=== PATIENT | female | born 2000 | race Caucasian/White ===

== ENCOUNTER 2023-04-24 03:59 | Observation (INO) | payer BC, SELFPAY ==
[2023-04-24 05:18] LABS: Bilirubin Urine NEGATIVE (NEGATIVE); Blood Urine NEGATIVE (NEGATIVE); Clarity Urine CLEAR (CLEAR); Color Urine LT. YELLOW (YELLOW); Glucose Urine UA NEGATIVE (NEGATIVE); Ketones Urine NEGATIVE (NEGATIVE); Leukocyte Esterase Urine SMALL (NEGATIVE); Nitrite Urine NEGATIVE (NEGATIVE); Protein Urine NEGATIVE (NEG/TRACE); Urine Microscopic Indicated YES; Urobilinogen Urine 0.2 EU/dL (0.2-1.0); pH Urine 7.5 (5.0-9.0)
[2023-04-24 05:30] LABS: Bacteria Urine NONE SEEN #/HPF (NONE SEEN); Cast Seen? NONE SEEN #/LPF (NONE SEEN); Crystals Seen? None Seen #/HPF (None Seen); Mucus Urine NONE SEEN (NONE SEEN); RBC Urine 0-2 #/HPF (0-2); Squamous Epithelial Cell Urine RARE #/LPF (NONE/RARE); WBC Urine 0-2 #/HPF (NONE SEEN)
--- NOTE | 2023-04-24 08:31 | PM.EN ---
Event Note Event Note: patient presents at 0430 after texting me around 0300. States she fell down about 5 steps at her home when she got up to go to the bathroom. She states her son's book was on the steps and she slipped on the book. States she didn't hit her abdomen, she landed on her butt and back and then onto her feet. She denies cramping, contractions, bleeding and does feel the baby move. I did advise that she come to [facility] for 4 hour NST. I did assess the patient, she is talking, laughing with me and her mom. she states she had a little bit of cramping when she first got here, but nothing since and movement is good. She's moving all over. She does want to go home. EFM tracing reviewed. Patient discharge order placed. to return if cramping or contractions
== END 2023-04-24 08:35 | disposition home or self-care (01) ==
PROVIDERS: Admitting Provider Midwife; PCP Midwife; Visit Provider Midwife
DX: O9A.213 Injury, poisoning and certain other consequences of external causes complicating pregnancy, third trimester (principal); W10.9XXA Fall (on) (from) unspecified stairs and steps, initial encounter; Z3A.33 33 weeks gestation of pregnancy
CPT/HCPCS: 59025; 81001; G0378; G0379

== ENCOUNTER 2023-06-04 07:04 | Inpatient (IN) | payer BC, SELFPAY ==
[2023-06-04] VITALS (62 sets, daily range): BP systolic 102–122; BP diastolic 51–91; PULSE 71–129; RESP 10–34; TEMP 35.9–36.7; O2SAT 98–99
--- OUTSIDE RECORDS SUMMARY | 2023-06-04 07:07 | XMS_ITS | CCD ---
Author Name Unknown Address [id number] [place] [address] Organization [facility] Care Team Providers Care Flyer Builder Name Role Phone Zully Kerr MD Primary Care Pr ovider MICHA RUFFIN Admitting Unavailable MICHA RUFFIN Attending Unavailable ZULLY KERR Primary Care Un available JAH PETTIT Admitting Unavailable AMI, JAH Attending Unavailable ZULLY KERR Primary Care Un available Zully Alejandro MD Primary Care Provider FLORO, JAH L Referring Unavailable FLORO, JAH L Referring Unavailable FLORO, JAH L Attending Unavailable FLORO, JAH L Referring Unavailable FLORO, JAH L Attending Unavailable FLORO, JAH L Referring Unavailable FLORO, JAH L Attending Unavailable FLORO, JAH L Referring Unavailable FLORO, JAH L Attending Unavailable FLORO, JAH L Referring Unavailable FLORO, JAH L Attending Unavailable FLORO, JAH L Referring Unavailable FLORO, JAH L Attending Unavailable FLORO, JAH L Attending Unavailable FLORO, JAH L Attending Unavailable FLORO, JAH L Referring Unavailable FLORO, JAH L Attending Unavailable Medications Current Medications Medication Drug Class(es) Dates Sig (Normalized) Sig (Original) acetaminophen 500 mg oral tablet (1 source) Start: 10-09-2021 acetaminophen (TYLENOL) tablet 1,000 mg acetaminophen 325 mg / oxyCODONE hydrochloride 5 mg oral tablet (1 source) Opioid Agonist Start: 10-11-2021 End: 10-18-2021 oxyCODONE-acetaminop hen (PERCOCET) 5-325 MG per tablet Indications: Delivery of by section Take 1 tablet by mouth every 6 hours as needed for Pain for up to 7 days. Intended supply: 3 days. Take lowest dose possible to manage pain 28 tablet 0 10/11/2021 10/18/2021 Active 1 ml carboprost 0.25 mg/ml injection (1 source) Prostaglandin Analog Start: 10-09-2021 carboprost (HEMABATE) injection 250 mcg cholecalciferol 0.05 mg oral capsule (5 sources) Vitamin D take 1 capsule by mouth once daily cholecalciferol (Vitamin D-3) 50 MCG (2000 UT) capsule take 1 capsule by mouth once daily for 30 0 Active 1 ml diphenhydrAMINE hydrochloride 50 mg/ml cartridge (1 source) Histamine-1 Receptor Antagonist Start: 10-09-2021 diphenhydrAMINE (BENADRYL) injection 25 mg docusate sodium 100 mg oral capsule (4 sources) Start: 10-09-2021 take 1 capsule by mouth twice daily docusate sodium (COLACE) 100 MG capsule Take 1 capsule by mouth 2 times daily 60 capsule 0 10/11/2021 Active docusate sodium 50 mg / sennosides, half-way 8.6 mg oral tablet (1 source) Start: 10-09-2021 sennosides-docusate sodium (SENOKOT-S) 8.6-50 MG tablet 1 tablet 0.6 ml enoxaparin sodium 100 mg/ml prefilled syringe (1 source) Low Molecular Weight Heparin Start: 10-09-2021 enoxaparin (LOVENOX) injection 60 mg ferrous sulfate 325 mg oral tablet (2 sources) take 1 tablet by mouth once daily at breakfast ferrous sulfate (IRON 325) 325 (65 Fe) MG tablet Take 325 mg by mouth daily (with breakfast) 0 Active ibuprofen 800 mg oral tablet (2 sources) Nonsteroidal Anti-inflammatory Drug Start: 10-10-2021 End: 10-12-2021 take 1 tablet by mouth every eight hours as needed for pain ibuprofen (ADVIL;MOTRIN) 800 MG tablet Take 1 tablet by mouth every 8 hours as needed for Pain 30 tablet 1 10/11/2021 Active lanolin 1000 mg/ml topical cream (1 source) Start: 10-09-2021 lansinoh lanolin ointment levothyroxine sodium 0.075 mg oral tablet (10 sources) l-Thyroxine Start: 02-09-2023 take 1 tablet by mouth before mealtime levothyroxine (Synthroid) 75 MCG tablet Indications: Acquired hypothyroidism (CMS/HCC) , Other specified hypothyroidism (CMS/HCC) Take 1 tablet (75 mcg) by mouth in the morning. Take before meals. 90 tablet 3 02/09/2023 Active Start: 09-14-2022 take 1 tablet by jose th once daily in the morning levothyroxine (Synthroid, Levoxyl) 50 MCG tablet Indications: Acquired hypothyroidism (CMS/HCC) take 1 tablet by mouth every morning ON AN EMPTY STOMACH 100 tablet 1 09/14/2022 Active Start: 10-08-2021 End: 10-09-2021 levothyroxine (SYNTHROID) ta blet 50 mcg levothyroxine (S YNTHROID) 75 MCG tablet Take 50 mcg by mouth Daily 0 Active take 1 tablet by jose th once daily levothyroxine (SYNTHROID) 75 MCG tablet Take 75 mcg by mouth Daily 0 Suspended 1 ml methylergonovine maleate 0.2 mg/ml injection (1 source) Ergot Derivative Start: 10-09-2021 methylergonov ine (METHERGINE) injection 200 mcg metroNIDAZOLE 7.5 mg/ml topical lotion (3 sources) Nitroimidazole Antimicrobial Start: 05-10-2023 End: 05-20-2023 metroNIDAZOLE (Metrolotion) 0.75 % lotion lotion Indications: Dermatitis Apply 1 application topically in the morning and 1 application before bedtime. Do all this for 10 days. 59 mL 1 05/10/2023 05/20/2023 Active miSOPROStol 0.1 mg oral tablet (1 source) Prostaglandin E1 Analog Start: 10-09-2021 miSOPROStol (CYTOTEC ) tablet 800 mcg 1 ml nalbuphine hydrochloride 10 mg/ml injection (1 source) Opioid Agonist/Antagonist Start: 10-09-2021 nalbuphine (NUBAIN) injection 10 mg 1 ml naloxone hydrochloride 0.4 mg/ml injection (1 source) Opioid Antagonist Start: 10-09-2021 naloxone (NA RCAN) injection 0.4 mg 2 ml ondansetron 2 mg/ml injection (1 source) Serotonin-3 Receptor Antagonist Start: 10-09-2021 ondansetron (ZOFRAN) injection 4 mg oxyCODONE hydrochloride 5 mg oral tablet (2 sources) Opioid Agonist Start: 10-10-2021 oxyCODONE (YUE ICODONE) immediate release tablet 10 mg Start: 10-10-2021 oxyCODONE (YUE ICODONE) immediate release tablet 5 mg oxytocin (PITOCIN) 10 unit bolus from the bag (1 source) Start: 10-09-2021 oxytocin (VERONICA CELSA) 10 unit bolus from the bag MV-Min-Fe Fum-FA-DHA ( 1 PO) (3 sources) MV-Min- Fe Fum-FA-DHA ( 1 PO) Take by mouth. 0 Active Vit-DSS-Fe Cbn-FA (PRENA-CAP PO) (2 sources) take 1 capsule by mouth once daily Vit-DSS-Fe Cbn-FA (PRENA-CAP PO) Take 1 capsule by mouth daily 0 Active take 1 capsule by mouth once abida ly Vit-DSS-Fe Cbn-FA (PRENA-CAP PO) Take 1 capsule by mouth daily 0 Suspended vitamin 27-1 MG tab let 1 tablet (1 source) Start: 10-09-2021 vitam in 27-1 MG tablet 1 tablet simethicone 80 mg chewable tablet (1 source) Start: 10-09-2021 simethicone (M YLICON) chewable tablet 80 mg Completed/Discontinued Medications Medication Drug Class(es) Dates Sig (Normalized) Sig (Original) calcium chloride 0.0014 meq/ml / potassium chloride 0.004 meq/ml / sodium chloride 0.103 meq/ml / sodium lactate 0.028 meq/ml injectable solution (3 sources) Start: 10-07-2021 End: 10-09-2021 lactated ringers infusion cefOXitin (MEFOXIN) 2000 mg in dextrose 5% 50 mL (mini-bag) (1 source) Start: 10-08-2021 End: 10-09-2021 cefOXitin (MEFOXIN) 2000 mg in dextrose 5% 50 mL (mini-bag) citric acid 66.8 mg/ml / sodium citrate 100 mg/ml oral solution (1 source) Calculi Dissolution Agent, Anti-coagulant Start: 10-08-2021 End: 07-06-2022 citric acid-sodium citrate (BICITRA) solution 30 mL Start: 10-08-2021 End: 10-08-2021 citric acid-sodium citrate ( BICITRA) solution 30 mL famotidine (PEPCID) 20 mg in sodium chloride (PF) 10 mL injection (1 source) Start: 10-08-2021 End: 10-08-2021 famotidine (PEPCID) 20 mg in sodium chloride (PF) 10 mL injection 1 ml ketorolac tromethamine 30 mg/ml cartridge (1 source) Nonsteroidal Anti-inflammatory Drug, Cyclooxygenase Inhibitor Start: 10-09-2021 End: 10-09-2021 take 30 mg intravenously every eight hours ketorolac (TORADOL) injection 30 mg 2 ml metoclopramide 5 mg/ml prefilled syringe (1 source) Dopamine-2 Receptor Antagonist Start: 10-08-2021 End: 10-08-2021 metoclopramide (REGLAN) injection 10 mg Start: 10-08-2021 End: 10-08-2021 metoclopramide (REGLAN) inje ction 10 mg miSOPROStol (CYTOTEC) pre-split tablet TABS 25 mcg (1 source) Start: 10-07-2021 End: 10-08-2021 miSOPROStol (CYTOTEC) pre-split tablet TABS 25 mcg oxytocin (PITOCIN) 30 units in 500 mL infusion (1 source) Start: 10-07-2021 End: 10-09-2021 oxytocin (PITOCIN) 30 units in 500 mL infusion penicillin g potassium [id number] unt/ml injectable solution (1 source) Penicillin-class Antibacterial Start: 10-08-2021 End: 10-08-2021 penicillin G potassium [id number] units injection 200 ml ropivacaine hydrochloride 2 mg/ml injection (1 source) Amide Local Anesthetic Start: 10-08-2021 End: 10-09-2021 10 mL/hr, Epidural, CONTINUOUS, Starting on Wed10/08/21 at 1445, Until Wed10/09/21 at 0041 5 ml sodium chloride 9 mg/ml injection (10 sources) Start: 10-09-2021 take 1 dose intravenously twice daily 5-40 mL, IntraVENous, EVERY 12 HOURS SCHEDULED (2 times per day), First dose on Wed10/09/21 at 0900, Until Discontinued For Line Patency: Peripheral IV = 5 mL; Midline or Central Line = 10 mL/lumen.&nb sp; If following IV push medication, administer flush at same rate as the IV push. Flush volume is determined by type of infusion therapy being given. &nbs p;For non-viscous solutions use: Periph eral IV = 5 mL Midline or Central Line = 10 mL/lumen &n bsp;For viscous solutions (i.e. blood components, parenteral nutrition, contrast media, or after obtaining blood sample) use: Periph eral IV = 10 mL Midline or Central Line = 20 mL/lumen PACU only Start: 10-09-2021 IntraVENous, a t 5-250 mL/hr, PRN, if patient receiving piggyback infusions and maintenance fluids are not ordered OR KVO fluids to protect IV site / prevent frequent line interruptions/ long duration, Starting on Kandice 10/09/21 at 0041 For piggyback infusion, administer at same rate as piggyback for a total of 25 mL. Enter 25 mL into dose field and piggyback rate into rate field of order. If piggyback is infusing at a rate less than 100 mL/hr, enter 25 mL into dose field and 100 mL/hr into rate field of order. For KVO fluids, enter rate of 20 mL/hr or less into rate field of order. PACU only Start: 10-09-2021 0.9 % sodium c hloride infusion Start: 10-09-2021 take 5-40 mL intrave nously once as needed 5-40 mL, IntraVENous, PRN, Starting on Kandice 10/09/21 at 0041, Until Discontinued, Line Care, After every IV line use For Line Patency: Peripheral IV = 5 mL; Midline or Central Line = 10 mL/lumen. If following IV push medication, administer flush at same rate as the IV push. Flush volume is determined by type of infusion therapy being given. For non-viscous solutions use: Peripheral IV = 5 mL Midline or Central Line = 10 mL/lumen For viscous solutions (i.e. blood components, parenteral nutrition, contrast media, or after obtaining blood sample) use: Peripheral IV = 10 mL Midline or Central Line = 20 mL/lumen PACU only Start: 10-07-2021 End: 10-09-2021 sodium chloride flush 0.9 % injection 10 mL zolpidem tartrate 5 mg oral tablet (1 source) gamma-Aminobutyric Acid-ergic Agonist Start: 10-07-2021 End: 10-07-2021 zolpidem (AMBIEN) tablet 5 mg Problems Problem Classification Problem Date Documented Da te Episodic/Chronic Anxiety disorders (3 sources) Generalized anxiety disorder; Translations: [Generalized anxiety disorder] Onset: 09-01-2022 09-01-2022 Chronic distress and abnormal forces of labor (4 sources) Failure to progress in labor; Translations: [Other uterine inertia] Onset: 10-09-2021 Resolved: 10-11-2021 Episodic Mood disorders (3 sources) Minor depressive disorder; Translations: [Other specified depressive episodes] Onset: 09-01-2022 09-01-2022 Chronic Other complications of ; puerperium affecting management of mother (2 sources) Deliveries by ; Translations: [Encounter for delivery without indication] Episodic Other and delivery including normal (6 sources) Patient encounter status; Translations: [Encounter for supervision of normal , unspecified, unspecified trimester] Onset: 10-07-2021 Resolved: 10-11-2021 Episodic Other screening for suspected conditions (not mental disorders or infectious disease) (2 sources) Finding related to ; Translations: [Encounter for other specified screening] 05-17-2023 Episodic Thyroid disorders (5 sources) Hypothyroidism; Translations: [Hypothyroidism, unspecified] Onset: 08-28-2022 08-28-2022 Chronic Results Test Name Value Interpretation Reference Range Facility US BIOPHYSICAL PROFILE WO NON STRESS TESTINGon 05-27-2023 US BIOPHYSICAL PROFILE WO NON STRESS TESTING EXAMINATION: US BIOPHYSICAL PROFILE WO NON STRESS TESTING DATE AND TIME:05/27/2023 4:20 PM REFERRING PHYSICIAN:JAH PETTIT CLINICAL HISTORY: Assess well-being. Hypothyroidism. COMPARISON: 05/20/2023, 05/13/2023 Technique: Grayscale violation of the fetus was performed for biophysical profile purposes and does not constitute an anatomic survey. RESULT: The fetus received a score of 8 out of 8. Two points were awarded for the following: * breathing movementsYes * movementsYes * toneYes * Amniotic fluid volumeYes Amniotic fluid index was 13.2, 49.2 percentile heart rate was 132 bpm. Cervix: 4.1 Anterior placenta, grade 2. Cephalic positioning. IMPRESSION: BIOPHYSICAL PROFILE SCORE OF 8 OUT OF 8. NIALL AND HEART RATE DESCRIBED ABOVE. ELECTRONICALLY SIGNED BY: Bony Young MD Normal Not Available US OB FOLLOW UP TRANSABDOMIN AL APPROACHon 05-20-2023 US OB FOLLOW UP TRANSABDOMINAL APPROACH FINDINGS: Comparison made with prior biophysical profile examinations May 13, 2023, May 06, 2023. A single, live intrauterine is present with normal cardiac rate of 147 beats per minute. Normal activity and amniotic fluid volume. Amniotic fluid index is 14 cm. Morphology is grossly normal. The cervix closed, 4.2 cm. The placenta is anterior, not associated with the cervical os. The current sonographic age is 36 weeks and 5 days, based on the following measurements: BPD 9.1 cm (36 weeks, 5 days) Head Circumference 32.5 cm (36 weeks, 5 days) Abdominal Circumference 32.9 cm (36 weeks, 6 days) Femur Length 7.2 cm (36 weeks, 5 days) Presentation Breech Placenta Anterior Grade II Weight (g) by Percentile 53.6 % * These measurements result in an estimated date of delivery of June 12, 2023. The current estimated weight is 3033 grams (6 pounds, 11 ounces). IMPRESSION: 1. Single, live intrauterine , current sonographic age of 36 weeks and 5 days, with an estimated date of delivery of June 12, 2023 2. The current estimated weight is 3033 grams (6 pounds, 11 ounces). 3. Breech presentation * Estimated Weight (g) by Percentile is based upon an accurate estimated age based on last menstrual period. TRANSCRIBED BY: ELECTRONICALLY SIGNED BY: Nuno Collins MD Normal Not Available US BIOPHYSICAL PROFILE WO NON STRESS TESTINGon 05-13-2023 US BIOPHYSICAL PROFILE WO NON STRESS TESTING FINDINGS: Breathing Movements 2 Gross Body Movements 2 Tone 2 Qualitative amniotic fluid volume 2 A single, viable intrauterine is present. The cervical length closed 4.3 cm. NIALL was 13.0 cm. IMPRESSION: 8/8 placenta and normal biophysical profile. TRANSCRIBED BY: ELECTRONICALLY SIGNED BY: Nuno Collins MD Normal Not Available US BIOPHYSICAL PROFILE WO NON STRESS TESTINGon 05-06-2023 US BIOPHYSICAL PROFILE WO NON STRESS TESTING EXAMINATION: US BIOPHYSICAL PROFILE WO NON STRESS TESTING DATE AND TIME:05/06/2023 4:57 PM REFERRING PHYSICIAN:JAH PETTIT CLINICAL HISTORY: Assess well-being. Hypothyroidism. COMPARISON: 04/29/2023. Technique: Grayscale violation of the fetus was performed for biophysical profile purposes and does not constitute an anatomic survey. RESULT: The fetus received a score of 8 out of 8. Two points were awarded for the following: * breathing movementsYes * movementsYes * toneYes * Amniotic fluid volumeYes Amniotic fluid index was 14.8 cm, 55th percentile. heart rate was 138 bpm. Cervix measures 4.6 cm in length. IMPRESSION: BIOPHYSICAL PROFILE SCORE OF 8 OUT OF 8. NIALL AND HEART RATE DESCRIBED ABOVE. ELECTRONICALLY SIGNED BY: Bony Young MD Normal Not Available US BIOPHYSICAL PROFILE WO NON STRESS TESTINGon 04-29-2023 US BIOPHYSICAL PROFILE WO NON STRESS TESTING EXAMINATION: US BIOPHYSICAL PROFILE WO NON STRESS TESTING DATE AND TIME:04/29/2023 4:18 PM REFERRING PHYSICIAN:JAH PETTIT CLINICAL HISTORY: Assess well-being. Hypothyroidism. COMPARISON: 04/22/2023. Technique: Grayscale violation of the fetus was performed for biophysical profile purposes and does not constitute an anatomic survey. RESULT: The fetus received a score of 8 out of 8. Two points were awarded for the following: * breathing movementsYes * movementsYes * toneYes * Amniotic fluid volumeYes Amniotic fluid index was 14.7 cm, 52.8 percentile. heart rate was 138 bpm. IMPRESSION: BIOPHYSICAL PROFILE SCORE OF 8 OUT OF 8. NIALL AND HEART RATE DESCRIBED ABOVE. ELECTRONICALLY SIGNED BY: Bony Young MD Normal Not Available US OB FOLLOW UP TRANSABDOMIN AL APPROACHon 04-22-2023 US OB FOLLOW UP TRANSABDOMINAL APPROACH HISTORY: Hypothyroidism. COMPARISON: 04/15/2023. TECHNIQUE: Sonography of the pelvis was performed by transabdominal technique. Images were obtained and stored in a permanent archive. RESULT: Gestation: Single present. Position: Cephalic Placenta: Location: Anterior Grade: 2 Previa: absent Cervix: Closed measuring 4.9 cm in length. Cardiac activity: 131 bpm BPD: 8.1 cm HC: 29.7 cm AC: 28.9 cm FL: 6.3 cm Amniotic fluid: 15.8, 59.5 percentile Estimated weight (EFW): 4 pounds 8 ounces, 38.6 percentile Estimated gestational age: 32 weeks 5 days estimated gestational age by composite. Anatomy: No gross anomalies in the visualized anatomy. IMPRESSION: Single, live intrauterine with estimated 32 weeks 5 days gestational age. ELECTRONICALLY SIGNED BY: Bony Young MD Normal Not Available US OB FOLLOW UP TRANSABDOMIN AL APPROACHon 04-15-2023 US OB FOLLOW UP TRANSABDOMINAL APPROACH US OB FOLLOW UP TRANSABDOMINAL APPROACH: 04/15/2023 4:56 PM CLINICAL HISTORY: COMPARISON: April 02, 2023 Transabdominal ultrasound of the gravid uterus was performed. FINDINGS: A single live intrauterine is noted in vertex position. cardiac activity measures approximately 143 beats per minute. The cervix measures approximately 4.6 cm in longitudinal length. A grade 2-appearing placenta is anterior without evidence of an abnormal subplacental collection or previa. The amniotic fluid volume appears within normal limits for gestation. It measures 15.51 cm. The following measurements were obtained: BPD 7.94 cm, HC 28.9 cm, AC 27.71 cm, FL 6.16 cm, which corresponds to an aggregate gestational age of 31 weeks 6 days. Estimated weight is 1848 g. This corresponds to 38.2% by LMP.. There is no free fluid noted in the maternal pelvis. Neither maternal ovary is identified. IMPRESSION: SINGLE LIVE INTRAUTERINE CORRESPONDING TO APPROXIMATELY 31 WEEKS 6 DAYS WITH AN EXPECTED DUE DATE OF JUNE 11, 2023. NO GROSS ABNORMALITIES IDENTIFIED, WITHIN THE LIMITS OF THE STUDY. ELECTRONICALLY SIGNED BY: Kenny Toro DO Normal Not Available US OB FOLLOW UP TRANSABDOMIN AL APPROACHon 04-02-2023 US OB FOLLOW UP TRANSABDOMINAL APPROACH HISTORY: 30 weeks gestation of . Interval follow-up. Dates from LMP of 30 weeks 0 days. COMPARISON: 01/27/2023. TECHNIQUE: Sonography of the pelvis was performed by transabdominal technique. Images were obtained and stored in a permanent archive. RESULT: Gestation: Single present. Position: Breech Placenta: Location: Anterior/fundal Grade: I Previa: absent Cervix: Closed measuring 5.2 cm in length. Cardiac activity: 145 bpm BPD: 7.5 cm HC: 27.3 cm AC: 25.2 cm FL: 5.6 cm Amniotic fluid: 15.5 cm, 57th percentile Estimated weight (EFW): 1414 g (3 pounds 2 ounces), 24.2 percentile. Estimated gestational age: 29 weeks 5 days estimated gestational age by composite. Anatomy: No gross anomalies in the visualized anatomy. IMPRESSION: Single, live intrauterine with estimated 29 weeks 5 days gestational age. Appropriate interval growth. ELECTRONICALLY SIGNED BY: Bony Young MD Normal Not Available US OB 14+ WEEKS ANATOMY SCAN on 01-27-2023 US OB 14+ WEEKS ANATOMY SCAN EXAM: US OB 14+ WEEKS ANATOMY SCAN [id number] CLINICAL INDICATION: Anatomy scan COMPARISON: 11/09/2022 FINDINGS: Transabdominal imaging was performed. A single living intrauterine demonstrates spontaneous movement. Cervical length is at least 4.2 cm and the cervix is closed. heart rate is 147 beats per minute. Amniotic fluid index is 12.7 cm, 31st percentile. Fetus is in cephalic position. The placenta is anterior, grade 1. Measurements include: biparietal diameter 4.5 cm, head circumference 16.8 cm, abdominal circumference 15.3 cm and femur length 3.2 cm. This calculates to a mean gestational age by ultrasound of 20 weeks 0 days. Estimated date of delivery is 06/16/2023. Estimated weight is 347 g (12 ounces). Estimated weight percentile is 26%. lateral ventricles, cerebellum, cisterna magna, orbits, four-chamber heart, stomach, kidneys, three-vessel cord with insertion, bladder, female genitalia, 12 long bones, diaphragm, longitudinal and transverse images of the spine are seen. There are no gross abnormalities however please note that ultrasound cannot detect all anomalies. IMPRESSION: Single living intrauterine . Estimated age 20 weeks 0 days. Please see details above. ELECTRONICALLY SIGNED BY: Ahsan Bishop MD Normal Not Available Hemoglobinon 10-10-2021 Hemoglobin (Bld) [Mass/Vol] 8.7 g/dL Low 11.9-15.[address] [facility] Comment on above: Performed By: #### H #### [facility] [address] [place] [address] [place] [address] Supervisor: Michael Hector MD Hemoglobin (Bld) [Mass/Vol] 8.7 g/dL Low 11.9 - 15.1 g/dL [facility] Interpretation and review of laboratory results Abnormal [facility] OPERATIVE REPORTon 2 OPERATIVE REPORT [address] [id number] OPERATIVE REPORT PATIENT NAME: RULA TONY : 2000 MED REC NO: [id number] ROOM: 0203 ACCOUNT NO: [id number] ADMIT DATE: 10/07/2021 PROVIDER: Clayton Norman MD DATE OF PROCEDURE: 10/08/2021 Date upon completion of the procedure is 10/09/2021. PREOPERATIVE DIAGNOSIS: Failure to progress in labor. POSTOPERATIVE DIAGNOSES: Failure to progress in labor plus occiput posterior confirmed and LOT presentation. PROCEDURE PERFORMED: Primary section, low-transverse uterine segment. SURGEON: Clayton Norman M.D. ANESTHESIA: Epidural. DIGESTER OPERATOR HELPER: Jah Pettit. ESTIMATED BLOOD LOSS: 600 mL. COMPLICATIONS OF THE PROCEDURE: None. FINDINGS: A viable vigorous male infant in LOT presentation with clear amniotic fluid. NOTE: The patient did present for induction of labor today. She did progress to 7 cm, but after a few hours did not make any further change. Pitocin use had to be watched carefully as there would be episodic decelerations that did resolve with position change and discontinuing the Pitocin. In any event, there was noted to be increasing catgut and the baby was felt to be in OP presentation, which prompted this delivery. DESCRIPTION OF PROCEDURE: The patient was taken to the operating room. Epidural had been bolused. The patient had Cat catheter placed and taken to the operating room. Pneumatic stockings placed. Abdomen sterilely prepped and draped. Scalpel was used to make a transverse incision on the lower abdomen. Bovie cautery was used to divide the subcutaneous tissue coagulating small bleeding vessels that were encountered, then to divide the fascia, and then to mobilize the fascia away from the underlying rectus muscles both superiorly and inferiorly. Rectus muscles were bluntly in the midline. Peritoneum bluntly entered. Lateral traction placed on the rectus muscles, which gave excellent view of the lower uterine segment. Uterine peritoneum was elevated and incised and this was mobilized carefully off the lower uterine segment. Scalpel was used to make a transverse incision over the lower uterine segment. The uterus was carefully entered with hemostats and extended in a semilunar fashion with soft sugar operator head's fingers and then the OP presentation was noted. Core Analyst's fingers inserted in the uterus. head elevated and turned and then with fundal pressure, readily delivered. Of note, that there was a cord blood specimen container that was present. So, as soon as baby was delivered, the cord was clamped and cut and then the cord blood specimen was obtained by putting a needle into the uterine vessels and a copious amount of the cord blood was obtained. After no longer, obtained a small amount was expressed into the specimen for cord blood. The cord was then sampled separately. Placenta manually extracted from the uterus. The uterus cleaned of blood clots and membranes. The uterus was brought out of the incision and held with wet lap. The uterus was closed with #1 chromic in a running interlocking fashion. There was noted to be a small hematoma inferior on the left side of the incision and vlecev-lw-jgsur sutures were placed across this to prevent any further expansion. The uterus closed in two layers with 0 chromic. A ezzhfx-br-ygsdg suture was placed in the right superior lateral portion of the incision to stop needle hole bleeding as well and then the good hemostasis was noted with the incision. A minimal amount of cautery was placed on the edges of the peritoneum. Posterior cul-de-sac cleaned of blood clots and fluid. Uterus carefully replaced back into the abdomen. Anterior cul-de-sac and paracolic gutters were well visualized and cleaned. No active bleeding noted. Fascia was closed with 0 PDS in a running non-interlocking fashion. The subcutaneous tissue was well irrigated and closed with a 3-0 Vicryl in an interrupted fashion. Jah Pettit did close the skin in a subcuticular fashion. All sponge, needle, and instrument counts were noted be correct. The patient was taken to the recovery room after a postoperative block obtained. CLAYTON NORMAN MD [id number] Doc#: [id number] CC: [facility] CBC auto differentialon 07-0 Absolute Eos # 0.07 [facility] Absolute Immature Granulocyte 0.03 [facility] Absolute Lymph # 2.08 [facility] Absolute [place] # 0.33 [facility] Basophils (Bld) [#/Vol] 10*3/uL [facility] Basophils/100 WBC (Bld) 0 % 0 - 2 % [facility] Eosinophils/100 WBC (Bld) 1 % 1 - 4 % [facility] Hematocrit (Bld) [Volume fraction] 35.5 % Low 36.3 - 47.1 % [facility] Hemoglobin (Bld) [Mass/Vol] 11.4 g/dL Low 11.9 - 15.1 g/dL [facility] Immature granulocytes/100 WBC (Bld) 0 % 0 [facility] Interpretation and review of laboratory results Abnormal [facility] Lymphocytes/100 WBC (Bld) 23 % Low 25 - 45 % [facility] MCH (RBC) [Entitic mass] 28.1 pg 25.2 - 33.5 pg [facility] MCHC (RBC) [Mass/Vol] 32.1 g/dL 28.4 - 34.8 g/dL [facility] MCV (RBC) [Entitic vol] 87.4 fL 82.6 - 102.9 fL [facility] Monocytes/100 WBC (Bld) 4 % 2 - 8 % [facility] NRBC Automated 0.0 0.0 per 100 WBC [facility] Platelet distribution width (Bld) [Ratio] 15.0 % High 11.8 - 14.4 % [facility] Platelet mean volume (Bld) [Entitic vol] 11.5 fL 8.1 - 13.5 fL [facility] Platelets (Bld) [#/Vol] 278 10*3/uL [facility] RBC (Bld) [#/Vol] 4.06 10*6/uL 3.95 - 5.1 1 m/uL [facility] Segmented neutrophils/100 WBC (Bld) 72 % High 34 - 64 % [facility] Segs Absolute 6.54 [facility] WBC (Bld) [#/Vol] 9.1 10*3/uL [facility] CBC with Diffon 10-07-2021 Abs. Basophil <0.03 Normal 0.00-0.20 [facility] Comment on above: Performed By: #### C DP #### [address] [place] [id number] Supervisor: Michael Hector MD Abs.Imm.Granulocyte 0.03 k/uL Normal 0.00-0.[address] [facility] Comment on above: Performed By: #### C DP #### [facility] [address] [place] [address] [place] [address] Supervisor: Michael Hector MD Abs.Neutrophil (Seg) 6.54 k/uL Normal 1.50-8.10 [facility] Comment on above: Performed By: #### C DP #### [address] [place] [address] Supervisor: Michael Hector MD Basophils/100 WBC (Bld) 0 % Normal 0-[address] [facility] Comment on above: Performed By: #### C DP #### [facility] [address] [place] [address] Dr. Nguyen, [facility] Supervisor: Michael Hector MD Eosinophils (Bld) [#/Vol] 0.07 10*3/uL Normal 0.00-0.[address] [facility] Comment on above: Performed By: #### C DP #### [address] [place] [id number] Supervisor: Michael Hector MD Eosinophils/100 WBC (Bld) 1 % Normal 1-[address] [facility] Comment on above: Performed By: #### C DP #### [facility] [address] [place], [place] [id number] General [address] Supervisor: Michael Hector MD Erythrocyte distribution width (RBC) [Ratio] 15.0 % High 11.8-14.[address] [facility] Comment on above: Performed By: #### C DP #### [facility] [address] [place], [place] [id number] General Road Supervisor: Michael Hector MD Hematocrit (Bld) [Volume fraction] 35.5 % Low 36.3-47.[address] [facility] Comment on above: Performed By: #### C DP #### [facility] [address] [place], [place] [id number] General Road Supervisor: Michael Hector MD Hemoglobin (Bld) [Mass/Vol] 11.4 g/dL Low 11.9-15.[address] [facility] Comment on above: Performed By: #### C DP #### [facility] [address] [place], [place] [id number] General [address] Supervisor: Michael Hector MD Immature granulocytes/100 WBC (Bld) 0 % Normal [address] [facility] Comment on above: Performed By: #### C DP #### [facility] [address] [place] [address] Dr. Nguyen, [facility] Supervisor: Michael Hector MD Lymphocytes (Bld) [#/Vol] 2.08 10*3/uL Normal 1.10-3.[address] [facility] Comment on above: Performed By: #### C DP #### [facility] [address] [place], [place] [id number] General Road Supervisor: Michael Hector MD Lymphocytes/100 WBC (Bld) 23 % Low 25-[address] [facility] Comment on above: Performed By: #### C DP #### [facility] [address] [place], [place] [id number] Supervisor: Michael Hector MD MCH (RBC) [Entitic mass] 28.1 pg Normal 25.2-33.[address] [facility] Comment on above: Performed By: #### C DP #### [facility] [address] [place] [id number] Supervisor: Michael Hector MD MCHC (RBC) [Mass/Vol] 32.1 g/dL Normal 28.4-34.8 [facility] Comment on above: Performed By: #### C DP #### [address] [place] [id number] Supervisor: Michael Hector MD MCV (RBC) [Entitic vol] 87.4 fL Normal 82.6-102.[address] [facility] Comment on above: Performed By: #### C DP #### [address] [place], [place] [id number] General Road Supervisor: Michael Hector MD Monocytes (Bld) [#/Vol] 0.33 10*3/uL Normal 0.10-1.[address] [facility] Comment on above: Performed By: #### C DP #### [address] [place], [place] [id number] General Road Supervisor: Michael Hector MD Monocytes/100 WBC (Bld) 4 % Normal 2-[address] [facility] Comment on above: Performed By: #### C DP #### [facility] [address] [place], [place] [id number] General [address] Supervisor: Michael Hector MD Neutrophil (Seg) 72 % High 34-64 [facility] Comment on above: Performed By: #### C DP #### [facility] [address] [place] [address] [address] Supervisor: Michael Hector MD NRBC Automated 0.0 per 100 WBC Normal 0.[address] [facility] Comment on above: Performed By: #### C DP #### [facility] [address] [place], [place] [address] Supervisor: Michael Hector MD Platelet mean volume (Bld) [Entitic vol] 11.5 fL Normal 8.1-13.[address] [facility] Comment on above: Performed By: #### C DP #### [facility] [address] [place], [place] [address] Supervisor: Michael Hector MD Platelets (Bld) [#/Vol] 278 10*3/uL Normal 138-[address] [facility] Comment on above: Performed By: #### C DP #### [facility] [address] [place], [facility] Supervisor: Michael Hector MD RBC (Bld) [#/Vol] 4.06 10*6/uL Normal 3.95-5.[address] [facility] Comment on above: Performed By: #### C DP #### [facility] [address] [place] [address] Supervisor: Michael Hector MD WBC (Bld) [#/Vol] 9.1 10*3/uL Normal 4.5-13.[address] [facility] Comment on above: Performed By: #### C DP #### [facility] [address] [place], [facility] Supervisor: Michael Hector MD DRUG SCREEN MULTI URINEon Amphetamine Screen, Ur Negative NEGATIVE [facility] Barbiturate Screen, Ur Negative NEGATIVE [facility] Benzodiazepine Screen, Urine Negative NEGATIVE [facility] Buprenorphine Urine Negative NEGATIVE [facility] Cannabinoid Scrn, Ur Negative NEGATIVE [facility] Cocaine Metabolite, Urine Negative NEGATIVE [facility] Methadone Screen, Urine Negative NEGATIVE [facility] Methamphetamine, Urine Negative NEGATIVE [facility] Opiates, Urine Negative NEGATIVE [facility] Oxycodone Screen, Ur Negative NEGATIVE [facility] Phencyclidine, Urine Negative NEGATIVE [facility] Propoxyphene, Urine Negative NEGATIVE [facility] Tricyclic Antidepressants, Urine Negative NEGATIVE [facility] Comment on above: Drug screen results are to be used for medical purposes only. All positive results are unconfirmed. Testing for employment or legal uses should be sent to a reference laboratory for confirmation. [facility] Drug Scr, Abuse, Uron 2021 Amphetamine(s),Ur Negative Normal NEG [facility] Comment on above: Performed By: #### D AU #### [facility] [address] [place] [address] Dr. [place] [id number] Supervisor: Michael Hector MD Barbiturate(s),Ur Negative Normal NEG [facility] Comment on above: Performed By: #### D AU #### [address] [place] [phone] Supervisor: Michael Hector MD Benzodiazepine(s) Negative Normal [facility] Comment on above: Performed By: #### D AU #### [address] [place] [id number] Supervisor: Michael Hector MD Buprenorphrine, Ur Negative Normal NEG [facility] Comment on above: Performed By: #### D AU #### [facility] [address] [place] [address] Dr. [place] [id number] Supervisor: Michael Hector MD Cannabinoid(s),Ur Negative Normal NEG [facility] Comment on above: Performed By: #### D AU #### [address] [place] [address] Supervisor: Michael Hector MD Cocaine Metabolite Negative Normal [facility] Comment on above: Performed By: #### D AU #### [address] [place] [id number] Supervisor: Michael Hector MD Methadone Ql (U) Negative Normal NEG [facility] Comment on above: Performed By: #### D AU #### [facility] [address] [place], [place] [id number] General Road Supervisor: Michael Hector MD Methamphetamine, Ur Negative Normal NEG [facility] Comment on above: Performed By: #### D AU #### [facility] [address] [place], [place] [id number] General [address] Supervisor: Michael Hector MD Opiate(s), Ur Negative Normal NEG [facility] Comment on above: Performed By: #### D AU #### [facility] [address] [place] [address] Dr. [place], [place] [id number] Supervisor: Michael Hector MD Oxycodone, Urine Negative Normal NEG [facility] Comment on above: Performed By: #### D AU #### [facility] [address] [place] [address] [place] [address] Supervisor: Michael Hector MD Phencyclidine, Ur Negative Normal [facility] Comment on above: Performed By: #### D AU #### [facility] [address] [place] [address] Dr. [place], [place] [id number] Supervisor: Michael Hector MD Propoxyphene,Urine Negative Normal [facility] Comment on above: Performed By: #### D AU #### [facility] [address] [place] [address] Supervisor: Michael Hector MD Tricyclic antidepressants Screen Ql (U) Negative Normal [facility] Comment on above: Result Comment: Drug screen results are to be used for medical purposes only. All positive results are unconfirmed. Testing for employment or legal uses should be sent to a reference laboratory for confirmation. Performed By: #### D AU #### [facility] [address] [place] [address] Supervisor: Michael Hector MD US Biophysical Profileon US Biophysical Profile HISTORY: Decreased movement FINDINGS: Breathing Movements2 Gross Body Movements 2 Tone2 Qualitative amniotic fluid volume2 A single, viable intrauterine is present. The placenta is anterior, not associated with the cervical os. IMPRESSION: 1. Normal biophysical profile 11/10 2. NIALL 23 cc (please see OB ultrasound report) Report reported and signed by Nuno Collins on 09/30/2021 0709 Normal [facility] Zoning Assistant TSH w/ Reflex to Free T4on 0 09-11-2021 TSH 0.707 uIU/mL Normal 0.400-4.500 [facility] Comment on above: Performed By: #### 1 6802X, 6304R, 430A, 2782A, 80321, 46366I, 51257, 265F, 45152R, 1149T, 42A, 66813 #### [facility] Default [address] [place] [address] US OB Growthon 08-04-2021 OB Growth FINDINGS: Comparison made with prior ultrasound examination May 28, 2021. A single, live intrauterine is present with normal cardiac rate of 139 beats per minute. Normal activity and amniotic fluid volume. Amniotic fluid index is 17 cm. Morphology is grossly normal. The cervix is long and closed, 4.1 cm. The placenta is anterior, not associated with the cervical os. The current sonographic age is 30 weeks and 2 days, based on the following measurements: BPD 7.8 cm (31 weeks, 2 days) Head Circumference 28.7 cm (31 weeks, 4 days) Abdominal Circumference 26.6 cm (30 weeks, 5 days) Femur Length 5.7 cm (30 weeks, 0 days) Presentation Cephalic Placenta Anterior Grade II Weight (g) by Rqdxndxgpl72.4 % * These measurements result in an estimated date of delivery of October 11, 2021. The current estimated weight is 1610 grams (3 pounds, 9 ounces). IMPRESSION: 1. Single, live intrauterine , current sonographic age of 30 weeks and 2 days, with an estimated date of delivery of October 11, 2021 (prior IFEANYI October 13, 2021) 2. Current estimated weight 1610 grams (3 pounds, 9 ounces) * Estimated Weight (g) by Percentile is based upon an accurate estimated age based on last menstrual period. Report reported and signed by Nuno Collins on 08/05/2021 0734 Normal [facility] Complete Blood Counton 07-22 Erythrocyte distribution width (RBC) [Ratio] 13.8 % Normal 11.0-15.0 [facility] Comment on above: Performed By: #### 1 6802X, 6304R, 430A, 2782A, 78727, 46063Y, 51781, 265F, 49225R, 1149T, 42A, 88154 #### [facility] [address] [place] [address] Hematocrit (Bld) [Volume fraction] 32.8 % Low 35.0-47.0 [facility] Specialist Comment on above: Performed By: #### 1 6802X, 6304R, 430A, 2782A, 02532, 24841P, 90679, 265F, 52429V, 1149T, 42A, 89816 #### [facility] [address] [place] [address] Hemoglobin (Bld) [Mass/Vol] 10.7 g/dL Low 11.6-15.5 [facility] Specialist Comment on above: Performed By: #### 1 6802X, 6304R, 430A, 2782A, 19810, 11364B, 98119, 265F, 71059I, 1149T, 42A, 07277 #### [facility] [address] [place] [address] MCH (RBC) [Entitic mass] 28.3 pg Normal 27.0-33.0 [facility] Specialist Comment on above: Performed By: #### 1 6802X, 6304R, 430A, 2782A, 58302, 81230S, 73372, 265F, 52240N, 1149T, 42A, 93343 #### [facility] [address] [place] [address] MCHC (RBC) [Mass/Vol] 32.6 g/dL Normal 32.0-36.0 [facility] Comment on above: Performed By: #### 1 6802X, 6304R, 430A, 2782A, 48646, 50505Q, 88963, 265F, 37405Y, 1149T, 42A, 22735 #### [facility] [address] [place] [address] MCV (RBC) [Entitic vol] 87 fL Normal 80-100 [facility] Comment on above: Performed By: #### 1 6802X, 6304R, 430A, 2782A, 62271, 81714E, 50259, 265F, 27229O, 1149T, 42A, 33841 #### [facility] [address] [place] [address] Platelet mean volume (Bld) [Entitic vol] 10.50 fL Normal 7.50-12.50 [facility] Comment on above: Performed By: #### 1 6802X, 6304R, 430A, 2782A, 54820, 81705W, 44107, 265F, 91971I, 1149T, 42A, 31229 #### [facility] [address] [place] [address] Platelets (Bld) [#/Vol] 304 10*3/uL Normal 140-400 [facility] Specialist Comment on above: Performed By: #### 1 6802X, 6304R, 430A, 2782A, 12481, 03549N, 24392, 265F, 06996M, 1149T, 42A, 27643 #### [facility] [address] [place] [address] RBC (Bld) [#/Vol] 3.78 10*6/uL Low 3.90-5.20 [facility] Comment on above: Performed By: #### 1 6802X, 6304R, 430A, 2782A, 53866, 59247B, 15974, 265F, 11943B, 1149T, 42A, 44671 #### [facility] [address] [place] [address] RDW-SD 43.8 fL Normal 37.0-50.0 [facility] Specialist Comment on above: Performed By: #### 1 6802X, 6304R, 430A, 2782A, 84079, 42222J, 06921, 265F, 56338T, 1149T, 42A, 81834 #### [facility] [address] [place] [address] WBC (Bld) [#/Vol] 8.2 10*3/uL Normal 3.8-11.0 [facility] [place] [facility] Assistant Comment on above: Performed By: #### 1 6802X, 6304R, 430A, 2782A, 71370, 79094R, 86913, 265F, 96391T, 1149T, 42A, 21434 #### [facility] [address] [place] [address] Glucose - Gestational Screen on 07-22-2021 Glucose [Mass/Vol] 106 mg/dL Normal <135 [facility] [place] [facility] Comment on above: Result Comment: A va lue of 135 mg/dL or greater indicates the need for a full glucose tolerance test performed in the fasting state to determine if the patient has gestational diabetes. Performed By: #### 1 6802X, 6304R, 430A, 2782A, 35686, 18772W, 27950, 265F, 53734X, 1149T, 42A, 90287 #### [facility] [address] [place] [address] TSH w/ Reflex to Free T4on 0 07-22-2021 TSH 1.140 uIU/mL Normal 0.400-4.500 [facility] Assistant Comment on above: Performed By: #### 1 6802X, 6304R, 430A, 2782A, 31637, 30871G, 38036, 265F, 05205A, 1149T, 42A, 19778 #### [facility] [address] [place] [address] TSH w/ Reflex to Free T4on 0 06-09-2021 TSH 1.270 uIU/mL Normal 0.400-4.500 [facility] Assistant Comment on above: Performed By: #### 1 6802X, 6304R, 430A, 2782A, 06152, 85915V, 16085, 265F, 88524N, 1149T, 42A, 52519 #### [facility] [address] [place] [address] US Abdomen Limitedon 022 US Abdomen Limited HISTORY: Umbilical pain x 6 hours, 20 weeks FINDINGS: Sonographic evaluation targeted to the umbilical, periumbilical region, demonstrates no bowel herniation or significant fascial defect. No rectus sheath hematoma or underlying abnormal fluid collection. Intact, normal appearing anterior placenta. No hemorrhage or abruption. Single viable intrauterine . Normal gallbladder and biliary tree. Normal right kidney, minimal collecting system dilatation, appearance of which within normal limits given this history. IMPRESSION: 1. No rectus sheath hematoma or significant herniation 2. Intact anterior placenta Report reported and signed by Nuno Collins on 05/28/2021 0718 Normal [facility] Zoning Assistant TSH w/ Reflex to Free T4on 0 04-14-2021 TSH 3.320 uIU/mL Normal 0.400-4.500 [facility] Comment on above: Performed By: #### 1 6802X, 6304R, 430A, 2782A, 26841, 51580H, 79342, 265F, 05751K, 1149T, 42A, 47025 #### [facility] [address] [place] [address] ABO, External Resulton 03-21 ABO, External Result Positive [employer] Phone: C. Trachomatis, External Res [facility] 03-21-2021 C. Trachomatis, External Result Not detected [employer] Phone: HIV, External Resulton 03-21 HIV, External Result Non-Reactive [facility] [employer] Phone: Hepatitis B, External Result on 03-21-2021 Hep B, External Result Non-Reactive [employer] Phone: N. Gonorrhoeae, External Res [facility] 03-21-2021 N. Gonorrhoeae, External Result Not detected [employer] Phone: No Panel Informationon 03-21 Rh Factor, External Result Positive [employer] Work Phone: [employer] Work Phone: [employer] Phone: RPR, External Labon 03-21-20 21 RPR, External Result Non-Reactive HUSAM [employer] Phone: Rubella Titer, External Resu lton 03-21-2021 Rubella Titer, External Result 4.18 immune [facility] [employer] Phone: Q - ABO GROUP AND RH TYPEon 03-18-2021 ABO group Nom (Bld) A Normal [facility] Specialist Comment on above: Order Comment: [facility] performed at: [employer] [facility], [address] [facility], [address] [place] [address], [address] [place] [address], Instrumentation Chemist: Luiz Dale MD [facility] Collection Date/Time: [facility] Results Received Date/Time: [facility] Reported Date/Time: Performed By: #### 1 6802X, 6304R, 430A, 2782A, 44871, 21654P, 38632, 265F, 34609E, 1149T, 42A, 40789 #### [facility] [address] [place] [address] RH TYPE Positive Normal [facility] Comment on above: Order Comment: [facility] performed at: [employer], [facility], [address], [address] [place] [address], [address] [place] [address], Instrumentation Chemist: Luiz Dale MD [facility] Collection Date/Time: [facility] Results Received Date/Time: [facility] Reported Date/Time: Result Comment: For additional information, please refer to [email or web address]/[email or web address] (This link is being provided for informational/ educational purposes only.) Performed By: #### 1 6802X, 6304R, 430A, 2782A, 18344, 93842T, 65167, 265F, 22270Y, 1149T, 42A, 97257 #### [facility] [address] [place] [address] Q - ANTIBODY SCREEN,RBC W/RE FL ID,TITER AND AGon 03-18-2021 ANTIBODY SCREEN, RBC W/REFL ID, TITER AND AG Detected Normal [facility] Zoning Assistant Comment on above: Order Comment: [facility] performed at: [employer], [facility], [address] [place] [address], [address] [place] [address], [id number], Instrumentation Chemist: Luiz Dale MD [facility] Collection Date/Time: [facility] Results Received Date/Time: [facility] Reported Date/Time: Result Comment: Refe rence range No antibodies detected This assay is a screening test for the detection of red blood cell antibodies. The test is not to be used for pretransfusion screening or for the medical management of an alloimmunized . Performed By: #### 1 6802X, 6304R, 430A, 2782A, 66176, 09995N, 47926, 265F, 61131X, 1149T, 42A, 64726 #### [facility] [address] [place] [address] Q - CBC W/DIFF AND PLTon BASOABS 20 cells/uL Normal 0-200 [facility] Zoning Assistant Comment on above: Order Comment: [facility] performed at: [facility], [address] [place] [address], [address] [place] [address], [address], Instrumentation Chemist: Luiz Dale MD [facility] Collection Date/Time: [id number] [facility] Results Received Date/Time: [id number] [facility] Reported Date/Time: [id number] Performed By: #### 1 6802X, 6304R, 430A, 2782A, 30341, 51077T, 56956, 265F, 25153K, 1149T, 42A, 48880 #### [facility] [address] [place] [address] Basophils/100 WBC (Bld) 0.3 % Normal [facility] Specialist Comment on above: Order Comment: [facility] Testing performed at: [employer], [facility], [address] [place] [address], [address] [place] [address], [address] [place] [address], Instrumentation Chemist: Luiz Dale MD [facility] Collection Date/Time: [facility] Results Received Date/Time: [facility] Reported Date/Time: Performed By: #### 1 6802X, 6304R, 430A, 2782A, 24677, 48216M, 55785, 265F, 38917N, 1149T, 42A, 98828 #### [facility] Default [address] [place] [address] EOSABS 101 cells/uL Normal 15-500 [facility] Zoning Assistant Comment on above: Order Comment: [facility] performed at: [employer], [facility], [address] [place] [address], [address] [place] [address], [address] [place] [address], Instrumentation Chemist: Luiz Dale MD [facility] Collection Date/Time: [facility] Results Received Date/Time: [facility] Reported Date/Time: Performed By: #### 1 6802X, 6304R, 430A, 2782A, 24236, 25350Z, 92072, 265F, 92029W, 1149T, 42A, 60795 #### [facility] Default [address] [place] [address] Eosinophils/100 WBC (Bld) 1.5 % Normal [facility] Comment on above: Order Comment: [facility] performed at: [employer], [facility], [address] [place] [address], [address] [place] [address], [address] [place] [address], Instrumentation Chemist: Luiz Dale MD [facility] Collection Date/Time: [facility] Results Received Date/Time: [facility] Reported Date/Time: Performed By: #### 1 6802X, 6304R, 430A, 2782A, 12584, 31494M, 86331, 265F, 65528E, 1149T, 42A, 36969 #### [facility] Default [address] [place] [address] Erythrocyte distribution width (RBC) [Ratio] 14.4 % Normal 11.0-15.0 [facility] Zoning Assistant Comment on above: Order Comment: [facility] performed at: [employer], [facility], [address] [place] [address], [address] [place] [address], [address] [place] [address], Instrumentation Chemist: Luiz Dale MD [facility] Collection Date/Time: [facility] Results Received Date/Time: [facility] Reported Date/Time: Performed By: #### 1 6802X, 6304R, 430A, 2782A, 04524, 28323F, 45394, 265F, 82782L, 1149T, 42A, 98735 #### [facility] Default [address] [place] [address] Hematocrit (Bld) [Volume fraction] 37.8 % Normal 35.0-45.0 [facility] Zoning Assistant Comment on above: Order Comment: [facility] performed at: [facility], [facility], [address] [place] [address], [address] [place] [address], Instrumentation Chemist: Luiz Dale MD [facility] Collection Date/Time: [facility] Results Received Date/Time: [facility] Reported Date/Time: Performed By: #### 1 6802X, 6304R, 430A, 2782A, 25086, 71038E, 62429, 265F, 68530G, 1149T, 42A, 38152 #### [facility] Default [address] [place] [address] Hemoglobin (Bld) [Mass/Vol] 12.6 g/dL Normal 11.7-15.5 [facility] Zoning Assistant Comment on above: Order Comment: [facility] performed at: [facility], [address] [place] [address], [address] [place] [address], [address] [place] [address], Instrumentation Chemist: Luiz Dale MD [facility] Collection Date/Time: [facility] Results Received Date/Time: [facility] Reported Date/Time: Performed By: #### 1 6802X, 6304R, 430A, 2782A, 99127, 14145D, 81938, 265F, 83667P, 1149T, 42A, 51194 #### [facility] Default [address] [place] [address] Lymphocytes (Bld) [#/Vol] 1.956 10*3/uL Normal 850-3900 [facility] Zoning Assistant Comment on above: Order Comment: [facility] performed at: [employer], [facility], [facility], [address] [place] [address], [address] [place] [address], Instrumentation Chemist: Luiz Dale MD [facility] Collection Date/Time: [facility] Results Received Date/Time: [facility] Reported Date/Time: Performed By: #### 1 6802X, 6304R, 430A, 2782A, 04617, 67297J, 84641, 265F, 53762Y, 1149T, 42A, 42871 #### [facility] Default [address] [place] [address] Lymphocytes/100 WBC (Bld) 29.2 % Normal [facility] Zoning Assistant Comment on above: Order Comment: [facility] performed at: [employer], [facility], [facility], [address] [place] [address], [address] [place] [address], Instrumentation Chemist: Luiz Dale MD [facility] Collection Date/Time: [facility] Results Received Date/Time: [facility] Reported Date/Time: Performed By: #### 1 6802X, 6304R, 430A, 2782A, 78465, 19812E, 40213, 265F, 92232O, 1149T, 42A, 61228 #### [facility] Default [address] [place] [address] MCH (RBC) [Entitic mass] 28.7 pg Normal 27.0-33.0 [facility] Zoning Assistant Comment on above: Order Comment: [facility] performed at: [employer], [facility], [address] , [address] [place] [address], [address] [place] [address], Instrumentation Chemist: Luiz Dale MD [facility] Collection Date/Time: [facility] Results Received Date/Time: [facility] Reported Date/Time: Performed By: #### 1 6802X, 6304R, 430A, 2782A, 80257, 26420S, 54283, 265F, 44183B, 1149T, 42A, 64887 #### [facility] Default [address] [place] [address] MCHC (RBC) [Mass/Vol] 33.3 g/dL Normal 32.0-36.0 [facility] Comment on above: Order Comment: [facility] Testing performed at: [facility], [facility], [address] [place] [address], , Instrumentation Chemist: Luiz Dale MD [facility] Collection Date/Time: [facility] Results Received Date/Time: [facility] Reported Date/Time: Performed By: #### 1 6802X, 6304R, 430A, 2782A, 26882, 48470F, 28670, 265F, 95217G, 1149T, 42A, 33628 #### [facility] Default [address] [place] [address] MCV (RBC) [Entitic vol] 86.1 fL Normal 80.0-100.0 [facility] Specialist Comment on above: Order Comment: [facility] performed at: [facility], [address], [address] [place] [address], , Instrumentation Chemist: Luiz Dale MD [facility] Collection Date/Time: [facility] Results Received Date/Time: [facility] Reported Date/Time: Performed By: #### 1 6802X, 6304R, 430A, 2782A, 95851, 22257R, 64634, 265F, 19381Q, 1149T, 42A, 69320 #### [facility] Default [address] [place] [address] MONOABS 402 cells/uL Normal 200-950 [facility] Zoning Assistant Comment on above: Order Comment: [facility] performed at: [employer], [facility], [facility], [address] [place] [address], [address] [place] [address], Instrumentation Chemist: Luiz Dale MD [facility] Collection Date/Time: [facility] Results Received Date/Time: [facility] Reported Date/Time: Performed By: #### 1 6802X, 6304R, 430A, 2782A, 87849, 96712B, 48719, 265F, 79724R, 1149T, 42A, 95989 #### [facility] Default [address] [place] [address] Monocytes/100 WBC (Bld) 6.0 % Normal [facility] Specialist Comment on above: Order Comment: [facility] performed at: [employer], [facility], [address] [facility], [address] [place] [address], [address], Instrumentation Chemist: Luiz Dale MD [facility] Collection Date/Time: [facility] Results Received Date/Time: [facility] Reported Date/Time: Performed By: #### 1 6802X, 6304R, 430A, 2782A, 19831, 94557T, 46851, 265F, 05162M, 1149T, 42A, 94800 #### [facility] Default [address] [place] [address] Neutrophils (Bld) [#/Vol] 4.221 10*3/uL Normal 8620-0277 [facility] Zoning Assistant Comment on above: Order Comment: [facility] performed at: [employer], [facility], [address] , [address] [place] [address], [address] [place] [address], Instrumentation Chemist: Luiz Dale MD [facility] Collection Date/Time: [facility] Results Received Date/Time: [facility] Reported Date/Time: Performed By: #### 1 6802X, 6304R, 430A, 2782A, 26090, 70151C, 46768, 265F, 59456P, 1149T, 42A, 11335 #### [facility] Default [address] [place] [address] Neutrophils/100 WBC (Bld) 63 % Normal [facility] Specialist Comment on above: Order Comment: [facility] performed at: [employer], [facility], [address] , [address] [place] [address], [address], Instrumentation Chemist: Luiz Dale MD [facility] Collection Date/Time: [facility] Results Received Date/Time: [facility] Reported Date/Time: Performed By: #### 1 6802X, 6304R, 430A, 2782A, 83107, 17405F, 72547, 265F, 50382C, 1149T, 42A, 00525 #### [facility] Default [address] [place] [address] Platelet mean volume (Bld) [Entitic vol] 11.1 fL Normal 7.5-12.5 [facility] Zoning Assistant Comment on above: Order Comment: [facility] Testing performed at: [employer], [facility], [address] , [address] [place] [address], [address] [place] [address], Instrumentation Chemist: Luiz Dale MD [facility] Collection Date/Time: [facility] Results Received Date/Time: [facility] Reported Date/Time: Performed By: #### 1 6802X, 6304R, 430A, 2782A, 59427, 89924B, 70623, 265F, 93087V, 1149T, 42A, 92182 #### [facility] Default [address] [place] [address] Platelets (Bld) [#/Vol] 322 10*3/uL Normal 140-400 [facility] Specialist Comment on above: Order Comment: [facility] performed at: [employer], [facility], [address] , [address] [place] [address], [address] [place] [address], Instrumentation Chemist: Luiz Dale MD [facility] Collection Date/Time: [facility] Results Received Date/Time: [facility] Reported Date/Time: Performed By: #### 1 6802X, 6304R, 430A, 2782A, 96497, 27162C, 65415, 265F, 21562B, 1149T, 42A, 52057 #### [facility] Default [address] [place] [address] RBC (Bld) [#/Vol] 4.39 10*6/uL Normal 3.80-5.10 [facility] Comment on above: Order Comment: [facility] Testing performed at: [employer], [facility], [address], [address] [place] [address], [address], Instrumentation Chemist: Luiz Dale MD [facility] Collection Date/Time: [facility] Results Received Date/Time: [facility] Reported Date/Time: Performed By: #### 1 6802X, 6304R, 430A, 2782A, 57569, 05034Q, 39536, 265F, 89287F, 1149T, 42A, 49048 #### [facility] Default [address] [place] [address] WBC (Bld) [#/Vol] 6.7 10*3/uL Normal 3.8-10.8 [facility] Comment on above: Order Comment: [facility] Testing performed at: [employer], [facility], [address], [address] [place] [address], [address], Instrumentation Chemist: Luiz Dale MD [facility] Collection Date/Time: [facility] Results Received Date/Time: [facility] Reported Date/Time: Performed By: #### 1 6802X, 6304R, 430A, 2782A, 51457, 92924F, 39663, 265F, 14616N, 1149T, 42A, 94750 #### [facility] Default [address] [place] [address] Q - CHLAMYDIA TRACHOMATIS/NE ISSERIA GONORRHOEAE RNA TMAon 03-18-2021 CHLAMYDIA TRACHOMATIS RNA, TMA, UROGENITAL Not detected Normal NOT DETECTED [facility] Zoning Assistant Comment on above: Order Comment: [facility] performed at: [employer], [facility], [address], [address] [place] [address], [address] [place] [address], Instrumentation Chemist: Luiz Dale MD [facility] Collection Date/Time: [facility] Results Received Date/Time: [facility] Reported Date/Time: Performed By: #### 1 6802X, 6304R, 430A, 2782A, 40256, 23434U, 31989, 265F, 50170U, 1149T, 42A, 93688 #### [facility] Default [address] [place] [address] COMMENT SEE NOTE Normal [facility] Zoning Assistant Comment on above: Order Comment: [facility] performed at: [employer], [facility], [address], [address] [place] [address], [address] [place] [address], Instrumentation Chemist: Luiz Dale MD [facility] Collection Date/Time: [facility] Results Received Date/Time: [facility] Reported Date/Time: Result Comment: The analytical performance characteristics of this assay, when used to test SurePath(TM) specimens have been determined by [facility]. The modifications have not been cleared or approved by the FDA. This assay has been validated pursuant to the CLIA regulations and is used for clinical purposes. For additional information, please refer to https://education.Recorrido/faq/XPA186 (This link is being provided for information/ educational purposes only.) Performed By: #### 1 6802X, 6304R, 430A, 2782A, 35854, 73845W, 55125, 265F, 03235H, 1149T, 42A, 29504 #### [facility] Default [address] [place] [address] Result Comment: See Note 1 Note 1 This drug testing is for medical treatment only. Analysis was performed as non-forensic testing and these results should be used only by healthcare providers to render diagnosis or treatment, or to monitor progress of medical conditions. For assistance with interpreting these drug results, please contact a [facility] Toxicology Specialist: [phone] ( [phone] M-F, 8am-6pm EST. NEISSERIA GONORRHOEAE RNA, TMA, UROGENITAL Not detected Normal NOT DETECTED [facility] Zoning Assistant Comment on above: Order Comment: [facility] performed at: [employer], [facility], [address] [facility], [address] [place] [address], [address], Instrumentation Chemist: Luiz Dale MD [facility] Collection Date/Time: [facility] Results Received Date/Time: [facility] Reported Date/Time: Performed By: #### 1 6802X, 6304R, 430A, 2782A, 20570, 49869A, 19456, 265F, 83392D, 1149T, 42A, 50832 #### [facility] Default [address] [place] [address] Q - CULTURE,URINE,ROUTINEon 03-18-2021 CULTURE, URINE, ROUTINE SEE NOTE Abnormal [facility] Zoning Assistant Comment on above: Order Comment: [facility] performed at: [employer], [facility], [address] , [address] [place] [address], [address], Instrumentation Chemist: Luiz Dale MD [facility] Collection Date/Time: [facility] Results Received Date/Time: [facility] Reported Date/Time: Result Comment: CULT URE, URINE, ROUTINE Micro Number: [id number] Test Status: Final Specimen Source: Not given Specimen Quality: Adequate Result: 10,000-49,000 CFU/mL of Klebsiella pneumoniae COMMENT: Additional non-predominating organism(s) isolated. These organisms, commonly found on external and internal genitalia, are considered colonizers. No further testing performed. K.pneumoniae INT ELDA AMOX/CLAVULANATE S 4 AMPICILLIN R >=32 AMP/SULBACTAM R >=32 CEFAZOLIN NR <=4 2 CEFEPIME S <=1 CEFTRIAXONE S <=1 CIPROFLOXACIN S <=0.25 ERTAPENEM S <=0.5 GENTAMICIN S <=1 IMIPENEM S <=0.25 LEVOFLOXACIN S <=0.12 NITROFURANTOIN S 32 PIP/TAZOBACTAM I 32 TOBRAMYCIN S <=1 TRIMETHOPRIM/SULFA S <=20 S=Susceptible I=Intermediate R=Resistant * = Not Tested NR = Not Reported NN = See Therapy Comments THERAPY COMMENTS Note 1: For infections other than uncomplicated UTI caused by E. coli, K. pneumoniae or P. mirabilis: Cefazolin is resistant if ELDA > or = 8 mcg/mL. (Distinguishing susceptible versus intermediate for isolates with ELDA < or = 4 mcg/mL requires additional testing.) Note 2: For uncomplicated UTI caused by E. coli, K. pneumoniae or P. mirabilis: Cefazolin is susceptible if ELDA <32 mcg/mL and predicts susceptible to the oral agents cefaclor, cefdinir, cefpodoxime, cefprozil, cefuroxime, cephalexin and loracarbef. Performed By: #### 1 6802X, 6304R, 430A, 2782A, 45382, 80860O, 94834, 265F, 09052L, 1149T, 42A, 49340 #### [facility] Default [address] [place] [address] Q - DRUG TOX MONITORING CONFIRMATION,URINEon 03-18-2021 Amphetamines Negative Normal <500 [facility] o Zoning Assistant Comment on above: Order Comment: [facility] performed at: [facility], [address] [place] [address], [address] [place] [address], [address], Instrumentation Chemist: Luiz Dale MD [facility] Date/Time: [id number] [facility] Results Received Date/Time: [id number] [facility] Reported Date/Time: [id number] Performed By: #### 1 6802X, 6304R, 430A, 2782A, 82866, 61734A, 85621, 265F, 29177B, 1149T, 42A, 98233 #### [facility] Default [address] [place] [address] Barbiturates Negative Normal <300 [facility] [place] [facility] Zoning Assistant Comment on above: Order Comment: [facility] performed at: [employer], [facility], [address] , [address] [place] [address], [address], Instrumentation Chemist: Luiz Dale MD [facility] Collection Date/Time: [facility] Results Received Date/Time: [facility] Reported Date/Time: Performed By: #### 1 6802X, 6304R, 430A, 2782A, 01548, 65992N, 19461, 265F, 41870A, 1149T, 42A, 73554 #### [facility] Default [address] [place] [address] Benzodiazepines Negative Normal <100 [facility] Comment on above: Order Comment: [facility] performed at: [employer], [facility], [address], [address] [place] [address], [address], Instrumentation Chemist: Luiz Dale MD [facility] Collection Date/Time: [facility] Results Received Date/Time: [facility] Reported Date/Time: Performed By: #### 1 6802X, 6304R, 430A, 2782A, 45120, 68721I, 59800, 265F, 51039Z, 1149T, 42A, 49694 #### [facility] Default [address] [place] [address] Cocaine Metabolite Negative Normal <150 [facility] Comment on above: Order Comment: [facility] performed at: [employer], [facility], [address], [address] [place] [address], [address], Instrumentation Chemist: Luiz Dale MD [facility] Collection Date/Time: [facility] Results Received Date/Time: [facility] Reported Date/Time: Performed By: #### 1 6802X, 6304R, 430A, 2782A, 44086, 93041H, 20869, 265F, 32546G, 1149T, 42A, 34985 #### [facility] Default [address] [place] [address] Marijuana Metabolite 20 Negative Normal <20 [facility] Specialist Comment on above: Order Comment: [facility] performed at: [employer], [facility], [address] [place] [address], [address] [place] [address], [address] [place] [address], Instrumentation Chemist: Luiz Dale MD [facility] Date/Time: [facility] Results Received Date/Time: [facility] Reported Date/Time: Performed By: #### 1 6802X, 6304R, 430A, 2782A, 39978, 05594B, 34327, 265F, 10375O, 1149T, 42A, 93144 #### [facility] Default [address] [place] [address] Methadone Metabolite Negative Normal <100 [facility] Comment on above: Order Comment: [facility] performed at: [employer], [facility], [address] [place] [address], [address] [place] [address], [address] [place] [address], Instrumentation Chemist: Luiz Dale MD [facility] Collection Date/Time: [facility] Results Received Date/Time: [facility] Reported Date/Time: Performed By: #### 1 6802X, 6304R, 430A, 2782A, 43589, 61232S, 56697, 265F, 45740E, 1149T, 42A, 10264 #### [facility] Default [address] [place] [address] Opiates Negative Normal <100 [facility] Specialist Comment on above: Order Comment: [facility] performed at: [employer], [facility], [address] [place] [address], [address] [place] [address], [address] [place] [address], Instrumentation Chemist: Luiz Dale MD [facility] Collection Date/Time: [facility] Results Received Date/Time: [facility] Reported Date/Time: Performed By: #### 1 6802X, 6304R, 430A, 2782A, 23389, 90268F, 41063, 265F, 37987M, 1149T, 42A, 44354 #### [facility] Default [address] [place] [address] Oxycodone Negative Normal <100 [facility] Zoning Assistant Comment on above: Order Comment: [facility] performed at: [facility], [address], [address] [place] [address], [address], Instrumentation Chemist: Luiz Dale MD [facility] Date/Time: [facility] Results Received Date/Time: [facility] Reported Date/Time: Performed By: #### 1 6802X, 6304R, 430A, 2782A, 63123, 02012D, 43872, 265F, 31615Z, 1149T, 42A, 54497 #### [facility] Default [address] [place] [address] Phencyclidine Negative Normal <25 [facility] Zoning Assistant Comment on above: Order Comment: [facility] performed at: [facility], [address], [address] [place] [address], [address], Instrumentation Chemist: Luiz Dale MD [facility] Collection Date/Time: [facility] Results Received Date/Time: [facility] Reported Date/Time: Performed By: #### 1 6802X, 6304R, 430A, 2782A, 07252, 96898J, 56069, 265F, 07386K, 1149T, 42A, 94526 #### [facility] Default [address] [place] [address] Q - HEMOGLOBIN A1C WITH EAGo n 03-18-2021 eAG (mmol/L) 5.5 mmol/L Normal [facility] Zoning Assistant Comment on above: Order Comment: [facility] performed at: [facility], [address], [address] [place], [address], Instrumentation Chemist: Luiz Dale MD [facility] Date/Time: [facility] Results Received Date/Time: [id number] [facility] Reported Date/Time: Performed By: #### 1 6802X, 6304R, 430A, 2782A, 86438, 15966O, 65290, 265F, 68253S, 1149T, 42A, 34466 #### [facility] Default [address] [place] [address] HEMOGLOBIN A1c 5.1 % of total Hgb Normal <5.7 [place] Zoning Assistant Comment on above: Order Comment: [facility] performed at: [employer], [facility], [address] [facility], [address] [place] [address], [address], Instrumentation Chemist: Luiz Dale MD [facility] Date/Time: [facility] Results Received Date/Time: [facility] Reported Date/Time: Result Comment: For the purpose of screening for the presence of diabetes: <5.7% Consistent with the absence of diabetes 5.7-6.4% Consistent with increased risk for diabetes (prediabetes) > or =6.5% Consistent with diabetes This assay result is consistent with a decreased risk of diabetes. Currently, no consensus exists regarding use of hemoglobin A1c for diagnosis of diabetes in children. According to [place] [employer] (ADA) guidelines, hemoglobin A1c <7.0% represents optimal control in non- diabetic patients. Different metrics may apply to specific patient populations. Standards of Medical Care in Diabetes(ADA). Performed By: #### 1 6802X, 6304R, 430A, 2782A, 54832, 14440Z, 12266, 265F, 80669J, 1149T, 42A, 88856 #### [facility] Default [address] [place] [address] Magnesium [Mass/Vol] 100 mg/dL Normal [place] Zoning Assistant Comment on above: Order Comment: [facility] performed at: [employer], [facility], [address] , [address] [place], [address], Instrumentation Chemist: Luiz Dale MD [facility] Date/Time: [id number] [facility] Results Received Date/Time: [facility] Reported Date/Time: Performed By: #### 1 6802X, 6304R, 430A, 2782A, 45194, 08960A, 77384, 265F, 02512Q, 1149T, 42A, 01896 #### [facility] Default [address] [place] [address] Q - HEPATITIS B SURFACE ANTI GEN W/ REFLEXon 03-18-2021 HEPATITIS B SURFACE ANTIGEN Non-Reactive Normal NON-REACTIVE [facility] Comment on above: Order Comment: [facility] Testing performed at: [employer], [facility], [address] [facility], [address] [place] [address], [address] [place] [address], Instrumentation Chemist: Luiz Dale MD [facility] Collection Date/Time: [facility] Results Received Date/Time: [facility] Reported Date/Time: Performed By: #### 1 6802X, 6304R, 430A, 2782A, 65383, 81913A, 45702, 265F, 00905W, 1149T, 42A, 37369 #### [facility] Default [address] [place] [address] Q - HIV 1/2 ANTIGEN/ANTIBODY ,FOURTH GENERATION W/RFLon 03-18-2021 HIV AG/AB, 4TH GEN Non-Reactive Normal [facility]ACT[facility] above: Order Comment: [facility] Testing performed at: [employer], [facility], [address], [address] [place] [address], [address] [place] [address], Instrumentation Chemist: Luiz Dale MD [facility] Collection Date/Time: [facility] Results Received Date/Time: [facility] Reported Date/Time: Result Comment: HIV- 1 antigen and HIV-1/HIV-2 antibodies were not detected. There is no laboratory evidence of HIV infection. PLEASE NOTE: This information has been disclosed to you from records whose confidentiality may be protected by state law. If your state requires such protection, then the state law prohibits you from making any further disclosure of the information without the specific written consent of the person to whom it pertains, or as otherwise permitted by law. A general authorization for the release of medical or other information is NOT sufficient for this purpose. For additional information please refer to http://education.Recorrido/faq/IOI927 (This link is being provided for informational/ educational purposes only.) The performance of this assay has not been clinically validated in patients less than 2 years old. Performed By: #### 1 6802X, 6304R, 430A, 2782A, 45145, 57333H, 14756, 265F, 37928Q, 1149T, 42A, 74827 #### [facility] Default [address] [place] [address] Q - RPR (MONITOR) W/RFX TITE Luis Carlos 03-18-2021 RPR (MONITOR) W/REFL TITER Non-Reactive Normal NON-REACTIVE [facility] Zoning Assistant Comment on above: Order Comment: [facility] Testing performed at: [employer], [facility], [address] [facility], [address] [place] [address], [address] [place] [address], Instrumentation Chemist: Luiz Dale MD [facility] Collection Date/Time: [facility] Results Received Date/Time: [facility] Reported Date/Time: Performed By: #### 1 6802X, 6304R, 430A, 2782A, 99178, 91942U, 16375, 265F, 89174T, 1149T, 42A, 43915 #### [facility] Default [address] [place] [address] Q - URINALYSIS WITH REFLEX T O MICROSCOPICon 03-18-2021 Appearance (U) CLEAR Normal CLEAR [facility] Zoning Assistant Comment on above: Order Comment: [facility] Testing performed at: [employer], [facility], [address] [facility], [address] [place] [address], [address] [place] [address], Instrumentation Chemist: Luiz Dale MD [facility] Collection Date/Time: [facility] Results Received Date/Time: [facility] Reported Date/Time: Performed By: #### 1 6802X, 6304R, 430A, 2782A, 85204, 39198H, 55164, 265F, 42129N, 1149T, 42A, 70586 #### [facility] Default [address] [place] [address] Bilirubin Ql (U) Negative Normal NEGATIVE [facility] Zoning Assistant Comment on above: Order Comment: [facility] Testing performed at: [facility], [facility], [address], [address] [place] [address], [phone], Instrumentation Chemist: Luiz Dale MD [facility] Collection Date/Time: [facility] Results Received Date/Time: [facility] Reported Date/Time: Performed By: #### 1 6802X, 6304R, 430A, 2782A, 11284, 51953S, 95593, 265F, 56379A, 1149T, 42A, 80768 #### [facility] Default [address] [place] [address] Color (U) YELLOW Normal YELLOW [facility] Zoning Assistant Comment on above: Order Comment: [facility] Testing performed at: [facility], [facility], [address], [address] [place] [address], [phone], Instrumentation Chemist: Luiz Dale MD [facility] Collection Date/Time: [facility] Results Received Date/Time: [facility] Reported Date/Time: Performed By: #### 1 6802X, 6304R, 430A, 2782A, 05301, 29264S, 38760, 265F, 50451T, 1149T, 42A, 78431 #### [facility] Default [address] [place] [address] Glucose Ql (U) Negative Normal NEGATIVE [facility] Zoning Assistant Comment on above: Order Comment: [facility] Testing performed at: [facility], [facility], [address], [address] [place] [address], [phone], Instrumentation Chemist: Luiz Dale MD [facility] Collection Date/Time: [facility] Results Received Date/Time: [facility] Reported Date/Time: Performed By: #### 1 6802X, 6304R, 430A, 2782A, 32273, 60043H, 25880, 265F, 00996Q, 1149T, 42A, 46076 #### [facility] Default [address] [place] [address] Ketones Ql (U) Negative Normal NEGATIVE [facility] Zoning Assistant Comment on above: Order Comment: [facility] Testing performed at: [employer], [facility], [address] [facility], [address] [place] [address], [address] [place] [address], Instrumentation Chemist: Luiz Dale MD [facility] Collection Date/Time: [facility] Results Received Date/Time: [facility] Reported Date/Time: Performed By: #### 1 6802X, 6304R, 430A, 2782A, 14270, 12284C, 38652, 265F, 58718Y, 1149T, 42A, 66244 #### [facility] Default [address] [place] [address] Leukocyte esterase Test strip Ql (U) Negative Normal NEGATIVE [facility] Zoning Assistant Comment on above: Order Comment: [facility] Testing performed at: [employer], [facility], [address] , [address] [place] [address], [address] [place] [address], Instrumentation Chemist: Luiz Dale MD [facility] Collection Date/Time: [facility] Results Received Date/Time: [facility] Reported Date/Time: Performed By: #### 1 6802X, 6304R, 430A, 2782A, 59717, 35801X, 48467, 265F, 87547C, 1149T, 42A, 86458 #### [facility] Default [address] [place] [address] Nitrite Ql (U) Negative Normal NEGATIVE [facility] Zoning Assistant Comment on above: Order Comment: [facility] Testing performed at: [employer], [facility], [address] [facility], [address] [place] [address], [address] [place] [address], Instrumentation Chemist: Luiz Dale MD [facility] Collection Date/Time: [facility] Results Received Date/Time: [facility] Reported Date/Time: Performed By: #### 1 6802X, 6304R, 430A, 2782A, 06472, 47749V, 61204, 265F, 99912O, 1149T, 42A, 42439 #### [facility] Default [address] [place] [address] OCCULT BLOOD Negative Normal NEGATIVE [facility] Zoning Assistant Comment on above: Order Comment: [facility] Testing performed at: [facility], [facility], [address] , [address] [place] [address], [address], Instrumentation Chemist: Luiz Dale MD [facility] Collection Date/Time: [facility] Results Received Date/Time: [facility] Reported Date/Time: Performed By: #### 1 6802X, 6304R, 430A, 2782A, 51149, 58198L, 55800, 265F, 26819E, 1149T, 42A, 58073 #### [facility] Default [address] [place] [address] pH (U) 6.5 [pH] Normal 5.0-8.0 [facility] Zoning Assistant Comment on above: Order Comment: [facility] Testing performed at: [facility], [facility], [address], [address] [place] [address], [address], Instrumentation Chemist: Luiz Dale MD [facility] Collection Date/Time: [facility] Results Received Date/Time: [facility] Reported Date/Time: Performed By: #### 1 6802X, 6304R, 430A, 2782A, 14146, 66493V, 92333, 265F, 04819A, 1149T, 42A, 49821 #### [facility] Default [address] [place] [address] Protein Ql (U) Negative Normal NEGATIVE [facility] Zoning Assistant Comment on above: Order Comment: [facility] Testing performed at: [employer], [facility], [address] , [address] [place] [address], [place], [address], Instrumentation Chemist: Luiz Dale MD [facility] Collection Date/Time: [facility] Results Received Date/Time: [id number] [facility] Reported Date/Time: Performed By: #### 1 6802X, 6304R, 430A, 2782A, 41693, 84522U, 33290, 265F, 73901U, 1149T, 42A, 22973 #### [facility] Default [address] [place] [address] Specific gravity (U) [Rel density] 1.005 Normal 1.001-1.035 [facility] Zoning Assistant Comment on above: Order Comment: [facility] Testing performed at: [employer], [facility], [address] , [address] [place] [address], [place], [address], Instrumentation Chemist: Luiz Dale MD [facility] Collection Date/Time: [facility] Results Received Date/Time: [id number] [facility] Reported Date/Time: Performed By: #### 1 6802X, 6304R, 430A, 2782A, 58851, 63570C, 55874, 265F, 78043X, 1149T, 42A, 32640 #### [facility] Default [address] [place] [address] Vital Signs Date Time Vital Sign Value Performing Clinician Facility 05-17-2023 16:01-0500 Body mass index (BMI) [Ratio] 38.94 kg/m2 Jah Pettit [facility] Work Phone: [facility] 05-17-2023 16:01-0500 Body weight 106.14 kg Jah Pettit [facility] Work Phone: [facility] 05-17-2023 16:01-0500 Diastolic blood pressure 78 mm[Hg] Jah Pettit [facility] Work Phone: [facility] 05-17-2023 16:01-0500 Systolic blood pressure 120 mm[Hg] Jah Pettit [facility] Work Phone: [facility] 10-11-2021 07:17-0400 Body temperature 98.1 [degF] Jah Killian CNCristela Work Phone: [employer] [facility] 10-11-2021 07:17-0400 Diastolic blood pressure 74 mm[Hg] Jah Pettit APRN - CNCristela Work Phone: [facility] [email or web address] 10-11-2021 07:17-0400 Heart rate 75 /min Jah Pettit APRN - CNM Work Phone: [facility] [email or web address] 10-11-2021 07:17-0400 Respiratory rate 16 /min Jah Pettit APRN - CNCristela Work Phone: [facility] [email or web address] 10-11-2021 07:17-0400 Systolic blood pressure 132 mm[Hg] Jah Pettit APRN - CNCristela Work Phone: [facility] [email or web address] 10-09-2021 02:22-0400 SaO2% (BldA) [Mass fraction] 99 % Jah Pettit APRN - CNCristela Work Phone: [facility] [email or web address] 10-08-2021 22:56-0400 Body height 165.1 cm Jah Pettit APRN - CNCristela Work Phone: [facility] 10-08-2021 22:56-0400 Body mass index (BMI) [Ratio] 38.44 kg/m2 Jah Pettit APRN - CNCristela Work Phone: [employer] [facility] 10-08-2021 22:56-0400 Body weight 104.78 kg Jah Pettit APRN - CNCristela Work Phone: [facility] 09-12-2021 15:40-0400 Diastolic blood pressure 77 mm[Hg] Micha Gisela SPIKE MACHINE HEATER - CNM Work Phone: [facility] 09-12-2021 15:40-0400 Heart rate 105 /min Micha Ruffin SPIKE MACHINE HEATER - CNM Work Phone: [facility] 09-12-2021 15:40-0400 Respiratory rate 18 /min Micha Ruffin [employer]KE MACHINE HE[employer] - CNM Work Phone: [facility] 09-12-2021 15:40-0400 Systolic blood pressure 137 mm[Hg] Micha Ruffin SPIKE MACHINE HEATER - CNM Work Phone: [facility] [employer] 09-12-2021 11:47-0400 Body temperature 98.01 [degF] Micha Ruffin SPIKE MACHINE HEATER - CNM Work Phone: [facility] [employer] [facility] Encounters Encounter Date Encounter Type Care Provider Facility Start: 05-31-2023 ambulatory JAH L FLORO Not Rosa ilable Start: 05-27-2023 End: 05-28-2023 ambulatory JAH L FLORO Not Available Start: 05-25-2023 End: 05-26-2023 ambulatory JHA L FLORO Not Available Start: 05-20-2023 End: 05-21-2023 ambulatory JAH L FLORO Not Available Start: 05-17-2023 End: 05-18-2023 ambulatory JAH L FLORO Not Available Start: 05-17-2023 End: 05-17-2023 Subsequent care visit Jah L Floro CNM Work Phone: [facility] Comment on above: Encounter for superv ision of other normal , third trimester (Primary Dx); screening for streptococcus B; Hypothyroidism, unspecified type (CMS/HCC); Non-stress test reactive Start: 05-17-2023 Bamboo flowsheet Jah L Jimbo ro CNM Work Phone: [facility] Start: 05-17-2023 Bamboo flowsheet Jah L Jimbo ro CNM Work Phone: [facility] Start: 05-13-2023 End: 05-14-2023 ambulatory JAH L FLORO Not Available Start: 05-10-2023 End: 05-11-2023 ambulatory JAH L FLORO Not Available Start: 05-06-2023 End: 05-07-2023 ambulatory JAH L FLORO Not Available Start: 05-03-2023 End: 05-04-2023 ambulatory JAH L FLORO Not Available Start: 04-29-2023 End: 04-30-2023 ambulatory JAH L FLORO Not Available Start: 04-26-2023 End: 04-27-2023 ambulatory JAH L FLORO Not Available Start: 04-22-2023 End: 04-23-2023 ambulatory JAH L FLORO Not Available Start: 04-19-2023 End: 04-20-2023 ambulatory JAH L FLORO Not Available Start: 04-15-2023 End: 04-16-2023 ambulatory JAH L FLORO Not Available Start: 04-02-2023 End: 04-03-2023 ambulatory JAH L FLORO Not Available Start: 03-24-2023 End: 03-25-2023 ambulatory JAH L FLORO Not Available Start: 02-24-2023 End: 02-25-2023 ambulatory JAH L FLORO Not Available Start: 10-07-2021 End: 10-11-2021 Evaluation and management of inpatient JAH [facility] Start: 10-07-2021 End: 10-11-2021 Evaluation and management of inpatient Jah Pettit [facility] Work Phone: [email or web address] Comment on above: Delivery of pregnanc y by section (Primary Dx) Start: 09-12-2021 End: 09-12-2021 ambulatory [facility] Start: 09-12-2021 End: 09-12-2021 Subsequent hospital visit by physician Micha Killian CNM Work Phone: [facility] Delivery Procedures Date Procedure Procedure Detail Performing Clinician Start: 10-10-2021 Blood count hemoglobin Jah Pettit [employer] [facility] Work Phone: Start: 10-07-2021 Blood count complete auto&auto difrntl wbc Jah Pettit [employer] [facility] Work Phone: Start: 10-07-2021 Drug tst prsmv instr mnt chem analyzers pr date Jah Pettit [employer] - CNM Work Phone: Start: 09-12-2021 nonstress test Me kerry Ruffin [employer] - CNM Work Phone: Start: 03-21-2021 [facility] Start: 03-21-2021 C. TRACHOMATIS, EXTE RNAL RESULT Historical Provider MD Start: 03-21-2021 HEPATITIS B, EXTERNA L RESULT Historical Provider MD Start: 03-21-2021 HIV, EXTERNAL RESULT [facility] Provider Start: 03-21-2021 N. GONORRHOEAE, EXTE RNAL RESULT Historical Provider Start: 03-21-2021 RH FACTOR, EXTERNAL RESULT Historical Provider MD Start: 03-21-2021 RPR, EXTERNAL RESULT [facility] Provider Start: 03-21-2021 RUBELLA TITER, EXTER NAL RESULT Historical Provider MD Start: 03-18-2021 Antibody rubella Comment on above: Order Comment: [facility] Testing performed at: [employer] [employer] [facility], [address] [place] [address], [address] [place] [address], [phone], Instrumentation Chemist: Luiz Dale MD [facility] Collection Date/Time: [id number] [facility] Results Received Date/Time: [id number] [facility] Reported Date/Time: [id number] Result Comment: Inde x Interpretation ----- <0.90 Not consistent with immunity 0.90-0.99 Equivocal > or = 1.00 Consistent with immunity The presence of rubella IgG antibody suggests immunization or past or current infection with rubella virus. Performed By: #### 1 6802X, 6304R, 430A, 2782A, 91546, 34320D, 89445, 265F, 87180A, 1149T, 42A, 77267 #### [facility] Default [address] [place] [address] Plan of Treatment Date Care Activity Detail Author Start: 07-23-2031 DTaP/Tdap/Td vaccine (8 - Td or Tdap) DTaP/Tdap/Td vaccine (8 - Td or Tdap) [facility] Start: 06-03-2023 End: 06-03-2023 Professional / ancillary services management 06/03/2023 4:15 PM EST Ancillary Procedure [facility] [address] [phone] [facility] Start: 05-31-2023 End: 05-31-2023 Patient encounter procedure 05/31/2023 4:00 PM EST Routine [facility] [address] [facility] [place] [phone] Jah Pettit, CNM [address] [place] [address] [facility] Start: 05-27-2023 End: 05-27-2023 Professional / ancillary services management 05/27/2023 4:15 PM EST Ancillary Procedure [facility] [address] [phone] [facility] Start: 05-24-2023 End: 05-24-2023 Patient encounter procedure 05/24/2023 4:00 PM EST Routine [facility] [address] [facility] [place] [phone] Jah Pettit, CNM [address] [facility] [place] [address] [facility] Start: 05-20-2023 End: 05-20-2023 Professional / ancillary services management 05/20/2023 4:15 PM EST Ancillary Procedure [facility] [address] [phone] [facility] Start: 05-17-2023 End: 05-17-2024 STREPTOCCOUS, GROUP B CULTURE STREPTOCCOUS, GROUP B CULTURE Lab Routine screening for streptococcus B Expected: 05/17/2023 (Approximate), Expires: 05/17/2024 [facility] Work Phone: Comment on above: Expected: 05/17/2023 (Approximate), Expires: 05/17/2024 Start: 05-17-2023 End: 05-17-2024 TSH W/REFLEX TO FT4 TSH W/REFLEX TO FT4 Lab Routine Hypothyroidism, unspecified type (CMS/HCC) Expected: 05/17/2023 (Approximate), Expires: 05/17/2024 [facility] Comment on above: Expected: 05/17/2023 (Approximate), Expires: 05/17/2024 Start: 05-17-2023 End: 05-17-2024 US biophysical profile wo non stress testing US biophysical profile wo non stress testing Imaging Routine Hypothyroidism, unspecified type (CMS/HCC) Expected: 05/17/2023, Expires: 05/17/2024 [facility] Comment on above: Expected: 05/17/2023 , Expires: 05/17/2024 Start: 12-04-2022 Influenza vaccination Influenza Vacc ine (#1) [facility] Start: 12-04-2021 Influenza vaccination B [facility] Start: 10-25-2020 Screening for malign ant neoplasm of cervix Pap smear [facility] [employer] Start: 10-25-2018 DTaP/Tdap/Td vaccine (1 - Tdap) DTaP/Tdap/Td vaccine (1 - Tdap) [facility] Start: 10-25-2017 Hepatitis C screening Hepatitis C sc reen [facility] Start: 2015 Screening for Chlamy frances trachomatis Chlamydia screen [facility] [employer] Start: 10-25-2014 HIV screening HIV screen [facility] [employer] Start: 2011 Depression Screen Depression Screen [facility] [employer] Start: 10-25-2004 COVID-19 Vaccine (1) COVID-19 Vaccin e (1) [facility] [employer] End: 09-12-2021 nonstress test nonstress test OB Routine One Time for 1 Occurrences starting 09/12/2021 until 09/12/2021 [facility] Work Phone: Comment on above: One Time for 1 Occur rences starting 09/12/2021 until 09/12/2021 End: 10-09-2021 INITIATE PACU OXYGEN THERAPY PROTOCOL Initiate PACU Oxygen Therapy Protocol Respiratory Care Routine Continuous until discontinued starting 10/09/2021 [employer] Comment on above: Continuous until dis continued starting 10/09/2021 Nonrebreather mask oxygen Nonrebreather mask oxygen Respiratory Care Routine As directed - RT (PRN) until discontinued starting 10/09/2021 [facility] Phone: Comment on above: As directed - RT (NC N) until discontinued starting 10/09/2021 Oxygen therapy [[facility] Data Set] Initiate Oxygen Therapy Protocol Respiratory Care Routine As Needed until discontinued starting 10/09/2021 [facility] Phone: Comment on above: As Needed until disc ontinued starting 10/09/2021 Spirometry panel Incentive [facility] Respiratory Care Routine Every 2hr while awake until discontinued starting 10/09/2021 [employer] Work Phone: Comment on above: Every 2hr while awak e until discontinued starting 10/09/2021 Immunizations Immunization Date Immunization Notes Care Provider Fa [facility] 10-09-2021 diphtheria, tetanus toxoids and acellular pertussis vaccine, unspecified formulation Jah Floro [employer]ACHINE HEATER - [facility] Work Phone: [employer] Work Phone: 10-09-2021 measles, mumps and rubella virus vaccine Jah Shout TVo [employer]INE [employer]ATER - [facility] Work Phone: [employer] Work Phone: 01-27-2013 influenza virus vaccine, unspecified formulation Jah Floro [facility] Work Phone: [facility] Payers Date Payer Category Payer Unknown [id number] 2021 Unknown BCBS BCBS xxxxxx [id number] 2021-[facility] [phone] [address] [place] [address] [id number] 2009 Unknown [id number] 1999 Unknown [id number] 2.16.840.1.701357.3.579.2.173 1999 Unknown [id number] 2.16.840.1.940171.3.579.2.173 1999 Unknown [id number] 2.16.840.1.263429.3.579.2.1259 1999 Unknown [id number] 2.16.840.1.204460.3.579.2.125 1999 Unknown [id number] 2.16.840.1.472620.3.579.2.1258 1999 Unknown [id number] 2.16.840.1.144830.3.579.2.1258 1999 Unknown [id number] 2.16.840.1.445795.3.579.2.125 1999 Unknown [id number] 2.16.840.1.476279.3.579.2.1258 1999 Unknown [id number] 2.16.840.1.460491.3.579.2.1259 1999 Unknown [id number] 2.16.840.1.425966.3.579.2.1258 1999 Unknown [id number] 2.16.840.1.752609.3.579.2.125 1999 Unknown [id number] 2.16.840.1.693670.3.579.2.1259 1999 Unknown [id number] 2.16.840.1.267153.3.579.2.1258 1999 Unknown [id number] 2.16.840.1.046006.3.579.2.1259 1999 Unknown [id number] 2.16.840.1.399568.3.579.2.1259 1999 Unknown [id number] 2.16.840.1.761542.3.579.2.9 1999 Unknown [id number] 2.16.840.1.293974.3.579.2.9 1999 Unknown [id number] 2.16.840.1.691188.3.579.2.9 1999 Unknown [id number] 2.16.840.1.369702.3.579.2.1259 Social History Date Type Detail Facility Start: 09-12-2021 End: 04-12-2023 Tobacco smoking status NYIS Never smoked tobacco [facility] Phone: Start: 09-12-2021 Tobacco use and exposure Smokeless tobacco non-user [facility] Phone: Start: 09-12-2021 End: 10-10-2021 Alcohol intake Lifetime non-drinker (finding) [facility] Phone: Start: 09-12-2021 History SDOH Alcohol Frequency 1 [facility] Phone: Start: 01-19-2021 [facility] Phone: Start: 2000 Sex Assigned At Not on file [facility] Phone: Start: 09-02-2021 End: 09-12-2021 Exposure to SARS-CoV-2 (event) Not sure [facility] Phone: Start: 04-12-2023 Alcohol intake Not Asked [facility] Start: 04-12-2023 History of Social function [facility] Start: 04-12-2023 Tobacco use panel [facility] Start: 04-12-2023 Alcohol Comment caffeine: 1-2 cups per day [facility] Start: 2000 Sex Assigned At Female [facility] Start: 09-22-2022 Gender identity Identifies as female gender (finding) [facility] Start: 09-22-2022 Sexual orientation Heterosexual (finding) [facility] Clinical Notes 05-28-2021 to 05-17-2023 Jah Pettit CNM - 05/17/2023 4:00 PM ESTInstructionsSusan Anne Barrios, [employer]KE MACHINE HE[employer] - [facility] - 10/11/2021 11:13 AM EDTKatnatalie Tovar, SPIKE MACHINE HEATER - KWAME - 10/10/2021 7:45 AM EDTInstructions Note Date & Type Note Facility 05-17-2023 History of Present illness Narrative Subjective No chief complaint on file. Rula Tony is a 22 y.o. at 36w3d with a working estimated date of delivery of 06/11/2023, by Last Menstrual Period who presents for a routine visit. She denies vaginal bleeding, leakage of fluid, decreased movements, or contractions. Her is complicated by: hypothyroid, repeat section Objective Physical Exam weight: 234 lb Expected Total Weight Gain: 11 lb-19 lb Pregravid BMI: 34.95 BP: 120/78 Urine glucose-negative,protein-negative Assessment/Plan Diagnoses and all orders for this visit: Encounter for supervision of other normal , third trimester screening for streptococcus B - STREPTOCCOUS, GROUP B CULTURE; Future Hypothyroidism, unspecified type (CMS/HCC) - TSH W/REFLEX TO FT4; Future - US biophysical profile wo non stress testing; Future Reactive NST today in office Continue vitamin. Labs reviewed. GBS taken today Expected mode of delivery repeat section Follow up in 1 week for a routine visit. documented in this encounter [facility] 10-11-2021 Hospital Discharge instructions Anahi Tamez RN - 10/11/2021 Follow-up with your OB doctor as specified. [facility] OB Department phone: Dr. Emerson Tovar [facility] Dr. Job Barrios [place] [id number] [place] Becca Pettit, MSN, SPIKE MACHINE HEATER, CNM [place] [address] [address] [place] [address] DIET Eat a well balanced diet focusing on foods high in fiber and protein. Drink plenty of fluids especially water. To avoid constipation you may take a mild stool softener as recommended by your doctor or transfer agent. ACTIVITY Gradually increase your activity. Resume exercise regimen only after advice by your doctor or transfer agent. Avoid lifting anything heavier than a gallon of milk for SIX weeks. Avoid driving until your doctor or transfer agent has given their approval. Rise slowly from a lying to sitting and then a standing position. Climb stairs one at a time. Use caution when carrying your baby up and down the stairs. NO SEXUAL Activity for 4-6 weeks or until advised by your doctor; Nothing in vagina: intercourse, tampons, or douching. Be prepared to discuss family planning at your follow-up OB visit. You may feel tired or have a lack of energy. You may continue your vitamin to replenish nutrients post delivery. Nap when baby naps to catch up on sleep. EMOTIONS You may feel lawson, sad, teary, & overwhelmed. Contact your OB provider if you feel you may be showing signs of depression, or have thoughts of harming yourself or your infant. If will not stop crying, contact another adult for help or place infant in their crib on their back and take a break. NEVER shake your . BLEEDING Vaginal bleeding will decrease in amount over the next few weeks. You will notice that as your activity increases, your flow may increase. This is your body's way of telling you, you need to take things easier and rest more often. Call your care provider if you are saturating more than one maxi pad in an hour & resting does not help. BREAST CARE Take medications as recommended by your doctor or transfer agent for pain If you develop a warm, red, tender area on your breast or develop a fever contact your OB provider. For moms: If you become engorged, feeding may be more difficult or painful for 1-2 days. You may find it helpful to hand express some milk so that the can latch on more easily. While , continue to take your vitamins as directed by your doctor or transfer agent. Refer to the booklet in the folder/binder for more information. If you feel you need more assistance or have questions, please call Rena Jenkins IBCLC, staffing consultant, at or the OB department to schedule an appointment or phone consultation. For more FREE help, visit the Support Group on Wednesday evenings at 7 pm in the OB department. For NON- moms: You may apply ice packs to your breasts over your bra for twenty minutes at a time for comfort. Avoid stimulation to your breasts, when showering allow the water to strike your back not your breasts. Wear a good fitting bra until your milk dries, such as a sports bra. INCISIONAL CARE / TY CARE If you have an acticoat dressing in place after your please leave your dressing in place for one week until you follow up with your provider. They will remove this dressing in the office when you see them. If you have a ZANE negative pressure wound dressing please leave the dressing in place for 7 days after delivery. Your health care provider will remove the dressing at your one week incisional check. You may shower with your ZANE dressing, however the ZANE pump should be disconnected and placed in a safe location where it will not get wet. To disconnect the pump from the dressing, press the orange button to pause the therapy, unscrew the two part connector, and place the pump somewhere safe. While disconnected, ensure the end of the tubing attached to the dressing is facing downward so that water does not enter the tubing. Then re-connect the pump after your shower is complete. If your dressing starts to peel up or becomes soiled prior to your appointment with your provider, you may remove the dressing and clean your incision as directed below. Clean your incision in the shower with mild soap. After shower pat the incision area dry and allow the area open to air. If used, Steri-strips should be completely removed by 2 weeks but you may remove them as they become loose or soiled. If used, Leticia should be removed by your care provider. If used/ordered, an abdominal binder may provide support for your incision. Use the ty-bottle after toileting until bleeding stops. Cleanse your perineum from front to back If used, stitches will dissolve in 4-6 weeks. You may use a sitz bath or soak in a clean tub as needed for comfort. Kegel exercises will help restore bladder control. SWELLING Try to keep your legs elevated when you are sitting. When lying down keep your legs elevated. When wearing stocking or socks, make sure they are not too tight. WHEN TO CALL THE DOCTOR If you have a temp of 100.6 or more. If your bleeding has increased and you are saturating a pad in an hour. Your abdomen is tender to touch. You are passing blood clots bigger than the size of a lemon. If you are experiencing extreme weakness or dizziness. If you are having flu-like symptoms such as achy muscles or joints. There is a foul smell or a green color to your vaginal bleeding. If you have pain that cannot be relieved. You have persistent burning or frequency with urination. Call if you have concerns about your well-being. You are unable to sleep, eat, or are having thoughts of harming yourself or your baby. You have swelling, bleeding, drainage, foul odor, redness, or warmth in/around your incision or stitches. You have a red, warm, tender area in your calf. documented in this encounter [facility] Work Phone: 10-11-2021 History of Present illness Narrative C/S Labor and Delivery Post Progress Note SUBJECTIVE: 3rd day post op primary FTP, arrest of descent Flatus:Present BM:no Diet: Tolerating regular diet Ambulation: Ambulateswithout difficulty OBJECTIVE: Vitals: BP 132/74 Pulse 75 Temp 98.1 F (36.7 C) (Oral) Resp 16 Ht 5' 5 (1.651 m) Wt 231 lb (104.8 kg) LMP 01/05/2021 SpO2 99% Unknown BMI 38.44 kg/m Patient Vitals for the past 24 hrs: BP Temp Temp src Pulse Resp 10/11/21 0717 132/74 98.1 F (36.7 C) Oral 75 16 10/11/21 0330 118/69 97.8 F (36.6 C) Oral 70 16 10/10/21 1927 129/64 98.1 F (36.7 C) Oral 85 18 10/10/21 1520 123/71 98 F (36.7 C) Oral 90 16 ABDOMEN: No scars, normal bowel sounds, soft, non-distended, non-tender, no masses palpated, no hepatosplenomegally INCISION: dressing peeling back, is to be replaced for second time GENITAL/URINARY: External Genitalia: General appearance; normal, Hair distribution; normal, Lesions absent Cor: RRR no Murmurs Pulmonary: clear to auscultation anterior and posterior Extremities: no Clubbing cyanosis or ecchymosis DATA: CBC: Lab Results Component Value Date/Time WBC 9.1 10/07/2021 09:00 PM RBC 4.06 10/07/2021 09:00 PM HGB 8.7 10/10/2021 05:05 AM HCT 35.5 10/07/2021 09:00 PM MCV 87.4 10/07/2021 09:00 PM MCH 28.1 10/07/2021 09:00 PM MCHC 32.1 10/07/2021 09:00 PM RDW 15.0 10/07/2021 09:00 PM PLT 278 10/07/2021 09:00 PM MPV 11.5 10/07/2021 09:00 PM ASSESSMENT: Principal Problem: Encounter for induction of labor Plan: delivered by Active Problems: Failure to progress in labor, delivered, current hospitalization Plan: delivered Delivery of by section Arrest of descent, delivered, current hospitalization Plan: delivered by S/P C/S post op day # 3 PLAN: D/c home, rto 1 and 6 weeks, routine instructions C/S Labor and Delivery Post Progress Note SUBJECTIVE: Pt states she is doing well but her pain is getting worse. Flatus:Present BM:no Diet: Tolerating regular diet Ambulation: Ambulateswith and without difficulty OBJECTIVE: Vitals: BP (!) 114/57 Pulse 88 Temp 97.9 F (36.6 C) (Oral) Resp 16 Ht 5' 5 (1.651 m) Wt 231 lb (104.8 kg) LMP 01/05/2021 SpO2 99% Unknown BMI 38.44 kg/m Patient Vitals for the past 24 hrs: BP Temp Temp src Pulse Resp 10/10/21 0411 (!) 114/57 97.9 F (36.6 C) Oral 88 16 10/09/21 1944 119/65 98.2 F (36.8 C) Oral 86 18 10/09/21 1605 127/72 84 10/09/21 1603 127/72 98 F (36.7 C) Oral 84 16 10/09/21 1152 (!) 140/86 97.9 F (36.6 C) Oral 16 ABDOMEN: No scars, normal bowel sounds, soft, non-distended, non-tender, no masses palpated, no hepatosplenomegally INCISION: dressing in place, clean, dry and intact GENITAL/URINARY: Uterus: Size normal, Contour normal Cor: RRR no Murmurs Pulmonary: clear to auscultation anterior and posterior Extremities: no Clubbing cyanosis or ecchymosis DATA: Hemoglobin/Hematocrit: Lab Results Component Value Date/Time HGB 8.7 10/10/2021 05:05 AM HCT 35.5 10/07/2021 09:00 PM ASSESSMENT: Principal Problem: Encounter for induction of labor Active Problems: Failure to progress in labor, delivered, current hospitalization Delivery of by section Arrest of descent, delivered, current hospitalization S/P C/S post op day # 2 PLAN: Continue care Pain management C/S Labor and Delivery Post Progress Note SUBJECTIVE: Doing well, up in room, ambulating and holding baby Flatus:Present BM:no Diet: Tolerating regular diet Ambulation: Ambulateswithout difficulty OBJECTIVE: Vitals: BP (!) 140/86 Pulse 78 Temp 97.9 F (36.6 C) (Oral) Resp 16 Ht 5' 5 (1.651 m) Wt 231 lb (104.8 kg) LMP 01/05/2021 SpO2 99% Unknown BMI 38.44 kg/m Patient Vitals for the past 24 hrs: BP Temp Temp src Pulse Resp SpO2 Height Weight 10/09/21 1152 (!) 140/86 97.9 F (36.6 C) Oral 16 10/09/21 0731 124/67 98.1 F (36.7 C) Oral 78 17 10/09/21 0529 127/69 97.8 F (36.6 C) Oral 78 16 10/09/21 0301 (!) 150/68 79 10/09/21 0246 (!) 156/86 86 10/09/21 0231 (!) 153/75 88 10/09/21 0230 16 10/09/21 0222 99 % 10/09/21 0217 99 % 10/09/21 0216 (!) 156/74 80 10/09/21 0215 98.5 F (36.9 C) Oral 16 10/09/21 0212 99 % 10/09/21 0207 98 % 10/09/21 0202 98 % 10/09/21 0201 (!) 150/70 78 10/09/21 0200 16 10/09/21 0157 98 % 10/09/21 0152 99 % 10/09/21 0147 98 % 10/09/21 0146 (!) 145/64 92 10/09/21 0145 16 10/09/21 0142 98 % 10/09/21 0137 98 % 10/09/21 0132 98 % 10/09/21 0131 (!) 141/78 84 10/09/21 0130 16 10/09/21 0127 98 % 10/09/21 0122 98 % 10/09/21 0117 98 % 10/09/21 0116 137/76 93 10/09/21 0115 99 F (37.2 C) Oral 16 10/09/21 0112 98 % 10/09/21 0107 98 % 10/09/21 0102 (!) 159/86 98 98 % 10/09/21 0100 16 10/09/21 0057 98 % 10/09/21 0052 98 % 10/09/21 0047 98 % 10/09/21 0045 138/76 96 10/09/21 0042 98 % 10/09/21 0040 (!) 145/58 (!) 104 16 10/09/21 0037 99 % 10/09/21 0035 133/81 (!) 102 16 10/09/21 0032 137/81 98.5 F (36.9 C) Oral (!) 108 16 99 % 10/08/216 5' 5 (1.651 m) 231 lb (104.8 kg) 10/08/212225 97 % 10/08/212220 (!) 154/84 (!) 131 97 % 10/08/212215 97 % 10/08/212210 96 % 10/08/212205 99 % 10/08/212200 99 % 10/08/212199 98 F (36.7 C) Oral 18 10/08/212158 120/73 82 10/08/212155 99 % 10/08/212150 99 % 10/08/212145 99 % 10/08/212140 99 % 10/08/212135 99 % 10/08/212130 99 % 10/08/212129 99 % 10/08/212125 99 % 10/08/212121 120/75 86 10/08/212120 99 % 10/08/212115 100 % 10/08/212110 100 % 10/08/212105 100 % 10/08/212100 100 % 10/08/21 2100 97.5 F (36.4 C) Oral 16 100 % 10/08/212055 100 % 10/08/212050 126/70 83 100 % 10/08/212045 100 % 10/08/212040 100 % 10/08/212035 100 % 10/08/212030 100 % 10/08/212025 100 % 10/08/212021 139/69 88 10/08/212020 133/84 91 100 % 10/08/212015 100 % 10/08/212010 100 % 10/08/21 2006 100 % 10/08/212000 100 % 10/08/211999 98.1 F (36.7 C) Oral 16 10/08/211955 99 % 10/08/211951 129/73 84 10/08/211950 98 % 10/08/21 194 98 % 10/08/21 194 98 % 10/08/21 193 98 % 10/08/21 193 98 % 10/08/21 192 99 % 10/08/21 1921 127/68 73 98 % 10/08/21 1910 131/75 78 10/08/21 1856 135/80 86 10/08/21 1811 (!) 121/56 72 15 10/08/21 1802 124/70 80 10/08/21 1800 124/70 10/08/21 1758 97.6 F (36.4 C) Oral 10/08/21 1742 131/78 80 10/08/21 1644 98 % 10/08/21 1640 130/79 98.1 F (36.7 C) 68 10/08/21 1514 100 % 10/08/21 1511 122/84 90 10/08/21 1509 100 % 10/08/21 1459 100 % 10/08/21 1455 122/62 77 10/08/21 1454 100 % 10/08/21 1449 100 % 10/08/21 1444 100 % 10/08/21 1439 128/63 98 F (36.7 C) Oral 65 16 100 % 10/08/21 1435 129/66 67 10/08/21 1431 119/77 79 10/08/21 1429 100 % 10/08/21 1424 132/61 72 100 % 10/08/21 1420 136/64 78 10/08/21 1419 100 % 10/08/21 1414 131/65 90 100 % 10/08/21 1412 126/70 80 10/08/21 1411 126/70 80 10/08/21 1410 125/78 (!) 115 10/08/21 1409 100 % 10/08/21 1408 130/74 85 10/08/21 1404 100 % 10/08/21 1359 100 % 10/08/21 1320 122/78 97.7 F (36.5 C) Oral 68 18 ABDOMEN: No scars, normal bowel sounds, soft, non-distended, non-tender, no masses palpated, no hepatosplenomegally INCISION: dressing in place, clean, dry and intact GENITAL/URINARY: Voiding without difficulty Cor: RRR no Murmurs Pulmonary: clear to auscultation anterior and posterior Extremities: no Clubbing cyanosis or ecchymosis DATA: 20 yo S/P primary section for arrest of descent and failure to progress ASSESSMENT: Principal Problem: Encounter for induction of labor Plan: Active Problems: Failure to progress in labor, delivered, current hospitalization Plan: Delivery of by section Plan: Arrest of descent, delivered, current hospitalization Plan: S/P C/S post op day # 1 PLAN: Continue routine post orders Continue routine post op orders Assist with as needed Encourage ambulation in hallway later today or tomorrow Snowmobile Mechanic Note: I first assisted Dr Norman with primary section for arrest of descent and failure to progress. I independently closed the skin incision with 4-0 vicryl on a Spencer needle. No active bleeding at closure, pt tolerated well. Lime Hide Inspector called Porcelain Technician RN to call in surgical team for . Lime Hide Inspector also called Gregg Obregon CRNA to come to unit for . Updated Becca Pettit CNM on patients contraction pattern, SVE, and that pitocin was turned off. Instructed to keep pitocin off for now. Will continue to monitor Tim Diaz CRNA in room ar 1356 for epidural placement, consent signed, timeout performed at 1357 all in agreement. Procedure started at 1359, test dose given at 1405 procedure ended at 1412, patient tolerated well, patient verbalizes understanding that she is unable to get out of bed and to put call light on if she needs anything, call light within reach, souse at bedside Department of Obstetrics and Gynecology Progress Note SUBJECTIVE: Patient sitting up in bed visiting with her OBJECTIVE: Vitals: 10/08/21 0434 10/08/21 0533 10/08/21 0634 10/08/21 0931 BP: (!) 97/54 (!) 103/55 102/60 122/79 Pulse: 60 69 77 77 Resp: 16 18 16 16 Temp: 97.7 F (36.5 C) 97.9 F (36.6 C) TempSrc: Oral Oral heart rate: Baseline Heart Rate: 135 Accelerations: present Asbestos Siding Installer Variability: moderate Decelerations: absent Contraction frequency: irregular, 5-7 minutes Membranes: AROM performed with sterile amni hook with return of moderate amount of clear, odorless fluid. heart tones stable in 140's before, during and after ROM Cervix: Dilation: 2 cm, stretchy Effacement: 70 Station: -2 Position: mid ASSESSMENT & PLAN: Continue routine labor or\ders Begin GBS treatment Nubain 20 mg IM x1 dose Epidural when patient requests Dr Norman updated Patient off monitor from [id number] to shower and eat. 3rd dose of cytotec placed @ this time. Patient tolerates well. SVE (1/80/-2). Cervix remains slightly anterior. Will continue to monitor. 2nd dose of cytotec placed @ this time. Patient tolerates well. SVE (1/80/-2). Will continue to monitor. First Cytotec dose placed. Patient tolerates well. SVE (1/70/-2), cervix is anterior. Will continue to monitor. Patient arrives to floor for scheduled induction. Patient oriented to room and call light system. Urine specimen collected. Patient changed into gown. Patient hooked up to EFM. Admission paperwork completed, admission database questions also completed. Patient resting comfortably in bed @ this time. Will continue to monitor. documented in this encounter [facility] [employer] Phone: 09-29-2021 Note FINDINGS: Comparison made with prior ultrasound evaluation September 22, 2021. A single, live intrauterine is present with normal cardiac rate of 147 beats per minute. Normal activity and amniotic fluid volume. Amniotic fluid index is 24 cm. Morphology is grossly normal. The cervix is closed, 3.6 cm. The placenta is anterior, not associated with the cervical os. The current sonographic age is weeks and days, based on the following measurements: BPD 9.5 cm (38 weeks, 5 days) Head Circumference 34.1 cm (39 weeks, 2 days) Abdominal Circumference 34.8 cm (38 weeks, 5 days) Femur Length 7.2 cm (36 weeks, 5 days) Presentation Cephalic Placenta Anterior Grade II These measurements result in an estimated date of delivery of October 11, 2021. The current estimated weight is 3465 grams (7 pounds, 10 ounces). IMPRESSION: 1. Single, live intrauterine , current sonographic age of 38 weeks and 2 days, with an estimated date of delivery of October 11, 2021. 2. Current estimated weight 3465 grams (7 pounds, 10 ounces) 3. NIALL 24 cm Report reported and signed by Nuno Collins on 09/30/2021 0700 [facility] Zoning Assistant 09-22-2021 Note FINDINGS: Comparison made with prior ultrasound evaluation September 15, 2021. A single, live intrauterine is present with normal cardiac rate of 132 beats per minute. Normal activity and amniotic fluid volume. Amniotic fluid index is 16 cm. Morphology is grossly normal. The cervix is long and closed, 5.0 cm. The placenta is anterior, not associated with the cervical os. The current sonographic age is 37 weeks and 2 days, based on the following measurements: BPD 9.4 cm (38 weeks, 1 day) Head Circumference 32.4 cm (36 weeks, 5 days) Abdominal Circumference 34.2 cm (38 weeks, 0 days) Femur Length 7.1 cm (36 weeks, 2 days) Presentation Cephalic Placenta Anterior Grade II Weight (g) by [email or web address] % * These measurements result in an estimated date of delivery of October 11, 2021. The current estimated weight is 3222 grams (7 pounds, 2 ounces). IMPRESSION: 1. Single, live intrauterine , current sonographic age of 37 weeks and 2 days, with an estimated date of delivery of October 11, 2021 (prior IFEANYI October 11, 2021) 2. Current estimated weight 3222 grams (7 pounds, 2 ounces) * Estimated Weight (g) by Percentile is based upon an accurate estimated age based on last menstrual period. Report reported and signed by Nuno Collins on 09/23/2021 0717 [facility] Zoning Assistant 09-15-2021 Note FINDINGS: Comparison made with prior ultrasound evaluation September 08, 2021. A single, live intrauterine is present with normal cardiac rate of 138 beats per minute. Normal activity and amniotic fluid volume. Amniotic fluid index is 18 cm. Morphology is grossly normal. The cervix is long and closed, 3.8 cm. The placenta is anterior, Grade II (prior examination demonstrated Grade III), not associated with the cervical os. The current sonographic age is 36 weeks and 2 days, based on the following measurements: BPD 9.1 cm (37 weeks, 1 day) Head Circumference 31.8 cm (35 weeks, 5 days) Abdominal Circumference 33.1 cm (37 weeks, 0 days) Femur Length 6.9 cm (35 weeks, 3 days) Presentation Cephalic Placenta Anterior Grade II Weight (g) by [id number] % * These measurements result in an estimated date of delivery of October 11, 2021. The current estimated weight is 2955 grams (6 pounds, 8 ounces). IMPRESSION: 1. Single, live intrauterine , current sonographic age of 36 weeks and 2 days, with an estimated date of delivery of October 11, 2021 (prior IFEANYI October 10, 2021 2. Current estimated weight 2955 grams (6 pounds, 8 ounces) 3. NIALL 18 cm * Estimated Weight (g) by Percentile is based upon an accurate estimated age based on last menstrual period. Report reported and signed by Nuno Collins on 09/16/2021 0936 [facility] Zoning Assistant 09-12-2021 Hospital Discharge instructions Vaishali Mayer RN - 09/12/[address] Emerson Tovar CNM Dr. Job Barrios CNM [address] [facility] [address] [facility] [address] Job Richardson CN [address] [facility] [address] [phone] Becca Pettit, MSN, SPIKE MACHINE HEATER, CNM [facility] [address] [facility] [address] [address] Bhagat [address] [facility] [address] Diana Layne CNM [address] [place] [address] [place] [address] Micha Ruffin CNM [address] [place] [address] [place] [address] [phone] ACTIVITY LIMITATIONS: ( )Up and about as desired and tolerated ( )Up to bathroom only ( )Lay on either side ( )Avoid heavy lifting or exercise ( )No sex ( )No nipple stimulation ( )Complet bedrest ( )Avoid using stairs ( )Increase fluids DRINK AT LEAST eight-8oz. Glasses of water daily. Call your Doctor if: ( )Contractions are every 5 minutes apart (from start of one to the start of the next contraction) lasting 60 seconds for at least 1 hour, strong enough you can not walk or talk through the contraction and regular. (x )Bag of water breaks (x )Vaginal bleeding (x )Unusual pain occurs ( x )Decreased movement ( ) labor: If you have 4 contractions in an hour Keep your scheduled follow up appointment. Return to OB department, if any pain to abdomen from fall, vaginal bleeding or decrease in movement.. IN CASE OF EMERGENCY CONTACT LABOR AND DELIVERY . documented in this encounter [facility] [employer] Phone: 09-08-2021 Note FINDINGS: Comparison made with prior ultrasound evaluation of August 04, 2021. A single, live intrauterine is present with normal cardiac rate of 147 beats per minute. Normal activity and amniotic fluid volume. Amniotic fluid index is 19 cm. Morphology is grossly normal. The cervix is long and closed, 3.4 cm. The placenta is anterior, not associated with the cervical os. The current sonographic age is 35 weeks and 4 days, based on the following measurements: BPD 8.9 cm (35 weeks, 6 days) Head Circumference 32.3 cm (36 weeks, 3 days) Abdominal Circumference 31.4 cm (35 weeks, 2 days) Femur Length 6.7 cm (34 weeks, 3 days) Presentation Cephalic Placenta Anterior Grade III Weight (g) by [email or web address] % * These measurements result in an estimated date of delivery of October 10, 2021. The current estimated weight is 2638 grams (5 pounds, 13 ounces). IMPRESSION: 1. Single, live intrauterine , current sonographic age of 35 weeks and 4 days, with an estimated date of delivery of October 10, 2021 (prior IFEANYI October 11, 2021) 2. Current estimated weight 2638 grams (5 pounds, 13 ounces) 3. Anterior Grade III placenta * Estimated Weight (g) by Percentile is based upon an accurate estimated age based on last menstrual period. Report reported and signed by Nuno Collins on 09/09/2021 0727 [facility] Zoning Assistant 05-28-2021 Note FINDINGS: Comparison made with ultrasound evaluation of March 04, 2021. A single, live intrauterine is present with normal cardiac rate of 147 beats per minute. Normal activity and amniotic fluid volume. Amniotic fluid index is 12 cm. Morphology is grossly normal. The cervix is long and closed, 4.6 cm. The placenta is anterior, not associated with the cervical os. The current sonographic age is 20 weeks and 2 days, based on the following measurements: BPD 4.8 cm (20 weeks, 3 days) Head Circumference 17.9 cm (20 weeks, 2 days) Abdominal Circumference 15.0 cm (20 weeks, 2 days) Femur Length 3.2 cm (20 weeks, 0 days) Presentation Breech Placenta Anterior Grade I Weight (g) by [id number] % * These measurements result in an estimated date of delivery of October 13, 2021. The current estimated weight is 337 grams (0 pounds, 12 ounces). IMPRESSION: 1. Single, live intrauterine , current sonographic age of 20 weeks and 2 days, with an estimated date of delivery of October 13, 2021. (prior IFEANYI October 12, 2021) 2, Current estimated weight 337 grams (0 pounds, 12 ounces) * Estimated Weight (g) by Percentile is based upon an accurate estimated age based on last menstrual period. Report reported and signed by Nuno Collins on 05/29/2021 0707 [facility] Zoning Assistant Evaluation note Diagnosis Encounter for induction of labor- Primary Delivery of by section Failure to progress in labor, delivered, current hospitalization Other and unspecified uterine inertia, with delivery Arrest of descent, delivered, current hospitalization Secondary uterine inertia, unspecified as to episode of care documented in this encounter [facility] Phone: evaluation note* Diagnosis Encounter for supervision of other normal , third trimester- Primary screening for streptococcus B screening for Streptococcus B Hypothyroidism, unspecified type ([facility]) Non-stress test reactive state, incidental documented in this encounter [facility] Summary Purpose Family History No Family History Records FoundNo Family History Records FoundNo Family History Records Found Advance Directives No Advanced Directives Records FoundLatest Code Status on File Code Status Date Activated Date Inactivated Comments Full Code 10/07/2021 8:41 PM 10/09/2021 12:41 AM Additional Source Comments Reason for Visit (unrecogniz ed section and content) Reason Comments Fall Reason Comments Scheduled Induction Specialty Diagnoses / Procedures Referred By Contac t Referred To Contact Diagnoses Encounter for induction of labor Arrest of descent, delivered, current hospitalization Jah Pettit APRN - [facility] [address] [place] [address] [employer] [id number] [place] [address] Referral ID Status Reason Start Date Expiration Date Visits Re quested Visits Authorized [id number] 1 1 Care Teams (unrecognized sec tion and content) Flyer Builder Relationship Specialty Start Date End Date Zully Kerr MD [address] [place] [id number] PCP - General Family Medicine 09/12/21 Flyer Builder Relationship Specialty Start Date End Date Zully Kerr MD [address] [place] [id number] PCP - General Family Medicine 09/12/21 Flyer Builder Relationship Specialty Start Date End Date Zully Alejandro MD [address] [place] [id number] PCP - General Family Medicine 08/11/22 Flyer Builder Relationship Specialty Start Date End Date Zully Alejandro MD [address] [place] [id number] PCP - General Family Medicine 08/11/22 INFORMATION SOURCE (unrecogn ized section and content) DATE CREATED AUTHOR 09/30/2021 [facility] dical Specialist DATE CREATED AUTHOR AUTHOR'S ORGANIZ ATION 10/13/2021 [facility] DATE CREATED AUTHOR AUTHOR'S ORGANIZ ATION 06/01/2023 [facility] dical Specialists EPIC Ordered Prescriptions (unrec ognized section and content) Prescription Sig Dispensed Refills Start Date End Da te oxyCODONE-acetaminophen (PERCOCET) 5-325 MG per tabletIndications:Deliv lilly of by section Take 1 tablet by mouth every 6 hours as needed for Pain for up to 7 days. Intended supply: 3 days. Take lowest dose possible to manage pain 28 tablet 0 10/11/2021 10/18/2021 docusate sodium (COLACE) 100 MG capsule Take 1 capsule by mouth 2 times daily 60 capsule 0 10/11/2021 ibuprofen (ADVIL;MOTRIN) 800 MG tablet Take 1 tablet by mouth every 8 hours as needed for Pain 30 tablet 1 10/11/2021 Scheduled Active and Recently Administ ered Medications (unrecognized section and content) Medication Order 10/09/2021 10/10/2021 10/11/2021 docusate sodium (COLACE) capsule 100 mg 100 mg, Oral, 2 TIMES DAILY, First dose on Kandice 10/09/21 at 0230, Until Discontinued, Do not crush or break., 0436 (Not Given - Provider: Anna Jon RN - Reason: Patient/family refused)08 (Given - Provider: Lacy Bean RN)2034 (Given - Provider: Anna Jon RN) 0831 (Given - Provider: Anahi Tamez RN)210 (Given - Provider: Anna Jon, RN) 075 (Given - Provider: Anahi Tamez RN)2100 (Due) enoxaparin (LOVENOX) injection 60 mg 60 mg, SubCUTAneous, DAILY, First dose on Kandice 10/09/21 at 1245, Until Discontinued, Indication of Use: Prophylaxis-DVT/PE, 1324 (Given - Provider: Kellie Bruno RN) 0830 (Given - Provider: Anahi Tamez RN) 0817 (Given - Provider: Anahi Tamez RN - Comment: last dose given on 10/10/21 at 0830) ketorolac (TORADOL) injection 30 mg (COMPLETED) Ketorolac is contraindicated in patients with advanced renal impairment and in patients at risk of renal failure due to volume depletion. For 65 years of age and older OR weight less than 50 kg, use 15 mg IV every 6 hours; MAX dose: 60 mg/day. Dose greater than 30 mg must be administered via intramuscular route. Do not administer for more than 5 days., 30 mg, IntraVENous, Every 8 hours, 3 doses, First dose on Kandice 10/09/21 at 0800, Last dose on Wed10/10/21 at 0000, Give in addition to any other pain medication ordered at same time for any pain indication. Discontinue when able to take PO ibuprofen., 0803 (Given - Provider: Lacy Bean RN)1621 (Given - Provider: Anahi Tamez RN)2339 (Given - Provider: Anna Jon RN) lactated ringers bolus 1,000 mL, IntraVENous, at 1,000 mL/hr, Administer over 1 Hours, ONCE, On Kandice 10/09/21 at 0100, For 1 dose, Labor and Delivery. Administer bolus one hour prior to surgery., Labor and Delivery (Signed and Held) 0100 (Due) levothyroxine (SYNTHROID) tablet 50 mcg 50 mcg, Oral, DAILY, First dose on Kandice 10/09/21 at 0845, Until Discontinued, Tube feeding (TF) interaction, obtain physician order to manage, recommend holding TF for 30 minutes before and after dose. 0827 (Given - Provider: Shruthi Fontenot RN) 1006 (Given - Provider: Anahi Tamez RN - Comment: med was not on unit. sent up from pharmacy) 0759 (Given - Provider: Anahi Tamez RN) vitamin 27-1 MG tablet 1 tablet 1 tablet, Oral, DAILY, First dose on Kandice 10/09/21 at 0900, Until Discontinued, Begin when normal bowel activity resumes., 0853 (Not Given - Provider: Shruthi Fontenot RN - Reason: Other - Comment: no BM yet) 0831 (Given - Provider: Anahi Tamez RN) 0758 (Given - Provider: Anahi Tamez RN) sodium chloride flush 0.9 % injection 10 mL 10 mL, IntraVENous, EVERY 12 HOURS SCHEDULED (2 times per day), First dose on Kandice 10/09/21 at 0900, Until Discontinued, Labor and Delivery (Signed and Held) 0900 (Due)2100 (Due) 0831 (Given - Provider: Anahi Tamez RN)2100 (Due) 0900 (Due)2100 (Due) sodium chloride flush 0.9 % injection 5-40 mL 5-40 mL, IntraVENous, EVERY 12 HOURS SCHEDULED (2 times per day), First dose on Kandice 10/09/21 at 0900, Until Discontinued, For Line Patency: Peripheral IV = 5 mL; Midline or Central Line = 10 mL/lumen. If following IV push medication, administer flush at same rate as the IV push. Flush volume is determined by type of infusion therapy being given. For non-viscous solutions use: Peripheral IV = 5 mL Midline or Central Line = 10 mL/lumen For viscous solutions (i.e. blood components, parenteral nutrition, contrast media, or after obtaining blood sample) use: Peripheral IV = 10 mL Midline or Central Line = 20 mL/lumen, PACU only 09 (Due)2099 (Due) 899 (Not Given - Provider: Anahi Tamez RN - Reason: Other - Comment: duplicate order. med given at 0831. see mar)2099 (Due) 899 (Due)2099 (Due) sodium chloride flush 0.9 % injection 5-40 mL 5-40 mL, IntraVENous, EVERY 12 HOURS SCHEDULED (2 times per day), First dose on Kandice 10/09/21 at 0900, Until Discontinued, For Line Patency: Peripheral IV = 5 mL; Midline or Central Line = 10 mL/lumen. If following IV push medication, administer flush at same rate as the IV push. Flush volume is determined by type of infusion therapy being given. For non-viscous solutions use: Peripheral IV = 5 mL Midline or Central Line = 10 mL/lumen For viscous solutions (i.e. blood components, parenteral nutrition, contrast media, or after obtaining blood sample) use: Peripheral IV = 10 mL Midline or Central Line = 20 mL/lumen, 09 (Due)2099 (Due) 899 (Not Given - Provider: Anahi Tamez RN - Reason: Other - Comment: duplicate order. med given at 0831. see mar)2099 (Due) 899 (Due)2099 (Due) ryixyof-jaliot-tyfnf pertussis (BOOSTRIX) injection 0.5 mL 0.5 mL, IntraMUSCular, PRIOR TO DISCHARGE, 1 dose, Starting on Kandice 10/09/21 at 0209, Until Discontinued, If not previously administered during at 27-36 weeks as recommended by CDC., Continuous Medication Order 10/09/2021 10/10/2021 10/11/2021 lactated ringers infusion (CANCELED) IntraVENous, at 125 mL/hr, CONTINUOUS, Starting on Kandice 10/09/21 at 0100, Labor and Delivery (Signed and Held) 0210 (New Bag - Provider: Anna Jon RN) lactated ringers infusion (CANCELED) IntraVENous, at 125 mL/hr, CONTINUOUS, Starting on Kandice 10/09/21 at 0230, 1025 (New Bag - Provider: Shruthi Fontenot RN)1027 (Rate/Dose Change - Provider: Shruthi Fontenot RN)1052 (Stopped - Provider: Shruthi Fontenot RN)1357 (Stopped - Provider: Shruthi Fontenot RN) PRN Medication Order 10/09/2021 10/10/2021 10/11/2021 0.9 % sodium chloride infusion IntraVENous, at 5-250 mL/hr, PRN, if patient receiving piggyback infusions and maintenance fluids are not ordered OR KVO fluids to protect IV site / prevent frequent line interruptions/ long duration, Starting on Kandice 10/09/21 at 0041, For piggyback infusion, administer at same rate as piggyback for a total of 25 mL. Enter 25 mL into dose field and piggyback rate into rate field of order. If piggyback is infusing at a rate less than 100 mL/hr, enter 25 mL into dose field and 100 mL/hr into rate field of order. For KVO fluids, enter rate of 20 mL/hr or less into rate field of order., Labor and Delivery (Signed and Held) 0.9 % sodium chloride infusion IntraVENous, at 5-250 mL/hr, PRN, if patient receiving piggyback infusions and maintenance fluids are not ordered OR KVO fluids to protect IV site / prevent frequent line interruptions/ long duration, Starting on Kandice 10/09/21 at 0041, For piggyback infusion, administer at same rate as piggyback for a total of 25 mL. Enter 25 mL into dose field and piggyback rate into rate field of order. If piggyback is infusing at a rate less than 100 mL/hr, enter 25 mL into dose field and 100 mL/hr into rate field of order. For KVO fluids, enter rate of 20 mL/hr or less into rate field of order., PACU only 0.9 % sodium chloride infusion IntraVENous, at 5-250 mL/hr, PRN, if patient receiving piggyback infusions and maintenance fluids are not ordered OR KVO fluids to protect IV site / prevent frequent line interruptions/ long duration, Starting on Kandice 10/09/21 at 0209, For piggyback infusion, administer at same rate as piggyback for a total of 25 mL. Enter 25 mL into dose field and piggyback rate into rate field of order. If piggyback is infusing at a rate less than 100 mL/hr, enter 25 mL into dose field and 100 mL/hr into rate field of order. For KVO fluids, enter rate of 20 mL/hr or less into rate field of order., acetaminophen (TYLENOL) tablet 1,000 mg 1,000 mg, Oral, EVERY 8 HOURS PRN, Starting on Kandice 10/09/21 at 0209, Until Discontinued, Other, Pain (1-10), Give in addition to any other pain medication ordered at same time for any pain indication. Maximum dose of acetaminophen is 4000mg from all sources in 24 hours. Alternate ibuprofen and acetaminophen every 4 hours., 1324 (Given - Provider: Kellie Bruno, RN)2118 (Given - Provider: Anna Jon RN) carboprost (HEMABATE) injection 250 mcg 250 mcg, IntraMUSCular, PRN, Starting on Kandice 10/09/21 at 0209, Until Discontinued, bleeding, May repeat every 15 minutes up to a cumulative maximum dose of 1000 mcg, at physician's request., Post-op diphenhydrAMINE (BENADRYL) injection 25 mg 25 mg, IntraVENous, EVERY 6 HOURS PRN, Starting on Kandice 10/09/21 at 0209, Until Discontinued, Itching, Hives, ibuprofen (ADVIL;MOTRIN) tablet 800 mg 800 mg, Oral, EVERY 8 HOURS PRN, Starting on Wed10/10/21 at 0600, Until Wed10/12/21 at 0559, Other, (Pain 1-10), Give in addition to any other pain medication ordered at same time for any pain indication. Once tolerating PO, discontinue Toradol and begin ibuprofen 8 hours after the final dose of Toradol. Alternate ibuprofen and acetaminophen every 4 hours., , 1st dose of Motrin can be given 6 hours after the last dose of Toradol is given, 1123 (Given - Provider: Anahi Tamez, SAMY)1925 (Given - Provider: Anahi Tamez, SAMY) lansinoh lanolin ointment Topical, EVERY 1 HOUR PRN, Dry Skin, nipple discomfort, Starting on Kandice 10/09/21 at 0209, Post-op measles, mumps & rubella vaccine (MMR) injection 0.5 mL 0.5 mL, SubCUTAneous, PRN, 1 dose, Starting on Kandice 10/09/21 at 0209, Until Discontinued, if non immune or equivical, methylergonovine (METHERGINE) injection 200 mcg 200 mcg, IntraMUSCular, PRN, Starting on Kandice 10/09/21 at 0209, Until Discontinued, Bleeding, PRN for post- hemorrhage, if not hypertensive., miSOPROStol (CYTOTEC) tablet 800 mcg 800 mcg, Rectal, PRN, 1 dose, Starting on Wed10/09/21 at 0209, Until Discontinued, Post- Hemorrhage, Notify Physician prior to administration., Post-op nalbuphine (NUBAIN) injection 10 mg 10 mg, IntraVENous, EVERY 4 HOURS PRN, Starting on Wed10/09/21 at 0209, Until Discontinued, or itching, Post-op naloxone (NARCAN) injection 0.4 mg 0.4 mg, IntraVENous, PRN, Starting on Wed10/09/21 at 0209, Until Discontinued, Opioid Reversal, Post-op ondansetron (ZOFRAN) injection 4 mg 4 mg, IntraVENous, EVERY 6 HOURS PRN, Starting on Wed10/09/21 at 0209, Until Discontinued, Nausea, nausea, oxyCODONE (ROXICODONE) immediate release tablet 10 mg 10 mg, Oral, EVERY 4 HOURS PRN, Starting on Wed10/10/21 at 0733, Until Discontinued, Pain Severe (7-10) 0310 (Given - Provider: Anan Jon RN)0759 (Given - Provider: Anahi Tamez RN)1256 (Given - Provider: Anahi Tamez RN) oxyCODONE (ROXICODONE) immediate release tablet 5 mg 5 mg, Oral, EVERY 4 HOURS PRN, Starting on Wed10/10/21 at 0732, Until Discontinued, Pain Moderate (4-6) 0748 (Given - Provider: Anahi Tamez RN)1159 (Given - Provider: Anahi Tamez RN)1704 (Given - Provider: Anahi Tamez RN) oxytocin (PITOCIN) 10 unit bolus from the bag 166.7 mL (rounded from 166.6667 mL = 10 Units), IntraVENous, PRN, 1 dose, Starting on Wed10/09/21 at 0041, Until Discontinued, Bleeding, Post- use ONLY after delivery of baby/ excessive bleeding/ uterine atony. Bolus for bag to infuse at 909 ml/hour for 11 minutes (10 units in 167ml)., Multiphase Phase of Care oxytocin (PITOCIN) 30 units in 500 mL infusion 87.3 maikel-units/min (87.3 mL/hr), IntraVENous, CONTINUOUS PRN, Starting on Kandice 10/09/21 at 0041, Until 10/11/21 at 0040, Bleeding, Post- use ONLY after delivery of baby/ excessive bleeding/ uterine atony. Following Bolus from bag administration, reduce the rate to 87.3 mL/hr and administer remaining 20 units over 229 minutes to complete the infusion of 30 units in 500 mL. Do NOT administer more than 1 bag of pitocin without a new order from the physician., Multiphase Phase of Care 004 (Rate/Dose Change - Provider: Anna Jon, RN)041 (Stopped - Provider: Anna Jon, RN) sennosides-docusate sodium (SENOKOT-S) 8.6-50 MG tablet 1 tablet 1 tablet, Oral, DAILY PRN, Starting on Kandice 10/09/21 at 0209, Until Discontinued, Constipation, 0805 (Given - Provider: Anahi Tamez, SAMY) simethicone (MYLICON) chewable tablet 80 mg 80 mg, Oral, EVERY 6 HOURS PRN, Starting on Kandice 10/09/21 at 0209, Until Discontinued, Cramping, Flatulence, sodium chloride flush 0.9 % injection 10 mL 10 mL, IntraVENous, PRN, Starting on Kandice 10/09/21 at 0041, Until Discontinued, Line Care, After every IV line use, Labor and Delivery (Signed and Held) sodium chloride flush 0.9 % injection 5-40 mL 5-40 mL, IntraVENous, PRN, Starting on Kandice 10/09/21 at 0041, Until Discontinued, Line Care, After every IV line use, For Line Patency: Peripheral IV = 5 mL; Midline or Central Line = 10 mL/lumen. If following IV push medication, administer flush at same rate as the IV push. Flush volume is determined by type of infusion therapy being given. For non-viscous solutions use: Peripheral IV = 5 mL Midline or Central Line = 10 mL/lumen For viscous solutions (i.e. blood components, parenteral nutrition, contrast media, or after obtaining blood sample) use: Peripheral IV = 10 mL Midline or Central Line = 20 mL/lumen, PACU only sodium chloride flush 0.9 % injection 5-40 mL 5-40 mL, IntraVENous, PRN, Starting on Kandice 10/09/21 at 0209, Until Discontinued, Line Care, After every IV line use, For Line Patency: Peripheral IV = 5 mL; Midline or Central Line = 10 mL/lumen. If following IV push medication, administer flush at same rate as the IV push. Flush volume is determined by type of infusion therapy being given. For non-viscous solutions use: Peripheral IV = 5 mL Midline or Central Line = 10 mL/lumen For viscous solutions (i.e. blood components, parenteral nutrition, contrast media, or after obtaining blood sample) use: Peripheral IV = 10 mL Midline or Central Line = 20 mL/lumen, FOR RECORDS PERTAINING TO PATIENTS WHO ARE OR HAVE BEEN ENROLLED IN A CHEMICAL DEPENDENCY/SUBSTANCEABUSE PROGRAM, SOME INFORMATION MAY BE OMITTED. This clinical summary was aggregated from multiple sources. Caution should be exercised in using it in the provision of clinical care. This summary normalizes information from multiple sources, and as a consequence, information in this document may materially change the coding, format and clinical context of patient data. In addition, data may be omitted in some cases. CLINICAL DECISIONS SHOULD BE BASED ON THE PRIMARY CLINICAL RECORDS. [employer] provides no warranty or guarantee of the accuracy or completeness of information in this document.
--- NOTE | 2023-06-04 07:35 | PM.OBHP ---
OB - H&P: HPI History of Present Illness Chief complaint: PARTNERS/ : 2 Para: 1 Gestational age based on last menstrual period: 39.0 Comments: admitted for repeat section History of Present Dating criteria: LMP confirmed by 1st trimester US care: good care Ultrasounds: normal 1st trimester US and normal mid trimester US complications comment: patient has hypothyroid, stable with medication during Medical complications OB: none Labs Blood type: A (+) positive Rubella: immune RPR/VDLR: nonreactive GBS status: positive HBsAG: negative Review of Systems ROS Status of ROS: 10 or more systems reviewed and unremarkable except as noted in history and below [facility] Medical History (Updated 06/04/23 @ 07:55 by JAH MUELLER APRN, CNM) delivery delivered ?O82 - Encounter for delivery without indication (ICD-10) Meds Home Medications and Allergies Home Medications Medication Instructions Recorded Confirmed Type levothyroxine 75 mcg tablet mcg 04/24/23 History mv-min [id number] PO 04/24/23 History Allergies Allergy/AdvReac Type Severity Reaction Status Date / Time No Known Drug Allergies Allergy Verified 04/24/23 04:32 Exam Constitutional Vital Signs, click to edit/add: Last Vital Signs Pulse 129 H 06/04/23 07:22 BP 120/59 06/04/23 07:22 Documenting provider has reviewed patient's vital signs: yes Common normals: no apparent distress Orientation/consciousness: Yes awake, Yes oriented to person, Yes oriented to place and Yes oriented to time Eye Common normals: EOMs intact bilaterally Neck & C-Spine Common normals: full ROM and no lymphadenopathy Lymph Lymphatic: no lymphadenopathy noted Chest Common normals: inspection of chest normal Respiratory Common normals: normal respiratory effort Effort & inspection: able to speak in complete sentences Cardio Common normals: regular rate and regular rhythm Rate: regular rate GI Common normals: Normal to inspection, nondistended, normoactive bowel sounds present Inspection: normal to inspection Common normals: no CVA tenderness and external appearance normal Back & Pelvis Common normals: no CVA tenderness Extremity Common normals: normal to inspection Neuro Common normals: oriented x3 Sensorium/orientation: awake, alert, oriented to person, oriented to place and oriented to time Psych Common normals: mental status grossly normal, thought process normal and cooperative Attitude: calm and engaged OB - A/P Assessment and Plan (1) Term : (2) Previous section: Plan admit for repeat section
[2023-06-04] MEDS: LACTATED RINGER'S SOLUTION 1,000 ML 1000 ML IV ×2 (08:00→08:49)
[2023-06-04 08:31] LABS: Basophils Percent Auto 0.3 % (0.2-2.0); Eosinophils Absolute Auto 0.1 10^3/uL (0.0-0.7); Eosinophils Percent Auto 0.6 % (0.9-7.0); Hematocrit 31.7 % (36.0-48.0); Hemoglobin 10.1 g/dL (12.0-16.0); Immature Granulocytes Abs Auto 0.03 10^3/uL (0.00-0.03); Immature Granulocytes Pct Auto 0.4 % (0.0-0.5); Lymphocytes Absolute Auto 1.8 10^3/uL (1.2-3.8); Lymphocytes Percent Auto 23.2 % (20.5-60.0); Mean Corpuscular HGB Conc 31.9 g/dL (29.9-35.2); Mean Corpuscular Hemoglobin 27.4 pg (26.7-34.0); Mean Corpuscular Volume 85.9 fL (81.0-99.0); Mean Platelet Volume 11.3 fL (9.5-13.5); Monocytes Absolute Auto 0.4 10^3/uL (0.3-0.8); Monocytes Percent Auto 5.2 % (1.7-12.0); Neutrophils Absolute Auto 5.5 10^3/uL (1.4-6.5); Neutrophils Percent Auto 70.3 % (43.0-75.0); Platelet Count 294 10^3/uL (150-450); Red Blood Count 3.69 10^6/uL (4.20-5.40); Red Cell Distribution Width 14.1 % (11.0-15.0); White Blood Count 7.9 10^3/uL (4.0-11.0)
[2023-06-04 08:32] LABS: Bilirubin Urine NEGATIVE (NEGATIVE); Blood Urine NEGATIVE (NEGATIVE); Clarity Urine CLEAR (CLEAR); Color Urine YELLOW (YELLOW); Glucose Urine UA NEGATIVE (NEGATIVE); Ketones Urine TRACE mg/dL (NEGATIVE); Leukocyte Esterase Urine TRACE (NEGATIVE); Nitrite Urine NEGATIVE (NEGATIVE); Protein Urine TRACE mg/dL (NEG/TRACE); Specific Gravity Urine 1.025 (1.005-1.025); Urobilinogen Urine 0.2 EU/dL (0.2-1.0); pH Urine 6.5 (5.0-9.0)
[2023-06-04 08:41] LABS: Amphetamine Screen Urine NEGATIVE (NEGATIVE); Barbiturates Screen Urine NEGATIVE (NEGATIVE); Benzodiazepines Screen Urine NEGATIVE (NEGATIVE); Buprenorphine Screen Urine NEGATIVE (NEGATIVE); Cannabinoid Screen Urine NEGATIVE (NEGATIVE); Cocaine Screen Urine NEGATIVE (NEGATIVE); Methadone Screen Urine NEGATIVE (NEGATIVE); Methamphetamines Screen Urine NEGATIVE (NEGATIVE); Opiate Screen Urine NEGATIVE (NEGATIVE); Oxycodone Screen Urine NEGATIVE (NEGATIVE); Phencyclidine Screen Urine NEGATIVE (NEGATIVE); Tricyclic Antidepressant Urine NEGATIVE (NEGATIVE)
[2023-06-04] MEDS: METOCLOPRAMIDE HCL 10 MG/2 ML VIAL IVP (08:57)
[2023-06-04] MEDS: FAMOTIDINE/PF 20 MG/2 ML VIAL IV (08:57)
[2023-06-04] MEDS: CITRIC ACID/SODIUM CITRATE 30 ML SOLUTION ORACIT SHOHL'S SOLN PO (08:57)
[2023-06-04 09:19] LABS: Bacteria Urine MODERATE #/HPF (NONE SEEN); Cast Seen? NONE SEEN #/LPF (NONE SEEN); Crystals Seen? None Seen #/HPF (None Seen); Mucus Urine NONE SEEN (NONE SEEN); Squamous Epithelial Cell Urine MANY #/LPF (NONE/RARE)
[2023-06-04] MEDS: CEFAZOLIN SODIUM/DEXTROSE,ISO 2 GM/50 ML PIGGYBACK IV (09:20)
[2023-06-04] MEDS: BUPIVACAINE LIPOSOME/PF 266 MG/13.3 ML VIAL INJ (10:42)
[2023-06-04] MEDS: BUPIVACAINE HCL 0.5% PF 50 MG/10 ML VIAL 15 ML INJ (10:42)
[2023-06-04] MEDS: 0.9 % SODIUM CHLORIDE 10 ML VIAL 30 ML INJ (10:42)
--- NOTE | 2023-06-04 10:57 | PM.EN ---
Event Note Event Note: 1st Assist Note: i first assisted Dr Savage with repeat section. I assisted as directed by physician. I independently closed the SQ layer with 4-0 vicryl and then independently closed the skin incision with 3-0 vicryl on a Spencer needle without difficulty. Hemostasis noted at completion and patient tolerated procedure well.
[2023-06-04] MEDS: OXYTOCIN/0.9 % SODIUM CHLORIDE 20 UNITS/1,000 ML PLAST..BAG 125 UNIT IV (11:50)
--- NOTE | 2023-06-04 14:42 | PC.NURSE ---
RN performs ty-care at this time. Pads changed.
--- NOTE | 2023-06-04 14:48 | PC.NURSE ---
Cat inserted per OR staff.
--- NOTE | 2023-06-04 15:15 | P.ON_ITS ---
Brief Operative Note Date of procedure: 06/04/23 Pre-op diagnosis: iup at 39wks, previous c/s Post-op diagnosis: same as pre-op Procedure: NAME OF PROCEDURE: [ section ] PROCEDURE: Patient was taken back to the Operating Room where she was given a spinal anesthesia with Duramorph without difficulty. She was prepped and draped in the normal sterile fashion. A Pfannenstiel skin incision was then made 2 cm above the symphysis pubis and carried down to underlying rectus fascia using a Bovie. The fascia was incised in the midline and extended laterally using Neely scissors. Two Marilynn clamps were placed on the superior aspect of the fascia and dissected off the underlying rectus muscles. The same was performed on the inferior aspect as well. The muscles were then in the midline. Peritoneum was identified and entered bluntly. The peritoneum was then extended superiorly and inferiorly with good visualization of the bladder. The bladder blade was inserted. A low transverse incision was made on the patient's uterus and extended laterally digitally. The infant was then delivered atraumatically after the bladder blade was removed in the cephalic position. The cord was clamped and cut. Cord blood was obtained. The was handed off to awaiting team. The patient's placenta was spontaneously delivered. The uterus was then exteriorized. The uterus was cleared of all clots and debris. The bladder blade was reinserted. The patient's uterine incision was closed using #0 Vicryl in a running lock fashion. Excellent hemostasis was assured. The uterus was then returned to the patient's abdomen. The patient's abdomen was copiously irrigated using warm saline. Peritoneal gutters were cleared of all clots and debris. Again excellent hemostasis was assured. The patient's peritoneum was closed using 3-0 Vicryl in a running fashion. The patient's fascia was closed using #0 Vicryl in a running fashion. The patient's skin was closed using 4-0 Vicryl subcuticularly. The patient tolerated the procedure well. Sponge, lap, and needle counts were correct x2. The patient was taken to the Recovery Room in stable condition. Anesthesia: spinal Surgeon: Kalia Savage Electromechanical Technician: JAH MUELLER Estimated blood loss (mL): 575 Pathology: none sent Condition: stable Disposition: floor Urinary Catheter Management Urinary Catheter Management Urethral: Cath placed during this visit: yes, but has since been removed by the nurse Insertion date: 06/04/23 Removal date: 06/05/23 Removal time: 04:40
[2023-06-04] MEDS: CEFAZOLIN SODIUM/DEXTROSE,ISO 1 GM/50 ML IV.SOLN IV (15:51)
[2023-06-04] MEDS: ONDANSETRON PF 4 MG/2 ML VIAL IV (16:07)
[2023-06-04] MEDS: KETOROLAC TROMETHAMINE 30 MG/ML VIAL IVP ×2 (16:10→23:07)
[2023-06-04] MEDS: ACETAMINOPHEN 500 MG TABLET 1000 MG PO (18:38)
--- NOTE | 2023-06-04 20:01 | W.PC.ACHO ---
Registration Status: ADM IN Primary Language: Senegalese Preferred Language: Senegalese Report given to Anthony PABLO. Active Medications Generic Name Dose Route Start Last Admin Trade Name Freq PRN Reason Stop Dose Admin Acetaminophen 1,000 mg 06/04/23 17:30 06/04/23 18:38 Acetaminophen 500 Mg Tablet PO 1,000 mg Q8H KARLA Administration Al Hydroxide/Mg Hydroxide 2,400 mg 06/04/23 11:14 Magnesium Hydroxide 2,400 Mg/10 Ml Oral.Susp PO Q6H PRN Dyspepsia Diphtheria/Pertussis/Tetanus Vacc 0.5 ml 06/06/23 09:00 Adacel Diph,Pertuss(Acell),Tet Vac/Pf 0.5 Ml Adult Syringe IM 06/06/23 09:01 .ONCE ONE Docusate Sodium 100 mg 06/05/23 09:00 Docusate Sodium 100 Mg Capsule PO BID [facility] Lactated Ringer's 1,000 mls @ 125 mls/hr 06/04/23 11:30 Lactated Ringers IV .Q8H [facility] Promethazine HCl 25 mg/ Sodium 51 mls @ 204 mls/hr 06/04/23 11:14 Chloride IV Q6H PRN Nausea And Vomiting Ketorolac Tromethamine 30 mg 06/04/23 16:15 06/04/23 16:10 Ketorolac Tromethamine 30 Mg/Ml Vial IVP 30 mg Q6H [facility] Administration Levothyroxine Sodium 75 mcg 06/05/23 06:30 Levothyroxine Sodium 75 Mcg Tablet PO ACB KARLA Measles/Mumps/Rubella Vaccine Live 0.5 ml 06/06/23 09:00 Measles,Mumps,Rubella Vacc/Pf 0.5 Ml Vial SQ 06/06/23 09:01 .ONCE ONE Ondansetron HCl 4 mg 06/04/23 11:14 06/04/23 16:07 Ondansetron Pf 4 Mg/2 Ml Vial IV 4 mg Q6H PRN Administration Nausea And Vomiting Ondansetron HCl 4 mg 06/04/23 11:14 Ondansetron 4 Mg Rapdis Tablet PO Q6H PRN Nausea And Vomiting Oxycodone HCl 5 mg 06/04/23 11:30 Oxycodone Hcl 5 Mg Tablet PO Q4H [facility] Simethicone 80 mg 06/04/23 11:14 Simethicone 80 Mg Tab.Chew PO QID PRN Abdominal Distention Diet Category Date Time Status Regular Consistency Diet Diet 06/04/23 11:14 Active Consults Category Date Time Status Consult to Anesthesiology Routine Cons 06/04/23 Ordered IV Insertion/Site Date of IV Line Insertion [ 06/04/23 Short PIV (<1.75 in) 20g right Hand] IV Insertion Time [Short PIV ( 07:55 <1.75 in) 20g right Hand] Neurology Patient orientation (short person,place,time,situation list) Respiratory Lung sounds [Throughout] clear Lung sounds [Throughout] clear Lung sounds [Throughout] clear Lung sounds [Throughout] clear Pulse Oximetry 99 Pulse Oximetry 99 Pulse Oximetry 99 Pulse Oximetry 99 Pulse Oximetry 98 Pulse Oximetry 98 Pulse Oximetry 99 Oxygen Delivery Method Room Air Oxygen Delivery Method Nasal Cannula Oxygen Delivery Method Room Air Oxygen Delivery Method Room Air Oxygen Delivery Method Room Air Oxygen Delivery Method Room Air Catheter Urinary Catheter Date of 06/04/23 Insertion [Urethral] Urinary Catheter Date of 06/04/23 Insertion [Urethral]
[2023-06-05] VITALS (8 sets, daily range): BP systolic 112–119; BP diastolic 45–66; PULSE 84–85; RESP 16; TEMP 36.2–36.8
[2023-06-05] MEDS: ACETAMINOPHEN 500 MG TABLET 1000 MG PO ×4 (02:29→23:30)
[2023-06-05] MEDS: KETOROLAC TROMETHAMINE 30 MG/ML VIAL IVP (04:56)
[2023-06-05 06:03] LABS: Basophils Percent Auto 0.2 % (0.2-2.0); Eosinophils Absolute Auto 0.1 10^3/uL (0.0-0.7); Eosinophils Percent Auto 0.8 % (0.9-7.0); Immature Granulocytes Abs Auto 0.03 10^3/uL (0.00-0.03); Immature Granulocytes Pct Auto 0.4 % (0.0-0.5); Lymphocytes Absolute Auto 2.8 10^3/uL (1.2-3.8); Lymphocytes Percent Auto 33.5 % (20.5-60.0); Mean Corpuscular HGB Conc 31.4 g/dL (29.9-35.2); Mean Corpuscular Hemoglobin 27.3 pg (26.7-34.0); Mean Corpuscular Volume 87.1 fL (81.0-99.0); Monocytes Absolute Auto 0.5 10^3/uL (0.3-0.8); Monocytes Percent Auto 5.5 % (1.7-12.0); Neutrophils Percent Auto 59.6 % (43.0-75.0); Platelet Count 210 10^3/uL (150-450); Red Blood Count 2.56 10^6/uL (4.20-5.40); Red Cell Distribution Width 14.3 % (11.0-15.0); White Blood Count 8.5 10^3/uL (4.0-11.0)
[2023-06-05 06:15] LABS: Hematocrit 22.3 % (36.0-48.0)
[2023-06-05] MEDS: LEVOTHYROXINE SODIUM 75 MCG TABLET PO (07:30)
[2023-06-05] MEDS: DOCUSATE SODIUM 100 MG CAPSULE PO ×2 (08:36→23:29)
--- NOTE | 2023-06-05 08:52 | P.OBPN_ITS ---
OB - PN: Subj Subjective Patient comments: no complaints [place] status: doing well Narrative: patient stable, no lightheaded/dizzy Exam Constitutional Vital Signs, click to edit/add: Last Vital Signs Temp 97.1 F L 06/05/23 07:33 Pulse 85 06/05/23 07:33 Resp 16 06/05/23 08:01 BP 114/53 06/05/23 07:33 Pulse Ox 99 06/04/23 11:24 O2 Del Method Room Air 06/05/23 08:01 Common normals: no apparent distress GI Inspection: normal to inspection Palpation: soft Other: Fundus - firm, below umbilicus Incision - dry and intact with steri strips Other: perineum - minimal bleeding Results Labs Labs: Short CBC 06/05/23 Range/Units 05:45 WBC 8.5 (4.0-11.0) 10^3/uL Hgb 7.0 L (12.0-16.0) g/dL Hct 22.3 L* (36.0-48.0) % Plt Count 210 (150-450) 10^3/uL Urinary Catheter Management Urinary Catheter Management Urethral: Cath placed during this visit: yes, but has since been removed by the nurse Insertion date: 06/04/23 Removal date: 06/05/23 Removal time: 04:40 OB - PN: A/P Assessment and Plan (1) Term : Assessment and Plan: stable (2) Previous section: Assessment and Plan: stable, Plan continue current plan Plan - day: 1 Plan: routine postop care Time Spent with Patient Time: Total time spent is greater than 50% in coordination of care (as documented) at patient's floor/unit and/or counseling patient: Total time spent with greater than 50% in coordination of care (as documented) at patient's floor/unit and/or counseling patient: less than 15 minutes
--- NOTE | 2023-06-05 09:40 | PC.NURSE ---
Dressing removed. Steri strips dry and intact.
[2023-06-05] MEDS: IBUPROFEN 400 MG TABLET 800 MG PO ×2 (11:10→18:45)
[2023-06-06] MEDS: IBUPROFEN 400 MG TABLET 800 MG PO (02:53)
--- NOTE | 2023-06-06 08:05 | P.OBPN_ITS ---
OB - PN: Subj Subjective Patient comments: no complaints [place] status: doing well Exam Constitutional Vital Signs, click to edit/add: Last Vital Signs Temp 97.7 F 06/05/23 16:20 Pulse 84 06/05/23 16:20 Resp 16 06/05/23 16:20 BP 115/66 06/05/23 23:09 Pulse Ox 99 06/04/23 11:24 O2 Del Method Room Air 06/05/23 23:10 Documenting provider has reviewed patient's vital signs: yes Common normals: no apparent distress GI Inspection: normal to inspection Other: Fundus - firm below umbilicus Incision - dry and intact with steri strips Other: perineum - minimal bleeding Urinary Catheter Management Urinary Catheter Management Urethral: Cath placed during this visit: yes, but has since been removed by the nurse Insertion date: 06/04/23 Removal date: 06/05/23 Removal time: 04:40 OB - PN: A/P Assessment and Plan (1) Term : Assessment and Plan: Ok for discharge follow up as scheduled (2) Previous section: Plan - day: 2 Plan: routine postop care and discharge home Time Spent with Patient Time: Total time spent is greater than 50% in coordination of care (as documented) at patient's floor/unit and/or counseling patient: Total time spent with greater than 50% in coordination of care (as documented) at patient's floor/unit and/or counseling patient: less than 15 minutes
[2023-06-06] MEDS: ACETAMINOPHEN 500 MG TABLET 1000 MG PO (08:08)
[2023-06-06] MEDS: DOCUSATE SODIUM 100 MG CAPSULE PO (08:08)
--- NOTE | 2023-06-06 08:09 | PM.OBDS ---
DS: Providers Provider Date of admission: 06/04/23 07:04 Primary care physician: Non-Staff Physician, Admitting clinician: JAH MUELLER Attending physician on admission: JAH MUELLER Consults: 06/04/23 Consult to Anesthesiology Routine Consulting Provider: Bony Gutiérrez Reason for consultation: Delivery Has provider been notified: No Attending physician on discharge: JAH MUELLER Discharging clinician: Ade Pichardo Anticipated date of discharge: 06/06/23 DS: Diagnosis Discharge Diagnosis (1) Term : Assessment and plan: Normal post op care OK for discharge follow up as scheduled (2) Previous section: OB - DS: Summary Peripartum Data - Procedures: Procedures Operation Date: 06/04/23 09:05 Actual Procedure Side Surgeon p (JAIDEN'S PATIENT) Not Applicable Kalia Savage DO Peripartum Data - Vaginal Delivery Procedures: Procedures Operation Date: 06/04/23 09:05 Actual Procedure Side Surgeon p (JAIDEN'S PATIENT) Not Applicable Kalia Savage DO Complications complications: none Delivery method: section Gender: female Discharge plan: home Status at Discharge Functional status at discharge: independent ambulation Overall status at discharge: patient is progressing back to baseline Time Spent with Patient Time attestation: Total time spent providing and/or coordinating discharge services: Time spent: less than 30 minutes Exam Constitutional Vital Signs, click to edit/add: Last Vital Signs Temp 97.7 F 06/05/23 16:20 Pulse 84 06/05/23 16:20 Resp 16 06/05/23 16:20 BP 115/66 06/05/23 23:09 Pulse Ox 99 06/04/23 11:24 O2 Del Method Room Air 06/05/23 23:10 Discharge Plan Discharge Disposition: Home, Self-Care Discharge Medications: No Action levothyroxine 75 mcg tablet mv-min [id number] [Alive Daily Support ] PO Forms: Portal Instructions
[2023-06-06 08:13] VITALS: BP 138/63; PULSE 88
[2023-06-06 08:15] VITALS: RESP 16; TEMP 37
--- NOTE | 2023-06-06 08:24 | P.DS_ITS ---
DS: Providers Provider Date of admission: 06/04/23 07:04 Primary care physician: Non-Staff Physician, Admitting clinician: JAH MUELLER Attending physician on admission: JAH MUELLER Consults: 06/04/23 Consult to Anesthesiology Routine Consulting Provider: Bony Gutiérrez Reason for consultation: Delivery Has provider been notified: No Attending physician on discharge: JAH MUELLER Discharging clinician: Ade Pichardo Anticipated date of discharge: 06/06/23 DS: Diagnosis Discharge Diagnosis (1) Term : Assessment and plan: normal prison (2) Previous section: Plan home OB - DS: Summary Hospital Course Hospital Course: nromal course Time spent discussing smoking cessation with patient: 3 to 10 minutes Peripartum Data - Procedures: Procedures Operation Date: 06/04/23 09:05 Actual Procedure Side Surgeon p (JAIDEN'S PATIENT) Not Applicable Kalia Savage DO Peripartum Data - Vaginal Delivery Procedures: Procedures Operation Date: 06/04/23 09:05 Actual Procedure Side Surgeon p (JAIDEN'S PATIENT) Not Applicable Kalia Savage DO Complications complications: none Delivery method: section Gender: female Discharge plan: home Status at Discharge Functional status at discharge: independent ambulation Overall status at discharge: patient is progressing back to baseline Time Spent with Patient Time attestation: Total time spent providing and/or coordinating discharge services: Time spent: less than 30 minutes Exam Constitutional Vital Signs, click to edit/add: Last Vital Signs Temp 97.7 F 06/05/23 16:20 Pulse 88 06/06/23 08:13 Resp 16 06/05/23 16:20 BP 138/63 06/06/23 08:13 Pulse Ox 99 06/04/23 11:24 O2 Del Method Room Air 06/05/23 23:10 Discharge Plan Discharge Disposition: Home, Self-Care Discharge Medications: Continued levothyroxine 75 mcg tablet mv-min [id number] [Alive Daily Support ] PO Forms: Portal Instructions
--- NOTE | 2023-06-15 06:17 | PM.OBPRCCS ---
Procedure Pre-op/Post-op diagnoses: Pre-Op/Post-Op Diagnoses Operation Date: 06/04/23 09:05 <No data on this case meets the specified criteria> Procedure: Procedures Operation Date: 06/04/23 09:05 Actual Procedure Side Surgeon p Not Applicable Kalia Savage DO Before School: JAH MUELLER Estimated blood loss (mL): 575 Disposition: floor Anesthesia type: Spinal
== END 2023-06-06 10:45 | disposition home or self-care (01) | DRG 788 ==
PROVIDERS: Obstetrics & Gynecology; Admitting Provider Midwife; Visit Provider Midwife
PROC: 10D00Z1 Extraction of Products of Conception, Low, Open Approach (ICD-10-PCS; CPT 59514; principal; 2023-06-04 09:05)
DX: O34.211 Maternal care for low transverse scar from previous cesarean delivery (principal); O99.284 Endocrine, nutritional and metabolic diseases complicating childbirth; E03.9 Hypothyroidism, unspecified; O99.824 Streptococcus B carrier state complicating childbirth; Z3A.39 39 weeks gestation of pregnancy; Z37.0 Single live birth
CPT/HCPCS: 36415; 64488; 80307; 81001; 85025; 86850; 86900; 86901; 96374; 96375; 96376

== ENCOUNTER 2025-02-26 16:40 | Outpatient (OUT) | payer BC, SELFPAY ==
--- OUTSIDE RECORDS SUMMARY | 2025-02-26 16:45 | XMS_ITS | CCD ---
Author Organization [facility] Team Providers Care Medical Records Analyst Name Role Phone Zully Kerr MD Primary Care Pr ovider MICHA RUFFIN Admitting Unavailable MICHA RUFFIN Attending Unavailable ZULLY KERR Primary Care Un available FLORO, JAH Admitting Unavailable FLORO, JAH Attending Unavailable ZULLY KERR Primary Care [...] Attending Unavailable FLORO, JAH L Attending Unavailable Medications Current Medications MedicationDrug Class(es)DatesSig (Normalized)Sig (Original)acetaminophen 500 mg oral tablet (1 source)Start: 18-29-1299lxhjfeokbmtpj (TYLENOL) tablet 1,000 mgacetaminophen 325 mg / oxyCODONE hydrochloride 5 mg oral tablet (1 source)Opioid AgonistStart: 10-11-2021 End: 76-66-2359bqsCMYKMI-acetaminophen (PERCOCET) 5-325 MG per tablet Indications: Delivery of by section Take 1 tablet by mouth every 6 hours as needed for Pain for up to 7 days. Intended supply: 3 days. Take lowest dose possible to manage pain 28 tablet 0 10/11/2021 10/18/2021 Active1 ml carboprost 0.25 mg/ml injection (1 source)Prostaglandin AnalogStart: 66-91-2899svpiuritus (HEMABATE) injection 250 mcgcephalexin 500 mg oral capsule (1 source)Cephalosporin AntibacterialStart: 12-72-2360plpl 500 mg by mouth four times dailyCephalexin Active 500 MG PO Four times daily 28 September 04, 2023 12:00amcholecalciferol 0.05 mg oral capsule (6 sources)Vitamin Dtake 1 capsule by mouth once dailycholecalciferol (Vitamin D-3) 50 MCG (1999 UT) capsule take 1 capsule by mouth once daily for 30 Active1 ml diphenhydrAMINE hydrochloride 50 mg/ml cartridge (1 source)Histamine-1 Receptor AntagonistStart: 75-82-7014bxbalnpczpPKSCM (BENADRYL) injection 25 mgdocusate sodium 100 mg oral capsule (6 sources)Start: 01-22-2025 End: 28-94-0481rxyz 1 capsule by mouth in the morningdocusate sodium (Colace) 100 MG capsule Indications: Anemia during in third trimester (HHS-HCC) Take 1 capsule (100 mg) by mouth in the morning and 1 capsule (100 mg) before bedtime. 60 capsule 3 01/22/2025 05/22/2025 ActiveStart: 07-46-0971fmbh 1 capsule by mouth twice dailydocusate sodium (COLACE) 100 MG capsule Take 1 capsule by mouth 2 times daily 60 capsule 0 10/11/2021 Activedocusate sodium 50 mg / sennosides, penitentiary 8.6 mg oral tablet (1 source)Start: 44-59-4556dtlhpsavwu-docusate sodium (SENOKOT-S) 8.6-50 MG tablet 1 tablet0.6 ml enoxaparin sodium 100 mg/ml prefilled syringe (1 source)Low Molecular Weight HeparinStart: 53-85-9202nopjkrlojy (LOVENOX) injection 60 mgferrous sulfate 325 mg delayed release oral tablet (4 sources)Start: 01-22-2025 End: 39-48-4431jonp 1 tablet by mouth in the morningferrous sulfate (Fe Tabs) 325 (65 Fe) MG EC tablet Indications: Anemia during in third trimester (HHS-HCC) Take 1 tablet (325 mg) by mouth in the morning and 1 tablet (325 mg) before bedtime. Do not crush, chew, or split. 60 tablet 11 01/22/2025 01/22/2026 Activetake 1 tablet by mouth once daily at breakfastferrous sulfate (IRON 325) 325 (65 Fe) MG tablet Take 325 mg by mouth daily (with breakfast) 0 Active ibuprofen 800 mg oral tablet (2 sources)Nonsteroidal Anti-inflammatory DrugStart: 10-10-2021 End: 86-91-2207pasl 1 tablet by mouth every eight hours as needed for pain ibuprofen (ADVIL;MOTRIN) 800 MG tablet Take 1 tablet by mouth every 8 hours as needed for Pain 30 tablet 1 10/11/2021 Activelanolin 1000 mg/ml topical cream (1 source)Start: 65-66-2559rqvifxxq lanolin ointmentlevothyroxine sodium 0.088 mg oral tablet (20 sources)l-ThyroxineStart: 09-06-2024 End: 97-81-8028dcrt 1 tablet by mouth before mealtimelevothyroxine (Synthroid) 88 MCG tablet Indications: Hypothyroidism, unspecified type Take 1 tablet(88 mcg) by mouth in the morning. Take before meals. 30 tablet 1 02/12/2025 02/12/2026 ActiveStart: 01-31-2024 End: 60-47-1162prcj 1 tablet by mouth before mealtimelevothyroxine (Synthroid, Levoxyl) 75 MCG tablet Indications: Acquired hypothyroidism (CMS/HCC) , Other specified hypothyroidism Take 1 tablet (75 mcg) by mouth in the morning. Take before meals. 90 tablet 3 09/05/2024 10/05/2024 ActiveStart: 39-57-3747xeng 75 ug by mouth once dailyLevothyroxine Active 75 MCG PO Daily September 04, 2023 12:00amStart: 45-47-4874vgvy 1 tablet by mouth before mealtimelevothyroxine (Synthroid) 75 MCG tablet Indications: Acquired hypothyroidism (CMS/HCC) , Other specified hypothyroidism (CMS/HCC) Take 1 tablet (75 mcg) by mouth in the morning. Take before meals. 90tablet 3 02/09/2023 ActiveStart: 17-34-1869yjbm 1 tablet by mouth once daily in the morninglevothyroxine (Synthroid, Levoxyl) 50 MCG tablet Indications: Acquired hypothyroidism (CMS/HCC) take 1 tablet by mouth every morning ON AN EMPTY STOMACH 100 tablet 1 09/14/2022 ActiveStart: 10-08-2021 End: 67-27-7023khydvqkmetgrm (SYNTHROID) tablet 50 mcglevothyroxine (SYNTHROID) 75 MCG tablet Take 50 mcg by mouth Daily 0 Activetake 1 tablet by mouth once dailylevothyroxine (SYNTHROID) 75 MCG tablet Take 75 mcg by mouth Daily 0 Suspended1 ml methylergonovine maleate 0.2 mg/ml injection (1 source)Ergot DerivativeStart: 94-68-9703ryouvmxqvzsqtgpb (METHERGINE) injection 200 mcgmetroNIDAZOLE 7.5 mg/ml topical lotion (3 sources)Nitroimidazole AntimicrobialStart: 05-10-2023 End: 76-20-8704ounmdPCPKILKG (Metrolotion) 0.75 % lotion lotion Indications: Dermatitis Apply 1 application topically in the morning and 1 application before bedtime. Do all this for 10 days. 59 mL 1 05/10/2023 05/20/2023 Active miSOPROStol 0.1 mg oral tablet (1 source)Prostaglandin E1 AnalogStart: 27-23-8769gqSWWNPVqlo (CYTOTEC) tablet 800 mcgMultivitamin preparation (1 source)Start: 45-95-3410mhhe 1 tablet by mouth once dailyMultivitamin Active 1 TAB PO Daily September 04, 2023 12:00am1 ml nalbuphine hydrochloride 10 mg/ml injection (1 source)Opioid Agonist/AntagonistStart: 75-84-1974kqzvhodjdr (NUBAIN) injection 10 mg1 ml naloxone hydrochloride 0.4 mg/ml injection (1 source)Opioid AntagonistStart: 14-58-7344xijlagsn (NARCAN) injection 0.4 mg2 ml ondansetron 2 mg/ml injection (1 source)Serotonin-3 Receptor AntagonistStart: 71-45-4226fhmqaqrrely (ZOFRAN) injection 4 mgoxyCODONE hydrochloride 5 mg oral tablet (2 sources)Opioid AgonistStart: 21-44-5153yjyHYTUKY (ROXICODONE) immediate release tablet 10 mgStart: 92-41-6102dfeRJQXIV (ROXICODONE) immediate release tablet 5 mgoxytocin (PITOCIN) 10 unit bolus from the bag (1 source)Start: 48-07-9829gcwxietp (PITOCIN) 10 unit bolus from the bagPrenatal MV-Min-Fe Fum-FA-DHA ( 1 PO) (20 sources) MV-Min-Fe Fum-FA-DHA ( 1 PO) Take by mouth. Active MV-Min-Fe Fum-FA-DHA ( 1 PO) Take by mouth. 0 ActivePrenatal Vit-DSS-Fe Cbn-FA (PRENA-CAP PO) (2 sources)take 1 capsule by mouth once dailyPrenatal Vit-DSS-Fe Cbn-FA (PRENA- CAP PO) Take 1 capsule by mouth daily 0 Activetake 1 capsule by mouth once daily Vit-DSS-Fe Cbn-FA (PRENA-CAP PO) Take 1 capsule by mouth daily 0 Suspendedprenatal vitamin 27-1 MG tablet 1 tablet (1 source)Start: 13-14-1452iuzyjndd vitamin 27-1 MG tablet 1 tabletsimethicone 80 mg chewable tablet (1 source)Start: 30-09-2328rbwfeqmwhhr (MYLICON) chewable tablet 80 mg Completed/Discontinued Medications MedicationDrug Class(es)DatesSig (Normalized)Sig (Original)calcium chloride 0.0014 meq/ml / potassium chloride 0.004 meq/ml / sodium chloride 0.103 meq/ml / sodium lactate 0.028 meq/ml injectable solution (3 sources)Start: 10-07-2021 End: 86-10-7582uwblyzzi ringers infusioncefOXitin (MEFOXIN) 2000 mg in dextrose 5% 50 mL (mini-bag) (1 source)Start: 10-08-2021 End: 93-18-6955jfrLBxmlv (MEFOXIN) 2000 mg in dextrose 5% 50 mL (mini-bag)citric acid 66.8 mg/ml / sodium citrate 100 mg/ml oral solution (1 source)Calculi Dissolution Agent, Anti-coagulantStart: 10-08-2021 End: 38-97-7127efpjsj acid-sodium citrate (BICITRA) solution 30 mLStart: 10-08-2021 End: 17-04-5907nskpfj acid-sodium citrate (BICITRA) solution 30 mLfamotidine (PEPCID) 20 mg in sodium chloride (PF) 10 mL injection (1 source)Start: 10-08-2021 End: 11-09-6385wmcpofwonm (PEPCID) 20 mg in sodium chloride (PF) 10 mL injection 1 ml ketorolac tromethamine 30 mg/ml cartridge (1 source)Nonsteroidal Anti-inflammatory Drug, Cyclooxygenase InhibitorStart: 10-09-2021 End: 45-32-6539hruo 30 mg intravenously every eight hoursketorolac (TORADOL) injection 30 mg2 ml metoclopramide 5 mg/ml prefilled syringe (1 source)Dopamine-2 Receptor AntagonistStart: 10-08-2021 End: 40-22-7470mymwkcatdgwagu (REGLAN) injection 10 mgStart: 10-08-2021 End: 01-07-0242fshxplbcbtfiyk (REGLAN) injection 10 mgmiSOPROStol (CYTOTEC) pre- split tablet TABS 25 mcg (1 source)Start: 10-07-2021 End: 95-71-6985nsKEAUKGzeh (CYTOTEC) pre-split tablet TABS 25 mcgoxytocin (PITOCIN) 30 units in 500 mL infusion (1 source)Start: 10-07-2021 End: 36-00-2790asehowaw (PITOCIN) 30 units in 500 mL infusionpenicillin g potassium 5917903 unt/ml injectable solution (1 source)Penicillin-class AntibacterialStart: 10-08-2021 End: 52-19-3104zntcrmuooo G potassium 5174100 units itxuwrvse004 ml ropivacaine hydrochloride 2 mg/ml injection (1 source)Amide Local AnestheticStart: 10-08-2021 End: 60-87-403668 mL/hr, Epidural, CONTINUOUS, Starting on Wed10/08/21 at 1445, Until Wed10/09/21 at 07121 ml sodium chloride 9 mg/ml injection (10 sources)Start: 42-36-1646mzlm 1 dose intravenously twice daily5-40 mL, IntraVENous, EVERY 12 HOURS SCHEDULED (2 times per day), First dose on Wed10/09/21 at 0900,Until Discontinued For Line Patency: Peripheral IV = 5 mL; Midline or Central Line = 10 mL/lumen. If following IV push medication, administer flush at same rate as the IV push. Flush volume is determined by type of infusion therapy being given. For non-viscous s olutions use: Peripheral IV = 5 mL Midline or Central Line = 10 mL/lumen For viscous solutions (i.e. blood components, parenteral nutrition, contrast media, or after obtaining blood sample) use: Peripheral IV = 10 mL Midline or Central Line = 20 mL/lumen PACU onlyStart: 10-09-2021 IntraVENous, at 5-250 mL/hr, PRN, if patient [...] mL into dose field and 100 mL/hr intorate field of order. For KVO fluids, enter rate of 20 mL/hr or less into rate field of order. PACU onlyStart: .9 % sodium chloride infusionStart: 80-95-6322rumf 5-40 mL intravenously once as needed5-40 mL, IntraVENous, PRN, Starting on Kandice 10/09/21 [...] Midline or Central Line = 10 mL/lumen & nbsp;For viscous solutions (i.e. blood components, parenteral nutrition, contrast media, or after obtaining blood sample) use: Peripheral IV = 10 mL Midline or Central Line = 20 mL/lumen PACU onlyStart: 10-07-2021 End: 20-24-5771ghkaga chloride flush 0.9 % injection 10 mLzolpidem tartrate 5 mg oral tablet (1 source)gamma-Aminobutyric Acid-ergic AgonistStart: 10-07-2021 End: 81-95-1832qgzjuzng (AMBIEN) tablet 5 mg Problems Problem ClassificationProblemDateDocumented DateEpisodic/ChronicAnxiety disorders (20 sources)Generalized anxiety disorder; Translations: [Generalized anxiety disorder]Onset: 907087-29-7149LwjsnraUrzxp distress and abnormal forces of labor (4 sources)Failure to progress in labor; Translations: [Other uterine inertia] Onset: 10-09-2021 Resolved: 43-31-9600AvaifzjnXprcysaqp disorders (1 source)Amenorrhea; Translations: [Amenorrhea, unspecified]77-33-8139Mbcoklr Mood disorders (20 sources)Minor depressive disorder; Translations: [Other specified depressive episodes]Onset: 176611-60-5372KhezzysByfeafvvkrjy breast conditions (2 sources)Acute mastitis; Translations: [Mastitis without abscess]09-04-2023 EpisodicOther complications of ; puerperium affecting management of mother (2 sources)Deliveries by ; Translations: [Encounter for delivery without indication]EpisodicOther nervous system disorders (4 sources)Choroid plexus cyst; Translations: [Cerebral cysts]39-62-0641Cmbrueh Other and delivery including normal (20 sources)Patient encounter status; Translations: [Encounter for supervision of normal , unspecified, unspecified trimester]Onset: 10-07-2021 Resolved: 96-58-6809CqsrgjelJtddx screening for suspected conditions (not mental disorders or infectious disease) (6 sources)Finding related to ; Translations: [Encounter for other specified screening]38-95-1564KfakzrogNhrgwpp disorders (20 sources)Hypothyroidism; Translations: [Hypothyroidism, unspecified]Onset: hronic Results Test NameValueInterpretationReference RangeFacilityUS OB FOLLOW UP TRANSABDOMINAL APPROACHon 67-71-7373IR OB FOLLOW UP TRANSABDOMINAL APPROACH FINDINGS: A single, live intrauterine is present with normal cardiac rate of 149 beats per minute. Normal activity and amniotic fluid volume. Amniotic fluid index is 14 cm. Morphology is grossly normal. The cervix is long and closed, 3.8cm. The placenta is fundal, Grade 1 not associatedwith the cervical os. The current sonographic age is 30 weeks and 0 days, based on the following measurements: BPD 7.4 cm ( 26 weeks,6 days) Head Circumference 27.6cm (30 weeks, 1days) Abdominal Circumference 26.2cm (30 weeks, 3 days) Femur Length 5.6cm ( 29 weeks, 4 days) Presentation Breech Placenta Fundal Grade 1 Weight (g) by Percentile 39.7 % * These measurements result in an estimated date of delivery of April 21, 2025. The current estimated weight is 1504 grams (3 pound, 5 ounces). IMPRESSION: 1. Single, live intrauterine , current sonographic age of 30 weeks and 0 days, with an estimated date of delivery of April 21, 2025. 2. Comparison made with prior examination of November 20, 2024 weight by percentile was 35.6% and delivery at that time was April 22, 2025. 3. Breech presentation. * Estimated Weight (g) by Percentile is based upon an accurate estimated age based on last menstrual period. TRANSCRIBED BY: ELECTRONICALLY SIGNED BY: Ann-Marie VangUS OB LIMITED 1+ FETUSESon 44-00-4478QV OB LIMITED 1+ FETUSESFINDINGS: Single viable intrauterine with cephalic presentation and a posterior Grade 1 placenta not associated with the closed internal cervical os. Intracranial evaluation at this time demonstrates no hydrocephalus or significant choroid plexus cyst formation. IMPRESSION: Normal intracranial appearance, viable intrauterine . TRANSCRIBED BY: ELECTRONICALLY SIGNED BY: Ann-Marie Vang AvailableUS OB LIMITED 1+ FETUSESon 10-94-5434LI OB LIMITED 1+ FETUSESFINDINGS: Comparison November 17, 2024. Single viable intrauterine , breech presentation, posterior placenta Grade I. Normal cardiac activity 149 bpm. NIALL 18 cm. Closed cervix. Left-sided choroid plexus cyst remains, reduction in size, 4 x 4 mm. No ventricular dilatation. IMPRESSION: 1. Single viable intrauterine , posterior placenta, closed cervix 2. 4 mm left choroid plexus benign appearing cyst, reduced size from prior exam TRANSCRIBED BY: ELECTRONICALLY SIGNED BY: Ann-Marie Vang AvailableUS OB 14+ WEEKS ANATOMY SCANon 96-29-4238OD OB 14+ WEEKS ANATOMY SCANFINDINGS: A single, live intrauterine is present with normal cardiac rate of 147 beats per minute. Normal activity and amniotic fluid volume. Amniotic fluid index is 12.0cm. Morphology isgrossly normal. Bilateral several millimeter choroid plexus cyst. The cervix is long and closed,4.0cm. The placenta is posterior, Grade 0. The current sonographic age is 19 weeks and 4 days, based on the following measurements: BPD 4.5cm (19 weeks 4 days) Head Circumference 16.8cm ( 19 weeks, 3 days) Abdominal Circumference 14.2cm ( 19weeks, 4 days) Femur Length 3.1cm ( 19 weeks, 4 days) Presentation Cephalic Placenta posterior Weight (g) by Percentile 35.6% * These measurements result in an estimated date of delivery of April 22, 2025. The current estimated weight is 229 grams ( pound, 11 ounces). IMPRESSION: Single, live intrauterine , current sonographic age of 19 weeks and 4 days, with an estimated date of delivery of April 22, 2025. * Estimated Weight (g) by Percentile is based upon an accurate estimated age based on last menstrual period. TRANSCRIBED BY: ELECTRONICALLY SIGNED BY: Ann-Marie Vang AvailableHCG ( test) Ql (U)on 62-89-0138Aymownortjnqrt and review of laboratory resultsAbnormal NOMS HealthcarePreg Test, UrPositiveNegativeNOMS [facility] Health MiamisburgNOSSM RehabUS OB < 14 WEEKS EARLYon 94-82-6093VL OB < 14 WEEKS EARLYEXAM: US OB < 14 WEEKS EARLY HISTORY: Dating. COMPARISON: None available. TECHNIQUE: Two-dimensional transvaginal grayscale ultrasound imaging of the pelvis was performed. Color Doppler evaluation of the ovaries was also performed. FINDINGS: The uterus measures 7.9 x 5.4 x 7.5 cm and demonstrates a normal homogeneous echotexture. The cervix measures 2.7 cm in length and the cervical os is closed. The right ovary measures 3.9 x 2.5 x 2.7 cm and demonstrates a normal echotexture. There is normal color Doppler flow. There is a 1.8 cm presumed corpus luteal cyst. The left ovary measures 2.4 x 1.2 x 1.4 cm and demonstrates a normal echotexture. There is normal color Doppler flow. No fluid is present within the cul-de-sac. There is a single, live intrauterine gestation identified with a heart rate of 165 beats per minute and a crown-rump length measurement of 0.8 cm, correlating to a gestational age of 6 weeks 5 days. There is no subchorionic hemorrhage visualized. A yolk sac is visualized. IMPRESSION: 1. Single, live intrauterine gestation 7 weeks, 6 days by LMP. Today's ultrasound measurements correlate with a gestational age of 6 weeks 5 days. IFEANYI by today's ultrasound is 04/11/2025. 2. Normal color Doppler evaluation of the bilateral ovaries. Interpreted by: Electronically signed by PORSHA HARRIS II, MD, PHD at 22-Aug-2024 11:00:23 PM [facility] TeleradiologyNormalNot AvailableHemoglobinon 26-61-4039Vtpkxncekm (Bld) [Mass/Vol]8.7 g/dLLow11.9-15.1MHolmes County Joel Pomerene Memorial HospitalComment on above: Performed By: #### HGB #### [address] [place] [address] Director Consumer: Michael Hector MDHemoglobin (Bld) [Mass/Vol]8.7 g/dLLow11.9 - 15.1 g/dLBON ASHTABULA GENERAL HOSPITALInterpretation and review of laboratory results AbnormalBON ASHTABULA GENERAL HOSPITALBON ASHTABULA GENERAL HOSPITALOPERATIVE REPORTon 28-52-6945UJTGVAILE REPORTMER[address] [id number] OPERATIVE REPORT PATIENT NAME: RULA TONY : 2000 MED REC NO: [id number] ROOM: 0203 ACCOUNT NO: [id number] ADMIT DATE: 10/07/2021 PROVIDER: Monalisa Norman MD DATE OF PROCEDURE: 10/08/2021 Date upon completion of the procedure is 10/09/2021. PREOPERATIVE DIAGNOSIS: Failure to progress in labor. POSTOPERATIVE DIAGNOSES: Failure to progress in labor plus occiput posterior confirmed and LOT presentation. PROCEDURE PERFORMED: Primary section, low-transverse uterine segment. SURGEON: Monalisa Norman M.D. ANESTHESIA: Epidural. GLAZE HANDLER: Jah Pettit. ESTIMATED BLOOD LOSS: 600 mL. COMPLICATIONS OF THE PROCEDURE: None. FINDINGS: A viable vigorous male in LOT presentation with clear amniotic fluid. [...] and extended in a semilunar fashion with blacksmith hammer operator's fingers and then the OP presentation was noted. Valuer's fingers inserted in the uterus. head elevated [...] the left side of the incision and hodses-hd-shmay sutures were placed across this to prevent any further expansion. The uterus closed in two layers with 0 chromic. A cuakak-ko-tncnm suture was placed in the right superior [...] recovery room after a postoperative block obtained. MONALISA NORMAN MD [id number] Doc#: [id number] CC:[facility] auto differentialon 64-58-7601Ggcfbvuy Eos # 0.07[facility] HEALTHAbsolute Immature Granulocyte0.03[facility] HEALTHAbsolute Lymph #2.08[facility] HEALTHAbsolute Quay #0.33[facility] HEALTHBasophils (Bld) [#/Vol]10*3/uLBON SECOURS MERCY HEALTHBasophils/100 WBC (Bld)0 %0 - 2 %[facility] HEALTHEosinophils/100 WBC (Bld)1 %1 - 4 % [facility] HEALTHHematocrit (Bld) [Volume fraction]35.5 %Low36.3 - 47.1 % [facility]ERNON HOSPITALHemoglobin (Bld) [Mass/Vol]11.4 g/dLLow11.9 - 15.1 g/dL [facility] HOSPITALImmature granulocytes/100 WBC (Bld)0 %0IN[facility] HOSPITALInterpretation and review of laboratory resultsAbnormalBON ASHTABULA GENERAL HOSPITALLymphocytes/100 WBC (Bld)23 %Low25 - 45 %[facility] HOSPITALH (RBC) [Entitic mass]28.1 pg25.2 - 33.5 pgBON LIMA CITY HOSPITALHC (RBC) [Mass/Vol]32.1 g/dL28.4 - 34.8 g/dLBON SECMERCY HEALTH KINGS MILLS HOSPITALV (RBC) [Entitic vol]87.4 fL82.6 - 102.9 fLINOVA MOUNT VERNON HOSPITALMonocytes/100 WBC (Bld)4 %2 - 8 %[facility]ERNON HOSPITALNRBC Automated0.00.0 per 100 WBCINOVA MOUNT VERNON HOSPITALPlatelet distribution width (Bld) [Ratio]15.0 %High11.8 - 14.4 %[facility] VERNON HOSPITALPlatelet mean volume (Bld) [Entitic vol]11.5 fL8.1 - 13.5 fL [facility] HEALTHPlatelets (Bld) [#/Vol]278 10*3/uLINOVA MOUNT VERNON HOSPITALRBC (Bld) [#/Vol]4.06 10*6/uL3.95 - 5.11 m/uLINOVA MOUNT VERNON HOSPITAL Segmented neutrophils/100 WBC (Bld)72 %High34 - 64 %INOVA MOUNT VERNON HOSPITALSegs Absolute6.54B[facility]ABUL[facility] GENERAL HOSPITALWBC (Bld) [#/Vol]9.1 10*3/uLWELLMONT LONESOME PINE MT. VIEW HOSPITALCBC with Diffon 66-55-8530Hsf. Basophil<0.03 Normal0.00-0.20[facility] HospitalComment on above:Performed By: #### CDP #### [facility] [address] [place] [address] Director Consumer: Jennifer Pickard.Imm.Granulocyte0.03 k/uLNormal0.00-0.30[facility] HospitalComment on above:Performed By: #### CDP #### [address] [place] [address] Director Consumer: Jennifer Pickard.Neutrophil (Seg)6.54 k/uLNormal1.50-8.10[facility] HospitalComment on above:Performed By: #### CDP #### [address] [place], [place] [address] Director Consumer: Michael Hector MDBasophils/100 WBC (Bld)0 %Normal0-2MWooster Community Hospital HospitalComment on above:Performed By: #### CDP #### [address] [place] [address] Director Consumer: Michael Hector MDEosinophils (Bld) [#/Vol]0.07 10*3/uLNormal 0.00-0.44[facility] HospitalComment on above:Performed By: #### CDP #### [address] [place], [place] [address] Director Consumer: Michael Hector MDEosinophils/100 WBC (Bld)1 %Normal1-4[facility] HospitalComment on above:Performed By: #### CDP #### [address] [place], [place] [address] Director Consumer: Michael Hector MDErythrocyte distribution width (RBC) [Ratio]15.0 % High11.8-14.4[facility] HospitalComment on above:Performed By: #### CDP #### [address] [place] [id number] Director Consumer: Michael Hector MDHematocrit (Bld) [Volume fraction]35.5 %Low 36.3-47.1MWooster Community Hospital HospitalComment on above:Performed By: #### CDP #### [address] [place], [facility]83 Director Consumer: Michael Hector MDHemoglobin (Bld) [Mass/Vol]11.4 g/dLLow11.9-15.1 [facility] HospitalComment on above:Performed By: #### CDP #### [address] [place], [facility]83 Director Consumer: Michael Hector MDImmature granulocytes/100 WBC (Bld)0 %Pyehox4Eejmf [facility] HospitalComment on above:Performed By: #### CDP #### [address] [place], [facility]83 Director Consumer: Michael Hector MDLymphocytes (Bld) [#/Vol]2.08 10*3/uLNormal 1.10-3.70[facility] HospitalComment on above:Performed By: #### CDP #### [address] [place], [facility]83 Director Consumer: Dahlia Pickardmphocytes/100 WBC (Bld)23 %Wjw76-61Xqkly [facility] HospitalComment on above:Performed By: #### CDP #### [address] [place], [place] [address] Director Consumer: HAYDER PickardCH (RBC) [Entitic mass]28.1 xtXpqfzt38.2-33.5 [facility] HospitalComment on above:Performed By: #### CDP #### [address] [place] [address] Director Consumer: HAYDER PickardCHC (RBC) [Mass/Vol]32.1 g/mPKruacn63.4-34.8[facility] HospitalComment on above:Performed By: #### CDP #### [address] [place] [address] Director Consumer: HAYDER PickardCV (RBC) [Entitic vol]87.4 rXBirbgl27.6-102.9 [facility] HospitalComment on above:Performed By: #### CDP #### [address] [place], [place] [id number] Director Consumer: HAYDER Pickardonocytes (Bld) [#/Vol]0.33 10*3/uLNormal0.10-1.40 [facility] HospitalComment on above:Performed By: #### CDP #### [address] [place], [place] [id number] Director Consumer: HAYDER Pickardonocytes/100 WBC (Bld)4 %Normal2-8[facility] Anderson HospitalComment on above:Performed By: #### CDP #### [address] [place] [address] Director Consumer: Marv Pickardutrophil (Seg)72 %Ezgl71-75IbzvmMercy Health Anderson Hospital Comment on above:Performed By: #### CDP #### [address] [place] [address] Director Consumer: Michael Hector MDNRBC Automated0.0 per 100 WBCNormal0.0[facility] Anderson HospitalComment on above:Performed By: #### CDP #### [address] [place] [address] Director Consumer: Tasha Pickardtelet mean volume (Bld) [Entitic vol]11.5 fL Normal8.1-13.5[facility] Anderson HospitalComment on above:Performed By: #### CDP #### [address] [place], [place] [id number] Director Consumer: Tasha Pickardtelets (Bld) [#/Vol]278 10*3/uDFizrpo060-858 [facility] HospitalComment on above:Performed By: #### CDP #### [facility] [address] [place], [place] [id number] Director Consumer: ALTA Pickard ([facility]) [#/Vol]4.06 10*6/uLNormal3.95-5.11[facility] Anderson HospitalComment on above:Performed By: #### CDP #### [facility] [address] [place] [address] Director Consumer: LORI Pickard ([facility]) [#/Vol]9.1 10*3/uLNormal4.5-13.5[facility] Anderson HospitalComment on above:Performed By: #### CDP #### [facility] [address] [place] [address] Dr. [place], [place] [id number] Director Consumer: Michael Hector MDDRUG SCREEN MULTI URINEon 36-88-2596Uztjbwpwkie Screen, UrNegativeNEGATIVEBON SECOURS MERCY HEALTHBarbiturate Screen, UrNegative NEGATIVEBON SECOURS MERCY HEALTHBenzodiazepine Screen, UrineNegativeNEGATIVEBON SECOURS MERCY HEALTHBuprenorphine UrineNegativeNEGATIVEB[facility] SECOURS MER[facility]ALTH Cannabinoid Scrn, UrNegativeNEGATIVEBON SECOURS MERCY HEALTHCocaine Metabolite, UrineNegativeNEGATIVEBON SECOURS MERCY HEALTHMethadone Screen, UrineNegative NEGATIVEBON SECOURS MERCY HEALTHMethamphetamine, UrineNegativeNEGATIVEBON SECOURS MERCY HEALTHOpiates, UrineNegativeNEGATIVEB[facility]OU[facility]ALTH Oxycodone Screen, UrNegativeNEGATIVEBON SECOURS MERCY HEALTHPhencyclidine, Urine NegativeNEGATIVEBON SECOURS MERCY HEALTHPropoxyphene, UrineNegativeNEGATIVEBON SECOURS MERCY HEALTHTricyclic Antidepressants, UrineNegativeNEGATIVEBON SECOURS MERCY HEALTHComment on above:Drug screen results are to be used for medical purposes only. All positive results are unconfirmed. Testing for employment or legal uses should be sent to a reference laboratory for confirmation. [facility] MERCY HEALTHDrug Scr, Abuse, Uron 92-49-4348Iuzvdjgxzxa(s),Ur NegativeNormalNEGMercy Oglethorpe HospitalComment on above:Performed By: #### LAYA #### [facility] [address] [place] [address] [place] [address] Director Consumer: Michael Hector MDBarbiturate(s),UrNegativeNormalNEGMercy Oglethorpe HospitalComment on above:Performed By: #### LAYA #### [facility] [address] [place] [address] [place] [address] Director Consumer: Michael Hector MDBenzodiazepine(s)NegativeNormalNEGMercy Oglethorpe HospitalComment on above:Performed By: #### LAYA #### [address] [place], [place] [id number] Director Consumer: Michael Hector MDBuprenorphrine, UrNegativeNormalNEGMercy Oglethorpe HospitalComment on above:Performed By: #### LAYA #### [address] [place] [address] Director Consumer: DAVID Pickardannabinoid(s),UrNegativeNormalNEGMercy Oglethorpe HospitalComment on above:Performed By: #### LAYA #### [facility] [address] [place] [address] Dr. [place], [facility]83 Director Consumer: DAVID Pickardocaine MetaboliteNegativeNormalNEGMercy Oglethorpe HospitalComment on above:Performed By: #### LAYA #### [facility] [address] [place] [address] Dr. [place], [facility]83 Director Consumer: HAYDER Pickardethadone Ql (U)NegativeNormalNEGMercy Oglethorpe HospitalComment on above:Performed By: #### LAYA #### [facility] [address] [place] [address] Dr. [place], [place] 0956383 Director Consumer: HAYDER Pickardethamphetamine, UrNegativeNormalNEGMercy Oglethorpe HospitalComment on above:Performed By: #### LAYA #### [address] [place], [place] 6454583 Director Consumer: Michael Hector MDOpiate(s), UrNegativeNormalNEGMercy Oglethorpe HospitalComment on above:Performed By: #### LAYA #### [address] [place] [address] Director Consumer: Michael Hector MDOxycodone, UrineNegativeNormalNEGMercy Oglethorpe HospitalComment on above:Performed By: #### LAYA #### [address] [place], [place] [id number] Director Consumer: MARGO Pickardhencyclidine, UrNegativeNormalNEGMercy Oglethorpe HospitalComment on above:Performed By: #### LAYA #### [address] [place] [address] Director Consumer: MARGO Pickardropoxyphene,UrineNegativeNormalNEGMercy St. Vincent'S Medical CenterComment on above:Performed By: #### LAYA #### [address] [place], [place] [id number] Director Consumer: Michael Hector MDTricyclic antidepressants Screen Ql (U)Negative NormalNEGMercy Oglethorpe HospitalComment on above:Result Comment: Drug screen results are to be used for medical purposes only. All positive results are unconfirmed. Testing for employment or legal uses should be sent to a reference laboratory for confirmation.Performed By: #### LAYA #### [address] [place], [place] [id number] Director Consumer: MARTHA Pickard Biophysical Profileon 08-41-4928EJ Biophysical ProfileHISTORY: Decreased movement FINDINGS: Breathing Movements2 Gross Body Movements 2 Tone2 Qualitative amniotic fluid volume2 A single, viable intrauterine is present. The placenta is anterior, not associated with the cervical os. IMPRESSION: 1. Normal biophysical profile 11/10 2. NIALL 23 cc (please see OB ultrasound report) Report reported and signed by Nuno Collins on 09/30/2021 0709NormalNortSelect Medical Specialty Hospital - AkronTS w/ Reflex to Free T4on 38-12-5357OLI8.707 uIU/mL Normal0.400-4.500NortSelect Medical Specialty Hospital - AkronComment on above:Performed By: #### 76172X, 6304R, 430A, 2782A, 15754, 85009D, 59335, 265F, 35155J, 1149T, 42A, 71908 #### [facility] Default [address] [place], [place] [address]UV OB Growthon 51-21-1541BA OB GrowthFINDINGS: Comparison made with prior ultrasound examination May [...] Placenta Anterior Grade II Weight (g) by Thafugilpj70.4 % * These measurements result in an [...] and signed by Nuno Collins on 08/05/2021 0734NormalNortSelect Medical Specialty Hospital - AkronComplete Blood Counton 82-72-9455Vcoszvdtnyl distribution width (RBC) [Ratio]13.8 %Crevuh42.0-15.0NortTrumbull Regional Medical Center SpecialistComment on above:Performed By: #### 38568B, 6304R, 430A, 2782A, 23357, 96079S, 98218, 265F, 75185J, 1149T, 42A, 97245 #### [facility] [address] [place], [place] [address]Ksxweraynx (Bld) [Volume fraction]32.8 %Low35.0-47.0NortTrumbull Regional Medical Center SpecialistComment on above:Performed By: #### 24603V, 6304R, 430A, 2782A, 16575, 14487R, 13617, 265F, 99141H, 1149T, 42A, 62534 #### [facility] [address] [place], [place] [address]Fwzofqbint (Bld) [Mass/Vol]10.7 g/dLLow11.6-15.5NortTrumbull Regional Medical Center SpecialistComment on above:Performed By: #### 13618E, 6304R, 430A, 2782A, 76986, 44054Z, 30503, 265F, 06576D, 1149T, 42A, 49723 #### [facility] [address] [place], [place] [address]HKJ (RBC) [Entitic mass]28.3 wePbwuur27.0-33.0NortTrumbull Regional Medical Center SpecialistComment on above:Performed By: #### 90057D, 6304R, 430A, 2782A, 54157, 67300Y, 44313, 265F, 90036Q, 1149T, 42A, 62179 #### [facility] [address] [place], [place] [address]UEIP (RBC) [Mass/Vol]32.6 g/ySNgqwsq68.0-36.0NortTrumbull Regional Medical Center SpecialistComment on above:Performed By: #### 56367U, 6304R, 430A, 2782A, 32517, 03186P, 01127, 265F, 67104T, 1149T, 42A, 28835 #### [facility] [address] [place], [place] [address]AKQ (RBC) [Entitic vol]87 eHNsizop27-644Orxqdbos [place] [facility] SpecialistComment on above:Performed By: #### 68000K, 6304R, 430A, 2782A, 96301, 16801A, 72247, 265F, 10216O, 1149T, 42A, 86186 #### [facility] [address] [place], [place] [address]Ovtgcign mean volume (Bld) [Entitic vol]10.50 fLNormal7.50-12.50 [facility] SpecialistComment on above:Performed By: #### 10669C, 6304R, 430A, 2782A, 15074, 13353I, 70499, 265F, 03371S, 1149T, 42A, 71875 #### [facility] [address] [place], [place] [address]Pdpgsayze (Bld) [#/Vol]304 10*3/wTHydlqx585-960Buvolqiy [place] [facility] SpecialistComment on above:Performed By: #### 13226B, 6304R, 430A, 2782A, 12577, 37411W, 48131, 265F, 55582Z, 1149T, 42A, 69862 #### [facility] [address] [place], [place] [address]VAP (Bld) [#/Vol]3.78 10*6/uLLow3.90-5.20NoDetwiler Memorial Hospital SpecialistComment on above:Performed By: #### 87316X, 6304R, 430A, 2782A, 64978, 77248O, 07778, 265F, 39320W, 1149T, 42A, 09325 #### [facility] [address] [place], [place] [address]XZS-QY85.8 iHXglret80.0-50.0NoDetwiler Memorial Hospital Specialist Comment on above:Performed By: #### 04425D, 6304R, 430A, 2782A, 53651, 15566Q, 38155, 265F, 20112L, 1149T, 42A, 33372 #### [facility] [address] [place] [address]TUF (Bld) [#/Vol]8.2 10*3/uLNormal3.8-11.0NoDetwiler Memorial Hospital SpecialistComment on above:Performed By: #### 10707U, 6304R, 430A, 2782A, 46177, 10538E, 66896, 265F, 37674X, 1149T, 42A, 45700 #### [facility] [address] [place] [address]Hytmwjy - Gestational Screenon 00-52-8881Qrmyuru [Mass/Vol]106 mg/dLNormal<135NoSalem Regional Medical CenterComment on above:Result Comment: A value of 135 mg/dL or greater indicates the need for a full glucose tolerance test performed in the fasting state to determine if the patient has gestational diabetes.Performed By: #### 96885Q, 6304R, 430A, 2782A, 37754, 01474X, 75876, 265F, 55941R, 1149T, 42A, 64476 #### [facility] [address] [place] [address]BCO w/ Reflex to Free T4on 20-92-7270OGX0.140 uIU/mLNormal 0.400-4.500NoDetwiler Memorial Hospital SpecialistComment on above:Performed By: #### 60629Z, 6304R, 430A, 2782A, 11719, 87753V, 73711, 265F, 42977E, 1149T, 42A, 82203 #### [facility] [address] [place] [address]BYT w/ Reflex to Free T4on 64-74-7445LJG0.270 uIU/mLNormal 0.400-4.500NoDetwiler Memorial Hospital SpecialistComment on above:Performed By: #### 66780R, 6304R, 430A, 2782A, 86019, 87865H, 13168, 265F, 26851G, 1149T, 42A, 66598 #### [facility] [address] [place], [place] [address]BU Abdomen Limitedon 13-37-7847ZA Abdomen LimitedHISTORY: Umbilical pain x 6 hours, 20 weeks [...] and signed by Nuno Collins on 05/28/2021 0718NormalNorthern [facility] SpecialistTSH w/ Reflex to Free T4on 18-12-2531JFS8.320 uIU/mL Normal0.400-4.500Nortabrazo central campusn [facility] SpecialistComment on above:Performed By: #### 50574Y, 6304R, 430A, 2782A, 71404, 12399F, 32548, 265F, 52861D, 1149T, 42A, 85570 #### [facility] [address] [place], [place] [address]JNL, External Resulton 00-20-1736WLF, External ResultPositiveBON [employer] Phone: c. Trachomatis, External Resulton 03-21-2021. Trachomatis, External ResultNot detectedBON [employer] Phone: HIV, External Resulton 81-86-9822HGV, External Result Non-ReactiveBON [employer] Phone: Hepatitis B, External Resulton 17-06-5279Axf B, External ResultNon-ReactiveBON [employer] Phone: N. Gonorrhoeae, External Resulton 03-21-2021N. Gonorrhoeae, External ResultNot detectedBON [employer] Phone: No Panel Informationon 78-24-2806Bi Factor, External ResultPositiveBON [employer] Phone: bON [employer] Phone: [facility] [employer] Phone: RPR, External Labon 03-00-2077CAR, External Result Non-ReactiveBON [employer] Phone: Jubella Titer, External Resulton 06-12-3005Opiedop Titer, External Result4.18 immuneBON [employer] Phone: Q - ABO GROUP AND RH TYPEon 05-15-2884KZJ group Nom (Bld)ANormalNortabrazo central campusn Lawrence+Memorial HospitalComment on above:Order Comment: [facility] performed at: [facility], [address] [place] [address], [address] [place] [address], [address], Drilling Machine Operator: Luiz Dale MD [facility] Collection Date/Time: [facility] Results Received Date/Time: [facility] Reported Date/Time: [id number] By: #### 09522B, 6304R, 430A, 2782A, 06551, 77739Q, 42813, 265F, 43765U, 1149T, 42A, 68062 #### [facility] Default [address] [place] [address]PJ TYPEPositiveNormalNoSalem Regional Medical CenterComment on above:Order Comment: [facility] performed at: [facility], [facility], [address] [facility], [address] [place] [address], [address], Drilling Machine Operator: Luiz Dlae MD [facility] Date/Time: [id number] [facility] Results Received Date/Time: [facility] Reported Date/Time: [id number] Comment: For additional information, please refer to http://education.Deed/faq/NQB558 (This link is being provided for informational/ educational purposes only.)Performed By: #### 88093Z, 6304R, 430A, 2782A, 63185, 75581A, 04898, 265F, 99107I, 1149T, 42A, 63596 #### [facility] Default [address] [place] [address]T - ANTIBODY SCREEN,RBC W/REFL ID,TITER AND AGon 03-18-2021 ANTIBODY SCREEN, RBC W/REFL ID, TITER AND AGDetectedNormalNorthern Lawrence+Memorial HospitalComment on above:Order Comment: [facility] performed at: [facility], [facility], [address] , [address] [place] [address], [address], Drilling Machine Operator: Luiz Dale MD [facility] Collection Date/Time: [facility] Results Received Date/Time: [facility] Reported Date/Time: [id number] Comment: Reference range No antibodies detected This assay is a screening test for the detection of red blood cell antibodies. The test is not to be used for pretransfusion screening or for the medical management of an alloimmunized .Performed By: #### 78078H, 6304R, 430A, 2782A, 36772, 06779I, 14000, 265F, 06384M, 1149T, 42A, 78075 #### [facility] Default [address] [place] [address]U - CBC W/DIFF AND PLTon 98-22-4246VSHIDXK65 cells/uLNormal0-200 [facility]Com[facility] on above:Order Comment: [facility] performed at: [facility], [facility], [address] , [address] [place] [address], [address], Drilling Machine Operator: Luiz Dale MD [facility] Date/Time: [id number] [facility] Results Received Date/Time: [facility] Reported Date/Time: [id number] By: #### 87798Z, 6304R, 430A, 2782A, 55097, 97434O, 07613, 265F, 66585E, 1149T, 42A, 07708 #### [facility] [address] [place], [place] [address]Dcxolhowf/100 WBC (Bld)0.3 %NormalNorthern [place] Medical SpecialistComment on above:Order Comment: [facility] performed at: [facility], [facility], [address] [facility], [address] [place] [address], [address] [place] [address], Drilling Machine Operator: Luiz Dale MD [facility] Date/Time: [facility] Results Received Date/Time: [facility] Reported Date/Time: [id number] By: #### 19332Q, 6304R, 430A, 2782A, 91622, 41472B, 07299, 265F, 84841G, 1149T, 42A, 95404 #### [facility] [address] [place], [place] [address]XXKLMU525 cells/fFVgtbqj03-508Qvhnysat [place] [employer] Clerk Comment on above:Order Comment: [facility] performed at: [facility], [facility], [facility], [address] [place] [address], [address], Drilling Machine Operator: Luiz Dale MD [facility] Date/Time: [facility] Results Received Date/Time: [facility] Reported Date/Time: [id number] By: #### 92462J, 6304R, 430A, 2782A, 37778, 05290X, 89804, 265F, 54450B, 1149T, 42A, 87289 #### [facility] Default [address] [place], [place] [address]Ykoqhaxdkpt/100 WBC (Bld)1.5 %[facility] SpecialistComment on above:Order Comment: [facility] performed at: [facility], [facility], [address] , [address] [place] [address], [address], Drilling Machine Operator: Luiz Dale MD [facility] Date/Time: [facility] Results Received Date/Time: [facility] Reported Date/Time: [id number] By: #### 15041C, 6304R, 430A, 2782A, 21163, 48259H, 15188, 265F, 43499A, 1149T, 42A, 40750 #### [facility] Default [address] [place], [place] [address]Ziplnlmsjym distribution width (RBC) [Ratio]14.4 %Avykiw18.0-15.0 [facility] SpecialistComment on above:Order Comment: [facility] performed at: [facility], [facility], [address] [place] [address], [address] [place] [address], [address] [place] [address], Drilling Machine Operator: Luiz Dale MD [facility] Date/Time: [facility] Results Received Date/Time: [facility] Reported Date/Time: [id number] By: #### 50628O, 6304R, 430A, 2782A, 92410, 10368W, 09044, 265F, 24282E, 1149T, 42A, 38811 #### [facility] Default [address] [place], [place] [address]Rmvobqoqur (Bld) [Volume fraction]37.8 %Ukxwam46.0-45.0[facility] SpecialistComment on above:Order Comment: [facility] performed at: [facility], [facility], [address] [place] [address], [address] [place] [address], [address] [place] [address], Drilling Machine Operator: Luiz Dale MD [facility] Date/Time: [facility] Results Received Date/Time: [facility] Reported Date/Time: [id number] By: #### 51246F, 6304R, 430A, 2782A, 29558, 60511I, 11269, 265F, 06826L, 1149T, 42A, 52427 #### [facility] Default [address] [place], [place] [address]Fvxnrloqmc (Bld) [Mass/Vol]12.6 g/mQSmlxci79.7-15.5[facility] SpecialistComment on above:Order Comment: [facility] performed at: [facility], [facility], [address] [place] [address], [address] [place] [address], [address] [place] [address], Drilling Machine Operator: Luiz Dale MD [facility] Date/Time: [facility] Results Received Date/Time: [facility] Reported Date/Time: [id number] By: #### 47489E, 6304R, 430A, 2782A, 16216, 81254F, 11782, 265F, 39447H, 1149T, 42A, 07483 #### [facility] Default [address] [place], [place] [address]Wpyqiorjzpu (Bld) [#/Vol]1.956 10*3/fVEitrar334-5246Rbjegcru [place] [facility] SpecialistComment on above:Order Comment: [facility] performed at: [facility], [facility], [address], [address] [place] [address], [address] [place] [address], Drilling Machine Operator: Luiz Dale MD [facility] Date/Time: [facility] Results Received Date/Time: [facility] Reported Date/Time: [id number] By: #### 70997I, 6304R, 430A, 2782A, 07935, 93707S, 00080, 265F, 74039Y, 1149T, 42A, 47669 #### [facility] Default [address] [place], [place] [address]Vzsutaugktj/100 WBC (Bld)29.2 %NormalNoDetwiler Memorial Hospital SpecialistComment on above:Order Comment: [facility] performed at: [facility], [facility], [address], [address] [place] [address], [address], Drilling Machine Operator: Luiz Dale MD [facility] Date/Time: [facility] Results Received Date/Time: [facility] Reported Date/Time: [id number] By: #### 72968L, 6304R, 430A, 2782A, 92234, 52974R, 49156, 265F, 35494Y, 1149T, 42A, 49238 #### [facility] Default [address] [place], [place] [address]MQK (RBC) [Entitic mass]28.7 pySzbxik82.0-33.0[place] [facility] SpecialistComment on above:Order Comment: [facility] performed at: [facility], [facility], [address], [address] [place] [address], [address] [place] [address], Drilling Machine Operator: Luiz Dale MD [facility] Date/Time: [facility] Results Received Date/Time: [facility] Reported Date/Time: [id number] By: #### 05615K, 6304R, 430A, 2782A, 53369, 90976U, 66117, 265F, 75109V, 1149T, 42A, 00092 #### [facility] Default [address] [place], [place] [address]UREJ (RBC) [Mass/Vol]33.3 g/bVDhcjpx89.0-36.0[place] [facility] SpecialistComment on above:Order Comment: [facility] performed at: [facility], [facility], [address] , [address] [place] [address], [place], [address] [place] [address], Drilling Machine Operator: Luiz Dale MD [facility] Date/Time: [facility] Results Received Date/Time: [facility] Reported Date/Time: [id number] By: #### 30836C, 6304R, 430A, 2782A, 02900, 11740C, 32051, 265F, 20354O, 1149T, 42A, 21460 #### [facility] Default [address] [place], [place] [address]XJL (RBC) [Entitic vol]86.1 cQMpjbnr46.0-100.0[place] [facility] SpecialistComment on above:Order Comment: [facility] performed at: [facility], [facility], [address] , [address] [place] [address], [address] [place] [address], Drilling Machine Operator: Luiz Dale MD [facility] Collection Date/Time: [facility] Results Received Date/Time: [facility] Reported Date/Time: [id number] By: #### 83762Z, 6304R, 430A, 2782A, 86885, 68305Z, 98803, 265F, 56337H, 1149T, 42A, 56801 #### [facility] Default [address] [place], [place] [address]WRWWEAG570 cells/kIXdqtsz595-562Esdnafnj [place] [employer] Clerk Comment on above:Order Comment: [facility] performed at: [facility], [facility], [address] , [address] [place] [address], [address], Drilling Machine Operator: Luiz Dale MD [facility] Date/Time: [facility] Results Received Date/Time: [facility] Reported Date/Time: [id number] By: #### 14385X, 6304R, 430A, 2782A, 94800, 25321W, 97833, 265F, 65049C, 1149T, 42A, 94925 #### [facility] Default [address] [place], [place] [address]Frovzxjpa/100 WBC (Bld)6.0 %NormalNoSanta Barbara Cottage Hospital Medical SpecialistComment on above:Order Comment: [facility] performed at: [facility], [facility], [address], [address] [place] [address], [address], Drilling Machine Operator: Luiz Dale MD [facility] Date/Time: [facility] Results Received Date/Time: [facility] Reported Date/Time: [id number] By: #### 90343Q, 6304R, 430A, 2782A, 57235, 74329C, 19390, 265F, 88161X, 1149T, 42A, 10673 #### [facility] Default [address] [place], [place] [address]Cmaphkkbvhj (Bld) [#/Vol]4.221 10*3/eGVhwztf5840-7032Extczxas [place] Medical SpecialistComment on above:Order Comment: [facility] performed at: [facility], [facility], [facility], [address] [place] [address], [address] [place] [address], Drilling Machine Operator: Luiz Dale MD [facility] Date/Time: [facility] Results Received Date/Time: [facility] Reported Date/Time: [id number] By: #### 84545P, 6304R, 430A, 2782A, 75362, 12273U, 429[address], 265F, 22723H, 1149T, 42A, 87541 #### [facility] Default [address] [place], [place] [address]Jyfrdvevpgz/100 WBC (Bld)63 %NormalNoSalem Regional Medical CenterComment on above:Order Comment: [facility] performed at: [facility], [facility], [facility], [address] [place] [address], [address], Drilling Machine Operator: Luiz Dale MD [facility] Date/Time: [facility] Results Received Date/Time: [facility] Reported Date/Time: [id number] By: #### 25180M, 6304R, 430A, 2782A, 407[address], 38401E, 34625, 265F, 50744A, 1149T, 42A, 35878 #### [facility] [address] [place], [place] [address]Lgvofmpz mean volume (Bld) [Entitic vol]11.1 fLNormal7.5-12.5 [facility] SpecialistComment on above:Order Comment: [facility] performed at: [facility], [facility], [facility], [address] [place] [address], [address], Drilling Machine Operator: Luiz Dale MD [facility] Collection Date/Time: [id number] [facility] Results Received Date/Time: [facility] Reported Date/Time: [id number] By: #### 91796U, 6304R, 430A, 2782A, 02234, 05234E, 09930, 265F, 31017D, 1149T, 42A, 56663 #### [facility] Default [address] [place], [place] [address]Nkxbcudec (Bld) [#/Vol]322 10*3/qZPatptj109-132Sfeixcyi [place] [facility] SpecialistComment on above:Order Comment: [facility] performed at: [facility], [facility], [address] , [address] [place] [address], [address] [place] [address], Drilling Machine Operator: Luiz Dale MD [facility] Collection Date/Time: [facility] Results Received Date/Time: [facility] Reported Date/Time: [id number] By: #### 43571Y, 6304R, 430A, 2782A, 88995, 33496U, 66699, 265F, 02985B, 1149T, 42A, 88965 #### [facility] Default [address] [place], [place] [address]WAK (d) [#/Vol]4.39 10*6/uLNormal3.80-5.10[facility] SpecialistComment on above:Order Comment: [facility] performed at: [facility], [facility], [address] , [address] [place] [address], [address] [place] [address], Drilling Machine Operator: Luiz Dale MD [facility] Collection Date/Time: [id number] [facility] Results Received Date/Time: [facility] Reported Date/Time: [id number] By: #### 53294A, 6304R, 430A, 2782A, 83048, 46013S, 60233, 265F, 35878T, 1149T, 42A, 89343 #### [facility] Default [address] [place], [place] [address]RHL (Bld) [#/Vol]6.7 10*3/uLNormal3.8-10.8NoDetw[facility] SpecialistComment on above:Order Comment: [facility] performed at: [facility], [address], [address] [place] [address], [address] [place] [address], Drilling Machine Operator: Luiz Dale MD [facility] Collection Date/Time: [facility] Results Received Date/Time: [facility] Reported Date/Time: [id number] By: #### 95615O, 6304R, 430A, 2782A, 77837, 15488W, 50559, 265F, 45529S, 1149T, 42A, 28257 #### [facility] Default [address] [place], [place] [address]Z - CHLAMYDIA TRACHOMATIS/NEISSERIA GONORRHOEAE RNA TMAon 52-86-0645ZGZYUAFHW TRACHOMATIS RNA, TMA, UROGENITALNot detectedNormalNOT DETECTEDNorthern [facility] SpecialistComment on above:Order Comment: [facility] performed at: [facility], [facility], [address], [address] [place] [address], [address] [place] [address], Drilling Machine Operator: Luiz Dale MD [facility] Collection Date/Time: [facility] Results Received Date/Time: [facility] Reported Date/Time: [id number] By: #### 68424P, 6304R, 430A, 2782A, 44809, 76630G, 11294, 265F, 10069X, 1149T, 42A, 21434 #### [facility] Default [address] [place], [place] [address]SEWSHOOSIT NOTENormalNorthern [facility] SpecialistComment on above:Order Comment: [facility] performed at: [facility], [facility], [address], [address] [place] [address], [address] [place] [address], Drilling Machine Operator: Luiz Dale MD [facility] Collection Date/Time: [facility] Results Received Date/Time: [facility] Reported Date/Time: [id number] Comment: The analytical performance characteristics of this assay, when used to test SurePath(TM) specimens have been determined by [facility]. The modifications have not been cleared or approved by the FDA. This assay has been validated pursuant to the CLIA regulations and is used for clinical purposes. For additional information, please refer to https://education.[employer]/faq/RCF620 (This link is being provided for information/ educational purposes only.)Performed By: #### 44690E, 6304R, 430A, 2782A, 99194, 74648J, 53526, 265F, 06583S, 1149T, 42A, 59187 #### [facility] Default [address] [place], [place] [address]Sbtsgm Comment: See Note 1 Note 1 This drug testing is for medical treatment only. Analysis was performed as non-forensic testing and these results should be used only by healthcare providers to render diagnosis or treatment, or to monitor progress of medical conditions. For assistance with interpreting these drug results, please contact a [facility] Specialist: [phone] ( [phone] M-F, 8am-6pm EST.NEISSERIA GONORRHOEAE RNA, TMA, UROGENITALNot detectedNormalNOT DETECTEDNorthern [facility] SpecialistComment on above:Order Comment: [facility] performed at: [facility], [address] [place] [address], [address], Drilling Machine Operator: Luiz Dale MD [facility] Collection Date/Time: [id number] [facility] Results Received Date/Time: [id number] [facility] Reported Date/Time: [id number] By: #### 59802Y, 6304R, 430A, 2782A, 83568, 42555A, 05235, 265F, 80700O, 1149T, 42A, 95685 #### [facility] Default [address], [place] [address]D - CULTURE,URINE,ROUTINEon 21-71-3676CLIGSMA, URINE, ROUTINESEE NOTEAbnormalNorthern [facility] Hospital SpecialistComment on above:Order Comment: [facility] performed at: [facility], [facility], [address] [place] [address], [address] [place] [address], [address], Drilling Machine Operator: Luiz Dale MD [facility] Collection Date/Time: [id number] [facility] Results Received Date/Time: [id number] [facility] Reported Date/Time: [id number] Comment: CULTURE, URINE, ROUTINE Micro Number: [id number] Test Status: Final Specimen Source: Not given [...] cefaclor, cefdinir, cefpodoxime, cefprozil, cefuroxime, cephalexin and loracarbef.Performed By: #### 17925O, 6304R, 430A, 2782A, 09997, 01268Z, 74215, 265F, 67125U, 1149T, 42A, 61046 #### [facility] Default [address] [place], [place] [address]D - DRUG TOX MONITORING 6 WITH CONFIRMATION,URINEon 03-18-2021 AmphetaminesNegativeNormal<500[facility] [place] [facility] SpecialistComment on above: Order Comment: [facility] performed at: [facility], [facility], [address] [place] [address], [address] [place] [address], [address] [place] [address], Drilling Machine Operator: Luiz Dale MD [facility] Collection Date/Time: [facility] Results Received Date/Time: [facility] Reported Date/Time: [id number] By: #### 05907G, 6304R, 430A, 2782A, 11379, 24347I, 32120, 265F, 34051O, 1149T, 42A, 99019 #### [facility] Default [address], [place] [address]UicexkqscuddIdtrysidNyhzwt<300[place] [employer] Clerk Comment on above:Order Comment: [facility] performed at: [facility], [facility], [address] [place] [address], [address] [place] [address], [address] [place] [address], Drilling Machine Operator: Luiz Dale MD [facility] Collection Date/Time: [facility] Results Received Date/Time: [facility] Reported Date/Time: [id number] By: #### 58563H, 6304R, 430A, 2782A, 95453, 73771H, 45019, 265F, 63448E, 1149T, 42A, 25245 #### [facility] [address] [place], [place] [address]GgprecmfezfrbeoUfepibfuCqzecj<100[place] [employer] Clerk Comment on above:Order Comment: [facility] performed at: [facility], [facility], [address] [place] [address], [address] [place] [address], [address] [place] [address], Drilling Machine Operator: Luiz Dale MD [facility] Collection Date/Time: [facility] Results Received Date/Time: [facility] Reported Date/Time: [id number] By: #### 67819Z, 6304R, 430A, 2782A, 68570, 54438L, 78048, 265F, 54691K, 1149T, 42A, 71938 #### [facility] Default [address] [place], [place] [address]Ebiapfh MetaboliteNegativeNormal<150[facility] SpecialistComment on above:Order Comment: [facility] performed at: [facility], [facility], [address] , [address] [place] [address], [address] [place] [address], Drilling Machine Operator: Luiz Dale MD [facility] Collection Date/Time: [facility] Results Received Date/Time: [id number] [facility] Reported Date/Time: [id number] By: #### 20893Y, 6304R, 430A, 2782A, 07356, 45232J, 08048, 265F, 87924B, 1149T, 42A, 24746 #### [facility] Default [address] [place], [place] [address]Bwgkjdnbc Metabolite 20NegativeNormal<20[facility] SpecialistComment on above:Order Comment: [facility] performed at: [facility], [facility], [address] , [address] [place] [address], [address] [place] [address], Drilling Machine Operator: Luiz Dale MD [facility] Collection Date/Time: [facility] Results Received Date/Time: [id number] [facility] Reported Date/Time: [id number] By: #### 62464F, 6304R, 430A, 2782A, 52493, 63597G, 89393, 265F, 62452B, 1149T, 42A, 83019 #### [facility] Default [address] [place], [place] [address]Ogukwtpdq MetaboliteNegativeNormal<100[facility] SpecialistComment on above:Order Comment: [facility] performed at: [facility], [facility], [address], [address] [place] [address], [address], Drilling Machine Operator: Luiz Dale MD [facility] Collection Date/Time: [id number] [facility] Results Received Date/Time: [facility] Reported Date/Time: [id number] By: #### 52403Z, 6304R, 430A, 2782A, 56828, 17410M, 17746, 265F, 33612F, 1149T, 42A, 15321 #### [facility] Default [address] [place], [place] [address]EtiemgrHzizfvoeYosoza<100[facility] [place] [facility] SpecialistComment on above:Order Comment: [facility] performed at: [facility], [facility], [address] [facility], [address] [place] [address], [address], Drilling Machine Operator: Luiz Dale MD [facility] Collection Date/Time: [facility] Results Received Date/Time: [facility] Reported Date/Time: [id number] By: #### 35867N, 6304R, 430A, 2782A, 05625, 59567F, 49753, 265F, 74310J, 1149T, 42A, 41209 #### [facility] Default [address] [place], [place] [address]CghyyvznnPwygabkvMglnwm<100[place] [employer] Clerk Comment on above:Order Comment: [facility] performed at: [facility], [facility], [address] [place] [address], [address] [place] [address], [address], Drilling Machine Operator: Luiz Dale MD [facility] Collection Date/Time: [facility] Results Received Date/Time: [facility] Reported Date/Time: [id number] By: #### 12135J, 6304R, 430A, 2782A, 59120, 57927K, 89825, 265F, 21947S, 1149T, 42A, 16809 #### [facility] Default [address] [place], [place] [address]HtvlcgjhjglhdDnsezvarWkgtts<25[place] [employer] Clerk Comment on above:Order Comment: [facility] performed at: [facility], [facility], [address] , [address] [place] [address], [address] [place] [address], Drilling Machine Operator: Luiz Dale MD [facility] Collection Date/Time: [facility] Results Received Date/Time: [facility] Reported Date/Time: [id number] By: #### 42751K, 6304R, 430A, 2782A, 99616, 44159H, 78187, 265F, 32874K, 1149T, 42A, 60526 #### [facility] Default [address] [place], [place] [address]H - HEMOGLOBIN A1C WITH EAGon 88-16-1483uVS (mmol/L)5.5 mmol/L NormalNorthern [facility]den General Hospital SpecialistComment on above:Order Comment: [facility] performed at: [facility], [address] [place] [address], [address] [place] [address], [address] [place] [address], Drilling Machine Operator: Luiz Dale MD [facility] Collection Date/Time: [facility] Results Received Date/Time: [facility] Reported Date/Time: [id number] By: #### 81843T, 6304R, 430A, 2782A, 97110, 63299C, 80010, 265F, 96220L, 1149T, 42A, 41252 #### [facility] Default [address], [place] [address]DIXBCFZBJD A1c5.1 % of total HgbNormal<5.7[facility]n [facility] SpecialistComment on above:Order Comment: [facility] performed at: [facility], [address] [place] [address], [address] [place] [address], [address] [place] [address], Drilling Machine Operator: Luiz Dale MD [facility] Collection Date/Time: [facility] Results Received Date/Time: [facility] Reported Date/Time: [id number] Comment: For the purpose of screening for the presence of diabetes: <5.7% Consistent with the absence of diabetes 5.7-6.4% Consistent with increased risk for diabetes (prediabetes) > or =6.5% Consistent with diabetes This assay result is consistent with a decreased risk of diabetes. Currently, no consensus exists regarding use of hemoglobin A1c for diagnosis of diabetes in children. According to [place] [employer] (ADA) guidelines, hemoglobin A1c <7.0% represents optimal control in non- diabetic patients. Different metrics may apply to specific patient populations. Standards of Medical Care in Diabetes(ADA).Performed By: #### 50265E, 6304R, 430A, 2782A, 30965, 86253G, 12620, 265F, 03996U, 1149T, 42A, 25532 #### [facility] Default [address] [place], [place] [address]Wriahjalz [Mass/Vol]100 mg/dLNormalNorthern [place] Medical SpecialistComment on above:Order Comment: [facility] performed at: [facility], [facility], [address] [facility], [address] [place] [address], [address], Drilling Machine Operator: Luiz Dale MD [facility] Collection Date/Time: [id number] [facility] Results Received Date/Time: [facility] Reported Date/Time: [id number] By: #### 27861V, 6304R, 430A, 2782A, 01519, 62886H, 94438, 265F, 92834U, 1149T, 42A, 29200 #### [facility] Default [address] [place], [place] [address]S - HEPATITIS B SURFACE ANTIGEN W/ REFLEXon 58-08-6711YZNBQDGOU B SURFACE DPEJQAQExg-XkoqurauDeqqavUUO-HLZWZJZGAeupbtbe [place] [employer] Clerk Comment on above:Order Comment: [facility] performed at: [facility], [facility], [address] , [address] [place] [address], [address], Drilling Machine Operator: Luiz Dale MD [facility] Collection Date/Time: [id number] [facility] Results Received Date/Time: [facility] Reported Date/Time: [id number] By: #### 53018O, 6304R, 430A, 2782A, 41826, 75899H, 55412, 265F, 22835D, 1149T, 42A, 02377 #### [facility] Default [address] [place], [place] [address]G - HIV 1/2 ANTIGEN/ANTIBODY,FOURTH GENERATION W/RFLon 03-18-2021 HIV AG/AB, 4TH PICQla-ApnzpdoySodhkeBJQ-WFQIYNJDIiywnosq [place] [employer] Clerk Comment on above:Order Comment: [facility] performed at: [facility], [facility], [address], [address] [place] [address], [address], Drilling Machine Operator: Luiz Dale MD [facility] Collection Date/Time: [id number] [facility] Results Received Date/Time: [id number] [facility] Reported Date/Time: [id number] Comment: HIV-1 antigen and HIV-1/HIV-2 antibodies were not detected. [...] purpose. For additional information please refer to http://education.[employer]/faq/NJZ288 (This link is being provided for informational/ educational purposes only.) The performance of this assay has not been clinically validated in patients less than 2 years old.Performed By: #### 70908K, 6304R, 430A, 2782A, 37121, 14959K, 06924, 265F, 59232T, 1149T, 42A, 96635 #### [facility] Default [address] [place], [place] [address]U - RPR (MONITOR) W/RFX TITERon 34-23-1823UXB (MONITOR) W/REFL YWFPBJvw-FlfowlmmEwzrdiKUZ-PJEDKADQWtwvqaur [place] Medical SpecialistComment on above:Order Comment: [facility] performed at: [facility], [facility], [address], [address] [place], [address], Drilling Machine Operator: Luiz Dale MD [facility] Collection Date/Time: [facility] Results Received Date/Time: [facility] Reported Date/Time: [id number] By: #### 27773W, 6304R, 430A, 2782A, 04440, 06275O, 43417, 265F, 98167U, 1149T, 42A, 39074 #### [facility] Default [address] [place], [place] [address]C - URINALYSIS WITH REFLEX TO MICROSCOPICon 36-71-7101Wtucqgvyed (U)CLEARNormalCLEARNorthern [facility] SpecialistComment on above:Order Comment: [facility] performed at: [facility], [facility], [address] [place] [address], [address] [place] [address], [address], Drilling Machine Operator: Luiz Dale MD [facility] Collection Date/Time: [facility] Results Received Date/Time: [facility] Reported Date/Time: [id number] By: #### 11763V, 6304R, 430A, 2782A, 50238, 21617R, 41906, 265F, 16095A, 1149T, 42A, 88992 #### [facility] Default [address] [place], [place] [address]Zxjiisxef Ql (U)NegativeNormalNEGATIVENorthern [facility] SpecialistComment on above:Order Comment: [facility] performed at: [facility], [facility], [address] [place] [address], [address] [place] [address], [address], Drilling Machine Operator: Luiz Dale MD [facility] Collection Date/Time: [facility] Results Received Date/Time: [facility] Reported Date/Time: [id number] By: #### 09962H, 6304R, 430A, 2782A, 70533, 02294U, 60649, 265F, 34733X, 1149T, 42A, 83909 #### [facility] Default [address] [place], [place] [address]Wcamx (U)YELLOWNormalYELLOWNorthern [place] Stock Control Clerk Comment on above:Order Comment: [facility] performed at: [facility], [facility], [address] [facility], [address] [place] [address], [address] [place] [address], Drilling Machine Operator: Luiz Dale MD [facility] Collection Date/Time: [facility] Results Received Date/Time: [facility] Reported Date/Time: [id number] By: #### 16464O, 6304R, 430A, 2782A, 86099, 86304Z, 36582, 265F, 35177Z, 1149T, 42A, 95536 #### [facility] Default [address], [place] [address]Otikvdy Ql (U)NegativeNormalNEGATIVENoDetwiler Memorial Hospital SpecialistComment on above:Order Comment: [facility] performed at: [facility], [facility], [address] , [address] [place] [address], [address] [place] [address], Drilling Machine Operator: Luiz Dale MD [facility] Collection Date/Time: [facility] Results Received Date/Time: [facility] Reported Date/Time: [id number] By: #### 07315L, 6304R, 430A, 2782A, 66229, 49686R, 69148, 265F, 47658V, 1149T, 42A, 10546 #### [facility] Default [address], [place] [address]Rstspjo Ql (U)NegativeNormalNEGATIVEScci Hospital [facility]ima SpecialistComment on above:Order Comment: [facility] performed at: [facility], [facility], [address] , [address] [place] [address], [address] [place] [address], Drilling Machine Operator: Luiz Dale MD [facility] Collection Date/Time: [facility] Results Received Date/Time: [facility] Reported Date/Time: [id number] By: #### 99726J, 6304R, 430A, 2782A, [address]7075, 41008X, 54978, 265F, 49889N, 1149T, 42A, 57429 #### [facility] Default [address] [place], [place] [address]Uydgduucg esterase Test strip Ql (U)NegativeNormalNEGATIVE Aultman HospitalComment on above:Order Comment: [facility] performed at: [facility], [facility], [address] , [address] [place] [address], [address] [place] [address], Drilling Machine Operator: Luiz Dale MD [facility] Collection Date/Time: [facility] Results Received Date/Time: [id number] [facility] Reported Date/Time: [id number] By: #### 73964Q, 6304R, 430A, 2782A, 06265, 31497H, 05765, 265F, 81325V, 1149T, 42A, 61382 #### [facility] Default [address] [place], [place] [address]Wjtdyow Ql (U)NegativeNormalNEGATIVEScci Hospital [place] SpecialistComment on above:Order Comment: [facility] performed at: [facility], [facility], [address] , [address] [place] [address], [address] [place] [address], Drilling Machine Operator: Luiz Dale MD [facility] Collection Date/Time: [facility] Results Received Date/Time: [id number] [facility] Reported Date/Time: [id number] By: #### 59536M, 6304R, 430A, 2782A, 83159, 50679O, 44652, 265F, 13379A, 1149T, 42A, 21486 #### [facility] Default [address], [place] [address]CBWDNE BLOODNegativeNormalNEGATIVEAultman HospitalComment on above:Order Comment: [facility] performed at: [facility], [facility], [address], [address] [place] [address], [address], Drilling Machine Operator: Luiz Dale MD [facility] Collection Date/Time: [facility] Results Received Date/Time: [facility] Reported Date/Time: [id number] By: #### 53220N, 6304R, 430A, 2782A, 00435, 06131W, 12158, 265F, 74764L, 1149T, 42A, 53992 #### [facility] Default [address] [place], [place] [address]bA (U)6.5 [pH]Normal5.0-8.0[facility]n [place] [employer] Clerk Comment on above:Order Comment: [facility] performed at: [facility], [facility], [address] [facility], [address] [place] [address], [address], Drilling Machine Operator: Luiz Dale MD [facility] Collection Date/Time: [facility] Results Received Date/Time: [facility] Reported Date/Time: [id number] By: #### 41290A, 6304R, 430A, 2782A, 66930, 89492N, 90955, 265F, 57878T, 1149T, 42A, 03373 #### [facility] Default [address] [place], [place] [address]Cxsdmge Ql (U)NegativeNormalNEGATIVENorthern [facility] SpecialistComment on above:Order Comment: [facility] performed at: [facility], [facility], [address] , [address] [place] [address], [address], Drilling Machine Operator: Luiz Dale MD [facility] Collection Date/Time: [facility] Results Received Date/Time: [facility] Reported Date/Time: [id number] By: #### 50655O, 6304R, 430A, 2782A, 48674, 72680J, 56681, 265F, 85698B, 1149T, 42A, 81387 #### [facility] Default [address] [place], [place] [address]Yfnongnb gravity (U) [Rel density]1.553Eognlg6.001-1.035[facility]n [place] Medical SpecialistComment on above:Order Comment: [facility] performed at: [facility], [facility], [address], [address] [facility], [place], [address], Drilling Machine Operator: Luiz Dale MD [facility] Date/Time: [id number] [facility] Results Received Date/Time: [id number] [facility] Reported Date/Time: [id number] By: #### 31121Z, 6304R, 430A, 2782A, 26225, 12229G, 68512, 265F, 07059D, 1149T, 42A, 83715 #### [facility] Default [address] [place] [address] Vital Signs Date TimeVital SignValuePerforming OewkujkgoTcyltzdl62-15-8394 14:33-0400Body mass index (BMI) [Ratio]37.61 kg/o4Wkphtiq Floro CNM Work Phone: [facility]Jgynonnaue50-01-0874 14:33-0400Body .51 kgValerie Floro CNM Work Phone: [phone]-2384 11:35-0400Body mass index (BMI) [Ratio]36.44 kg/u9Ygsvufx Floro CNM Work Phone: [phone]-7520 11:35-0400Body nsfzda73.34 kgValerie Floro CNM Work Phone: [facility]HealthLuzbnvzewt37-65-6913 11:35-0400Diastolic blood csltvaja49 mm[Hg]Jah Floro CNM Work Phone: [facility]HealthSardrczvgw37-66-9006 11:35-0400Systolic blood dpymcfdx701 mm[Hg]Jah Floro CNM Work Phone: [facility]HealthBncqrujeoq91-23-1506 16:34-0400Body mass index (BMI) [Ratio]35.11 kg/f5Zxjulbk Floro CNM Work Phone: [facility]HealthLhjasaruzi49-28-9117 16:34-0400Body mtafox07.71 kgValerie Floro CNM Work Phone: [phone] [place], [place] [address]Byaxawwpjy56-81-9703 16:34-0400Diastolic blood emrcalgn87 mm[Hg]Jah Floro CNM Work Phone: [phone] [place], [place] [address]Cmkkpmcdra58-46-6113 16:34-0400Systolic blood ohkuuvlr911 mm[Hg]Jah Floro CNM Work Phone: [phone] [place], [place] 2588007-10-2025 13:35-0400Body mass index (BMI) [Ratio]34.61 kg/z1Sfxyooj Floro CNM Work Phone: 1(970)[address] [place], [place] 2588007-10-2025 13:35-0400Body xrrlie48.35 kgValerie Floro CNM Work Phone: 1(849)[address] [place], [place] 2588007-10-2025 13:35-0400Diastolic blood xxawdsvz41 mm[Hg]Jah Floro CNM Work Phone: 1(135)[address] [place], [place] 2588007-10-2025 13:35-0400Systolic blood kotntbex584 mm[Hg]Jah Floro CNM Work Phone: 1(291)[address] [place], [place] 2588006-04-2025 16:34-0400Body mass index (BMI) [Ratio]34.78 kg/u6Jzlsfgb Floro CNM Work Phone: 1(124)[address] [place], [place] 2588006-04-2025 16:34-0400Body cyadkp28.8 kg Jah Floro CNM Work Phone: 1(427)[address] [place], [place] 2588006-04-2025 16:34-0400Diastolic blood oaqkkijm53 mm[Hg]Jah Floro CNM Work Phone: 1(127)[address] [place], [place] 2588006-04-2025 16:34-0400Systolic blood dvcusgzj620 mm[Hg]Jah Floro CNM Work Phone: 1(046)[address] [place], [place] 2588005-19-2025 17:28-0400Body mass index (BMI) [Ratio]33.95 kg/k5Rhbzsag Floro CNM Work Phone: 1(189)[address] [place], [place] 2588005-19-2025 17:28-0400Body .53 kgJah Pettit CNM Work Phone: [phone] 11:16-0400Body zhkoup059.1 [facility] 11:16-0400Body mass index (BMI) [Ratio]33.9 kg/u7VklcdrtkgMagruder Hospital06-01-2024 11:16-0400Body qgkubmgcuxq69.5 [degF][facility]06-01-2024 11:16-0400Body makdla41.53 kg[facility]06-01-2024 11:16-0400Diastolic blood otkfdvys84 mm[Hg][facility]06-01-2024 11:16-0400 Heart rate92 /[facility]06-01-2024 11:16-8080UjD1% (BldA) [Mass fraction]99 %[facility]06-01-2024 11:16-0400 Systolic blood scequjdu523 mm[Hg][facility]02-12-2024 16:01-0500Body mass index (BMI) [Ratio]38.94 kg/g0IbxbmnxJah Perezo CNM Work Phone: [phone] 16:01-0500Body adhvkj076.14 kgJah Pettit CNM Work Phone: [phone] 16:01-0500Diastolic blood zigfmgvs07 mm[Hg]Jah Perezo CNM Work Phone: [facility]HealthZkznzbwqqn56-57-8450 16:01-0500Systolic blood vusbdtuc874 mm[Hg]Jah Perezo CNM Work Phone: [facility]HealthFrmfjxydre05-53-8314 07:17-0400Body temperature 98.1 [degF]Jah Anao [employer]ER [employer] PRESSER - CNM Work Phone: [facility]07-09-2022 07:17-0400Diastolic blood tyjpkfpk62 mm[Hg]Jah Anao [employer] - CNM Work Phone: [facility] [employer] ZJTIAO27-28-9549 07:17-0400Heart rate75 /minJah Pettit APRN - CN Work Phone: [facility] [employer] RHAPPL24-84-2699 07:17-0400 Respiratory rate16 /minJah Pettit APRN - CNM Work Phone: [facility] [employer]07-09-2022 07:17-0400Systolic blood brhlzabb580 mm[Hg]Jah Pettit APRN - CN Work Phone: [facility]07-07-2022 02:22-4474AsJ8% (BldA) [Mass fraction]99 %Jah Pettit APRN - CN Work Phone: [facility] [employer] QCZNST84-87-0549 22:56-0400Body laytsv994.1 cmVketan Pettit APRN - CN Work Phone: [facility] [employer] XAYPUR14-63-5384 22:56-0400Body mass index (BMI) [Ratio]38.44 kg/l0TbbiotaJah Pettit APRN - CN Work Phone: [facility] [employer] KHNGLU02-82-1059 22:56-0400Body .78 kgJah Pettit APRN - CN Work Phone: [facility]06-10-2022 15:40-0400Diastolic blood mm[Hg]Micha Gisela [employer]ER - CN Work Phone: [facility]06-10-2022 15:40-0400Heart dasl706 /minMegan Gisela [employer] - CNM Work Phone: [facility]06-10-2022 15:40-0400 Respiratory rate18 /minMegan Gisela [employer] - CNM Work Phone: [facility]06-10-2022 15:40-0400Systolic blood kbcbaepi569 mm[Hg]Micha Gisela [employer]ER - CNM Work Phone: [facility]06-10-2022 11:47-0400Body fvyegmantcu36.01 [degF]Micha Ruffin [employer]ER - CNM Work Phone: [facility] Encounters Encounter DateEncounter TypeCare ProviderFacilityStart: 07-79-7290dhpcsbntei JAH L FLORONot AvailableStart: 02-12-2025 End: 49-43-6262Agvyqb flowsheetValerie L Floro CNM Work Phone: [facility] [facility]YNStart: 02-12-2025 End: 96-74-8327Wwgtny flowsheetValerie L Floro CNM Work Phone: [facility] [place] [facility]BGYNStart: 02-09-2025 End: 50-73-6571Ixmiedeto encounterZully Alejandro MD Work Phone: [facility] [facility] MedicineStart: 01-31-2025 End: 50-38-2191pyuwlvwdmpHPZCRUG L FLORONot AvailableStart: 01-17-2025 End: 55-32-1808njaxnjxqacLBVZTIZ L FLORONot AvailableStart: 01-17-2025 End: 53-51-5252Osrkgtonbf care visitValerie Bassem Perezo CN Work Phone: [facility] [place] OBGYNComment on above:Choroid plexus cyst (Primary Dx); Encounter for supervision of other normal , third trimester ([facility]); Hypothyroidism, unspecified type; Screening for diabetes mellitus; Screening for iron deficiency anemia; History of sectionStart: 01-17-2025 End: 17-68-3037Hurgrr flowsheetValerie L Floro CNM Work Phone: [facility] [place] [facility]BGYNStart: 01-17-2025 End: 97-80-4790Raxlrp flowsheetValerie L Floro CNM Work Phone: [facility] [place] [facility]BGYNStart: 01-01-2025 End: 73-10-1950Xfwkcb flowsheetValerie L Floro CNM Work Phone: [facility] [place] [facility]YNStart: 01-01-2025 End: 57-75-5772Gfwduq flowsheetValerie L Floro CNM Work Phone: [facility] [place] [facility]BGYNStart: 01-01-2025 End: 71-45-3940jwqkwlhiqtQEMZEUF L FLORONot AvailableStart: 01-01-2025 End: 93-02-9825Euuolnphrf care visitValerie L Floro CNM Work Phone: [facility] [place] OBGYNComment on above:Encounter for supervision of other normal , second trimester ([facility]) (Primary Dx); Choroid plexus cyst; related condition in second trimester ([facility]); History of sectionStart: 12-20-2024 End: 31-48-1864Bvjgoozcs encounterZully Alejandro MD Work Phone: [facility] [place] [facility] MedicineStart: 12-18-2024 End: 71-95-8684mcaggzgtovHAZPJPO L FLORONot AvailableStart: 12-06-2024 End: 73-28-1936xvjjkiwdouHGOBIUJ L FLORONot AvailableStart: 12-06-2024 End: 66-13-5865Qvxuok flowsheetValerie L Floro CNM Work Phone: [facility] [place] [facility]BGYNStart: 12-06-2024 End: 70-79-9163Pkyxud flowsheetValerie L Floro CNM Work Phone: [facility] [place] [facility]BGYNStart: 11-20-2024 End: 91-20-2624fzfqyxhnzgMKTOAPV L FLORONot AvailableStart: 11-07-2024 End: 86-77-3761uamrwoucaoENCWLRZ L FLORONot AvailableStart: 11-07-2024 End: 92-81-3802Srugoruhna care visitValerie L Floro CNM Work Phone: [facility] [place] OBGYNComment on above:Hypothyroidism, unspecified type (Primary Dx); Encounter for supervision of other normal , second trimester ([facility]); History of sectionStart: 11-07-2024 End: 55-47-3619Mvmsbi flowsheetValerie L Floro CNM Work Phone: [facility] [place] [facility]BGYNStart: 11-07-2024 End: 78-75-9753Qmcodn flowsheetValerie L Floro CNM Work Phone: [facility] [place] [facility]BGYNStart: 10-12-2024 End: 94-37-6612Crfvqm flowsheetValerie L Floro CNM Work Phone: [facility] OBStart: 10-12-2024 End: 36-74-9981Toijre flowsheetValerie L Floro CNM Work Phone: [facility] OBStart: 10-12-2024 End: 02-73-8303yiaclonthaSLYWGQY L FLORONot AvailableStart: 10-12-2024 End: 50-22-5077Temvvxlraz care visitValerie L Floro CNM Work Phone: [facility] FNR OBComment on above:Encounter for supervision of other normal , second trimester ([facility]) (Primary Dx); Hypothyroidism, unspecified type ; related condition in second trimester ([facility])Start: 09-06-2024 End: 88-90-9870umtprxmbsuMUMBQPS L FLORONot AvailableStart: 09-06-2024 End: 82-50-9433Qcjslxoxwa care visitValerie L Floro CNM Work Phone: [facility] FNR OBComment on above:Encounter for supervision of other normal , first trimester (Primary Dx); History of sectionStart: 09-05-2024 End: 53-15-6539Ttcqho OnlyValerie L Floro CNM Work Phone: [facility] FNR OBComment on above:Acquired hypothyroidism (CMS/HCC); Other specified hypothyroidismStart: 08-21-2024 End: 20-44-2165thzgyugltlNoiyqqa L Anao CNM Work Phone: [facility] FNR OBComment on above:GA: 8n9bJmepv: 04-10-2024 End: 92-88-7049rovxpzfuspDYGMBEY L FLORONot AvailableStart: 04-10-2024 End: 89-80-3592Gxtyts flowsheetValerie L Floro CNM Work Phone: [facility]NR OBStart: 04-10-2024 End: 20-56-5774Yhwfeg flowsheetValerie L Floro CNM Work Phone: [facility] FNR OBStart: 09-04-2023 End: 90-44-5744mludmzonawCoqggqutoParkview Health Work Phone: Start: 09-04-2023 End: 80-12-1940Lwbhhsd encounter procedureAtrium Health [facility] Work Phone: Start: 05-17-2023 End: 03-14-1120Rljgmhzgiq care visitValerie Bassme Perezo CNM Work Phone: [facility] FNR OBComment on above:Encounter for supervision of other normal , third trimester (Primary Dx); screening for streptococcus B; Hypothyroidism, unspecified type (CMS/HCC); Non-stress test reactiveStart: 94-37-5229Safvii flowsheetValerie L Floro CNM Work Phone: [facility] OBStart: 35-09-5415Hvlhma flowsheetValerie L Floro CNM Work Phone: [facility] OBStart: 10-07-2021 End: 60-99-5398Hvkhfufreu and management of inpatientVALERIE ANAOMervadim OglethorpeWellSpan Waynesboro Hospitaltart: 10-07-2021 End: 74-59-4997Gxdsbtxwci and management of inpatientValerie Floro [employer]ER [employer]ER - CNM Work Phone: mthz Labor and DeliveryComment on above:Delivery of by section (Primary Dx)Start: 09-12-2021 End: 99-52-0310jawhjzbqzfJCSIJ LIBRARabia Oglethorpe HospitalStart: 09-12-2021 End: 57-24-1299Daaafdoben hospital visit by physicianMicha Ruffin APRN - KW[facility] Work Phone: [facility] Labor and Delivery Procedures DateProcedureProcedure DetailPerforming ClinicianStart: 86-62-7419Vkpjn test visual color cmprsn methsValerie L [facility] CN Work Phone: Start: 76-66-4344Duciy count hemoglobinValerie [facility]o [employer] [employer]ER - CN Work Phone: Start: 09-74-2840Byqgr count complete auto&auto difrntl wbcValerie [facility] SH[employer]ER [employer] PRESSER - CN Work Phone: Start: 76-49-1250Hwcc tst prsmv instrmnt chem analyzers pr dateValerie [facility] [employer]ER [employer]ESSER - CN Work Phone: Start: 40-88-4451Pammm nonstress testMicha Ruffin APRN - [facility] Work Phone: Start: 65-48-3318CQP, EXTERNAL RESULTHistorical Provider MDStart: 03-21-2021. TRACHOMATIS, EXTERNAL RESULTHistorical Provider MDStart: 43-52-8054EWPWJIETB B, EXTERNAL RESULTHistorical Provider MDStart: 88-04-0665YFS, EXTERNAL RESULTHistorical Provider MDStart: 03-21-2021N. GONORRHOEAE, EXTERNAL RESULTHistorical Provider MDStart: 08-12-5648IK FACTOR, EXTERNAL RESULTHistorical Provider MDStart: 83-23-7855ZZH, EXTERNAL RESULT Historical Provider MDStart: 76-59-4877ESLNZMU TITER, EXTERNAL RESULTHistorical Provider MDStart: 22-38-3730Jzvuetvk rubellaComment on above:Order Comment: [facility] Testing performed at: [facility], [facility], [address] [facility], [address] [facility], [place], [address], Drilling Machine Operator: Luiz Dale MD [facility] Collection Date/Time: [id number] [facility] Results Received Date/Time: [id number] [facility] Reported Date/Time: [id number] Comment: Index Interpretation ----- <0.90 Not consistent with immunity 0.90-0.99 Equivocal > or = 1.00 Consistent with immunity The presence of rubella IgG antibody suggests immunization or past or current infection with rubella virus.Performed By: #### 07048Q, 6304R, 430A, 2782A, 67349, 08597W, 30262, 265F, 05376S, 1149T, 42A, 12049 #### [facility] [address] [place], [place] [address]X/O: sectionHistory of sectionJah Pettit [facility] Work Phone: H/O: sectionHistory of section Jah Pettit [facility] Work Phone: H/O: sectionHistory of section Jah Pettit [facility] Work Phone: H/O: sectionHistory of section Jah Pettit [facility] Work Phone: Plan of Treatment DateCare ActivityDetailAuthorStart: 07-24-9845FDxM/Tdap/Td vaccine (8 - Td or Tdap)DTaP/Tdap/Td vaccine (8 - Td or Tdap)[facility]: 04-02-2025 End: 96-77-1137Fnmxkkk encounter zswdddteq60/29/2025 4:30 PM EST Routine KACY Ru[place] OBMICHAELAN [facility] [place] [phone] Jah Pettit CNM [address] [place] [address] KACY [place] OBGYNStart: 03-22-2025 End: 05-25-6750Ecopywsigafy / ancillary services usosursvfq64/18/2025 4:00 PM EST Ancillary Procedure [facility] [place] [facility] [address] [facility] [address] [place] [address] PJBD [place] ImagingStart: 03-15-2025 End: 70-83-7790Whfszhtugcib / ancillary services tigtjeplzt93/11/2025 4:00 PM EST Ancillary Procedure [facility] [place] [facility] [address] [facility] [place] [address] JUHM [place] ImagingStart: 03-12-2025 End: 60-97-2507Ephngnr encounter ndjvykkmi77/08/2025 4:00 PM EST Routine [facility] [place] [facility] [address] [facility] [place] [phone] Jah Pettit CNM [address] [place] [address] [facility] [place] OBGYNStart: 03-08-2025 End: 88-02-9951Rtfsjuplmzrb / ancillary services gtvuiiiifj09/04/2025 4:00 PM EST Ancillary Procedure [facility] [place] [facility] [address] [facility] [address] [facility] [address] NUQO [place] ImagingStart: 03-05-2025 End: 29-59-4596Dqijvgj encounter ghwnaprst61/01/2025 4:00 PM EST Routine [facility] [place] [facility] [address] [facility] [place] [phone] Jah Pettit CNM [address] [place] [address] [facility] [place] OBGYNStart: 02-28-2025 End: 15-68-0826Vcuvwpaojnet / ancillary services iweayhfktk09/26/2025 4:00 PM EST Ancillary Procedure [facility] [place] [facility] [address] [place] [address] RSCO [place] ImagingStart: 02-22-2025 End: 96-34-8018Rrymklycmvxd / ancillary services estmlxpcoo40/20/2025 4:00 PM EST Ancillary Procedure [facility] [place] [facility] [address] [facility] [address] [place] [address] XDPA [place] ImagingStart: 02-20-2025 End: 22-68-5167Fzswymg encounter ucbxumvrr81/18/2025 4:00 PM EST Routine [facility] [place] [facility] [address] [facility] [place] [phone] Jah Pettit, KWAMEM [address] [place] [address] N[facility] [place] OBGYNStart: 02-19-2025 End: 05-59-0642Hhqeplr encounter gbzivxgxh28/17/2025 5:00 PM EST Routine [facility] [place] [facility] [address] [facility] [place] [phone] Jah Pettit, KWAMEM [address] [place] [address] [facility] [place] OBGYNStart: 02-15-2025 End: 25-24-8977Blqoujsglevr / ancillary services dxulvrwpyc24/13/2025 4:00 PM EST Ancillary Procedure [facility] [place] [facility] [address] [facility] [address] [place] [address] MLVW [place] ImagingStart: 02-12-2025 End: 10-68-2522Qszzaao encounter swmlmpoca84/10/2025 4:00 PM EST Routine [facility] [place] [facility] [address] [facility] [place] [address]-4727155-564-0416 Jah Pettit, CNM [address] [place] [address] [facility] [place] OBGYNStart: 01-31-2025 End: 76-72-8375Afkrvuhnwnad / ancillary services pfizvhgzak42/29/2025 4:15 PM EDT Ancillary Procedure [facility] [address] [facility] [address] [place] [address] GGTZ [place] ImagingStart: 01-17-2025 End: 35-75-0587Ulouqwf encounter cnmdwtoga55/15/2025 2:30 PM EDT Routine [facility] [address] [facility] [place] [phone] Jah Pettit, CNM [address] [place] [address] KACY Ru[place] OBGYNStart: 01-17-2025 End: 69-58-8220ISG panel - Blood by Automated countCBC Lab Routine Screening for iron deficiency anemia Expected: 01/17/2025 (Approximate), Expires: 01/17/2026 [facility] HealthcareComment on above:Expected: 01/17/2025 (Approximate), Expires: 01/17/2026Start: 01-17-2025 End: 16-24-5882HTUTYQX, GESTATIONAL SCREEN (50G)-135 CUTOFFGLUCOSE, GESTATIONAL SCREEN (50G)-135 CUTOFF Lab Routine Screening for diabetes mellitus Expected: 1 (Approximate), Expires: 01/17/2026[facility] Work Phone: Comment on above:Expected: 01/17/2025 (Approximate), Expires: 01/17/2026Start: 01-17-2025 End: 12-99-0168CYM W/REFLEX TO FT4TSH W/REFLEX TO FT4 Lab Routine Hypothyroidism, unspecified type Expected: 01/17/2025 (Approximate), Expires: 01/17/2026[facility] HealthcareComment on above:Expected: 01/17/2025 (Approximate), Expires: 01/17/2026Start: 01-17-2025 End: 56-22-4853PG biophysical profile wo non stress testingUS biophysical profile wo non stress testing Imaging Routine Hypothyroidism, unspecified typeExpected: 01/17/2025, Expires: 01/17/2026[facility] HealthcareComment on above:Expected: 01/17/2025, Expires: 01/17/2026Start: 01-17-2025 End: 69-77-8954UM for pregnancyUS OB follow up transabdominal approach Imaging Routine Hypothyroidism, unspecified type Expected: 01/17/2025, Expires: 01/17/2026[facility] HealthcareComment on above:Expected: 01/17/2025, Expires: 01/17/2026Start: 01-03-2025 End: 50-23-8978Lewfbxk encounter lvohcenre83/01/2025 4:30 PM EDT Routine [facility] [place] [facility] [address] [place] [phone] Jah Pettit, KWAMEM [address] [place] [address] [facility] [place] OBGYNStart: 01-01-2025 End: 94-46-3693KH for pregnancyNOMS Healthcare Work Phone: Comment on above:Expected: 01/01/2025, Expires: 01/01/2026Start: 12-06-2024 End: 73-31-0402Taemzlg encounter procedureNOBoys Town [facility] OBGYNComment on above: Hypothyroidism, unspecified typeStart: 92-86-5084KLDUH-19 Vaccine ( season)COVID-19 Vaccine ( season)[facility] HealthcareStart: 12-04-2024 Influenza vaccinationNOMN HealthcareStart: 11-20-2024 End: 89-23-0044Lsojjcwrwqbj / ancillary services managementNOMS [facility] Start: 11-07-2024 End: 44-46-3194Ipgownh encounter /05/2025 4:30 PM EDT Routine [facility] [address] [place] [address] Jah Pettit, CNM [address] [place] [address] NOMS FNR OBStart: 10-12-2024 End: 00-32-2143YGY W/REFLEX TO FT4TSH W/REFLEX TO FT4 Lab Routine Hypothyroidism, unspecified type Expected: 10/12/2024 (Approximate), Expires: 10/12/2025[facility] Work Phone: Comment on above:Expected: 10/12/2024 (Approximate), Expires: 10/12/2025Start: 10-12-2024 End: 38-24-6506GE for pregnancyUS OB 14+ weeks anatomy scan Imaging Routine related condition in second trimester ([facility]) Expected: 10/12/2024, Expires: 10/12/2025[facility] HealthcareComment on above:Expected: 10/12/2024, Expires: 10/12/2025Start: 10-03-2024 End: 59-20-0170Swdbjdu encounter fvjtzyxpw50/01/2025 4:30 PM EDT Routine [facility] [address] [facility] [place] [address] Jah Pettit, CNM [address] [place] [address] [facility] FNR OBStart: 09-06-2024 End: 95-22-0396Cxcthke encounter sbdkwefck01/04/2025 4:30 PM EDT Routine [facility] [address] [facility] [place] [address] Jah Pettit, CNM [address] [place] [address] [facility] FNR OBStart: 08-30-2024 End: 97-60-5832Mjtrfua encounter dhfecvure76/28/2025 4:15 PM EDT Routine [facility] [address] [facility] [place] [address] Jah Pettit, CNM [address] [place] [address] [facility] FNR OBStart: 43-06-4097Jtyvvbxcm vaccinationInfluenza Vaccine (#1)[facility] HealthcareStart: 06-03-2023 End: 64-11-1609Ijgxmdmpymfg / ancillary services laxohjqmcj31/29/2024 4:15 PM EST Ancillary Procedure [facility] [address] [place] [address] [phone] FNR ULTRASOUNDStart: 05-31-2023 End: 60-25-9353Fnfbuqu encounter szorsccjs58/26/2024 4:00 PM EST Routine [facility] [address] [facility] [place] [address] Jah Pettit, CN [address] [place] [address] [facility] FNR OBStart: 05-27-2023 End: 74-61-1835Bewyjymuyxst / ancillary services wcwdcsghqo82/22/2024 4:15 PM EST Ancillary Procedure [facility] [address] [place] [address] KZFK FNR ULTRASOUNDStart: 05-24-2023 End: 07-11-8591Lervgzj encounter yffklptwi95/19/2024 4:00 PM EST Routine [facility] [address] [facility] [place] [address] Jah Pettit CNM [address] [place] [address] [facility] FNR OBStart: 05-20-2023 End: 89-77-9877Weaprvfxwtfu / ancillary services irucbetwtn06/15/2024 4:15 PM EST Ancillary Procedure [facility] [address] [place] [address] [phone] FNR ULTRASOUNDStart: 05-17-2023 End: 02-87-6509BSTSHQXRDHTK, GROUP B CULTURESTREPTOCCOUS, GROUP B CULTURE Lab Routine screening for streptococcus B Expected: 05/17/2023 (Approximate), Expires: 05/17/2024[facility] Work Phone: Comment on above:Expected: 05/17/2023 (Approximate), Expires: 05/17/2024Start: 05-17-2023 End: 74-60-8717LJB W/REFLEX TO FT4TSH W/REFLEX TO FT4 Lab Routine Hypothyroidism, unspecified type (CMS/HCC) Expected: 05/17/2023 (Approximate), Expires: 05/17/2024[facility] HealthcareComment on above:Expected: 05/17/2023 (Approximate), Expires: 05/17/2024Start: 05-17-2023 End: 87-82-8639AI biophysical profile wo non stress testingUS biophysical profile wo non stress testing Imaging Routine Hypothyroidism, unspecified type(CMS/HCC) Expected: 05/17/2023, Expires: 05/17/2024[facility] HealthcareComment on above:Expected: 05/17/2023, Expires: 05/17/2024Start: 39-89-5425Ehrdpvhpt vaccinationInfluenza Vaccine (#1)[facility]HealthStart: 32-47-1740Pdckhsbft vaccinationWythe County Community Hospitalart: 10-25-2020 Screening for malignant neoplasm of cervixPap smearINOVA [facility]OUNT [facility]ERNON [facility] Start: 24-79-9201IAqU/Tdap/Td vaccine (1 - Tdap)DTaP/Tdap/Td vaccine (1 - Tdap) [facility]ITALStart: 28-51-8746Ibktrhjhrqbf Vaccine: Pediatrics (0 to 5 Years) and At-Risk Patients (6 to 64 Years) (1 of 2 - PCV)Pneumococcal Vaccine: Pediatrics (0 to 5 Years) and At-Risk Patients (6 to 64 Years) (1 of 2 - PCV)[facility]HealthStart: 47-85-2547Ljfyncuga C screeningHepatitis C screenBON ASHTABULA GENERAL HOSPITALStart: 82-45-4105Hnnoutshh for Chlamydia trachomatis Chlamydia screenINOVA MOUNT VERNON HOSPITALStart: 18-92-7914EHU screeningHIV screen [facility]ITALStart: 93-93-1635Ibesbzlnpm ScreenDepression ScreenChildren's Hospital of The King's Daughters: 51-47-7509ZNSHP-19 Vaccine (1)COVID-19 Vaccine (1)[facility] [place] End: 91-08-8169Fmlxu nonstress testFetal nonstress test OB Routine One Time for 1 Occurrences starting 09/12/2021 until 09/12/2021 [facility] [employer] Phone: Comment on above:One Time for 1 Occurrences starting 09/12/2021 until 09/12/2021 End: [id number] PACU OXYGEN THERAPY PROTOCOLInitiate PACU Oxygen Therapy Protocol Respiratory Care Routine Continuous until discontinued starting 10/09/2021[facility] [employer]Comment on above:Continuous until discontinued starting 10/09/2021Nonrebreather mask oxygenNonrebreather mask oxygen Respiratory Care Routine As directed - RT (PRN) until discontinued starting 10/09/2021[facility] [employer] Phone: comment on above:As directed - RT (PRN) until discontinued starting 10/09/2021xygen therapy [Minimum Data Set]Initiate Oxygen Therapy Protocol Respiratory Care Routine As Needed until discontinued starting 10/09/2021[facility] [employer] Phone: comment on above:As Needed until discontinued starting 10/09/2021pirometry panelIncentive spirometry Respiratory Care Routine Every 2hr while awake until discontinued starting 10/09/2021[facility] [employer] Phone: comment on above:Every 2hr while awake until discontinued starting 10/09/2021 Immunizations Immunization DateImmunizationNotesCare [id number], tetanus toxoids and acellular pertussis vaccine, unspecified formulationValericharlotte Pettit APRN - [facility] Work Phone: [facility] [employer] Phone: [phone]w, mumps and rubella virus vaccine Jah Wilver JUDD - [facility] Work Phone: [facility] Work Phone: [phone] virus vaccine, unspecified formulationValerie Wilver [facility] Work Phone: [facility] Payers DatePayer CategoryPayerPolicy [id number] [facility] Member Subscriber Plan / Payer (Effective 2021-Present) Name: Rula Tony Relation to Subscriber: Spouse Name: FARZANA TONY Date of : 1998 (Home) Address: [address] [place] [address] Payer ID: Not on file Type: Not on file Address: [address] [place] [id number] 10-29-0062BdtnawkUTNJ [place] [id number] 2021- [phone] [address] [place] [id number] [id number] .0.1.570905.3.57[id number] 2.0.1.811240.3.579.[id number] 2.0.1.050871.3.579.[id number] 2.840.1.753816.3.57[id number] 2.0.1.539842.3.579.[id number] 2.840.1.580586.3.579.2.8[id number] 2.0.1.850841.3.57[id number] 2.0.1.559226.3.579.[id number] 2.0.1.157164.3.57[id number] 2.0.1.302525.3.579.[id number] 2.0.1.929548.3.579.[id number] 2.0.1.539001.3.579.[id number] 2.0.1.533787.3.579.2.[id number] 2.0.1.233553.3.579.2.505058-13-9582Qrcxvfn1585540 2.0.1.074704.3.579.[id number] 2.0.1.869658.3.579.2.1259Self-paySelf Pay [id number] /[id number] [facility] [id number] Social History DateTypeDetailFacilityStart: 09-12-2021 End: 33-81-5951Zzdmkfx smoking status NHISNever smoked tobaccoLog[employer] Phone: start: 09-12-2021 End: 72-80-1663Rzaojbi use and exposureSmokeless tobacco non-userBON [employer] Phone: start: 09-12-2021 End: 54-91-8784Fvwmsas intakeLifetime non-drinker (finding)BON [employer] Phone: start: 62-40-8095Lpzshgq SDOH Alcohol Jwpnguthu9FOR [employer] Phone: start: 14-46-1294PpenmarhPIW [employer] Phone: start: 71-27-4964Nsq Assigned At BirthNot on fileLog[employer] Group Phone: start: 09-02-2021 End: 29-83-6809Eechrpuc to SARS-CoV-2 (event)Not sure[employer] Phone: start: 04-12-2023 End: 83-07-6820Kreybrc intakeNot AskedNOMN HealthcareStart: 04-12-2023 End: 47-13-7625Rarooaa of Social functionNOMN HealthcareStart: 04-12-2023 End: 72-85-3040Jgkxxnv use panelNOMN HealthcareStart: 86-84-5280Ewfuzsv Comment caffeine: 1-2 cups per dayNOMN HealthcareStart: 29-32-2312Ghu Assigned At FemaleNOMN HealthcareStart: 34-69-8109Ukkksb identityIdentifies as female gender (finding)[facility] HealthcareStart: 97-78-6747Jvvkhq orientationHeterosexual (finding)NOMS HealthcareThe thought of harming myself has occurred to meNever NOMS HealthcareStart: 08-21-2024 End: 63-75-8951Iojfenece beverage intakeEx-drinker (finding)[facility] Start: 97-93-2506QwaBoexubPWTT Healthcare Clinical Notes 05-28-2021 to 02-09-2025 Note Date & ZzzzSmctNxkvvvvk23-83-9445 Telephone encounter Note* Telephone Encounter - Mario Lemons - 02/09/2025 3:00 PM EST Needs refill on Levothyroxine [facility]Ssvazxxyqz64-63-4619 Miscellaneous Notes* Telephone Encounter - Mario Lemons - 02/09/2025 3:00 PM EST Needs refill on Levothyroxine documented in this encounterCoxHealthUyvgmbuaab35-52-5929 History of Present illness Narrative* Jah Pettit CNM - 01/17/2025 2:30 PM EDT Subjective No chief complaint on file. Rula Tony is a 24 y.o. at 28w0d with a working estimated date of delivery of 04/11/2025, by Ultrasound who presents for a routine visit. She denies vaginal bleeding, leakage of fluid, decreased movements, or contractions. OB History Para Term AB Living 3 2 2 0 0 2 SAB IAB Ectopic Multiple Live Births 0 0 0 0 2 # Outcome Date GA Lbr Luigi/2nd Weight Sex Type Anes PTL Lv 3 Current 2 Term 06/04/23 39w0d 6 lb 11 oz F CS-LTranv N SENTHIL 1 Term 10/08/21 39w0d 7 lb 4 oz M CS-Unspec Spinal N Complications: Arrest of descent, delivered, current hospitalization ([facility]) Her is complicated by: Hypothyroid, abdominal bruit The following portions of the chart were reviewed this encounter and updated as appropriate: TSH drawn today with glucose Objective Physical Exam Weight: 226 lb Expected Total Weight Gain: 11 lb-19 lb Pregravid BMI: 33.95 Urine protein Urine glucose Labs: reviewed Imaging Assessment/Plan Diagnoses and all orders for this visit: Choroid plexus cyst Encounter for supervision of other normal , third trimester ([facility]) Hypothyroidism, unspecified type - TSH W/REFLEX TO FT4; Future - US biophysical profile wo non stress testing; Future - US biophysical profile wo non stress testing; Future - US biophysical profile wo non stress testing; Future - US biophysical profile wo non stress testing; Future - US biophysical profile wo non stress testing; Future - US OB follow up transabdominal approach; Future - US OB follow up transabdominal approach; Future Screening for diabetes mellitus - GLUCOSE, GESTATIONAL SCREEN (50G)-135 CUTOFF; Future Screening for iron deficiency anemia - CBC; Future History of section Continue vitamin. Labs reviewed. Rhogam GTT 01/17/25 Follow up in 2 weeks for a routine visit. documented in this encounterCoxHealthGbbhicjevt32-07-8168 History of Present illness Narrative* Jah Pettit CNM - 01/01/2025 11:30 AM EDT Subjective No chief complaint on file. Rula Tony is a 24 y.o. at 25w5d with a working estimated date of delivery of 04/11/2025, by Ultrasound who presents for a routine visit. She denies vaginal bleeding, leakage of fluid, decreased movements, or contractions. OB History Para Term AB Living 3 2 2 0 0 2 SAB IAB Ectopic Multiple Live Births 0 0 0 0 2 # Outcome Date GA Lbr Luigi/2nd Weight Sex Type Anes PTL Lv 3 Current 2 Term 06/04/23 39w0d 6 lb 11 oz F CS-LTranv N SENTHIL 1 Term 10/08/21 39w0d 7 lb 4 oz M CS-Unspec Spinal N Complications: Arrest of descent, delivered, current hospitalization ([facility]) Her is complicated by: Hypothyroid The following portions of the chart were reviewed this encounter and updated as appropriate: Objective Physical Exam Weight: 219 lb Expected Total Weight Gain: 11 lb-19 lb Pregravid BMI: 33.95 BP: 120/72 Urine protein Urine glucose Labs: reviewed Imaging Assessment/Plan Continue vitamin. Labs reviewed. Rhogam GTT . Follow up in 2 weeks for a routine visit. documented in this [facility]09-17-2025 Telephone encounter Note* Telephone Encounter - Ankita Mims - 12/20/2024 10:06 AM EDT Pt called this morning for Carmelita Draper with a question: She said she just has questions about her 26 wk appt. She said she will be getting an US and also wants to know if you can add in her Glucose test. She said she knows Becca's out rn and that it'll be when she gets back but she didnt know if you needed time ahead to schedule that. Thank you :) [facility]HealthWyubqkglco86-03-2593 Miscellaneous Notes* Telephone Encounter - Ankita Mims - 12/20/2024 10:06 AM EDT Pt called this morning for Carmelita Draper with a question: She said she just has questions about her 26 wk appt. She said she will be getting an US and also wants to know if you can add in her Glucose test. She said she knows Becca's out rn and that it'll be when she gets back but she didnt know if you needed time ahead to schedule that. Thank you :) documented in this [facility]08-05-2025 History of Present illness Narrative* Jah Pettit CNM - 11/07/2024 4:30 PM EDT Subjective No chief complaint on file. Rula Tony is a 24 y.o. at 17w6d with a working estimated date of delivery of 04/11/2025, by Ultrasound who presents for a routine visit. She denies vaginal bleeding, leakage of fluid, decreased movements, or contractions. OB History Para Term AB Living 3 2 2 0 0 2 SAB IAB Ectopic Multiple Live Births 0 0 0 0 2 # Outcome Date GA Lbr Luigi/2nd Weight Sex Type Anes PTL Lv 3 Current 2 Term 06/04/23 39w0d 6 lb 11 oz F CS-LTranv N SENTHIL 1 Term 10/08/21 39w0d 7 lb 4 oz M CS-Unspec Spinal N Complications: Arrest of descent, delivered, current hospitalization ([facility]) Her is complicated by: Hypothyroid, abdominal bruit The following portions of the chart were reviewed this encounter and updated as appropriate: Objective Physical Exam Weight: 211 lb Expected Total Weight Gain: 11 lb-19 lb Pregravid BMI: 33.95 BP: 116/72 Urine protein-negative Urine glucose-negative Labs: reviewed Imaging Assessment/Plan Diagnoses and all orders for this visit: Hypothyroidism, unspecified type Encounter for supervision of other normal , second trimester ([facility]) History of section Continue vitamin. Labs reviewed. Rhogam GTT . Follow up in 2 weeks for a routine visit. documented in this encounter[id number] History of Present illness Narrative* Jah Pettit CNM - 10/12/2024 1:30 PM EDT Subjective No chief complaint on file. Rula Tony is a 23 y.o. at 14w1d with a working estimated date of delivery of 04/11/2025, by Ultrasound who presents for a routine visit. She denies vaginal bleeding, leakage of fluid, decreased movements, or contractions. OB History Para Term AB Living 3 2 2 0 0 2 SAB IAB Ectopic Multiple Live Births 0 0 0 0 2 # Outcome Date GA Lbr Luigi/2nd Weight Sex Type Anes PTL Lv 3 Current 2 Term 06/04/23 39w0d 6 lb 11 oz F CS-LTranv N SENTHIL 1 Term 10/08/21 39w0d 7 lb 4 oz M CS-Unspec Spinal N Complications: Arrest of descent, delivered, current hospitalization ([facility]) Her is complicated by: Hypothyroid The following portions of the chart were reviewed this encounter and updated as appropriate: Objective Physical Exam Weight: 208 lb Expected Total Weight Gain: 11 lb-19 lb Pregravid BMI: 33.95 BP: 140/78 Urine protein-negative Urine glucose-negative Labs: reviewed Imaging Assessment/Plan Continue vitamin. Labs reviewed. Rhogam GTT . Follow up in 2 weeks for a routine visit. documented in this encounterC[id number] History of Present illness Narrative* Jah Pettit CNM - 09/06/2024 4:30 PM EDT Subjective No chief complaint on file. Rula Tony is a 23 y.o. at 9w0d with a working estimated date of delivery of 04/11/2025, by Ultrasound who presents for a routine visit. She denies vaginal bleeding, leakage of fluid, decreased movements, and contractions. OB History Para Term AB Living 3 2 2 0 0 2 SAB IAB Ectopic Multiple Live Births 0 0 0 0 2 # Outcome Date GA Lbr Luigi/2nd Weight Sex Type Anes PTL Lv 3 Current 2 Term 06/04/23 39w0d 6 lb 11 oz F CS-LTranv N SENTHIL 1 Term 10/08/21 39w0d 7 lb 4 oz M CS-Unspec Spinal N Complications: Arrest of descent, delivered, current hospitalization Her is complicated by: Hypothyriod The following portions of the chart were reviewed this encounter and updated as appropriate: Objective Physical Exam Weight: 209 lb, Pregravid BMI: 33.95 Expected Total Weight Gain: 11 lb-19 lb Labs 08/21/24 Imaging Assessment/Plan Diagnoses and all orders for this visit: Encounter for supervision of other normal , first trimester History of section Urine protein-negative Urine glucose-negative Continue vitamin. Labs reviewed. Order placed for anatomy scan at 20 weeks. Follow up in 4 weeks for a routine visit and repeat thyroid lab documented in this enco[id number] History of Present illness Narrative* Jah Pettit CNM - 09/05/2024 1:16 PM EDT Elevated thyroid lab on prenatals. Consulted with Dr Alejandro, patients PCP and she advised to increase thyroid to 88 mcg and repeat lab in 4 weeks. RX sent to pharmacy documented in this enco[id number] History of Present illness Narrative* Jah Pettit CNM - 05/17/2023 4:00 PM EST Subjective No chief complaint on file. Rula [...] GROUP B CULTURE; Future Hypothyroidism, unspecified type ([facility]) - TSH W/REFLEX TO FT4; Future - US biophysical profile wo non stress testing; Future Reactive NST today in office Continue vitamin. Labs reviewed. GBS taken today Expected mode of delivery repeat section Follow up in 1 week for a routine visit. documented in this [facility]07-09-2022 Hospital Discharge instructions* Instructions* Anahi Tamez RN - 10/11/2021 Follow-up with your OB doctor as specified. [facility] OB Department phone: Dr. Emerson Tovar CNM Dr. Job Barrios [facility] [address] [facility] [address] [place] or [place] Becca Pettit, MSN, SHAPER AND PRESSER, CNM [place] [id number] [facility] [address] DIET Eat a well balanced diet focusing on foods high in fiber and protein. Drink plenty of fluids especially water. To avoid constipation you may take a mild stool softener as recommended by your doctor or adhesive sprayer. ACTIVITY Gradually increase your activity. Resume exercise regimen only after advice by your doctor or adhesive sprayer. Avoid lifting anything heavier than a gallon of milk for SIX weeks. Avoid driving until your doctor or adhesive sprayer has given their approval. Rise slowly from [...] have thoughts of harming yourself or your . If will not stop crying, contact another adult for help or place infant in their crib on their back and take a break. NEVER shake your infant. BLEEDING Vaginal bleeding will decrease in amount over the next few weeks. You will notice that as your activity increases, your flow may increase. This is your body's way oftelling you, you need to take things easier and rest more often. Call your care provider if you are saturating more than one maxi pad in an hour & resting does not help. BREAST CARE Take medications as recommended by your doctor or adhesive sprayer for pain If you develop a warm, [...] vitamins as directed by your doctor or adhesive sprayer. Refer to the booklet in the folder/binder for more information. If you feel you need more assistance or have questions, please call Rena Jenkins IBCLC, senior recruitment consultant, at or the OB department to [...] as a sports bra. INCISIONAL CARE / JENNI CARE If you have an acticoat dressing [...] the dressing at your one week incisional check.You may shower with your ZANE dressing, however [...] provide support for your incision. Use the jenni-bottle after toileting until bleeding stops. Cleanse your [...] area in your calf. documented in this encounterBON [facility] [place] Work Phone: 1(900) 135-147307-09-2022 History of Present illness Narrative* Diana Barrios, SHAPER AND PRESSER - CNM - 10/11/2021 11:13 AM EDT C/S Labor and Delivery Post Progress Note [...] Genitalia: General appearance; normal, Hair distribution; normal, Lesionsabsent Cor: RRR no Murmurs Pulmonary: clear to [...] rto 1 and 6 weeks, routine instructions * BINTA Stevens CNM - 10/10/2021 7:45 AM EDT C/S Labor and Delivery Post Progress Note [...] # 2 PLAN: Continue care Pain management * BINTA Gaona CNM - 10/09/2021 12:26 PM EDT C/S Labor and Delivery Post Progress Note [...] C) Oral (!) 108 16 99 % 10/08/21 2256 5' 5 (1.651 m) 231 lb (104.8 kg) 10/08/212225 97 % 10/08/21 2221 (!) 154/84 (!) 131 97 % 10/08/21 221 97 % 10/08/212210 96 % 10/08/21 220 99 % 10/08/21 220 99 % 10/08/21 2200 98 F (36.7 C) Oral 18 10/08/21 215 120/73 82 10/08/21 215 99 % 10/08/21 215 99 % 10/08/216 99 % 10/08/212140 99 % 10/08/212135 99 % 10/08/212130 99 % 10/08/21 2130 99 % 10/08/216 99 % 10/08/212 120/75 86 10/08/211 99 % 10/08/212115 100 % 10/08/212110 100 % 10/08/212105 100 % 10/08/212100 100 % 10/08/21 2100 97.5 F (36.4 C) Oral 16 100 % 10/08/212055 100 % 10/08/212050 126/70 83 100 % 10/08/212045 100 % 10/08/212040 100 % 10/08/212035 100 % 10/08/212030 100 % 10/08/212025 100 % 10/08/212021 139/69 88 10/08/212020 133/84 91 100 % 10/08/212015 100 % 10/08/212010 100 % 10/08/212005 100 % 10/08/212000 100 % 10/08/211999 98.1 F (36.7 C) Oral 16 10/08/211955 99 % 10/08/21 1952 129/73 84 10/08/211 98 % 10/08/21 1946 98 % 10/08/21 194 98 % 10/08/21 1936 98 % 10/08/21 1931 98 % 10/08/21 1926 99 % 10/08/21 1921 127/68 73 98 [...] ambulation in hallway later today or tomorrow * BINTA Gaona CNM - 10/09/2021 12:24 AM EDT Cloth Picker Note: I first assisted Dr Norman with primary section for arrest of descent and failure to progress. I independently closed the skin incision with 4-0 vicryl on a Spencer needle. No active bleeding at closure, pt tolerated well. * Anya Jerome RN - 10/08/2021 10:17 PM EDT Shelver called [facility] RN to call in surgical team for . Shelver also called Gregg Obregon CRNA to come to unit for . * Annemarie Judge RN - 10/08/2021 4:23 PM EDT Updated Becca Pettit CNM on patients contraction pattern, SVE, and that pitocin was turned off. Instructed to keep pitocin off for now. Will continue to monitor * Annemarie Judge RN - 10/08/2021 2:17 PM EDT Tim Diaz CRNA in room ar 1356 [...] call light within reach, souse at bedside * BINTA Gaona CNM - 10/08/2021 10:09 AM EDT Department of Obstetrics and Gynecology Progress Note SUBJECTIVE: Patient sitting up in bed visiting with her OBJECTIVE: Vitals: 10/08/21 0434 10/08/21 0533 10/08/21 0634 10/08/21 0931 BP: (!) 97/54 (!) 103/55 102/60 122/79 Pulse: 60 69 77 77 Resp: 16 18 16 16 Temp: 97.7 F (36.5 C) 97.9 F (36.6 C) TempSrc: Oral Oral heart rate: Baseline Heart Rate: 135 Accelerations: present Sales And Marketing Coordinator Variability: moderate Decelerations: absent Contraction frequency: irregular, [...] Epidural when patient requests Dr Norman updated * Annemarie Judge RN - 10/08/2021 9:05 AM EDT Patient off monitor from 0469-8806 to shower and eat. * Anya Jerome RN - 10/08/2021 5:00 AM EDT 3rd dose of cytotec placed @ this time. Patient tolerates well. SVE (1/80/-2). Cervix remains slightly anterior. Will continue to monitor. * Anya Jerome RN - 10/08/2021 12:55 AM EDT 2nd dose of cytotec placed @ this time. Patient tolerates well. SVE (1/80/-2). Will continue to monitor. * Anya Jerome RN - 10/07/2021 9:14 PM EDT First Cytotec dose placed. Patient tolerates well. SVE (1/70/-2), cervix is anterior. Will continueto monitor. * Anya Jerome RN - 10/07/2021 8:17 PM EDT Patient arrives to floor for scheduled induction. Patient oriented to room and call light system. Urine specimen collected. Patient changed into gown. Patient hooked up to EFM. Admission paperwork completed, admission database questions also completed. Patient resting comfortably in bed @ this time. Will continue to monitor. documented in this encounterBON [facility]NO [facility] HOSPITALTrueFacet Phone: 1(490) 754-639506-27-2022 NoteFINDINGS: Comparison made with prior ultrasound evaluation September [...] and signed by Nuno Collins on 09/30/2021 [id number]-20[facility] NoteFINDINGS: Comparison made with prior ultrasound evaluation September [...] Placenta Anterior Grade II Weight (g) by Gtqutdzowi10.5 % * These measurements result in an [...] and signed by Nuno Collins on 09/23/2021 0717[facility]06-13-2022 NoteFINDINGS: Comparison made with prior ultrasound evaluation September [...] Placenta Anterior Grade II Weight (g) by Chgmpbdbze61.4 % * These measurements result in an [...] and signed by Nuno Collins on 09/16/2021 0936[facility]06-10-2022 Hospital Discharge instructions* Instructions* Vaishali Mayer RN - 09/12/[address] Emerson Tovar [facility] Dr. Job Barrios [id number] [place] [address] Job Richardson CN [address] [facility] [address] [phone] Becca Pettit, MSN, SHAPER AND PRESSER, CNM [facility] [address] [facility] [address] [address] Bhagat [address] [facility] [address] Diana Johnnieedin CNM [address] [place] [place] [address] [place] [address] Micha Delgador CNM [address] [place] [place] [address] [place] [address] [phone] ACTIVITY LIMITATIONS: ( )Up and about as [...] LABOR AND DELIVERY . documented in this encounterBON FRESNO SURGICAL HOSPITALQ-Bot Work Phone: [phone]) 625-851106-06-2022 NoteFINDINGS: Comparison made with prior ultrasound evaluation of [...] Placenta Anterior Grade III Weight (g) by Ltespdjcan35.2 % * These measurements result in an [...] and signed by Nuno Collins on 09/09/2021 0727[facility]02-23-2022 NoteFINDINGS: Comparison made with ultrasound evaluation of March [...] Placenta Anterior Grade I Weight (g) by Goyavcchvj84.2 % * These measurements result in an [...] and signed by Nuno Collins on 05/29/2021 [id number] SpecialistEvaluation note* Diagnosis Encounter for induction of labor- Primary Delivery of by section Failure to progress in labor, delivered, current hospitalization Other and unspecified uterine inertia, with delivery Arrest of descent, delivered, current hospitalization Secondary uterine inertia, unspecified as to episode of care documented in this encounter [facility] Work Phone: evaluation note* Diagnosis Encounter for supervision of other normal , third trimester- Primary screening for streptococcus B screening for Streptococcus B Hypothyroidism, unspecified type (CMS/HCC) Non-stress test reactive state, incidental documented in this encounter [facility] HealthcareEvaluation note* Diagnosis Onset Date Resolution Status Mastitis, left, acute acute [facility] Work Phone: Evaluation note* Diagnosis Amenorrhea Absence of menstruation examination or test, positive result documented in this encounter [facility] HealthcareEvaluation note* Diagnosis Encounter for supervision of other normal , first trimester- Primary History of section Other postprocedural status documented in this encounter [facility]Evaluation note* Diagnosis Acquired hypothyroidism (CMS/HCC) Unspecified hypothyroidism Other specified hypothyroidism documented in this encounter [facility]Evaluation note* Diagnosis Encounter for supervision of other normal , second trimester (HHS-HCC)- Primary Hypothyroidism, unspecified type related condition in second trimester (HHS-HCC) documented in this encounter [facility] HealthcareEvaluation note* Diagnosis Hypothyroidism, unspecified type- Primary Encounter for supervision of other normal , second trimester (HHS-HCC) History of section Other postprocedural status documented in this encounter [facility]Evaluation note* Diagnosis Encounter for supervision of other normal , second trimester (HHS-HCC)- Primary Choroid plexus cyst 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 at 7w6d with a working estimated date of delivery of 04/03/2025, by Last Menstrual Period who presents for an initial visit. This is planned. Patient Care Team: Zully Alejandro MD as PCP - General (Family Medicine) OB History Para Term AB Living 3 2 2 0 0 2 SAB IAB Ectopic Multiple Live Births 0 0 0 0 2 # Outcome Date GA Lbr Luigi/2nd Weight Sex Type Anes PTL Lv 3 Current 2 Term 06/04/23 39w0d 6 lb 11 oz F CS-LTranv N SENTHIL 1 Term 10/08/21 39w0d 7 lb 4 oz M CS-Unspec Spinal N Complications: Arrest of descent, delivered, current hospitalization Her is complicated by: Patient referred by Gynecology History Last Pap 04/10/24 The following portions of the chart were reviewed this encounter and updated as appropriate: Objective Physical Exam Weight: 204 lb Expected Total Weight Gain: 11 lb-19 lb Pregravid BMI: 33.95 Urine protein Urine glucose Labs Assessment/Plan New OB visit with MIKE today Patient did not see provider New OB visit will be completed and history obtained and then appt made to see Becca for new OB visit documented in this encounterNOMS Healthcare Summary Purpose Family History No Family History Records FoundNo Family History Records FoundNo Family History Records Found Advance Directives Code StatusDate ActivatedDate InactivatedCommentsFull Code10/07/2021 8:41 PM 10/09/2021 12:41 AM Advance Directive Response Recorded Date/ Time Advance Directives No March 8:53pm Chief Complaint and Reason for Visit Chief Complaint possible massitis Reason for Visit Mastitis, left, acut e Additional Source Comments Reason for Visit (unrecogniz ed section and content) ReasonCommentsFallReasonCommentsScheduled InductionSpecialtyDiagnoses / ProceduresReferred By ContactReferred To Contact Diagnoses Encounter for induction of labor Arrest of descent, delivered, current hospitalization Jah Pettit APRN - SHERIDAN [address] [place] [address] [facility] [address] [place] [address] Referral IDStatusReasonStart DateExpiration DateVisits RequestedVisits [id number] Care Teams (unrecognized sec tion and content) Team MemberRelationshipSpecialtyStart DateEnd Date Zully Kerr MD [address] [place] [address] PCP - GeneralFami Medicine09/12/21Team MemberRelationshipSpecialtyStart DateEnd Date Zully Kerr MD [address] [place] [address] PCP - GeneralFami Medicine09/12/21Team MemberRelationshipSpecialtyStart DateEnd Date Zully Alejandro MD [address] [place] [address] [facility] - [facility]08/11/22Team MemberRelationshipSpecialtyStart DateEnd Date Zully Alejandro MD [address] [place] [address] [facility] - [facility] Medicine08/11/22 Team Status: Active Member Role Status Dates NON STAFF Primary Care Provider Active Team Status: Inactive Member Role Status Dates Cheri Bishop APRN Attending Provider Active Start: September 04, 2023 End: September 04, 2023NON STAFFPrimary Care ProviderActiveStart: September 04, 2023 End: September 04, 2023Team MemberRelationshipSpecialtyStart DateEnd Date Zully Alejandro MD [address] [place] [address] PCP - GeneralFamily Medicine08/11/22am MemberRelationshipSpecialtyStart DateEnd Date Zully Alejandro MD [address] [place] [address] PCP - GeneralFamily Medicine08/11/22am MemberRelationshipSpecialtyStart DateEnd Date Zully Alejandro MD [address] [place] [address] PCP - GeneralFamily Medicine08/11/22am MemberRelationshipSpecialtyStart DateEnd Date Zully Alejandro MD [address] [place] [address] PCP - GeneralFamily Medicine08/11/22 MemberRelationshipSpecialtyStart DateEnd Date Zully Alejandro MD [address] [place] [address] PCP - GeneralFamily Medicine08/11/22 MemberRelationshipSpecialtyStart DateEnd Date Zully Alejandro MD [address] [place] [address] PCP - GeneralFamily Medicine08/11/22Te MemberRelationshipSpecialtyStart DateEnd Date Zully Alejandro MD [address] [place] [address] PCP - GeneralFamily Medicine08/11/22Team MemberRelationshipSpecialtyStart DateEnd Date Zully Alejandro MD [address] [facility] [place] [address] PCP - GeneralChi [facility]ly Medicine08/11/22Te MemberRelationshipSpecialtyStart DateEnd Date Zully Alejandro MD [address] [facility] [place] [address] PCP - GeneralFamily Medicine08/11/22Te MemberRelationshipSpecialtyStart DateEnd Date Zully Alejandro MD [address] [facility] [place] [address] [facility]CP - [facility]08/11/22 INFORMATION SOURCE (unrecogn ized section and content) DATE CREATED AUTHOR 09/30/2021 [facility] DATE CREATED AUTHOR AUTHOR'S ORGANIZ ATION 10/13/2021 [facility] DATE CREATED AUTHOR AUTHOR'S ORGANIZ ATION 02/13/2025 [facility] EPIC Ordered Prescriptions (unrec ognized section and content) PrescriptionSigDispensedRefillsStart DateEnd Date oxyCODONE-acetaminophen (PERCOCET) 5-325 MG per tablet Indications:Delivery of by sectionTake 1 tablet by mouth every 6 hours as needed for Pain for up to 7 days. Intended supply: 3 days. Take lowest dose possible to manage pain 28 tablet / docusate sodium (COLACE) 100 MG capsule Take 1 capsule by mouth 2 times daily 60 capsule ibuprofen (ADVIL;MOTRIN) 800 MG tablet Take 1 tablet by mouth every 8 hours as needed for Pain 30 tablet Scheduled Active and Recently Administ ered Medications (unrecognized section and content) Medication Order/ docusate sodium (COLACE) capsule 100 mg 100 mg, Oral, 2 TIMES DAILY, First dose on Kandice 10/09/21 at 0230, Until Discontinued, Do not crush or break., * 0436 (Not Given - Provider: Anna Jon RN - Reason: Patient/family refused) * 0804 (Given - Provider: Lacy Bean, RN) * 203 (Given - Provider: Anna Jon, RN) * 0831 (Given - Provider: Anahi Tamez RN) * 2106 (Given - Provider: Anna Jon, RN) * 0759 (Given - Provider: Anahi Tamez, RN) * 2100 (Due) enoxaparin (LOVENOX) injection 60 mg 60 mg, SubCUTAneous, DAILY, First dose on Kandice 10/09/21 at 1245, Until Discontinued, Indication of Use: Prophylaxis-DVT/PE, * 1324 (Given - Provider: Kellie Bruno RN) * 0830 (Given - Provider: Anahi Tamez RN) * 0817 (Given - Provider: Anahi Tamez RN [...] Discontinue when able to take PO ibuprofen., * 0803 (Given - Provider: Lacy Bean RN) * 1621 (Given - Provider: Anahi Tamez RN) * 2339 (Given - Provider: Anna Jon, RN) lactated ringers bolus 1,000 mL, IntraVENous, at 1,000 mL/hr, Administer over 1 Hours, ONCE, On Kandice 10/09/21 at 0100, For 1 dose, Labor and Delivery. Administer bolus one hour prior to surgery., Labor and Delivery (Signed and Held) * 0100 (Due) levothyroxine (SYNTHROID) tablet 50 mcg 50 mcg, Oral, DAILY, First dose on Kandice 10/09/21 at 0845, Until Discontinued, Tube feeding (TF) interaction, obtain physician order to manage, recommend holding TF for 30 minutes before and after dose. * 0827 (Given - Provider: Shruthi Fontenot RN) * 1006 (Given - Provider: Anahi Tamez RN - Comment: med was not on unit. sent up from pharmacy) * 0759 (Given - Provider: Anahi Tamez RN) vitamin 27-1 MG tablet 1 tablet 1 tablet, Oral, DAILY, First dose on Kandice 10/09/21 at 0900, Until Discontinued, Begin when normal bowel activity resumes., * 0853 (Not Given - Provider: Shruthi Fontenot RN - Reason: Other - Comment: no BM yet) * 0831 (Given - Provider: Anahi Tamez RN) * 0758 (Given - Provider: Anahi Tamez RN) sodium chloride flush 0.9 % injection 10 mL 10 mL, IntraVENous, EVERY 12 HOURS SCHEDULED (2 times per day), First dose on Wed10/09/21 at 0900, Until Discontinued, Labor and Delivery (Signed and Held) * 0900 (Due) * 2100 (Due) * 0831 (Given - Provider: Anahi Tamez RN) * 2100 (Due) * 0900 (Due) * 2100 (Due) sodium chloride flush 0.9 % injection 5-40 mL 5-40 mL, IntraVENous, EVERY 12 HOURS SCHEDULED (2 times per day), First dose on Kandice 10/09/21 at 0900,Until Discontinued, For Line Patency: Peripheral IV = [...] Central Line = 20 mL/lumen, PACU only * 0900 (Due) * 2100 (Due) * 0900 (Not Given - Provider: Anahi Tamez RN - Reason: Other - Comment: duplicate order. med given at 0831. see mar) * 2100 (Due) * 0900 (Due) * 2100 (Due) sodium chloride flush 0.9 % injection 5-40 mL 5-40 mL, IntraVENous, EVERY 12 HOURS SCHEDULED (2 times per day), First dose on Kandice 10/09/21 at 0900,Until Discontinued, For Line Patency: Peripheral IV = [...] Midline or Central Line = 20 mL/lumen, * 0900 (Due) * 2100 (Due) * 0900 (Not Given - Provider: Anahi Tamez RN - Reason: Other - Comment: duplicate order. med given at 0831. see mar) * 2100 (Due) * 0900 (Due) * 2100 (Due) lxjjzub-rcqesi-iedtu pertussis (BOOSTRIX) injection 0.5 mL 0.5 mL, IntraMUSCular, PRIOR TO DISCHARGE, 1 dose, Starting on Kandice 10/09/21 at 0209, Until Discontinued, If not previously administered during at 27- 36 weeks as recommended by CDC., Medication Order/ lactated ringers infusion (CANCELED) IntraVENous, at 125 mL/hr, CONTINUOUS, Starting on Wed10/09/21 at 0100, Labor and Delivery (Signed and Held) * 0210 (New Bag - Provider: Anna Jon, SAMY) lactated ringers infusion (CANCELED) IntraVENous, at 125 mL/hr, CONTINUOUS, Starting on Kandice 10/09/21 at 0230, * 1025 (New Bag - Provider: Shruthi Fontenot RN) * 1027 (Rate/Dose Change - Provider: Shruthi Fontenot RN) * 1052 (Stopped - Provider: Shruthi Fontenot RN) * 1357 (Stopped - Provider: Shruthi Fontenot RN) Medication Order/ 0.9 % sodium chloride infusion IntraVENous, at 5-250 mL/hr, PRN, if patient receiving piggyback infusions and maintenance fluids are not ordered OR KVO fluids to protect IV site / prevent frequent line interruptions/ long duration, Starting on [facility] 10/09/21 at 0041, For piggyback infusion, administer at same rate as piggyback for atotal of 25 mL. Enter 25 mL into [...] frequent line interruptions/ long duration, Starting on [facility] 10/09/21 at 0041, For piggyback infusion, administer at same rate as piggyback for atotal of 25 mL. Enter 25 mL into [...] frequent line interruptions/ long duration, Starting on [facility] 10/09/21 at 0209, For piggyback infusion, administer at same rate as piggyback for atotal of 25 mL. Enter 25 mL into [...] Alternate ibuprofen and acetaminophen every 4 hours., * 1324 (Given - Provider: Kellie Bruno, SAMY) * 2118 (Given - Provider: Anna Jon RN) carboprost (HEMABATE) injection 250 mcg 250 mcg, IntraMUSCular, PRN, Starting on Kandice 10/09/21 at 0209, Until Discontinued, bleeding, May repeat every 15 minutes up to a cumulative maximum dose of 1000 mcg, at physician's request., Post-op diphenhydrAMINE (BENADRYL) injection 25 mg 25 mg, IntraVENous, EVERY 6 HOURS PRN, Starting on Kandice 10/09/21 at 0209, Until Discontinued, Itching,Hives, ibuprofen (ADVIL;MOTRIN) tablet 800 mg 800 mg, [...] the last dose of Toradol is given, * 1123 (Given - Provider: Anahi Tamez RN) * 1925 (Given - Provider: Anahi Tamez RN) lansinoh lanolin ointment Topical, EVERY 1 HOUR [...] at 0733, Until Discontinued, Pain Severe (7-10) * 0310 (Given - Provider: Anna Jon RN) * 0759 (Given - Provider: Anahi Tamez RN) * 1256 (Given - Provider: Anahi Tamez RN) oxyCODONE (ROXICODONE) immediate release tablet 5 mg 5 mg, Oral, EVERY 4 HOURS PRN, Starting on Wed10/10/21 at 0732, Until Discontinued, Pain Moderate (4-6) * 0748 (Given - Provider: Anahi Tamez RN) * 1159 (Given - Provider: Anahi Tamez RN) * 1704 (Given - Provider: Anahi Tamez RN) oxytocin (PITOCIN) 10 unit bolus from the bag 166.7 mL (rounded from 166.6667 mL = 10 Units), IntraVENous, PRN, 1 dose, Starting on Wed10/09/21 [id number], Until Discontinued, Bleeding, Post- use ONLY after [...] 30 units in 500 mL. Do NOT administermore than 1 bag of pitocin without a new order from the physician., Multiphase Phase of Care * 0045 (Rate/Dose Change - Provider: Anna Jon, RN) * 0411 (Stopped - Provider: Anna Jon RN) sennosides-docusate sodium (SENOKOT-S) 8.6-50 MG tablet 1 tablet 1 tablet, Oral, DAILY PRN, Starting on Kandice 10/09/21 at 0209, Until Discontinued, Constipation, * 0805 (Given - Provider: Anahi Tamez RN) simethicone (MYLICON) chewable tablet 80 mg 80 mg, Oral, EVERY 6 HOURS PRN, Starting on Kandice 10/09/21 at 0209, Until Discontinued, Cramping, Flatulence, sodium chloride flush 0.9 % injection 10 mL 10 mL, IntraVENous, PRN, Starting on Kandice 10/09/21 at 0041, Until Discontinued, Line Care, After everyIV line use, Labor and Delivery (Signed and [...] as the IV push. Flush volume is determinedby type of infusion therapy being given. For [...] as the IV push. Flush volume is determinedby type of infusion therapy being given. For non-viscous solutions use: Peripheral IV = 5 mL Midline or Central Line = 10 mL/lumen For viscous solutions (i.e. blood components, parenteral nutrition, contrast media, or after obtaining blood sample) use: Peripheral IV = 10 mL Midline or Central Line = 20 mL/lumen, Goals (unrecognized section and content) Goals may be documented in a n alternate section FOR RECORDS PERTAINING TO PATIENTS WHO ARE [...] BE BASED ON THE PRIMARY CLINICAL RECORDS. [employer] provides no warranty or guarantee of the accuracy or completeness of information in this document.
[2025-02-26 16:50] VITALS: BP 121/62; PULSE 100
== END 2025-02-26 17:30 | disposition home or self-care (01) ==
LOC: FBCO 16:40 → FBC 16:44
PROVIDERS: Visit Provider Midwife
DX: O99.283 Endocrine, nutritional and metabolic diseases complicating pregnancy, third trimester (principal)
CPT/HCPCS: 59025

== ENCOUNTER 2025-03-19 17:34 | Outpatient (OUT) | payer BC, SELFPAY ==
[2025-03-19 17:41] VITALS: BP 126/69; PULSE 91
== END 2025-03-19 18:05 | disposition home or self-care (01) ==
LOC: FBCO 17:34 → FBC 17:39
PROVIDERS: Visit Provider Midwife
DX: O99.283 Endocrine, nutritional and metabolic diseases complicating pregnancy, third trimester (principal); E03.9 Hypothyroidism, unspecified; Z3A.36 36 weeks gestation of pregnancy
CPT/HCPCS: 59025

== ENCOUNTER 2025-03-26 15:10 | Outpatient (OUT) | payer BC, SELFPAY ==
--- OUTSIDE RECORDS SUMMARY | 2025-03-12 16:00 | XMS_ITS | Encounter Summary ---
Author Organization [facility] Address [address] [place] [address] Care Team Providers Care Aircraft Engine Cylinder Mechanic Name Role Phone Zully Alejandro MD Primary Care Provider [phone] Encounter Details DateTypeDepartmentCare Team (Latest Contact Info)Jmcgpestnie21/08/2025 4:00 PM ESTRoutine [facility] OBRANDEE [address] [place] [address] Caro Pettit, SHERIDAN [address] [place], [place] [id number] screening for streptococcus B ([facility]) Social History Tobacco UseTypesPacks/DayYears UsedDateSmoking Tobacco: NeverSmokeless Tobacco: NeverAlcohol UseStandard Drinks/WeekCommentsNot Currently0 (1 standard drink = 0.6 oz pure alcohol)caffeine: 1-2 cups per dayEdinburgh Depression ScaleAnswerDate RecordedEdinburgh Depression Scale Txwvz17207/14/2023The thought of harming myself has occurred to me.Never4Estimated Date of PdnlijvsGnardccwSom04/07/2026Based on UltrasoundSex and Gender InformationValueDate RecordedSex Assigned at SmbsoAsepgo53/20/2023 12:13 PM EDT Legal OyfMejnnk93/14/2023 12:13 PM EDTGender BejzftbyNfvhgt42/20/2023 12:13 PM EDTSexual NvfeovpsqudJrhhehvh68/20/2023 12:13 PM EDTdocumented as of this encounter Plan of Treatment Not on file documented as of this encounter Procedures Procedure NamePriorityDate/TimeAssociated DiagnosisCommentsSTREPTOCCOUS, GROUP B VAHSRYLUwdhvxg38/08/2025 4:31 PM EST screening for streptococcus B ([facility]) documented in this encounter Results * STREPTOCCOUS, GROUP B CULTURE (03/12/2025 4:31 PM EST)ComponentValueRef Range Test MethodAnalysis TimePerformed AtPathologist SignatureMICRO [id number] QUESTSPECIMEN QUALITYAdequateQUESTSOURCEVAGINAL/ANORECTALQUESTSTATUSFINALQUEST RESULTSEE NOTEQUESTComment: No group B Streptococcus isolated COMMENTSEE NOTEQUESTComment: Note per CDC guidelines optimal recovery is achieved by swabbing both the lower vagina and rectum (through the anal sphincter). Specimen (Source)Anatomical Location / LateralityCollection Method / Volume Collection TimeReceived Time03/12/2025 4:31 PM EST03/12/2025 4:32 PM EST Narrative Resulting Agency Comment Performing Organization Information ?Site ID: [id number] ?Name: [facility] ?Address: [address] [place] [id number] ?Director: Luiz Dale MD Authorizing ProviderResult TypeResult StatusValerie Bassem Pettit CNMLAB BODY FLUIDS AND STOOLS ORDERABLESFinal ResultPerforming OrganizationAddressCity/State/ZIP CodePhone Number [facility]ST documented in this encounter Visit Diagnoses Diagnosis screening for streptococcus B ([facility]) screening for Streptococcus B documented in this encounter Care Teams Team MemberRelationshipSpecialtyStart DateEnd Date Zully Alejandro MD [address] [place] [address] PCP - GeneralFamily Medicine08/11/22documented as of this encounter
--- OUTSIDE RECORDS SUMMARY | 2025-03-15 16:00 | XMS_ITS | Encounter Summary ---
Author Organization [facility] Address [address] [place] [address] Care Team Providers Care Asp Net Programmer Name Role Phone Zully Alejandro MD Primary Care Provider [phone] Encounter Details DateTypeDepartmentCare Team (Latest Contact Info)Qpatchfdaff09/11/2025 4:00 PM ESTAncillary Procedure [facility] [address] [place] [address] Hypothyroidism, unspecified type Social History Tobacco UseTypesPacks/DayYears UsedDateSmoking Tobacco: NeverSmokeless Tobacco: NeverAlcohol UseStandard Drinks/WeekCommentsNot Currently0 (1 standard drink = 0.6 oz pure alcohol)caffeine: 1-2 cups per dayEdinburgh Depression ScaleAnswerDate RecordedEdinburgh Depression Scale Mhswa93507/14/2023The thought of harming myself has occurred to me.Never4Estimated Date of YeeafebmNyssiwfcRxq90/07/2026ased on UltrasoundSex and Gender InformationValueDate RecordedSex Assigned at ErhrpSkzvpd43/20/2023 12:13 PM EDT Legal TnyOopihd51/14/2023 12:13 PM EDTGender HugjvgyqZzahof94/20/2023 12:13 PM EDTSexual SpuqkpflhegExaijmvt75/20/2023 12:13 PM EDTdocumented as of this encounter Plan of Treatment Not on file documented as of this encounter Procedures Procedure NamePriorityDate/TimeAssociated DiagnosisCommentsUS BIOPHYSICAL PROFILE WO NON STRESS KXPTSTEKipnrlk96/11/2025 4:26 PM EST Hypothyroidism, unspecified type documented in this encounter Results * US biophysical profile wo non stress testing (03/15/2025 4:26 PM EST) Anatomical RegionLateralityModalityBodyUltrasoundSpecimen (Source)Anatomical Location / LateralityCollection Method / VolumeCollection TimeReceived Time 03/20/2025 9:18 AM EST Impressions 03/20/2025 9:19 AM EST BIOPHYSICAL PROFILE SCORE OF 8 OUT OF 8. ELECTRONICALLY SIGNED BY: Suresh Amor MD Narrative 03/20/2025 9:19 AM EST EXAM: US BIOPHYSICAL PROFILE WO NON STRESS TESTING DATE: 03/15/2025 4:05 PM CLINICAL HISTORY: Hypothyroidism COMPARISON: 03/08/2025 TECHNIQUE: Grayscale evaluation of the fetus was performed for biophysical profile purposes and does not constitute an anatomic survey. FINDINGS: Single live intrauterine . heart rate 122 bpm. Cephalic position. Grade 2 fundal placenta. Cervical length 4 5.8 cm. NIALL 16.7 cm. Biophysical profile as follows: Breathin/2. Tone: 2/2. Gross movement: 2/2. NIALL: 2/2. Total: 8/8. Procedure Note Suresh Amor MD - 03/20/2025 EXAM: US BIOPHYSICAL PROFILE WO NON STRESS TESTING DATE: 03/15/2025 4:05 PM CLINICAL HISTORY: Hypothyroidism COMPARISON: 03/08/2025 TECHNIQUE: Grayscale evaluation of the fetus was performed for biophysical profile purposes and does not constitute an anatomic survey. FINDINGS: Single live intrauterine . heart rate 122 bpm. Cephalic position. Grade 2 fundal placenta. Cervical length 4 5.8 cm. NIALL 16.7 cm. Biophysical profile as follows: Breathin/2. Tone: 2/2. Gross movement: 2/2. NIALL: 2/2. Total: 8/8. IMPRESSION: BIOPHYSICAL PROFILE SCORE OF 8 OUT OF 8. ELECTRONICALLY SIGNED BY: Suresh Amor MD Authorizing ProviderResult TypeResult StatusValericharlotte Pettit CNWINST[facility] OB US PROCEDURESFinal Result documented in this encounter Visit Diagnoses Diagnosis Hypothyroidism, unspecified type documented in this encounter Care Teams Team MemberRelationshipSpecialtyStart DateEnd Date Zully Alejandro MD [address] [place] [address] PCP - GeneralFamily Medicine08/11/22documented as of this encounter
--- OUTSIDE RECORDS SUMMARY | 2025-03-22 16:00 | XMS_ITS | Encounter Summary ---
Author Organization [facility] Address [address] [place] [address] Care Team Providers Care Nurse Gynecology Name Role Phone Zully Alejandro MD Primary Care Provider [phone] Encounter Details DateTypeDepartmentCare Team (Latest Contact Info)Lrhoxjunyqv42/18/2025 4:00 PM ESTAncillary Procedure [facility] [address] [place] [address] Hypothyroidism, unspecified type Social History Tobacco UseTypesPacks/DayYears UsedDateSmoking Tobacco: NeverSmokeless Tobacco: NeverAlcohol UseStandard Drinks/WeekCommentsNot Currently0 (1 standard drink = 0.6 oz pure alcohol)caffeine: 1-2 cups per dayEdinburgh Depression ScaleAnswerDate RecordedEdinburgh Depression Scale Ypqxl57607/14/2023The thought of harming myself has occurred to me.Never4Estimated Date of CrouavygOrumaohyIvr12/07/2026ased on UltrasoundSex and Gender InformationValueDate RecordedSex Assigned at NvzzlNcrkxl95/20/2023 12:13 PM EDT Legal JyhEtmpnw91/14/2023 12:13 PM EDTGender YfklwjlyFsevgu40/20/2023 12:13 PM EDTSexual QdtxdplfvcqIlavhfgp66/20/2023 12:13 PM EDTdocumented as of this encounter Plan of Treatment Not on file documented as of this encounter Procedures Procedure NamePriorityDate/TimeAssociated DiagnosisCommentsUS BIOPHYSICAL PROFILE WO NON STRESS UHFEKQPWcegysn01/18/2025 4:31 PM EST Hypothyroidism, unspecified type documented [...] Collins MD Authorizing ProviderResult TypeResult StatusValedylon Pettit [facility] US PROCEDURESFinal Result documented in this encounter Visit Diagnoses Diagnosis Hypothyroidism, unspecified type documented in this encounter Care Teams Team MemberRelationshipSpecialtyStart DateEnd Date Zully Alejandro MD [address] [place] [address] PCP - GeneralFamily Medicine08/11/22documented as of this encounter
--- NOTE | 2025-03-26 | US_ITS ---
The [address] [address] Patient Name: RULA MILLER MRN: [id number] date: 2000 Sex: F Assigned Patient Location: [facility] Current Patient Location: [facility] Accession/Order Number: [id number] Exam Date: 03/26/2025 15:29 Report Date: 03/27/2025 10:11 At the request of: JAH MUELLER APRN CNCristela Procedure: US OB growth CLINICAL INFORMATION: HYPOTHYROIDISM ULTRASOUND OB GROWTH COMPARISON: None There is a single live intrauterine gestation in cephalic presentation. There is cardiac and somatic activity with heart rate of 124 bpm. The amniotic fluid index measures 18.6 cm which is in upper normal range. The following measurements were obtained: Biparietal diameter 9.3 cm 37 weeks 6 days 74% Head circumference 34.8 cm 40 weeks 3 days 87% Abdominal circumference 33.9 cm 37 weeks 6 days 70% Femur length 7.0 cm 36 weeks 0 days 12% The composite ultrasound age based on these measurements is 38 weeks 0 days +/- 2 weeks 5 days. The estimated weight is 7 lbs. 3 oz. +/- 1 lb. 1 oz. (60%). US/US OB BPP w non-stress IMPRESSION: SINGLE LIVE INTRAUTERINE GESTATION WITH ULTRASOUND AGE OF 38 WEEKS 0 DAYS. BIOPHYSICAL PROFILE: COMPARISON: None FINDINGS: TONE: 1 or more episodes of activity extension and flexion of extremity or opening and closing of the hand [Y] 2/2 GROSS BODY MOVEMENTS: 3 or more discrete body or limb movements [Y] 2/2 BREATHING MOVEMENTS: 1 or more episodes of breathing lasting at least 30 seconds [Y] 2/2 NIALL: A single deepest vertical pocket of amniotic fluid greater than 2 cm [Y] 2/2 NIALL: 18.6 cm Total score: 8/8 IMPRESSION: NORMAL BIOPHYSICAL PROFILE Impression dictated by: Vaishali Harris M.D. 03/27/2025 10:11 AM Dictation Location: [facility] Electronically authenticated by: [id number] Y Date: 03/27/2025 10:11
--- OUTSIDE RECORDS SUMMARY | 2025-03-26 15:13 | XMS_ITS | Clinical Summary ---
Author Organization [facility] Address [address], [address] [place] [address] Care Team Providers Care Chief Clerk Name Role Phone Zully Blair MD Primary Care Pr ovider Allergies No known active allergies Medications MedicationSigDispense QuantityRefillsLast FilledStart DateEnd DateStatus levothyroxine (SYNTHROID) 75 MCG tablet Take 50 mcg by mouth DailyActive Cholecalciferol (VITAMIN D) 50 MCG (1999) CAPS capsule Take 1 capsule by mouth dailyActive Vit-DSS-Fe Cbn-FA (PRENA-CAP PO) Take 1 capsule by mouth dailyActive ferrous sulfate (IRON 325) 325 (65 Fe) MG tablet Take 325 mg by mouth daily (with breakfast)Active docusate sodium (COLACE) 100 mg capsule Take 100 mg by mouth 2 times daily as needed for ConstipationActive ibuprofen (ADVIL;MOTRIN) 800 MG tablet Take 1 tablet by mouth every 8 hours as needed for Pain 30 tablet ctive docusate sodium (COLACE) 100 MG capsule Take 1 capsule by mouth 2 times daily 60 capsule 10/11/2021ctive Active Problems ProblemNoted DateDiagnosed DateDelivery of by section Resolved Problems ProblemNoted DateDiagnosed DateResolved DateArrest of descent, delivered, current gtdjmfwashootyg06Encounter for induction of labor /12/2021Failure to progress in labor, delivered, current jwrurkqrdyxiyel90/09/2022 Encounters DateTypeDepartmentCare BduoKipmjkjswwi07/22/2025Telephone [facility] Obstetrics & Gynecology [address], [address] [place] [address] Chery Pritchard RN Scheduled C-sectionfrom Last 3 Months Social History Tobacco UseTypesPacks/DayYears UsedDateSmoking Tobacco: NeverSmokeless Tobacco: NeverAlcohol UseStandard Drinks/WeekCommentsNever0 (1 standard drink = 0.6 oz pure alcohol)CommentsNoSex and Gender InformationValueDate RecordedSex Assigned at BirthNot on fileLegal OkfPyftvd29/10/2022 11:43 AM EDTGender IdentityNot on fileSexual OrientationNot on file Last Filed Vital Signs Vital SignReadingTime TakenCommentsBlood Fwoyfxxx611/7407 7:17 AM EDT Tdrhd794010/11/2021 7:17 AM JHDArtkyjgndfq46.7 ??C (98.1 ??F)10/11/2021 7:17 AM EDTRespiratory Dhbj3241 7:17 AM EDTOxygen Zuytswrunz36%10/09/2021 2:22 AM EDTInhaled Oxygen Concentration--Ngjuux011.8 kg (231 lb)10/08/2021 10:56 PM SBQGoilfx689.1 cm (5' 5 )10/08/2021 10:56 PM EDTBody Mass Index38.4407 10:56 PM EDT Plan of Treatment Not on file Insurance * Guarantor: Alba Tony TypeRelation to PatientDate of PhoneBilling AddressPersonal/KwqgioLmtq50/23/2001 [address] [phone] Advance Directives * Full Code (Latest Code Status on File) Date ActivatedDate InactivatedComments10/07/2021 8:41 PM10/09/2021 12:41 AM Care Teams Team MemberRelationshipSpecialtyStart DateEnd Date Zully Blair MD [address] [place] [address] PCP - GeneralFawily Medicine09/12/21
--- OUTSIDE RECORDS SUMMARY | 2025-03-26 15:13 | XMS_ITS | Encounter Summary ---
Author Organization [facility] Address [address] [place] [address] Care Team Providers Care Tipple Supervisor Name Role Phone Zully Alejandro MD Primary Care Provider [phone] Encounter Details DateTypeDepartmentCare Team (Latest Contact Info)Haetcylzcuc16/11/2025Orders Only [facility] [address] [place] [address] Caro Pettit, CNM [address] [place], [place] [id number] Hypothyroidism, unspecified type Social History Tobacco UseTypesPacks/DayYears UsedDateSmoking Tobacco: NeverSmokeless Tobacco: NeverAlcohol UseStandard Drinks/WeekCommentsNot Currently0 (1 standard drink = 0.6 oz pure alcohol)caffeine: 1-2 cups per dayEdinburgh Depression ScaleAnswerDate RecordedEdinburgh Depression Scale Tehkc62907/14/2023The thought of harming myself has occurred to me.Never4Estimated Date of PdkxijzeJetzqzceLmv41/07/2026Based on UltrasoundSex and Gender InformationValueDate RecordedSex Assigned at CmjhvCqpeyz05/20/2023 12:13 PM EDT Legal OfnDskopi43/14/2023 12:13 PM EDTGender WpfvfvvcXdkuua95/20/2023 12:13 PM EDTSexual HzrehibwrvfJstkgqxs23/20/2023 12:13 PM EDTdocumented as of this encounter Plan of Treatment NameTypePriorityAssociated DiagnosesOrder ScheduleUS biophysical profile w non stress testImagingRoutine Hypothyroidism, unspecified type Expected: 03/15/2025, Expires: 03/15/2026documented as of this encounter Visit Diagnoses Diagnosis Hypothyroidism, unspecified type documented in this encounter Care Teams Team MemberRelationshipSpecialtyStart DateEnd Date Zully Alejandro MD [address] [place] [address] PCP - GeneralFamily Medicine08/11/22documented as of this encounter
--- OUTSIDE RECORDS SUMMARY | 2025-03-26 15:13 | XMS_ITS | Clinical Summary ---
Author Organization [facility] Address [address] [place] [address] Care Team Providers Care Manager Latin Name Role Phone Zully Alejandro MD Primary Care Provider [phone] Allergies No known active allergies Medications MedicationSigDispense QuantityRefillsLast FilledStart DateEnd DateStatus MV-Min-Fe Fum-FA-DHA ( 1 PO) Take by mouth.Active ferrous sulfate (Fe Tabs) 325 (65 Fe) MG EC tablet Indications:Anemia during in third trimester (HHS-HCC)Take 1 tablet (325 mg) by mouth in the morning and 1 tablet (325 mg) before bedtime. Do not crush, chew, or split. 60 tablet 11151ctive docusate sodium (Colace) 100 MG capsule Indications:Anemia during in third trimester (HHS-HCC)Take 1 capsule (100 mg) by mouth in the morning and 1 capsule (100 mg) before bedtime. 60 capsule //501838/6Active levothyroxine (Synthroid) 88 MCG tablet Indications:Hypothyroidism, unspecified typeTake 1 tablet (88 mcg) by mouth in the morning. Take before meals. 30 tablet 111/695691/6Active Active Problems ProblemNoted DateDiagnosed DateGeneralized anxiety mvlcyvin82/30/2023Minor depressive osqybnqa57/30/8038Qlntluidhpletd94/26/2023Estimated Date of KtiuxvoyBcdaumgzMtm39/07/2026ased on Ultrasound Encounters DateTypeDepartmentCare CbglGmipotervnl28/18/2025 4:00 PM ESTAncillary Procedure [facility] [address] [place] [address] Hypothyroidism, unspecified type03/22/20253113Ljqsiq64/11/2025 4:00 PM ESTAncillary Procedure [facility] [address] [email or web address] [address] [place] [address] Hypothyroidism, unspecified type03/15/2025Orders Only [facility] [address] [facility] [place] [address] Caro Pettit CNM Hypothyroidism, unspecified type03/15/20254556Zclfsy05/08/2025 4:00 PM ESTRoutine [facility] [address] [place] [address] Caro Pettit CNM screening for streptococcus B ([facility])03/12/2025[facility] flowsheet [facility] [address] [place] [address] Caro Pettit CNM 03/08/2025 4:00 PM ESTAncillary Procedure [facility] [address] [facility] [address] [place] [address] Hypothyroidism, unspecified type03/08/20251890Wwzgih06/02/2025Results Follow-Up [facility] [address] [place] [address] Caro Pettit CNM TSH W/REFLEX TO FT4105/06/2024 4:00 PM ESTRoutine [facility] [address] [place] [address] Caro Pettit CNM Encounter for supervision of other normal , third trimester ([facility]) (Primary Dx); Hypothyroidism, unspecified type; NST (non-stress test) reactive ([facility]); History of yctrovg7903/05/2025[facility] flowsheet [facility] [address] [place] [address] Caro Pettit CNM 02/28/2025 4:00 PM ESTAncillary Procedure [facility] [address] [facility] [address] [place] [address] Hypothyroidism, unspecified type02/28/20250052Fkjoog72/20/2025 4:00 PM ESTAncillary Procedure [facility] [address] [facility] [address] [place] [address] Hypothyroidism, unspecified type02/22/2025Orders Only [facility] [address] [place] [address] Caro Pettit CNM Acquired autoimmune hypothyroidism (Primary Dx)02/22/2025Orders Only [facility] [address] [place] [address] Munira Noyola MA Hypothyroidism, unspecified type02/22/20253574Drizwy55/17/2025 5:00 PM ESTRoutine [facility] [address] [place] [address] Caro Pettit CNM Encounter for supervision of other normal , third trimester ([facility]) (Primary Dx); Hypothyroidism, unspecified type; NST (non-stress test) reactive ([facility])02/19/2025amboo flowsheet [facility] [address] [place] [address] Caro Pettit CNM 02/15/2025 4:00 PM ESTAncillary Procedure [facility] [address] [facility] [address] [place] [address] Hypothyroidism, unspecified type02/15/20259685Gyfrmn79/10/2025 4:00 PM ESTRoutine [facility] [address] [place] [address] Caro Pettit CNM Encounter for supervision of other normal , third trimester ([facility]) (Primary Dx); Hypothyroidism, unspecified type; NST (non-stress test) reactive ([facility])02/12/2025amboo flowsheet [facility] [address] [place] [address] Caro Pettit CNM 02/09/2025Telephone [address] [place] [address] Zully Alejandro MD 02/06/2025Refill [place] [address] [place] [phone] Zully Alejandro MD Hypothyroidism, unspecified type01/31/2025 4:15 PM EDTAncillary Procedure [facility] [address] [place] [address] [address] [place] [phone] related condition in second trimester ([facility])01/31/2025Travel 01/26/2025Results Follow-Up [facility] [place] [facility] [address] [place] [phone] Zully Draper MA GLUCOSE TOLERANCE TEST, GESTATIONAL,4SPEC(100G)01/25/2025Results Follow-Up [facility] [place] [facility] [address] [place] [phone] Zully Draper MA GLUCOSE, GESTATIONAL SCREEN (50G)-135 CUTOFF, CBC, TSH W/REFLEX TO FT4, US biophysical profile wo non stress uykybtm8601/22/2025Refill [facility] [address] [place] [phone] Zully Draper MA Anemia during in third trimester ([facility])01/22/2025Results Follow-Up [facility] [place] [facility] [address] [place] [phone] Caro Pettit CNM US OB limited 1+ vvduwfb2001/22/2025Orders Only [facility] [address] [place] [address], [place] [phone] Caro Pettit CNM Elevated glucose tolerance test01/17/2025 3:00 PM EDTAncillary Procedure [facility] [address] [phone] Choroid plexus cyst01/17/2025 2:30 PM EDTRoutine [facility] [address] [place] [address] Caro Pettit CNM Choroid plexus cyst (Primary Dx); Encounter for supervision of other normal , third trimester ([facility]); Hypothyroidism, unspecified type; Screening for diabetes mellitus; Screening for iron deficiency anemia; History of lmsodmt5101/17/20254197Iiluyo61/15/2025amb flowsheet [facility] [address] [place] [address] Caro Pettit CNM 01/05/2025Refill [facility] [address] [place] [address] Zully Draper MA Hypothyroidism, unspecified type01/01/2025 11:30 AM EDTRoutine [facility] [address] [place] [phone] Caro Pettit CNM Encounter for supervision of other normal , second trimester ([facility]) (Primary Dx); Choroid plexus cyst; related condition in second trimester ([facility]); History of upnsyer3001/01/2025amboo flowsheet [facility] [address] [place] [address] Caro Pettit CNM from Last 3 Months Family History Medical HistoryRelationNameCommentsDrug abuseFatherpain pillsThyroid disease FatherMyasthenia gravisPaternal GrandfatherRelationNameStatusCommentsBrotherx1 FatherAliveMaternal GrandfatherAliveMaternal GrandmotherAliveMotherAlivePaternal GrandfatherAlivePaternal GrandmotherAliveSonAlive Social History Tobacco UseTypesPacks/DayYears UsedDateSmoking Tobacco: NeverSmokeless Tobacco: Never Tobacco Cessation:Counseling Given: Not Answered Alcohol UseStandard Drinks/WeekCommentsNot Currently0 (1 standard drink = 0.6 oz pure alcohol)caffeine: 1-2 cups per dayEdinburgh Depression Scale AnswerDate RecordedEdinburgh Depression Scale Vsvta31407/14/2023The thought of harming myself has occurred to me.Never4Estimated Date of ZujcldbnGsdfdymvVso30/07/2026ased on UltrasoundSex and Gender InformationValueDate RecordedSex Assigned at WbvtaCrvkze17/20/2023 12:13 PM EDT Legal CvuPczllo16/14/2023 12:13 PM EDTGender ScwcrcwgAiguum83/20/2023 12:13 PM EDTSexual SqemtrmassjUtvpngro86/20/2023 12:13 PM EDT Last Filed Vital Signs Vital SignReadingTime TakenCommentsBlood Sssmxhai643/8012 4:00 PM EST Pulse--Temperature--Respiratory Rate--Oxygen Saturation--Inhaled Oxygen Concentration--Cewzzk053 kg (232 lb)03/05/2025 4:00 PM HKYMnwcrb398.1 cm (5' 5 ) 11/09/2022 3:38 PM EDTBody Mass Index38.6108 3:38 PM EDT Plan of Treatment Health MaintenanceDue DateLast DoneCommentsPneumococcal Vaccine: Pediatrics (0 to 5 Years) and At-Risk Patients (6 to 64 Years) (1 of 2 - PCV)10/25/2018COVID- 19 Vaccine (1 - season)2024Influenza Vaccine (#1)2024 01/27/2013, 02/05/2011 Procedures Procedure NamePriorityDate/TimeAssociated DiagnosisCommentsUS BIOPHYSICAL PROFILE WO NON STRESS FCAVGDESmjddyj22/18/2025 4:31 PM EST Hypothyroidism, unspecified type US BIOPHYSICAL PROFILE WO NON STRESS AVTRASCIubahai15/11/2025 4:26 PM EST Hypothyroidism, unspecified type STREPTOCCOUS, GROUP B OCUDSKWQoixkqy31/08/2025 4:31 PM EST screening for streptococcus B (HHS-HCC) US BIOPHYSICAL PROFILE WO NON STRESS PWKPWISZzufvef22/04/2025 4:23 PM EST Hypothyroidism, unspecified type US OB FOLLOW UP TRANSABDOMINAL UWCGWKNWHbughfj70/26/2025 4:46 PM EST Hypothyroidism, unspecified type US BIOPHYSICAL PROFILE WO NON STRESS BXCLVEQYybyeyn87/20/2025 4:13 PM EST Hypothyroidism, unspecified type TSH W/REFLEX TO SM9Mxoonmh89/20/2025 3:56 PM EST Hypothyroidism, unspecified type US BIOPHYSICAL PROFILE WO NON STRESS BKFBQBZHxrhsoa37/13/2025 4:36 PM EST Hypothyroidism, unspecified type US OB FOLLOW UP TRANSABDOMINAL PMQUTREQEytwnzm57/29/2025 4:56 PM EDT related condition in second trimester (HHS-HCC) GLUCOSE TOLERANCE TEST, GESTATIONAL,4SPEC(100G)Xkujkue2601/23/2025 8:31 AM EDT Elevated glucose tolerance test US OB LIMITED 1+ PTKNIJFRasyvhf11/15/2025 3:22 PM EDT Choroid plexus cyst TSH W/REFLEX TO AY3Mnmzosu25/15/2025 2:50 PM EDT Hypothyroidism, unspecified type QNJIzsqudl85/15/2025 2:50 PM EDT Screening for iron deficiency anemia GLUCOSE, GESTATIONAL SCREEN (50G)-135 HRNQPKAaqprjc61/15/2025 2:50 PM EDT Screening for diabetes mellitus from Last 3 Months Results * US biophysical profile wo non stress testing (03/22/2025 4:31 PM EST) Only the most recent of5 resultswithin the time period is included. Anatomical RegionLateralityModalityBodyUltrasoundSpecimen (Source)Anatomical Location / LateralityCollection Method / VolumeCollection TimeReceived Time 03/24/2025 3:27 PM EST Impressions 03/26/2025 11:04 AM EST 1. Biophysical 8/8 biophysical profile 2. 20 cm NIALL, borderline [...] Breech presentation. NIALL 20cm. IMPRESSION: 1. Biophysical 8 biophysical profile 2. 20 cm NIALL, borderline polyhydramnios. 3. Posterior placenta, grade 3 TRANSCRIBED BY: ELECTRONICALLY SIGNED BY: Nuno Collins MD Authorizing ProviderResult TypeResult StatusValerie Bassem Pettit [facility] OB US PROCEDURESFinal Result * STREPTOCCOUS, GROUP B CULTURE (03/12/2025 4:31 PM EST)ComponentValueRef Range Test MethodAnalysis TimePerformed AtPathologist SignatureMICRO [id number] QUESTSPECIMEN QUALITYAdequateQUESTSOURCEVAGINAL/ANORECTALQUESTSTATUSFINALQUEST RESULTSEE NOTEQUESTComment: No group B Streptococcus isolated COMMENTSEE NOTEQUESTComment: Note per CDC guidelines optimal recovery is achieved by swabbing both the lower vagina and rectum (through the anal sphincter). Specimen (Source)Anatomical Location / LateralityCollection Method / Volume Collection TimeReceived Time03/12/2025 4:31 PM EST03/12/2025 4:32 PM EST Narrative Resulting Agency Comment Performing Organization Information ?Site ID: QPT ?Name: [facility] ?Address: [address] [place] [address], [address] [place] [phone] ?Director: Luiz Dale MD Authorizing ProviderResult TypeResult StatusValedylon Pettit CNMLAB BODY FLUIDS AND STOOLS ORDERABLESFinal ResultPerforming OrganizationAddressCity/State/ZIP CodePhone Number [facility] * US OB follow up transabdominal approach (02/28/2025 4:46 PM EST) Only the most recent of2 resultswithin the time period is included. Anatomical RegionLateralityModalityBodyUltrasoundSpecimen (Source)Anatomical Location / LateralityCollection Method / VolumeCollection TimeReceived Time 03/06/2025 10:34 AM EST Impressions 03/06/2025 10:41 AM EST Single, live intrauterine , current sonographic age of 34 weeks and 0 days, with an estimated date of delivery of April 11, 2025 (prior IFEANYI April 21, 2025). * ??Estimated Weight (g) by Percentile is based upon an accurate estimated age based onlast menstrual period. ?? TRANSCRIBED BY: ? ELECTRONICALLY SIGNED BY: Nuno Collins MD Narrative 03/06/2025 10:41 AM EST FINDINGS: Comparison January 31, 2025. A single, live intrauterine is present with normal cardiac rate of 156 beats per minute. Normal activity and amniotic fluid volume. Amniotic fluid index is 17 cm. ??Morphology is grossly normal. The cervix is long and closed, 5.5 cm. ??The placenta is fundal, Grade II. ??The current sonographic age is 34 weeks and 0 days, based on the following measurements: ?BPD ? 8.5 cm (34 weeks, 1 day) ?Head Circumference ?31.4 cm (35 weeks, 1 day) ?Abdominal Circumference ?29.9 cm (33 weeks, 6 days) ?Femur Length ?6.4 cm (32 weeks, 6 days) ?Presentation ? Variable ?Placenta ? Fundal Grade II ? Weight (g) by Percentile ??14.7 % * (prior 39.7%) These measurements result in an estimated date of delivery of ?The current estimated weight is 3261 grams (5 pounds, 0 ounces). ?? Procedure Note Nuno Collins MD - 03/06/2025 FINDINGS: Comparison January 31, 2025. A single, live intrauterine is present with normal cardiacrate of 156 beats per minute. Normal activity and amniotic fluidvolume. Amniotic fluid index is 17 cm. Morphology is grossly normal. Thecervix is long and closed, 5.5 cm. The placenta is fundal, Grade II. Thecurrent sonographic age is 34 weeks and 0 days, based on the followingmeasurements: BPD 8.5 cm (34 weeks, 1 day) Head Circumference 31.4 cm (35 weeks, 1 day) Abdominal Circumference 29.9 cm (33 weeks, 6 days) Femur Length 6.4 cm (32 weeks, 6 days) Presentation Variable Placenta Fundal Grade II Weight (g) by Percentile 14.7 % * (prior 39.7%) These measurements result in an estimated date of delivery of Thecurrent estimated weight is 3261 grams (5 pounds, 0 ounces). IMPRESSION: Single, live intrauterine , current sonographic age of 34 weeksand 0 days, with an estimated date of delivery of April 11, 2025 (priorEDD April 21, 2025). * Estimated Weight (g) by Percentile is based upon an accurateestimated age based on last menstrual period. TRANSCRIBED BY: ELECTRONICALLY SIGNED BY: Nuno Collins MD Authorizing ProviderResult TypeResult StatusCaro PINO OB US PROCEDURESFinal Result * TSH W/REFLEX TO FT4 (02/22/2025 3:56 PM EST) Only the most recent of2 resultswithin the time period is included. ComponentValueRef RangeTest MethodAnalysis TimePerformed AtPathologist Signature TSH W/REFLEX TO FT41.42mIU/LQUESTComment: ?Reference Range ? > or = 20 Years 0.40-4.50 ? Ranges ?First trimester ?0.26-2.66 ?Second trimester ?? 0.55-2.73 ?Third trimester ?0.43-2.91 Specimen (Source)Anatomical Location / LateralityCollection Method / Volume Collection TimeReceived Time02/22/2025 3:56 PM EST02/22/2025 3:56 PM EST Narrative Resulting Agency Comment Performing Organization Information ?Site ID: QPT ?Name: [facility] ?Address: [address] [place] [address], [address] [place] [phone] ?Director: Luiz Dale MD Authorizing ProviderResult TypeResult Juan Pettit CNMLAB BLOOD ORDERABLESFinal ResultPerforming OrganizationAddressCity/State/ZIP CodePhone Number [facility] * GLUCOSE TOLERANCE TEST, GESTATIONAL,4SPEC(100G) (01/23/2025 8:31 AM EDT) ComponentValueRef RangeTest MethodAnalysis TimePerformed AtPathologist SignatureGLUCOSE, [id number] - 94 mg/dLQUESTGLUCOSE, 1 GGUR906<180 mg/dLQUEST GLUCOSE, 2 HOUR93<155 mg/dLQUESTGLUCOSE, 3 HOUR74<140 mg/dLQUESTCOMMENTQUEST Comment: ?? Wylie/Coustan Criteria: Two or more values greater than the above reference intervals are suggestive of gestational diabetes. Specimen (Source)Anatomical Location / LateralityCollection Method / Volume Collection TimeReceived Time01/23/2025 8:31 AM EDT1 8:31 AM EDT Narrative Resulting Agency Comment Performing Organization Information ?Site ID: QPT ?Name: [facility] ?Address: [address] [place] [address], [address] [place] [phone] ?Director: Luiz Dale MD Authorizing ProviderResult TypeResult StatusValericharlotte Pettit CNMLAB BLOOD ORDERABLESFinal ResultPerforming OrganizationAddressCity/State/ZIP CodePhone Number [facility] * US OB limited 1+ fetuses (01/17/2025 3:22 PM EDT)Anatomical RegionLaterality ModalityBodyUltrasoundSpecimen (Source)Anatomical Location / Laterality Collection Method / VolumeCollection TimeReceived Time01/18/2025 12:59 PM EDT Impressions 01/18/2025 1:34 PM EDT Normal intracranial appearance, viable intrauterine . TRANSCRIBED BY: ? ELECTRONICALLY SIGNED BY: Nuno Collins MD Narrative 01/18/2025 1:34 PM EDT FINDINGS: Single viable intrauterine with cephalic presentation and a posterior Grade 1 placenta not associated with the closed internal cervical os. Intracranial evaluation at this time demonstrates no hydrocephalus or significant choroid plexus cyst formation. Procedure Note Nuno Collins MD - 01/18/2025 FINDINGS: Single viable intrauterine with cephalic presentation and aposterior Grade 1 placenta not associated with the closed internalcervical os. Intracranial evaluation at this time demonstrates no hydrocephalus orsignificant choroid plexus cyst formation. IMPRESSION: Normal intracranial appearance, viable intrauterine . TRANSCRIBED BY: ELECTRONICALLY SIGNED BY: Nuno Collins MD Authorizing ProviderResult TypeResult StatusCaro Pettit CNMIMG OB US PROCEDURESFinal Result * (ABNORMAL) GLUCOSE, GESTATIONAL SCREEN (50G)-135 CUTOFF (01/17/2025 2:50 PM EDT)ComponentValueRef RangeTest MethodAnalysis TimePerformed AtPathologist SignatureGLUCOSE, GESTATIONAL SCREEN (50G)-135 FYBWSO649(H)<135 mg/dLQUEST Comment: One hour value of > or = 135 mg/dL indicates the need for a diagnostic 75 g dose 2-hour or 100 g dose 3-hour oral glucose tolerance test; patient fasting is required. Specimen (Source)Anatomical Location / LateralityCollection Method / Volume Collection TimeReceived Time01/17/2025 2:50 PM EDT1 2:51 PM EDT Narrative Resulting Agency Comment Performing Organization Information ?Site ID: QPT ?Name: [facility] ?Address: [address] [place] [address], [address] [place] [phone] ?Director: Luiz Dale MD Authorizing ProviderResult TypeResult StatusValedylon Pettit CNMLAB BLOOD ORDERABLESFinal ResultPerforming OrganizationAddressCity/State/ZIP CodePhone Number [facility] * (ABNORMAL) CBC (01/17/2025 2:50 PM EDT)ComponentValueRef RangeTest Method Analysis TimePerformed AtPathologist SignatureWHITE BLOOD CELL COUNT8.33.8 - 10.8 Thousand/uLQUESTRED BLOOD CELL COUNT3.833.80 - 5.10 Million/uLQUEST CDLHLSYAEA74.7(L)11.7 - 15.5 g/dMFOXZGZBIKEYUZDN45.0(L)35.0 - 45.0 %QUESTMCV 88.880.0 - 100.0 iFRDBCWQAW07.927.0 - 33.0 ecCDGRCEROT48.5(L)32.0 - 36.0 g/dL QUESTComment: For adults, a slight decrease in the calculated MCHC value (in the range of 30 to 32 g/dL) is most likely not clinically significant; however, it should be interpreted with caution in correlation with other red cell parameters and the patient's clinical condition. RDW14.011.0 - 15.0 %QUESTPLATELET HCIEE117443 - 400 Thousand/pMDUXMIPWR69.07.5 - 12.5 fLQUESTSpecimen (Source)Anatomical Location / LateralityCollection Method / VolumeCollection TimeReceived TimeBloodVenous blood specimen / Bgokper38/ 2:50 PM EDT1 2:51 PM EDT Narrative Resulting Agency Comment Performing Organization Information ?Site ID: QPT ?Name: [facility] ?Address: [address] [place] [address], [address] [place] [phone] ?Director: Luiz Dale MD Authorizing ProviderResult TypeResult StatusValerie Bassem Wilver CNMLAB BLOOD ORDERABLESFinal ResultPerforming OrganizationAddressCity/State/ZIP CodePhone Number [facility] from Last 3 Months Insurance * Guarantor: Alba Tony TypeRelation to PatientDate of BirthPhoneBilling AddressPersonal/YjmavsBigp67/23/2001 [address] [phone] Care Teams Team MemberRelationshipSpecialtyStart DateEnd Date Zully Alejandro MD [address] [place] [address] PCP - GeneralFamily Medicine08/11/22
--- OUTSIDE RECORDS SUMMARY | 2025-03-26 15:13 | XMS_ITS | Encounter Summary ---
Author Organization [facility] Address [address] [place] [address] Care Team Providers Care Web Press Jogger Name Role Phone Zully Alejandro MD Primary Care Provider [phone] Encounter Details DateTypeDepartmentCare Team (Latest Contact Info)Mwxjbsjndzk40/08/2025Bamboo flowsheet [facility] [address] [place] [address] Caro Pettit, CNM [address] [place], [place] [id number] Social History Tobacco UseTypesPacks/DayYears UsedDateSmoking Tobacco: NeverSmokeless Tobacco: NeverAlcohol UseStandard Drinks/WeekCommentsNot Currently0 (1 standard drink = 0.6 oz pure alcohol)caffeine: 1-2 cups per dayEdinburgh Depression ScaleAnswerDate RecordedEdinburgh Depression Scale Bugvv14807/14/2023The thought of harming myself has occurred to me.Never4Estimated Date of NpcgegrdQehaitacDnp24/07/2026Based on UltrasoundSex and Gender InformationValueDate RecordedSex Assigned at ZdjiyYhztul58/20/2023 12:13 PM EDT Legal CpkGunbkn63/14/2023 12:13 PM EDTGender FinyrclgKxwaka46/20/2023 12:13 PM EDTSexual MqghkfslnokJvqigavy95/20/2023 12:13 PM EDTdocumented as of this encounter Plan of Treatment Not on file documented as of this encounter Visit Diagnoses Not on filedocumented in this encounter Care Teams Team MemberRelationshipSpecialtyStart DateEnd Date Zully Alejandro MD [address] [place] [address] PCP - GeneralFamily Medicine08/11/22documented as of this encounter
--- OUTSIDE RECORDS SUMMARY | 2025-03-26 15:13 | XMS_ITS | Encounter Summary ---
Author Organization [facility] Address [address] [place] [address] Care Team Providers Care Economic Manager Name Role Phone Zully Alejandro MD Primary Care Provider [phone] Encounter Details DateTypeDepartmentCare Team (Latest Contact Info)Irbwqdzawpx71/18/2025Travel Social History Tobacco UseTypesPacks/DayYears UsedDateSmoking Tobacco: NeverSmokeless Tobacco: NeverAlcohol UseStandard Drinks/WeekCommentsNot Currently0 (1 standard drink = 0.6 oz pure alcohol)caffeine: 1-2 cups per dayEdinburgh Depression ScaleAnswerDate RecordedEdinburgh Depression Scale Yftjr49807/14/2023The thought of harming myself has occurred to me.Never4Estimated Date of QhnidjfyPqkoxrytEkw64/07/2026Based on UltrasoundSex and Gender InformationValueDate RecordedSex Assigned at ChwktVfnjxb87/20/2023 12:13 PM EDT Legal ZuyIyhskq11/14/2023 12:13 PM EDTGender OoekkiwaMzxlab90/20/2023 12:13 PM EDTSexual StfifnadscqCqptbrfj33/20/2023 12:13 PM EDTdocumented as of this encounter Plan of Treatment Not on file documented as of this encounter Visit Diagnoses Not on filedocumented in this encounter Care Teams Team MemberRelationshipSpecialtyStart DateEnd Date Zully Alejandro MD [address] [facility] [place] [address] PCP - GeneralFamily Medicine08/11/22documented as of this encounter
--- OUTSIDE RECORDS SUMMARY | 2025-03-26 15:13 | XMS_ITS | Encounter Summary ---
Author Organization [facility] Address [address] [place] [address] Care Team Providers Care Process Architect Name Role Phone Zully Alejandro MD Primary Care Provider [phone] Encounter Details DateTypeDepartmentCare Team (Latest Contact Info)Edwfujyqleg96/11/2025Travel Social History Tobacco UseTypesPacks/DayYears UsedDateSmoking Tobacco: NeverSmokeless Tobacco: NeverAlcohol UseStandard Drinks/WeekCommentsNot Currently0 (1 standard drink = 0.6 oz pure alcohol)caffeine: 1-2 cups per dayEdinburgh Depression ScaleAnswerDate RecordedEdinburgh Depression Scale Yrlxt69707/14/2023The thought of harming myself has occurred to me.Never4Estimated Date of ZykyjsmmBejmcmqpQbp67/07/2026Based on UltrasoundSex and Gender InformationValueDate RecordedSex Assigned at ZrmzqFfberd75/20/2023 12:13 PM EDT Legal MfpGvciwz85/14/2023 12:13 PM EDTGender BxhuivtjStknvf91/20/2023 12:13 PM EDTSexual MyzqqwqiluyWiouukqj32/20/2023 12:13 PM EDTdocumented as of this encounter Plan of Treatment Not on file documented as of this encounter Visit Diagnoses Not on filedocumented in this encounter Care Teams Team MemberRelationshipSpecialtyStart DateEnd Date Zully Alejandro MD [address] [facility] [place] [address] PCP - GeneralFamily Medicine08/11/22documented as of this encounter
--- NOTE | 2025-03-26 15:20 | US_ITS ---
The [address] [address] Patient Name: RULA MILLER MRN: [id number] date: 2000 Sex: F Assigned Patient Location: Current Patient Location: [facility] Accession/Order Number: [id number] Exam Date: 03/26/2025 15:29 Report Date: 03/27/2025 10:11 At the request of: JAH MUELLER APRN CNCristela Procedure: US OB growth CLINICAL INFORMATION: HYPOTHYROIDISM ULTRASOUND OB GROWTH COMPARISON: None There is a single live intrauterine gestation in cephalic presentation. There is cardiac and somatic activity with heart rate of 124 bpm. The amniotic fluid index measures 18.6 cm which is in upper normal range. The following measurements were obtained: Biparietal diameter 9.3 cm 37 weeks 6 days 74% Head circumference 34.8 cm 40 weeks 3 days 87% Abdominal circumference 33.9 cm 37 weeks 6 days 70% Femur length 7.0 cm 36 weeks 0 days 12% The composite ultrasound age based on these measurements is 38 weeks 0 days +/- 2 weeks 5 days. The estimated weight is 7 lbs. 3 oz. +/- 1 lb. 1 oz. (60%). US/US OB growth IMPRESSION: SINGLE LIVE INTRAUTERINE GESTATION WITH ULTRASOUND AGE OF 38 WEEKS 0 DAYS. BIOPHYSICAL PROFILE: COMPARISON: None FINDINGS: TONE: 1 or more episodes of activity extension and flexion of extremity or opening and closing of the hand [Y] 2/2 GROSS BODY MOVEMENTS: 3 or more discrete body or limb movements [Y] 2/2 BREATHING MOVEMENTS: 1 or more episodes of breathing lasting at least 30 seconds [Y] 2/2 NIALL: A single deepest vertical pocket of amniotic fluid greater than 2 cm [Y] 2/2 NIALL: 18.6 cm Total score: 8/8 IMPRESSION: NORMAL BIOPHYSICAL PROFILE Impression dictated by: Vaishali Harris M.D. 03/27/2025 10:11 AM Dictation Location: [facility] Electronically authenticated by: [id number] Y Date: 03/27/2025 10:11
[2025-03-26 15:45] VITALS: BP 130/58; PULSE 107
== END 2025-03-26 16:09 | disposition home or self-care (01) ==
LOC: US 15:10 → FBC 15:12
PROVIDERS: Visit Provider Midwife
DX: O99.283 Endocrine, nutritional and metabolic diseases complicating pregnancy, third trimester (principal); E03.9 Hypothyroidism, unspecified; Z3A.38 38 weeks gestation of pregnancy
CPT/HCPCS: 76816; 76818

== ENCOUNTER 2025-03-30 05:40 | Inpatient (IN) | payer BC, SELFPAY ==
--- OUTSIDE RECORDS SUMMARY | 2025-03-22 16:00 | XMS_ITS | Encounter Summary ---
Author Organization [facility] Address [address] [place] [address] Care Team Providers Care Rugby Union Footballer Name Role Phone Zully Alejandro MD Primary Care Provider [phone] Encounter Details DateTypeDepartmentCare Team (Latest Contact Info)Ldgqahomgjp61/18/2025 4:00 PM ESTAncillary Procedure [facility] [address] [place] [address] Hypothyroidism, unspecified type Social History Tobacco UseTypesPacks/DayYears UsedDateSmoking Tobacco: NeverSmokeless Tobacco: NeverAlcohol UseStandard Drinks/WeekCommentsNot Currently0 (1 standard drink = 0.6 oz pure alcohol)caffeine: 1-2 cups per dayEdinburgh Depression ScaleAnswerDate RecordedEdinburgh Depression Scale Igvax08507/14/2023The thought of harming myself has occurred to me.Never4Estimated Date of JpsunedlUmofbvjbQzh75/07/2026ased on UltrasoundSex and Gender InformationValueDate RecordedSex Assigned at WgxpjWnyooj68/20/2023 12:13 PM EDT Legal HihWscqgb40/14/2023 12:13 PM EDTGender PqroqydpIxpjkg70/20/2023 12:13 PM EDTSexual SqjnjiipfwdEfuvdxfl90/20/2023 12:13 PM EDTdocumented as of this encounter Plan of Treatment Not on file documented as of this encounter Procedures Procedure NamePriorityDate/TimeAssociated DiagnosisCommentsUS BIOPHYSICAL PROFILE WO NON STRESS HBTOCSIDkfbvep75/18/2025 4:31 PM EST Hypothyroidism, unspecified type documented in this encounter Results * US biophysical profile wo non stress testing (03/22/2025 4:31 PM EST) Anatomical RegionLateralityModalityBodyUltrasoundSpecimen (Source)Anatomical Location / LateralityCollection Method / VolumeCollection TimeReceived Time 03/24/2025 3:27 PM EST Impressions 03/26/2025 11:04 AM EST 1. Biophysical 11/10 biophysical profile 2. 20 cm NIALL, borderline polyhydramnios. 3. Posterior placenta, grade 3 TRANSCRIBED BY: ? ELECTRONICALLY SIGNED BY: Nuno Collins MD Narrative 03/26/2025 11:04 AM EST FINDINGS: ?? Breathing Movements ?2 ??Gross Body Movements ? 2 ?? Tone ?2 Qualitative amniotic fluid volume ? 2 A single, viable intrauterine is present. ??The placenta is posterior, Grade 3, not associated with the cervical os. ??Closed cervix, 5.3 cm length. ?? heart rate 128 bpm. ??Breech presentation. ??NIALL 20 cm. Procedure Note Nuno Collins MD - 03/26/2025 FINDINGS: Breathing Movements 2 Gross Body Movements 2 Tone 2 Qualitative amniotic fluid volume 2 A single, viable intrauterine is present. The placenta isposterior, Grade 3, not associated with the cervical os. Closed cervix,5.3 cm length. heart rate 128 bpm. Breech presentation. NIALL 20cm. IMPRESSION: 1. Biophysical 11/10 biophysical profile 2. 20 cm NIALL, borderline polyhydramnios. 3. Posterior placenta, grade 3 TRANSCRIBED BY: ELECTRONICALLY SIGNED BY: Nuno Collins MD Authorizing ProviderResult TypeResult StatusValedylon Pettit [facility] US PROCEDURESFinal Result documented in this encounter Visit Diagnoses Diagnosis Hypothyroidism, unspecified type documented in this encounter Care Teams Team MemberRelationshipSpecialtyStart DateEnd Date Zully Alejandro MD [address] [place] [address] PCP - GeneralFamily Medicine08/11/22documented as of this encounter
[2025-03-30] VITALS (50 sets, daily range): BP systolic 100–132; BP diastolic 42–86; PULSE 70–106; TEMP 36.2–36.8; O2SAT 96–100
--- OUTSIDE RECORDS SUMMARY | 2025-03-30 05:45 | XMS_ITS | Clinical Summary ---
Author Organization [facility] Address [address], [address] [place] [address] Care Team Providers Care Associate Financial Advisor Name Role Phone Zully Blair MD Primary [...] DateDiagnosed DateResolved DateArrest of descent, delivered, current xrfawfvpmfuaqza29Encounter for induction of labor /12/2021Failure to progress in labor, delivered, current xakuyhcybawpbln66/09/2022 Encounters DateTypeDepartmentCare NcabViozelyadyn48/22/2025Telephone [facility] Obstetrics & Gynecology [address], [address] [place] [address] Chery Pritchard RN Scheduled C-sectionfrom Last 3 Months Social History Tobacco UseTypesPacks/DayYears UsedDateSmoking Tobacco: NeverSmokeless Tobacco: NeverAlcohol UseStandard Drinks/WeekCommentsNever0 (1 standard drink = 0.6 oz pure alcohol)CommentsNoSex and Gender InformationValueDate RecordedSex Assigned at BirthNot on fileLegal OdxXhlati00/10/2022 11:43 AM EDTGender IdentityNot on fileSexual OrientationNot on file Last Filed Vital Signs Vital SignReadingTime TakenCommentsBlood Qrvygorp423/7407 7:17 AM EDT Talwm681210/11/2021 7:17 AM WJLOdyrrjdjumw37.7 ??C (98.1 ??F)10/11/2021 7:17 AM EDTRespiratory Jqmy0337 7:17 AM EDTOxygen Ykhcpbkapq38%10/09/2021 2:22 AM EDTInhaled Oxygen Concentration--Byoanz986.8 kg (231 lb)10/08/2021 10:56 PM TKHEnjczk117.1 cm (5' 5 )10/08/2021 10:56 PM EDTBody Mass Index38.4407 10:56 PM EDT Plan of Treatment Not on file Insurance * Guarantor: Alba Tony TypeRelation to PatientDate of PhoneBilling AddressPersonal/RjbgewLgqq81/23/2000 [address] [id number] Advance Directives * Full Code (Latest Code Status on File) Date ActivatedDate InactivatedComments10/07/2021 8:41 PM10/09/2021 12:41 AM Care Teams Team MemberRelationshipSpecialtyStart DateEnd Date Zully Blair MD [address] [place] [address] PCP - GeneralFaialy Medicine09/12/21
--- OUTSIDE RECORDS SUMMARY | 2025-03-30 05:45 | XMS_ITS | Encounter Summary ---
Author Organization [facility] Address [address] [place] [address] Care Team Providers Care Assembler Golf Wood Head Name Role Phone Zully Alejandro MD Primary Care Provider [phone] Encounter Details DateTypeDepartmentCare Team (Latest Contact Info)Kxrmffebjkw71/18/2025Travel Social History Tobacco UseTypesPacks/DayYears UsedDateSmoking Tobacco: NeverSmokeless Tobacco: NeverAlcohol UseStandard Drinks/WeekCommentsNot Currently0 (1 standard drink = 0.6 oz pure alcohol)caffeine: 1-2 cups per dayEdinburgh Depression ScaleAnswerDate RecordedEdinburgh Depression Scale Choam59607/14/2023The thought of harming myself has occurred to me.Never4Estimated Date of LwejwepvWtghnrhhQwt76/07/2026Based on UltrasoundSex and Gender InformationValueDate RecordedSex Assigned at RjkxeXlqves14/20/2023 12:13 PM EDT Legal GmwCjnhoi23/14/2023 12:13 PM EDTGender VqpxdsiaMapchy77/20/2023 12:13 PM EDTSexual KsmkssuedstTwhppcig45/20/2023 12:13 PM EDTdocumented as of this encounter Plan of Treatment Not on file documented as of this encounter Visit Diagnoses Not on filedocumented in this encounter Care Teams Team MemberRelationshipSpecialtyStart DateEnd Date Zully Alejandro MD [address] [facility] [place] [address] PCP - GeneralFamily Medicine08/11/22documented as of this encounter
--- OUTSIDE RECORDS SUMMARY | 2025-03-30 05:45 | XMS_ITS | Encounter Summary ---
Author Organization [facility] Address [address] [place] [address] Care Team Providers Care Emergency Room Orderly Name Role Phone Zully Alejandro MD Primary Care Provider [phone] Encounter Details DateTypeDepartmentCare Team (Latest Contact Info)Voxtrarrcwe05/23/2025linisync Result Encounter [facility] Department Unsolicited Jah Pettit, CNM [address] [place] [address] Social History Tobacco UseTypesPacks/DayYears UsedDateSmoking Tobacco: NeverSmokeless Tobacco: NeverAlcohol UseStandard Drinks/WeekCommentsNot Currently0 (1 standard drink = 0.6 oz pure alcohol)caffeine: 1-2 cups per dayEdinburgh Depression ScaleAnswerDate RecordedEdinburgh Depression Scale Pflbl04307/14/2023The thought of harming myself has occurred to me.Never4Estimated Date of JuyiihysKirwpfubNta97/07/2026Based on UltrasoundSex and Gender InformationValueDate RecordedSex Assigned at HhsnbErgphh99/20/2023 12:13 PM EDT Legal UbcYidxpq06/14/2023 12:13 PM EDTGender CchnrjjgXxtsfu65/20/2023 12:13 PM EDTSexual CrpvmlgitazXiikdqaa90/20/2023 12:13 PM EDTdocumented as of this encounter Plan of Treatment Not on file documented as of this encounter Procedures Procedure NamePriorityDate/TimeAssociated DiagnosisCommentsUS OB BPP W NON-DQPAFK3503/27/2025 10:11 AM EST documented in this encounter Results * US OB BPP W NON-STRESS (03/27/2025 10:11 AM EST)Anatomical Region LateralityModalityOtherSpecimen (Source)Anatomical Location / Laterality Collection Method / VolumeCollection TimeReceived Time03/27/2025 10:11 AM EST Narrative 03/27/2025 10:14 AM EST [facility] ?[address] ? [place] [address] ? Ultrasound Report ? Signed ? Patient: RULA TONY ?MR#: [id number] ?? : 2000 ?Acct:[id number] ?? Age/Sex: 24 / F ?ADM Date: 03/26/25 ?? Loc: US ? Attending Dr: JAH PETTIT APRN, CNM ? Ordering Physician: JAH PETTIT APRN, CNM ?? Date of Service: 03/26/25 ?? Procedure(s): US OB BPP w non-stress ?? Accession Number(s): [id number] ? cc: JAH PETTIT APRN, CNM; Physician,Non-Staff M.D. ? [facility] ? [address] ? [place] [address] ? Patient Name: ?? RULALUIS FELIPE SHAHIDBRYNN ? MRN: [facility]:[id number] ? date: 2000 ?Sex: F ?? Assigned Patient Location: [facility] ?? Current Patient Location: [facility] ?? Accession/Order Number: [id number] ?? Exam Date: 03/26/2025 ??15:29 ?Report Date: 03/27/2025 ??10:11 ? At the request of: ?? JAH ??AMI ??BINTA SWARTZ ? Procedure: ??US OB growth ? CLINICAL INFORMATION: HYPOTHYROIDISM ? ULTRASOUND OB GROWTH ? COMPARISON: None ? There is a single live intrauterine gestation in cephalic presentation. ??There ?? is cardiac and somatic activity with heart rate of 124 bpm. ??The ?? amniotic fluid index measures 18.6 cm which is in upper normal range. ??The ?? following measurements were obtained: ?? Biparietal diameter ?9.3 cm ?? 37 weeks 6 days ?74% ?? Head circumference ?34.8 cm ?? 40 weeks 3 days ?87% ?? Abdominal circumference ?33.9 cm ?? 37 weeks 6 days ?70% ?? Femur length ?7.0 cm ?? 36 weeks 0 days ?12% ?? The composite ultrasound age based on these measurements is 38 weeks 0 days ?? +/- 2 weeks 5 days. ??The estimated weight is 7 lbs. 3 oz. +/- 1 lb. 1 ?? oz. (60%). ? US/US OB BPP w non-stress ?? IMPRESSION: ? SINGLE LIVE INTRAUTERINE GESTATION WITH ULTRASOUND AGE OF 38 WEEKS 0 DAYS. ? BIOPHYSICAL PROFILE: ? COMPARISON: None ? FINDINGS: ? TONE: 1 or more episodes of activity extension and flexion of ?? extremity or opening and closing of the hand ?[Y] ? 2/2 ?? GROSS BODY MOVEMENTS: 3 or more discrete body or limb movements ?[Y] ? 2/2 ?? BREATHING MOVEMENTS: 1 or more episodes of breathing lasting at ?? least 30 seconds ? [Y] ? 2/2 ?? NIALL: A single deepest vertical pocket of amniotic fluid greater than 2 cm ? [Y] ? 2/2 ?NIALL: 18.6 cm ? Total score: ? 8/8 ? IMPRESSION: ? NORMAL BIOPHYSICAL PROFILE ? Impression dictated by: Vaishali Harris M.D. ??03/27/2025 10:11 AM ? Dictation Location: RADIO-PC-30 ? Electronically authenticated by: [id number] ??Y ?? Date: 03/27/2025 ??10:11 ? Dictated By: ?Vaishali Harris M.D. ? Signed By: ?03/27/25 1014 ? DD/ 1011 ? TD/TT: ? Psychiatric Secretary: Procedure Note Radiology, Radiologist, MD - 03/27/2025 [place] [address] Ultrasound Report Signed Patient: RULA TONY R#: [id number] : 2000Acct:[id number] Age/Sex: 24 / FADM Date: 03/26/25 Loc: US Attending Dr: JAH PETTIT APRN, CNM Ordering Physician: JAH PETTIT APRN, CNM Date of Service: 03/26/25 Procedure(s): US OB BPP w non-stress Accession Number(s): [id number] cc: JAH PETTIT APRN, SHERIDAN; Physician,Non-Staff MFartun [address] [place] [id number] Patient Name: RULA TONY MRN: [id number] date: 2000 Sex: F Assigned Patient Location: [facility] Current Patient Location: [facility] Accession/Order Number: [id number] Exam Date: 03/26/2025 15:29 Report Date: 03/27/2025 10:11 At the request of: JAH PETTIT APRN, CNM Procedure: US OB growth CLINICAL INFORMATION: HYPOTHYROIDISM ULTRASOUND OB GROWTH COMPARISON: None There is a single live intrauterine gestation in cephalic presentation.There is cardiac and somatic activity with heart rate of 124 bpm. The amniotic fluid index measures 18.6 cm which is in upper normal range. The following measurements were obtained: Biparietal diameter 9.3 cm 37 weeks 6 days 74% Head circumference 34.8 cm 40 weeks 3 days 87% Abdominal circumference 33.9 cm 37 weeks 6 days 70% Femur length 7.0 cm 36 weeks 0 days 12% The composite ultrasound age based on these measurements is 38 weeks 0days +/- 2 weeks 5 days. The estimated weight is 7 lbs. 3 oz. +/- 1 lb.1 oz. (60%). US/US OB BPP w non-stress IMPRESSION: SINGLE LIVE INTRAUTERINE GESTATION WITH ULTRASOUND AGE OF 38 WEEKS 0 DAYS. BIOPHYSICAL PROFILE: COMPARISON: None FINDINGS: TONE: 1 or more episodes of activity extension and flexion of extremity or opening and closing of the hand [Y] 2/2 GROSS BODY MOVEMENTS: 3 or more discrete body or limb movements [Y] 2/2 BREATHING MOVEMENTS: 1 or more episodes of breathing lastingat least 30 seconds [Y] 2/2 NIALL: A single deepest vertical pocket of amniotic fluid greater than 2 cm [Y] 2/2 NIALL: 18.6 cm Total score: 8/8 IMPRESSION: NORMAL BIOPHYSICAL PROFILE Impression dictated by: Vaishali Harris M.D. 03/27/2025 10:11 AM Dictation Location: [facility] Electronically authenticated by: [id number] Y Date: 0:11 Dictated By: Vaishali Harris M.D. Signed By:03/27/25 1014 DD/ 1011 TD/TT: Psychiatric Secretary: Authorizing ProviderResult TypeResult StatusValedylon Bassem Pettit [facility] Final Result documented in this encounter Visit Diagnoses Not on filedocumented in this encounter Care Teams Team MemberRelationshipSpecialtyStart DateEnd Date Zully Alejandro MD [address] [place] [address] PCP - GeneralFamily Medicine08/11/22documented as of this encounter
--- OUTSIDE RECORDS SUMMARY | 2025-03-30 05:45 | XMS_ITS | Encounter Summary ---
Author Organization [facility] Address [address] [place] [address] Care Team Providers Care Doll Wig Hackler Name Role Phone Zully Alejandro MD Primary Care Provider [phone] Encounter Details DateTypeDepartmentCare Team (Latest Contact Info)Xcadlzqanou25/23/2025linisync Result Encounter [facility] External Department Unsolicited Jah Pettit, CNM [address] [place] [address] Social History Tobacco UseTypesPacks/DayYears UsedDateSmoking Tobacco: NeverSmokeless Tobacco: NeverAlcohol UseStandard Drinks/WeekCommentsNot Currently0 (1 standard drink = 0.6 oz pure alcohol)caffeine: 1-2 cups per dayEdinburgh Depression ScaleAnswerDate RecordedEdinburgh Depression Scale Qrqna41407/14/2023The thought of harming myself has occurred to me.Never4Estimated Date of XtplumfhEkgckqfoVpj35/07/2026Based on UltrasoundSex and Gender InformationValueDate RecordedSex Assigned at JvupcLjwmoc76/20/2023 12:13 PM EDT Legal DamGfnwoj26/14/2023 12:13 PM EDTGender DchbquwxLjtzdl79/20/2023 12:13 PM EDTSexual RbpobbkrlklZcblctqc71/20/2023 12:13 PM EDTdocumented as of this encounter Plan of Treatment Not on file documented as of this encounter Procedures Procedure NamePriorityDate/TimeAssociated DiagnosisCommentsUS OB GROWTH 03/27/2025 10:11 AM EST documented in this encounter Results * US OB GROWTH (03/27/2025 10:11 AM EST)Anatomical RegionLateralityModalityOther Specimen (Source)Anatomical Location / LateralityCollection Method / Volume Collection TimeReceived Time03/27/2025 10:11 AM EST Narrative 03/27/2025 10:14 AM EST [facility] ?[address] ? [place], [facility] ? Ultrasound Report ? Signed ? Patient: RULA TONY ?MR#: [id number] ?? : 2000 ?Acct:[id number] ?? Age/Sex: 24 / F ?ADM Date: 03/26/25 ?? Loc: US ? Attending Dr: JAH PETTIT APRN, CNM ? Ordering Physician: JAH PETTIT APRN, CNM ?? Date of Service: 03/26/25 ?? Procedure(s): US OB growth ?? Accession Number(s): [id number] ? cc: JAH PETTIT APRN, CNM; Physician,Non-Staff M.D. ? [facility] ? [address] ? [place] [address] ? Patient Name: ?? RULA TONY ? MRN: [facility]:[id number] ? date: 2000 ?Sex: F ?? Assigned Patient Location: US ?? Current Patient Location: FB ?? Accession/Order Number: [id number] ?? Exam Date: 03/26/2025 ??15:29 ?Report Date: 03/27/2025 ??10:11 ? At the request of: ?? JAH ??AMI ??AIRCRAFT MOTOR MECHANIC CNM ? Procedure: ??US OB growth ? CLINICAL [...] 1 lb. 1 ?? oz. (60%). ? / OB growth ?? IMPRESSION: ? SINGLE LIVE INTRAUTERINE GESTATION [...] Dictation Location: RADIO-PC-30 ? Electronically authenticated by: [id number] ??Y ?? Date: 03/27/2025 ??10:11 ? Dictated By: ?Vaishali Harris M.D. ? Signed By: ?03/27/25 1014 ? DD/ 1011 ? TD/TT: ? Civil Engineering Project Manager: Procedure Note Radiology, Radiologist, MD - 03/27/2025 [place] [address] Ultrasound Report Signed Patient: RULA TONY JMR#: [id number] : 2000Acct:[id number] Age/Sex: 24 / FADM Date: 03/26/25 Loc: US Attending Dr: JAH PETTIT APRN, CNM Ordering Physician: JAH PETTIT APRN, CNM Date of Service: 03/26/25 Procedure(s): US OB growth Accession Number(s): [id number] cc: JAH PETTIT APRN, CNM; Physician,Non-Staff M.D. [place] [id number] Patient Name: RULA TONY MRN: [id number] date: 2000 Sex: F Assigned Patient Location: Current Patient Location: [facility] Accession/Order Number: [id number] Exam Date: 03/26/2025 15:29 Report Date: 03/27/2025 [...] +/- 1 lb.1 oz. (60%). US/US OB growth IMPRESSION: SINGLE LIVE INTRAUTERINE GESTATION WITH ULTRASOUND [...] Harris M.D. 03/27/2025 10:11 AM Dictation Location: [place] [address] Electronically authenticated by: [id number] Y Date: 0:11 Dictated By: Vaishali Harris M.D. Signed By:03/27/25 1014 DD/ 1011 TD/TT: Civil Engineering Project Manager: Authorizing ProviderResult TypeResult StatusValedylon Pettit [facility] Final Result documented in this encounter Visit Diagnoses Not on filedocumented in this encounter Care Teams Team MemberRelationshipSpecialtyStart DateEnd Date Zully Alejandro MD [address] [place] [address] PCP - GeneralFamily Medicine08/11/22documented as of this encounter
--- OUTSIDE RECORDS SUMMARY | 2025-03-30 05:45 | XMS_ITS | Clinical Summary ---
Author Organization [facility] Address [address] [place] [address] Care Team Providers Care Green Feed Attendant Name Role Phone Zully Alejandro MD Primary Care Provider [phone] Allergies No known active allergies Medications MedicationSigDispense [...] capsule (100 mg) before bedtime. 60 capsule /446817/6Active levothyroxine (Synthroid) 88 MCG tablet Indications:Hypothyroidism, unspecified typeTake 1 tablet (88 mcg) by mouth in the morning. Take before meals. 30 tablet 111511/6Active Active Problems ProblemNoted DateDiagnosed DateGeneralized anxiety rxnzumwz75/30/2023Minor depressive plujlrub93/30/8177Myticirebflgmb92/26/2023Estimated Date of ZyekbpcvHuxuydczEjq37/07/2026ased on Ultrasound Encounters DateTypeDepartmentCare OzgoCfopnastkut02/23/2025linisync Result Encounter [facility] External Department Unsolicited Jah Pettit CNM 03/27/2025linisync Result Encounter [facility] External Department Unsolicited Jah Pettit CNM 03/26/2025Orders Only [facility] [address] [facility] [place] [address] Jah Pettit CNM Hypothyroidism, unspecified type03/22/2025 4:00 PM ESTAncillary Procedure [facility] [address] [place] [address] Hypothyroidism, unspecified type03/22/20250045Fqrmme09/11/2025 4:00 PM ESTAncillary Procedure [facility] [address] [place] [address] Hypothyroidism, unspecified type03/15/2025Orders Only [facility] [address] [facility] [place] [address] Jah Pettit CNM Hypothyroidism, unspecified type03/15/20256346Cjrmyu61/08/2025 4:00 PM ESTRoutine [facility] [address] [facility] [address] Jah Pettit CNM screening for streptococcus B ([facility]5Bamboo flowsheet [facility] [address] [place] [address] Jah Pettit CNM 03/08/2025 4:00 PM ESTAncillary Procedure [facility] [address] [facility] [address] [place] [address] Hypothyroidism, unspecified type03/08/20253722Qtnamc25/02/2025Results Follow-Up [facility] [address] [facility] [address] Jah Pettit CNM TSH W/REFLEX TO FT4105/06/2024 4:00 PM ESTRoutine [facility] [address] [place] [address] Jah Pettit CNM Encounter for supervision of other normal , third trimester ([facility]) (Primary Dx); Hypothyroidism, unspecified type; NST (non-stress test) reactive ([facility]); History of yddhhzz8103/05/2025[facility] flowsheet [facility] [address] [facility] [place] [address] Jah Pettit CNM 02/28/2025 4:00 PM ESTAncillary Procedure [facility] [address] [facility] [address] [place] [address] Hypothyroidism, unspecified type02/28/20258805Zeecdc59/20/2025 4:00 PM ESTAncillary Procedure [facility] [address] [facility] [address] [place] [address] Hypothyroidism, unspecified type02/22/2025Orders Only [facility] [address] [facility] [address] Jah Pettit CNM Acquired autoimmune hypothyroidism (Primary Dx)02/22/2025Orders Only [facility] [address] [facility] ([place], [place] [address] Munira Noyola MA Hypothyroidism, unspecified type02/22/20256845Ljscyv37/17/2025 5:00 PM ESTRoutine [facility] [address] [place] [address] Jah Pettit CNM Encounter for supervision of other normal , third trimester ([facility]) (Primary Dx); Hypothyroidism, unspecified type; NST (non-stress test) reactive ([facility])02/19/2025[facility] flowsheet [facility] [address] [facility] [address] Jah Pettit CNM 02/15/2025 4:00 PM ESTAncillary Procedure [facility] [address] [facility] [address] [place] [address] Hypothyroidism, unspecified type02/15/20255212Gwjcoy13/10/2025 4:00 PM ESTRoutine [facility] [address] [facility] [address] Jah Pettit CNM Encounter for supervision of other normal , third trimester ([facility]) (Primary Dx); Hypothyroidism, unspecified type; NST (non-stress test) reactive ([facility])02/12/2025amboo flowsheet [facility] [address] [place] [address] Jah Pettit CNM 02/09/2025Telephone [facility] [facility] ([place], [place] [address] Zully Alejandro MD 02/06/2025Refill [facility] [facility] ([place] [address] Zully Alejandro MD Hypothyroidism, unspecified type01/31/2025 4:15 PM EDTAncillary Procedure [facility] [address] [facility] [address] [place] [address] related condition in second trimester ([facility])01/31/2025Travel 01/26/2025Results Follow-Up [facility] [address] [facility] [address] Zully Draper MA GLUCOSE TOLERANCE TEST, GESTATIONAL,4SPEC(100G)01/25/2025Results Follow-Up [facility] [address] [place] [address] Zully Draper MA GLUCOSE, GESTATIONAL SCREEN (50G)-135 CUTOFF, CBC, TSH W/REFLEX TO FT4, US biophysical profile wo non stress iivtdbf6701/22/2025[facility] [address] [place] [address] Zully Draper MA Anemia during in third trimester ([facility])01/22/2025Results Follow-Up [facility] [address] [place] [address] Jah Pettit CNM US OB limited 1+ oendtod9601/22/2025Orders Only [facility] [address] [place] [address] Jah Pettit CNM Elevated glucose tolerance test01/17/2025 3:00 PM EDTAncillary Procedure [facility] [address] [address] Choroid plexus cyst01/17/2025 2:30 PM EDTRoutine [facility] [address] [place] [address] Jah Pettit CNM Choroid plexus cyst (Primary Dx); Encounter for supervision of other normal , third trimester ([facility]); Hypothyroidism, unspecified type; Screening for diabetes mellitus; Screening for iron deficiency anemia; History of xzwpyik4601/17/20254502Gspetp23/15/2025[facility] flowsheet [facility] [address] [place] [address] Jah Pettit CNM 01/05/2025Refill [facility] [address] [place] [address] Zully Draper MA Hypothyroidism, unspecified type01/01/2025 11:30 AM EDTRoutine [facility] [address] [place] [address] Jah Pettit CNM Encounter for supervision of other normal , second trimester ([facility]) (Primary Dx); Choroid plexus cyst; related condition in second trimester ([facility]); History of aeijqge8701/01/2025amboo flowsheet [facility] [address] [place] [address] Jah Pettit CNM from Last 3 Months Family History Medical HistoryRelationNameCommentsDrug abuseFatherpain pillsThyroid disease FatherMyasthenia gravisPaternal GrandfatherRelationNameStatusCommentsBrotherx1 FatherAliveMaternal GrandfatherAliveMaternal GrandmotherAliveMotherAlivePaternal GrandfatherAlivePaternal GrandmotherAliveSonAlive Social History Tobacco UseTypesPacks/DayYears UsedDateSmoking Tobacco: NeverSmokeless Tobacco: Never Tobacco Cessation:Counseling Given: Not Answered Alcohol UseStandard Drinks/WeekCommentsNot Currently0 (1 standard drink = 0.6 oz pure alcohol)caffeine: 1-2 cups per dayEdinburgh Depression Scale AnswerDate RecordedEdinburgh Depression Scale Vibjg20607/14/2023The thought of harming myself has occurred to me.Never4Estimated Date of ZvnmhpkvOiwmfokrUdw18/07/2026Based on UltrasoundSex and Gender InformationValueDate RecordedSex Assigned at KtkttAitxyt06/20/2023 12:13 PM EDT Legal VwmGrsnlf29/14/2023 12:13 PM EDTGender FupwmrglEnkdpt58/20/2023 12:13 PM EDTSexual EqhljrezrdhKiykntpl41/20/2023 12:13 PM EDT Last Filed Vital Signs Vital SignReadingTime TakenCommentsBlood Jdcoultf185/8012 4:00 PM EST Pulse--Temperature--Respiratory Rate--Oxygen Saturation--Inhaled Oxygen Concentration--Fhzdoo760 kg (232 lb)03/05/2025 4:00 PM HIFBtyood188.1 cm (5' 5 ) 11/09/2022 3:38 PM EDTBody Mass Index38.61011/09/2022 3:38 PM EDT Plan of Treatment Health MaintenanceDue DateLast DoneCommentsPneumococcal Vaccine: Pediatrics (0 to 5 Years) and At-Risk Patients (6 to 64 Years) (1 of 2 - PCV)10/25/2018 Influenza Vaccine (#1), 02/05/2011 Procedures Procedure NamePriorityDate/TimeAssociated DiagnosisCommentsUS OB GROWTH 03/27/2025 10:11 AM EST US OB BPP W NON-BWMWWI1703/27/2025 10:11 AM EST US BIOPHYSICAL PROFILE WO NON STRESS JHEJGYWYncigrd49/18/2025 4:31 PM EST Hypothyroidism, unspecified type US BIOPHYSICAL PROFILE WO NON STRESS AAOKZCYYahjsby74/11/2025 4:26 PM EST Hypothyroidism, unspecified type STREPTOCCOUS, GROUP B TEXUOQYXqjwcbm23/08/2025 4:31 PM EST screening for streptococcus B ([facility]) US BIOPHYSICAL PROFILE WO NON STRESS XKOWKTCJvgamyu98/04/2025 4:23 PM EST Hypothyroidism, unspecified type US OB FOLLOW UP TRANSABDOMINAL YEMJAHKBCwrkrly49/26/2025 4:46 PM EST Hypothyroidism, unspecified type US BIOPHYSICAL PROFILE WO NON STRESS ONTJNJRQakbddr25/20/2025 4:13 PM EST Hypothyroidism, unspecified type TSH W/REFLEX TO ZH6Auywehw53/20/2025 3:56 PM EST Hypothyroidism, unspecified type US BIOPHYSICAL PROFILE WO NON STRESS HPJJIIYCsveakx58/13/2025 4:36 PM EST Hypothyroidism, unspecified type US OB FOLLOW UP TRANSABDOMINAL QIHVJZPSXhuvaag73/29/2025 4:56 PM EDT related condition in second trimester ([facility]) GLUCOSE TOLERANCE TEST, GESTATIONAL,4SPEC(100G)Qkylivo6801/23/2025 8:31 AM EDT Elevated glucose tolerance test US OB LIMITED 1+ DYEXOAUKzhugqe41/15/2025 3:22 PM EDT Choroid plexus cyst TSH W/REFLEX TO DS4Whwbmwn42/15/2025 2:50 PM EDT Hypothyroidism, unspecified type KMANpulhsm12/15/2025 2:50 PM EDT Screening for iron deficiency anemia GLUCOSE, GESTATIONAL SCREEN (50G)-135 STGWOLVmkxgrc40/15/2025 2:50 PM EDT Screening for diabetes mellitus from Last 3 Months Results * US OB GROWTH (03/27/2025 10:11 AM EST)Anatomical RegionLateralityModalityOther Specimen (Source)Anatomical Location / LateralityCollection Method / Volume Collection TimeReceived Time03/27/2025 10:11 AM EST Narrative 03/27/2025 10:14 AM EST [facility] ?[address] ? [place] [address] ? Ultrasound Report ? Signed ? Patient: RULA TONY ?MR#: [id number] ?? : 2000 ?Acct:[id number] ?? Age/Sex: 24 / F ?ADM Date: 03/26/25 ?? Loc: US ? Attending Dr: JAH PETTIT APRN, CNM ? Ordering Physician: JAH PETTIT APRN, CNM ?? Date of Service: 03/26/25 ?? Procedure(s): US OB growth ?? Accession Number(s): [id number] ? cc: JAH PETTIT APRN, CNM; Physician,Non-Staff M.D. ? [facility] ? [address] ? [place] [address] ? Patient Name: ?? RULA TONY ? MRN: [id number] ? date: 2000 ?Sex: F ?? Assigned Patient Location: US ?? Current Patient Location: [facility] ?? Accession/Order Number: [id number] ?? Exam Date: 03/26/2025 ??15:29 ?Report Date: 03/27/2025 ??10:11 ? At the request of: ?? JAH ??FLORO ??AREA DIRECTOR CNM ? Procedure: ??US OB growth ? [...] 1 ?? oz. (60%). ? US/US OB growth ?? IMPRESSION: ? SINGLE LIVE [...] Dictation Location: RADIO-PC-30 ? Electronically authenticated by: [id number] ??Y ?? Date: 03/27/2025 ??10:11 ? Dictated By: ?Vaishali Harris M.D. ? Signed By: ?03/27/25 1014 ? DD/ 1011 ? TD/TT: ? Back Sewer: Procedure Note Radiology, Radiologist, MD - 03/27/2025 [place] [address] Ultrasound Report Signed Patient: RULA TONY#: [id number] : 2000Acct:[id number] Age/Sex: 24 / FADM Date: 03/26/25 Loc: US Attending Dr: JAH PETTIT APRN, CNM Ordering Physician: JAH PETTIT APRN, CNM Date of Service: 03/26/25 Procedure(s): US OB growth Accession Number(s): [id number] cc: JAH PETTIT APRN, CNM; Physician,Non-Staff M.D. [place] [address] Patient Name: RULA TONY MRN: [facility]:[id number] date: 2000 Sex: F Assigned Patient Location: Current Patient Location: [facility] Accession/Order Number: [id number] Exam Date: 03/26/2025 15:29 Report Date: 03/27/2025 [...] Harris M.D. 03/27/2025 10:11 AM Dictation Location: [place] [address] Electronically authenticated by: [id number] Y Date: 0:11 Dictated By: Vaishali Harris M.D. Signed By:03/27/25 1014 DD/ 1011 TD/TT: Back Sewer: Authorizing ProviderResult TypeResult StatusValerie L Floro CNMCLINISYNC IMAGING Final Result * US OB BPP W NON-STRESS (03/27/2025 10:11 AM EST)Anatomical Region LateralityModalityOtherSpecimen (Source)Anatomical Location / Laterality Collection Method / VolumeCollection TimeReceived Time03/27/2025 10:11 AM EST Narrative 03/27/2025 10:14 AM EST [facility] ?[address] ? [place] [address] ? Ultrasound Report ? Signed ? Patient: RULA TONY ?MR#: [id number] ?? : 2000 ?Acct:[id number] ?? Age/Sex: 24 / F ?ADM Date: 03/26/25 ?? Loc: US ? Attending Dr: JAH PETTIT APRN, CNM ? Ordering Physician: JAH PETTIT APRN, CNM ?? Date of Service: 03/26/25 ?? Procedure(s): US OB BPP w non-stress ?? Accession Number(s): [id number] ? cc: JAH PETTIT APRN, CNM; Physician,Non-Staff M.D. ? [facility] ? [address] ? [place] [address] ? Patient Name: ?? RULA TONY ? MRN: [id number] ? date: 2000 ?Sex: F ?? Assigned Patient Location: [facility] ?? Current Patient Location: [facility] ?? Accession/Order Number: [id number] ?? Exam Date: 03/26/2025 ??15:29 ?Report Date: 03/27/2025 ??10:11 ? At the request of: ?? JAH ??AMI ??AREA DIRECTOR CNM ? Procedure: ??US OB growth ? [...] Dictation Location: RADIO-PC-30 ? Electronically authenticated by: [id number] ??Y ?? Date: 03/27/2025 ??10:11 ? Dictated By: ?Vaishali Harris M.D. ? Signed By: ?12/23/25 1014 ? DD/DT: 12//25 1011 ? TD/TT: ? Back Sewer: Procedure Note Radiology, Radiologist, - 03/27/2025 [place] [address] Ultrasound Report Signed Patient: RULA TONY JMR#: [id number] : 2000Acct:[id number] Age/Sex: 24 / FADM Date: 03/26/25 Loc: US Attending Dr: JAH PETTIT APRN, CNM Ordering Physician: JAH EPTTIT APRN, CNM Date of Service: 03/26/25 Procedure(s): US OB BPP w non-stress Accession Number(s): [id number] cc: JAH PETTIT APRN, CNM; Physician,Non-Staff M.DAmy The [place] [id number] Patient Name: RULA TONY MRN: [facility]:[id number] date: 2000 Sex: F Assigned Patient Location: [facility] Current Patient Location: [facility] Accession/Order Number: [id number] Exam Date: 03/26/2025 15:29 Report Date: 03/27/2025 [...] [Y] 2/2 NIALL: 18.6 cm Total score: 8 IMPRESSION: NORMAL BIOPHYSICAL PROFILE Impression dictated by: Vaishali Harris M.D. 03/27/2025 10:11 AM Dictation Location: [employer] Electronically authenticated by: [id number] Y Date: 0:11 Dictated By: Vaishali Harris M.D. Signed By:03/27/25 1014 DD/ 1011 TD/TT: Back Sewer: Authorizing ProviderResult TypeResult StatusValeri Bassem PerezNazareth HospitalLINBAY[facility] IMAG[facility] Final Result * US biophysical profile wo non stress [...] BY: Nuno Collins MD Authorizing ProviderResult TypeResult StatusJah Pettit CNSDMG OB US PROCEDURESFinal Result * STREPTOCCOUS, GROUP B CULTURE (03/12/2025 4:31 PM EST)ComponentValueRef Range Test MethodAnalysis TimePerformed AtPathologist SignatureMICRO [id number] QUESTSPECIMEN QUALITYAdequateQUESTSOURCEVAGINAL/ANORECTALQUESTSTATUSFINALQUEST RESULTSEE NOTEQUESTComment: No group B Streptococcus isolated COMMENTSEE NOTEQUESTComment: Note per CDC guidelines optimal recovery is achieved by swabbing both the lower vagina and rectum (through the anal sphincter). Specimen (Source)Anatomical Location / LateralityCollection Method / Volume Collection TimeReceived Time03/12/2025 4:31 PM EST03/12/2025 4:32 PM EST Narrative Resulting Agency Comment Performing Organization Information ?Site ID: QPT ?Name: [facility] ?Address: [address] [place] [phone] ?Director: Luiz Dale MD Authorizing ProviderResult TypeResult Juan PUENTEMLAB BODY FLUIDS AND STOOLS ORDERABLESFinal ResultPerforming OrganizationAddressCity/State/ZIP [...] Collins MD Authorizing ProviderResult TypeResult StatusValedylon Pettit [facility] PROCEDURESFinal Result * TSH W/REFLEX TO FT4 [...] Performing Organization Information ?Site ID: QPT ?Name: [facility] ?Address: [address] [place] [address], [address] [place] [address] ?Director: Luiz Dale MD Authorizing ProviderResult TypeResult StatusValerie Bassem Perezo CNMLAB BLOOD ORDERABLESFinal ResultPerforming OrganizationAddressCity/State/ZIP CodePhone Number [facility]ST * GLUCOSE TOLERANCE TEST, GESTATIONAL,4SPEC(100G) (01/23/2025 8:31 AM EDT) ComponentValueRef RangeTest MethodAnalysis TimePerformed AtPathologist SignatureGLUCOSE, [id number] - 94 mg/dLQUESTGLUCOSE, 1 NSSR672<180 mg/dLQUEST GLUCOSE, 2 HOUR93<155 mg/dLQUESTGLUCOSE, 3 HOUR74<140 mg/dLQUESTCOMMENTQUEST Comment: ?? Wylie/Coustan Criteria: Two or more values greater than the above reference intervals are suggestive of gestational diabetes. Specimen (Source)Anatomical Location / LateralityCollection Method / Volume Collection TimeReceived Time01/23/2025 8:31 AM EDT1 8:31 AM EDT Narrative Resulting Agency Comment Performing Organization Information ?Site ID: QPT ?Name: [facility] ?Address: [address] [place] [address], [address] [place] [address] ?Director: Liuz Dale MD Authorizing ProviderResult TypeResult StatusValerie L Floro CNMLAB BLOOD ORDERABLESFinal ResultPerforming OrganizationAddressCity/State/ZIP CodePhone Number [...] BY: Nuno Collins MD Authorizing ProviderResult TypeResult Juan PUENTEMIMG OB US PROCEDURESFinal Result * (ABNORMAL) GLUCOSE, GESTATIONAL SCREEN (50G)-135 CUTOFF (01/17/2025 2:50 PM EDT)ComponentValueRef RangeTest MethodAnalysis TimePerformed AtPathologist SignatureGLUCOSE, GESTATIONAL SCREEN (50G)-135 OISIHY768(H)<135 mg/dLQUEST Comment: One hour value of > or = 135 mg/dL indicates the need for a diagnostic 75 g dose 2-hour or 100 g dose 3-hour oral glucose tolerance test; patient fasting is required. Specimen (Source)Anatomical Location / LateralityCollection Method / Volume Collection TimeReceived Time01/17/2025 2:50 PM EDT1 2:51 PM EDT Narrative Resulting Agency Comment Performing Organization Information ?Site ID: QPT ?Name: [facility] ?Address: [address] [place] [address], [address] [place] [phone] ?Director: Luiz Dale MD Authorizing ProviderResult TypeResult Juan Pettit CNMLAB BLOOD ORDERABLESFinal ResultPerforming OrganizationAddressCity/State/ZIP CodePhone Number [facility] * (ABNORMAL) CBC (01/17/2025 2:50 PM EDT)ComponentValueRef RangeTest Method Analysis TimePerformed AtPathologist SignatureWHITE BLOOD CELL COUNT8.33.8 - 10.8 Thousand/uLQUESTRED BLOOD CELL COUNT3.833.80 - 5.10 Million/uLQUEST XKFIOYDJKV71.7(L)11.7 - 15.5 g/sSMNUGIIQJNIJYUZW69.0(L)35.0 - 45.0 %QUESTMCV 88.880.0 - 100.0 pVDRERRTOT23.927.0 - 33.0 ekRLJMQSYGX59.5(L)32.0 - 36.0 g/dL QUESTComment: For adults, a slight decrease in the calculated MCHC value (in the range of 30 to 32 g/dL) is most likely not clinically significant; however, it should be interpreted with caution in correlation with other red cell parameters and the patient's clinical condition. RDW14.011.0 - 15.0 %QUESTPLATELET ZQFGK908076 - 400 Thousand/nBZJTUZDNU98.07.5 - 12.5 fLQUESTSpecimen (Source)Anatomical Location / LateralityCollection Method / VolumeCollection TimeReceived TimeBloodVenous blood specimen / Unknown 01/17/2025 2:50 PM EDT1 2:51 PM EDT Narrative Resulting Agency Comment Performing Organization Information ?Site ID: QPT ?Name: [facility] ?Address: [address] [place] [phone] ?Director: Luiz Dale MD Authorizing ProviderResult TypeResult StatusValedylon Pettit [facility] BLOOD ORDERABLESFinal ResultPerforming OrganizationAddressCity/State/ZIP CodePhone Number [facility] from Last 3 Months Insurance Care Teams Team MemberRelationshipSpecialtyStart DateEnd Date Zully Alejandro MD [address] [place] [address] PCP - GeneralFamily Medicine08/11/22
--- OUTSIDE RECORDS SUMMARY | 2025-03-30 05:45 | XMS_ITS | Encounter Summary ---
Author Organization [facility] Address [address] [place] [address] Care Team Providers Care Hiv/Aids Care Nurse Name Role Phone Zully Alejandro MD Primary Care Provider Encounter Details DateTypeDepartmentCare Team (Latest Contact Info)Htwhftlyipc49/22/2025Orders Only [facility] [address] [place] [address] Caro Pettit, CNM [address] [place], [place] [id number] Hypothyroidism, unspecified type Social History Tobacco UseTypesPacks/DayYears UsedDateSmoking Tobacco: NeverSmokeless Tobacco: NeverAlcohol UseStandard Drinks/WeekCommentsNot Currently0 (1 standard drink = 0.6 oz pure alcohol)caffeine: 1-2 cups per dayEdinburgh Depression ScaleAnswerDate RecordedEdinburgh Depression Scale Frhmd66707/14/2023The thought of harming myself has occurred to me.Never4Estimated Date of SbmmgowrKplrfslbEko56/07/2026Based on UltrasoundSex and Gender InformationValueDate RecordedSex Assigned at SmamwEfsuft41/20/2023 12:13 PM EDT Legal TlvDwohsq44/14/2023 12:13 PM EDTGender EmevlpouEnmlrl03/20/2023 12:13 PM EDTSexual IenpyfvjunaIpmvjxij75/20/2023 12:13 PM EDTdocumented as of this encounter Plan of Treatment NameTypePriorityAssociated DiagnosesOrder ScheduleUS OB SCAN FOR GROWTH ImagingRoutine Hypothyroidism, unspecified type Expected: 03/26/2025, Expires: 03/26/2026documented as of this encounter Visit Diagnoses Diagnosis Hypothyroidism, unspecified type documented in this encounter Care Teams Team MemberRelationshipSpecialtyStart DateEnd Date Zully Alejandro MD [address] [place] [address] PCP - GeneralFamily Medicine08/11/22documented as of this encounter
[2025-03-30 06:44] LABS: Hematocrit 32.1 % (36.0-48.0); Hemoglobin 10.7 g/dL (12.0-16.0); Immature Granulocytes Abs Auto 0.02 10^3/uL (0.00-0.03); Immature Granulocytes Pct Auto 0.3 % (0.0-0.5); Lymphocytes Absolute Auto 1.8 10^3/uL (1.2-3.8); Mean Corpuscular HGB Conc 33.3 g/dL (29.9-35.2); Mean Corpuscular Hemoglobin 28.0 pg (26.7-34.0); Mean Corpuscular Volume 84.0 fL (81.0-99.0); Platelet Count 273 10^3/uL (150-450); Red Blood Count 3.82 10^6/uL (4.20-5.40); White Blood Count 6.8 10^3/uL (4.0-11.0)
[2025-03-30] MEDS: CITRIC ACID/SODIUM CITRATE 30 ML SOLUTION ORACIT SHOHL'S SOLN PO (06:48)
[2025-03-30] MEDS: FAMOTIDINE/PF 20 MG/2 ML VIAL IV (06:48)
[2025-03-30] MEDS: METOCLOPRAMIDE HCL 10 MG/2 ML VIAL IVP (06:49)
[2025-03-30 06:58] LABS: Cannabinoid Screen Urine NEGATIVE (NEGATIVE); Methamphetamines Screen Urine NEGATIVE (NEGATIVE); Tricyclic Antidepressant Urine NEGATIVE (NEGATIVE)
[2025-03-30 06:59] LABS: Glucose Urine UA NEGATIVE (NEGATIVE)
[2025-03-30 07:08] LABS: Cast Seen? NONE SEEN #/LPF (NONE SEEN); Crystals Seen? None Seen #/HPF (None Seen)
[2025-03-30 07:09] LABS: Urine Culture Indicated YES-FRMC
--- NOTE | 2025-03-30 07:12 | PM.OBHP ---
OB - H&P: HPI History of Present Illness Chief complaint: : 3 Para: 2 Gestational age based on last menstrual period: 38.2 Indications for induction: repeat section and other (hypothyroid) History of Present Dating criteria: LMP confirmed by 1st trimester US care: none Ultrasounds: normal 1st trimester US and normal mid trimester US Medical complications OB: other Narrative: anxiety, thyroid Labs Blood type: A (+) positive Rubella: immune RPR/VDLR: nonreactive GBS status: negative HBsAG: negative Review of Systems ROS Status of ROS: 10 or more systems reviewed and unremarkable except as noted in history and below [facility] PFS Medical History (Updated 06/10/23 @ 00:00 by ) delivery delivered ?O82 - Encounter for delivery without indication (ICD-10) Family History (Updated 06/04/23 @ 08:11 by Nohemy Lazcano) Father Family history of hypertension Social History Highest level of school completed/degree received: Bachelor's degree Little interest or pleasure in doing things: not at all Feeling down, depressed, or hopeless: not at all Meds Home Medications and Allergies Home Medications ?Medication ?Instructions ?Recorded ?Confirmed ?Type levothyroxine 75 mcg tablet mcg 04/24/23 History mv-min no.[id number] PO 04/24/23 History Allergies Allergy/AdvReac Type Severity Reaction Status Date / Time No Known Drug Allergies Allergy Verified 04/24/23 04:32 Exam Constitutional Vital Signs, click to edit/add: Last Vital Signs Temp 98.3 F 03/30/25 06:04 Pulse 106 H 03/30/25 06:04 Resp 18 03/30/25 06:04 O2 Del Method Room Air 03/30/25 06:04 HENAZ Common normals: normocephalic Nose: external nose normal Eye Common normals: EOMs intact bilaterally General eye: normal appearance of both eyes Neck & C-Spine Common normals: full ROM, no lymphadenopathy, supple and no JVD Lymph Lymphatic: no lymphadenopathy noted Chest Common normals: inspection of chest normal Respiratory Common normals: normal respiratory effort, no retractions, no use of accessory muscles and clear to auscultation bilaterally Effort & inspection: able to speak in complete sentences Cardio Common normals: regular rate and regular rhythm Rate: regular rate Rhythm: regular rhythm GI Common normals: Normal to inspection, nondistended, normoactive bowel sounds present Inspection: normal to inspection Auscultation: normoactive bowel sounds Palpation: soft Common normals: no CVA tenderness Back & Pelvis Common normals: no CVA tenderness Extremity Common normals: normal to inspection and full ROM General: normal exam except as noted Neuro Common normals: oriented x3 Sensorium/orientation: awake, alert, oriented to person, oriented to place and oriented to time Psych Psychiatry clinicians, please identify where your Mental Status Exam is documented: Mental Status Exam documented in the separate MSE Common normals: mental status grossly normal, thought process normal, cooperative, affect normal, speech normal, activity/motor behavior normal, denies hallucinations, denies homicidal ideation and denies suicidal ideation Attitude: calm Thought process: normal thought process Thought content: normal thought content Results Labs Labs: Short CBC 03/30/25 Range/Units 06:30 WBC 6.8 (4.0-11.0) 10^3/uL Hgb 10.7 L (12.0-16.0) g/dL Hct 32.1 L (36.0-48.0) % Plt Count 273 (150-450) 10^3/uL Urine 03/30/25 Range/Units 05:50 Urine Color Yellow (YELLOW) Urine Clarity Clear (CLEAR) Urine pH 7.0 (5.0-9.0) Ur Specific [place] 1.025 (1.005-1.025) Urine Protein Negative (NEG/TRACE) mg/dL Urine Glucose (UA) Negative (NEGATIVE) mg/dL OB - A/P Assessment and Plan (1) Status post repeat low transverse section: Plan admit for repeat section Additional Plan Induction method: none Plan: expectant management Urinary Catheter Management Urinary Catheter Management Urethral: Cath placed during this visit: no- in OR Urethral indwelling: No Reason for continuing: surgical procedure
[2025-03-30] MEDS: CEFAZOLIN SODIUM/DEXTROSE,ISO 2 GM/50 ML PIGGYBACK IV (07:30)
--- NOTE | 2025-03-30 08:25 | PM.ONB ---
Brief Operative Note Date of procedure: 03/30/25 Pre-op diagnosis general: iup at 38 4/7wks, hypothyroidism, decrease movement Post-op diagnosis: same as pre-op Procedure: NAME OF PROCEDURE: [ section ] PROCEDURE: Patient was taken back to the Operating Room where she was given a spinal anesthesia with Duramorph without difficulty. She was prepped and draped in the normal sterile fashion. A Pfannenstiel skin incision was then made 2 cm above the symphysis pubis and carried down to underlying rectus fascia using a Bovie. The fascia was incised in the midline and extended laterally using Neely scissors. Two Marilynn clamps were placed on the superior aspect of the fascia and dissected off the underlying rectus muscles. The same was performed on the inferior aspect as well. The muscles were then in the midline. Peritoneum was identified and entered bluntly. The peritoneum was then extended superiorly and inferiorly with good visualization of the bladder. The bladder blade was inserted. A low transverse incision was made on the patient's uterus and extended laterally digitally. The was then delivered atraumatically after the bladder blade was removed in the cephalic position. The cord was clamped and cut. Cord blood was obtained. The infant was handed off to awaiting team. The patient's placenta was spontaneously delivered. The uterus was then exteriorized. The uterus was cleared of all clots and debris. The bladder blade was reinserted. The patient's uterine incision was closed using #0 Vicryl in a running lock fashion. Excellent hemostasis was assured. The uterus was then returned to the patient's abdomen. The patient's abdomen was copiously irrigated using warm saline. Peritoneal gutters were cleared of all clots and debris. Again excellent hemostasis was assured. The patient's peritoneum was closed using 3-0 Vicryl in a running fashion. The patient's fascia was closed using #0 Vicryl in a running fashion. The patient's skin was closed using 4-0 Vicryl subcuticularly. The patient tolerated the procedure well. Sponge, lap, and needle counts were correct x2. The patient was taken to the Recovery Room in stable condition. Anesthesia: spinal Surgeon: Kalia Savage Director Field Services: JAH MUELLER Estimated blood loss (mL): 575 Pathology: none sent Condition: stable Disposition: PACU Urinary Catheter Management Urinary Catheter Management Urethral: Cath placed during this visit: no Urethral indwelling: No
--- NOTE | 2025-03-30 08:26 | P.OBPRC_ITS ---
Procedure Pre-op/Post-op diagnoses: Pre-Op/Post-Op Diagnoses Operation Date: 03/30/25 07:30 <No data on this case meets the specified criteria> Procedure: Procedures Operation Date: 03/30/25 07:30 Actual Procedure Side Surgeon p Repeat (Becca pt) Not Applicable Kalia Savage DO [employer] Cook: JAH MUELLER Estimated blood loss (mL): 575 Disposition: floor Anesthesia type: Spinal
[2025-03-30] MEDS: BUPIVACAINE LIPOSOME/PF 266 MG/20 ML VIAL INJ (08:43)
--- NOTE | 2025-03-30 09:09 | PM.EN ---
Event Note Event Note: Ic Design Manager Note: I assisted Dr Savage as directed on a repeat section. I independently closed the SQ layer w a 3-0 vicryl without difficulty. I then closed the incision with 4-0 vicryl without difficulty. Hemostasis noted at the completion of the case. patient tolerated procedure well.
[2025-03-30] MEDS: ACETAMINOPHEN 500 MG TABLET 1000 MG PO ×2 (11:49→20:26)
[2025-03-30] MEDS: ENOXAPARIN SODIUM 40 MG/0.4 ML SYRINGE SUBQ (20:26)
[2025-03-30] MEDS: KETOROLAC TROMETHAMINE 30 MG/ML VIAL IVP (22:01)
[2025-03-31 00:11] VITALS: BP 107/53; PULSE 64; TEMP 36.8
[2025-03-31] MEDS: KETOROLAC TROMETHAMINE 30 MG/ML VIAL IVP (04:28)
[2025-03-31] MEDS: ACETAMINOPHEN 500 MG TABLET 1000 MG PO ×2 (04:28→11:57)
[2025-03-31 04:33] VITALS: BP 113/55; PULSE 67; TEMP 36.8
[2025-03-31] MEDS: LEVOTHYROXINE SODIUM 88 MCG TABLET PO (06:31)
[2025-03-31 06:42] LABS: Hematocrit 29.9 % (36.0-48.0); Hemoglobin 9.5 g/dL (12.0-16.0); Immature Granulocytes Abs Auto 0.02 10^3/uL (0.00-0.03); Immature Granulocytes Pct Auto 0.3 % (0.0-0.5); Lymphocytes Absolute Auto 1.6 10^3/uL (1.2-3.8); Mean Corpuscular HGB Conc 31.8 g/dL (29.9-35.2); Mean Corpuscular Hemoglobin 27.3 pg (26.7-34.0); Mean Corpuscular Volume 85.9 fL (81.0-99.0); Platelet Count 239 10^3/uL (150-450); Red Blood Count 3.48 10^6/uL (4.20-5.40); White Blood Count 6.2 10^3/uL (4.0-11.0)
[2025-03-31 09:26] VITALS: BP 128/73; PULSE 87; TEMP 35.7
[2025-03-31] MEDS: DOCUSATE SODIUM 100 MG CAPSULE PO ×2 (09:44→21:06)
--- NOTE | 2025-03-31 11:25 | PM.OBPN ---
OB - PN: Subj Subjective Interval history: POD #1 S/P Repeat LTCS Desires to go home this evening. This is her 3rd C/S Patient comments: no complaints, pain well controlled, tolerating diet and flatus present status: doing well feeding status: exclusively Exam Constitutional Vital Signs, click to edit/add: Last Vital Signs Temp 96.3 F L 03/31/25 09:26 Pulse 87 03/31/25 09:26 Resp 18 03/31/25 09:31 BP 128/73 03/31/25 09:26 Pulse Ox 97 03/30/25 11:16 O2 Del Method Room Air 03/31/25 09:31 Common normals: no apparent distress, oriented x3, healthy appearing and well nourished HENMT Face and sinus: normal facial exam Eye Common normals: conjunctivae normal and no scleral icterus Respiratory Common normals: normal respiratory effort and clear to auscultation bilaterally Cardio Common normals: regular rate, S1 normal heart sound and S2 normal heart sound GI Common normals: Normal to inspection, nondistended, normoactive bowel sounds present and non-tender Bladder/kidney exam: other (Normal voiding) Extremity Common normals: normal to inspection, full ROM, no clubbing, cyanosis or edema and no calf tenderness Neuro Common normals: no focal motor deficits Psych Common normals: mental status grossly normal Appearance: grossly normal Attitude: calm and engaged Activity/motor behavior: appropriate eye contact Speech: normal speech Thought process: normal thought process Insight: insight good Judgement: judgment good Results Labs Labs: Short CBC 03/31/25 Range/Units 06:31 WBC 6.2 (4.0-11.0) 10^3/uL Hgb 9.5 L (12.0-16.0) g/dL Hct 29.9 L (36.0-48.0) % Plt Count 239 (150-450) 10^3/uL Urinary Catheter Management Urinary Catheter Management Urethral: Cath placed during this visit: yes Urethral indwelling: No Insertion date: 03/30/25 Insertion time: 07:45 OB - PN: A/P Assessment and Plan (1) Status post repeat low transverse section: (2) anemia: Plan - day: 1 Plan: discharge home (After 8 pm) Time Spent with Patient Time: Total time spent is greater than 50% in coordination of care (as documented) at patient's floor/unit and/or counseling patient: Total time spent with greater than 50% in coordination of care (as documented) at patient's floor/unit and/or counseling patient: less than 15 minutes (20 min)
--- NOTE | 2025-03-31 11:31 | PM.OBDS ---
DS: Providers Provider Date of admission: 03/30/25 05:40 Primary care physician: SARANYA CORONADO Admitting clinician: Kalia Savage Attending physician on admission: Kalia Savage Attending physician on discharge: Thelma Alarcon Discharging clinician: Thelma Alarcon Anticipated date of discharge: 03/31/25 DS: Diagnosis Discharge Diagnosis (1) Status post repeat low transverse section: OB - DS: Summary Hospital Course Hospital Course: This is a 24 y/o, , at 38 weeks and 2 days, prior c/section x 2, admitted for elective repeat section. She has a thyroid disorder managed with Synthroid. She delivered a live baby girl, 6 lbs and 9 oz, Apgars 8/8. She had an uncomplicated surgery and a normal course. She desires to go home on the evening of day 1. Peripartum Data - Procedures: Procedures Operation Date: 03/30/25 07:30 Actual Procedure Side Surgeon p Repeat Not Applicable Kalia Savage DO Peripartum Data - Vaginal Delivery Procedures: Procedures Operation Date: 03/30/25 07:30 Actual Procedure Side Surgeon p Repeat Not Applicable Kalia Savage DO Complications complications: none Infant Delivery method: section Gender: female Discharge plan: home Status at Discharge Functional status at discharge: independent ambulation Time Spent with Patient Time attestation: >50% Total time spent providing counseling. She was also counseled to avoid for 2 years. Time spent: less than 30 minutes Exam Narrative Exam Narrative: See progress note. Constitutional Vital Signs, click to edit/add: Last Vital Signs Temp 96.3 F L 03/31/25 09:26 Pulse 87 03/31/25 09:26 Resp 18 03/31/25 09:31 BP 128/73 03/31/25 09:26 Pulse Ox 97 03/30/25 11:16 O2 Del Method Room Air 03/31/25 09:31 DS: Data Data Completed and Pending Labs on day of discharge: Labs from last 24 hours 03/31/25 06:31 WBC 6.2 RBC 3.48 L Hgb 9.5 L Hct 29.9 L MCV 85.9 MCH 27.3 MCHC 31.8 RDW 15.8 H Plt Count 239 MPV 10.7 Neut % (Auto) 63.5 Lymph % (Auto) 26.5 [place] % (Auto) 6.3 Eos % (Auto) 2.9 Baso % (Auto) 0.5 Neut # (Auto) 3.9 Lymph # (Auto) 1.6 [place] # (Auto) 0.4 Eos # (Auto) 0.2 Baso # (Auto) 0.0 Abs Immat Gran (auto) 0.02 Imm/Tot Granulo (auto) 0.3 Discharge Plan Discharge Disposition: Home, Self-Care Condition: Good Plan of Treatment: Office next week Discharge Medications: New ibuprofen 800 mg tablet 800 mg PO Q8H Qty: 30 0RF Rx Instructions: 1 tab every 8 hours as needed for pain. Continued levothyroxine 75 mcg tablet mv-min no.[id number] [Alive Daily Support ] PO Activity Detail: No driving 2 weeks Diet: regular diet Print Language: Grenadian Patient Instructions: (DC) Forms: Portal Instructions
[2025-03-31] MEDS: IBUPROFEN 400 MG TABLET 800 MG PO (11:58)
[2025-03-31 15:15] VITALS: BP 134/59; PULSE 67; TEMP 36.8
[2025-03-31] MEDS: SIMETHICONE 80 MG TAB.CHEW PO (18:24)
[2025-03-31] MEDS: ENOXAPARIN SODIUM 40 MG/0.4 ML SYRINGE SUBQ (21:06)
[2025-03-31] MEDS: OXYCODONE HCL/ACETAMINOPHEN 5MG/325MG 2 TAB PO (21:06)
== END 2025-03-31 21:45 | disposition home or self-care (01) | DRG 788 ==
PROVIDERS: Obstetrics & Gynecology; Admitting Provider Midwife; PCP Family Medicine; Visit Provider Midwife
PROC: 10D00Z1 Extraction of Products of Conception, Low, Open Approach (ICD-10-PCS; CPT 59514; principal; 2025-03-30 07:30)
DX: O34.211 Maternal care for low transverse scar from previous cesarean delivery (principal); O99.284 Endocrine, nutritional and metabolic diseases complicating childbirth; O90.81 Anemia of the puerperium; Z3A.38 38 weeks gestation of pregnancy; Z37.0 Single live birth
CPT/HCPCS: 36415; 64488; 80307; 81001; 85025; 86850; 86900; 86901; 87086; 87088; 87186; 94667; 94668; J0665; J0690; J1650; J1885; J2274; J2371; J2405; J2590; J2765; J3490

== ENCOUNTER 2025-04-03 08:19 | Outpatient (OUT) | payer BC, SELFPAY ==
--- OUTSIDE RECORDS SUMMARY | 2025-03-22 16:00 | XMS_ITS | Encounter Summary ---
Author Organization [facility] Address [address] [place] [address] Care Team Providers Care Shoe Coverer Name Role Phone Zully Alejandro MD Primary Care Provider [phone] Encounter Details DateTypeDepartmentCare Team (Latest Contact Info)Qxgqchnoahn87/18/2025 4:00 PM ESTAncillary Procedure [facility] [address] [facility] [address] [place] [address] Hypothyroidism, unspecified type Social History Tobacco UseTypesPacks/DayYears UsedDateSmoking Tobacco: NeverSmokeless Tobacco: NeverAlcohol UseStandard Drinks/WeekCommentsNot Currently0 (1 standard drink = 0.6 oz pure alcohol)caffeine: 1-2 cups per dayEdinburgh Depression ScaleAnswerDate RecordedEdinburgh Depression Scale Dltap62707/14/2023The thought of harming myself has occurred to me.Never4CommentsYes Sex and Gender InformationValueDate RecordedSex Assigned at BirthFemale 09/22/2022 12:13 PM EDTLegal GxrUjhbed31/14/2023 12:13 PM EDTGender Identity Wsuekj1609/22/2022 12:13 PM EDTSexual MdjitvhgdhoJbxedomk77/20/2023 12:13 PM EDT documented as of this encounter Plan of Treatment DateTypeDepartmentCare Team (Latest Contact Info)Cfmmgbxjyvs92/31/2025 10:00 AM ESTPostpartum Visit [facility] [address] [place] [address] Caro Pettit, KWAMEM [address] [place] [address] documented as of this encounter Procedures Procedure NamePriorityDate/TimeAssociated DiagnosisCommentsUS BIOPHYSICAL PROFILE WO NON STRESS KIFNLNAKhfmbsg21/18/2025 4:31 PM EST Hypothyroidism, unspecified type documented [...] Collins MD Authorizing ProviderResult TypeResult StatusValedylon Pettit CNMIMG OB US PROCEDURESFinal Result documented in this encounter Visit Diagnoses Diagnosis Hypothyroidism, unspecified type documented in this encounter Care Teams Team MemberRelationshipSpecialtyStart DateEnd Date Zully Alejandro MD [address] [place] [address] PCP - GeneralFamily Medicine08/11/22documented as of this encounter
--- OUTSIDE RECORDS SUMMARY | 2025-03-30 19:19 | XMS_ITS | Continuity of Care Document ---
Author Organization [facility] Address [address] [place] [address] Phone Care Team Providers Care Operations Trainer Name Role Phone Caro Pettit APRN Attending Provider Care Teams Patient Care Team Team Status: Active Member Role/Relationship Status Dates NON STAFF Primary Care Provider Active Patient Care Team Team Status: Inactive Member Role/Relationship Status Dates Caro Pettit APRN Attending Provider Active Start: March 30, 2025 End: March 30, 2025 Allergies, Adverse Reactions, Alerts Allergen Type Severity Reaction Last Updated Verified Status No Known Allergies Allergy Unknown July 19, 2024 3:11pmYesActive Social History Smoking Status Status Start Date End Date Date of Observa tion Never smoked tobacco (finding) July 19, 2024 4:17pm Observation Status Observation Response Date of Response Legal Sex Female (finding) Sex Assigned At BirthFemalely 2000 Problems Active Problems Problem Diagnosis/Recorded Date Onset Date Stat us Viral URI with cough July 19, 2024 3:39pm Unknown Active Aphthous ulcer July 19, 2024 3:40pm Unknown Ac tive Mastitis, left, acute September 04, 2023 10:42am Unknown Active Inactive/Resolved Problems Problem Diagnosis/Recorded Date Onset Date Stat us Hypothyroid September 04, 2023 10:21am Unknown Resol moody Medications Medication Status Dose Units Route Directions Qty Days Refills S tart Date Stop Date End Date Reason(s) Instructions Adherence Levothyroxine 75 mcg tablet Active 75 MCG PO Bety y September 03, 2023 11:00pmUnknownMultivitamin waqufuQeccjz7PEOEPNhikjCdq 2023 11:00pmUnknownCephalexin 500 mg czwmuvqDzspajyhjxii693GTDNWtim times [id number] September 03, 2023 11:00pmApril 2024 3:12pm Procedures Procedure Date Performed Status Urine Culture March 30, 2025 active Advance Directives Advance Directive Response Recorded Date/ Time Advance Directives No March 7:53pm Insurance Providers Guarantor Alba Tony Address [address] [place] [address] [address] [facility] [address]Xkpdgbe Info.Home Phone: Coverage Status Update:2024 Payer Group Member ID Coverage Type Subscriber Relationship to Subscriber Effective Date Expiration Date Rosy JONES Id: [id number] Gittinger Id: [id number] [facility] [address] [facility] [address] Home Phone: Encounters Encounter Location(s) Arrival/Admit Date Discharge/Departure Date Discharge/Departure Disposition Provider(s) Departed Referred -[facility] March 30, 2025 5:50am March 30, 2025 5:51am Discharged to home care or self care (routine discharge) Caro Pettit APRN Plan of Treatment Future Tests Future scheduled test information is unavailable Pending Tests Test Name Ordered Date Scheduled Date Urine Culture March 30, 2025 5:50am Future Visits Future appointment information is unavailable Future Procedures Procedure Name Ordered Date Scheduled Date Urine Culture March 30, 2025 11:42am Dece mber 2024 5:50am Future Medications Future medication information is unavailable Patient Instructions Patient instructions are unavailable
--- OUTSIDE RECORDS SUMMARY | 2025-04-03 08:22 | XMS_ITS | Encounter Summary ---
Author Organization [facility] Address [address] [place] [address] Care Team Providers Care Racker Octave Board Name Role Phone Zully Alejandro MD Primary Care Provider [phone] Encounter Details DateTypeDepartmentCare Team (Latest Contact Info)Nqxslzdnuks12/26/2025Clinisync Result Encounter [facility] Unsolicited Caro Pettit CNM [address] [place] [address] Social History Tobacco UseTypesPacks/DayYears UsedDateSmoking Tobacco: NeverSmokeless Tobacco: NeverAlcohol UseStandard Drinks/WeekCommentsNot Currently0 (1 standard drink = 0.6 oz pure alcohol)caffeine: 1-2 cups per dayEdinburgh Depression ScaleAnswerDate RecordedEdinburgh Depression Scale Xpooh21207/14/2023The thought of harming myself has occurred to me.Never4CommentsYes Sex and Gender InformationValueDate RecordedSex Assigned at BirthFemale 09/22/2022 12:13 PM EDTLegal WhfNcjqnu84/14/2023 12:13 PM EDTGender Identity Drofqp2209/22/2022 12:13 PM EDTSexual ZngidnndzykMzaohvfd19/20/2023 12:13 PM EDT documented as of this encounter Plan of Treatment DateTypeDepartmentCare Team (Latest Contact Info)Ezvyhciwusm31/31/2025 10:00 AM ESTPostpartum Visit [facility] [address] [place] [id number] Caro Pettit CNM [address] [place] [address] documented as of this encounter Procedures Procedure NamePriorityDate/TimeAssociated DiagnosisCommentsALL CBC WITH AUTO YGVKInmccjc31/26/2025 6:30 AM EST URINE CULTURE - ZZSLNhopwut65/26/2025 5:50 AM EST [facility] DRUG SCREEN RAPID (URINE)Wuwypow7603/30/2025 5:50 AM EST HP URINALYSIS, WITH HAGYPHLDWEGXfjqzwg78/26/2025 5:50 AM EST documented in this encounter Results * (ABNORMAL) ALL CBC WITH AUTO DIFF (03/30/2025 6:30 AM EST)ComponentValueRef RangeTest MethodAnalysis TimePerformed AtPathologist SignatureTBH WBC6.84.0 - 11.0 10 3/uLTBHTBH RBC3.82(L)4.20 - 5.40 10 6/uLTBHTBH HGB10.7(L)12.0 - 16.0 g/dLTBHTBH HCT32.1(L)36.0 - 48.0 %TBHTBH MCV84.081.0 - 99.0 fLTBHTBH MCH28.0 26.7 - 34.0 pgTBHTBH MCHC33.329.9 - 35.2 g/dLTBHTBH RDW15.3(H)11.0 - 15.0 %TBH TBH WVX752879 - 450 10 3/uLTBHTBH MPV10.69.5 - 13.5 fLTBHNEUTROPHILS PERCENT AUTO66.443.0 - 75.0 %TBHLYMPHOCYTES PERCENT AUTO26.120.5 - 60.0 %TBHMONOCYTES PERCENT AUTO5.71.7 - 12.0 %TBHTBH EO %1.20.9 - 7.0 %TBHBASOPHILS PERCENT AUTO 0.30.2 - 2.0 %TBHIMMATURE GRANULOCYTES PCT AUTO0.30.0 - 0.5 %TBHNEUTROPHILS ABSOLUTE AUTO4.51.4 - 6.5 10 3/uLTBHLYMPHOCYTES ABSOLUTE AUTO1.81.2 - 3.8 10 3/uLTBHMONOCYTES ABSOLUTE AUTO0.40.3 - 0.8 10 3/uLTBHTBH EO #0.10.0 - 0.7 10 3/uLTBHBASOPHILS ABSOLUTE AUTO0.00.0 - 0.1 10 3/uLTBHIMMATURE GRANULOCYTES ABS AUTO0.020.00 - 0.03 10 3/uLTBHSpecimen (Source)Anatomical Location / LateralityCollection Method / VolumeCollection TimeReceived Time03/30/2025 6:30 AM EST03/30/2025 6:39 AM EST Narrative [facility] - 03/30/2025 6:48 AM EST Authorizing ProviderResult TypeResult StatusRaritan Bay Medical Center, Old BridgeLINISYNCFinal ResultPerforming OrganizationAddressCity/State/ZIP CodePhone Number CLINISYKS TB * (ABNORMAL) URINE CULTURE - [facility] [place] (03/30/2025 5:50 AM EST)ComponentValueRef RangeTest MethodAnalysis TimePerformed AtPathologist SignatureURINE CULTURE - [facility] ??Urine Culture - FR SEEFR [facility] RESULT^[facility] RESULT (A)TBHURINE CULTURE - [facility] SEE SCANNED REPORT, ABNORMAL^SEE SCANNED REPORT, ABNORMAL(A)TBHSpecimen (Source)Anatomical Location / LateralityCollection Method / VolumeCollection TimeReceived Time03/30/2025 5:50 AM EST03/30/2025 6:39 AM EST Narrative [facility] - 04/01/2025 1:02 PM EST Authorizing ProviderResult TypeResult Status[facility] CNMLAB BLOOD ORDERABLESFinal ResultPerforming OrganizationAddressCity/State/ZIP CodePhone Number CLINISYKS TBH * (ABNORMAL) [facility] URINALYSIS, WITH MICROSCOPIC (03/30/2025 5:50 AM EST)Component ValueRef RangeTest MethodAnalysis TimePerformed AtPathologist SignatureCOLOR URINEYELLOWYELLOWTBHCLARITY URINECLEARCLEARTBHSPECIFIC GRAVITY URINE1.0251.005 - 1.025TBHPH URINE7.05.0 - 9.0TBHPROTEIN URINENEGATIVENEG/TRACE mg/dLTBH GLUCOSE URINE UANEGATIVENEGATIVE mg/dLTBHBILIRUBIN URINENEGATIVENEGATIVETBH KETONES URINE15(A)NEGATIVE mg/dLTBHBLOOD URINENEGATIVENEGATIVETBHNITRITE URINE NEGATIVENEGATIVETBHUROBILINOGEN URINE0.20.2 - 1.0 EU/dLTBHLEUKOCYTE ESTERASE URINETRACE(A)NEGATIVETBHTBH WBC2-5(A)NONE SEEN #/HPFTBHTBH RBC0-20 - 2 #/HPF TBHBACTERIA URINEMODERATE(A)NONE SEEN #/HPFTBHMUCUS URINESMALL(A)NONE SEENTBH SQUAMOUS EPITHELIAL CELL URINEMANY(A)NONE/RARE #/LPFTBHCRYSTALS SEEN?None Seen None Seen #/HPFTBHCAST SEEN?NONE SEENNONE SEEN #/LPFTBHURINE CULTURE INDICATED YES-[facility]INGTBHSpecimen (Source)Anatomical Location / LateralityCollection Method / VolumeCollection TimeReceived Time03/30/2025 5:50 AM EST03/30/2025 6:39 AM EST Narrative [facility]NC - 03/30/2025 7:09 AM EST Authorizing ProviderResult TypeResult StatusValerie Bassem [facility]ottstown HospitalLINISYNCFinal ResultPerforming OrganizationAddressCity/State/ZIP CodePhone Number CLINISYNC [facility] * TB DRUG SCREEN RAPID (URINE) (03/30/2025 5:50 AM EST)ComponentValueRef Range Test MethodAnalysis TimePerformed AtPathologist SignatureCANNABINOID SCREEN URINENEGATIVENEGATIVETBHPHENCYCLIDINE SCREEN URINENEGATIVENEGATIVETBHCOCAINE SCREEN URINENEGATIVENEGATIVETBHMETHAMPHETAMINES SCREEN URINENEGATIVENEGATIVE TBHOPIATE SCREEN URINENEGATIVENEGATIVETBHAMPHETAMINE SCREEN URINENEGATIVE NEGATIVETBHBENZODIAZEPINES SCREEN URINENEGATIVENEGATIVETBHTRICYCLIC ANTIDEPRESSANT URINENEGATIVENEGATIVETBHMETHADONE SCREEN URINENEGATIVENEGATIVE TBHBARBITURATES SCREEN URINENEGATIVENEGATIVETBHOXYCODONE SCREEN URINENEGATIVE NEGATIVETBHBUPRENORPHINE SCREEN URINENEGATIVENEGATIVETBHComment: DRUG CLASS TEST SYSTEM CUT-OFF CONCENTRATIONS ARE FOLLOWS: AMP (Amphetamine): 500 ng/mL BAR (Barbiturates): 200 ng/mL BZO (Benzodiazepines): 150 ng/mL BUP (Buprenorphine): 10 ng/mL SHANE (Cocaine): 150 ng/mL mAMP (Methamphetamine): 500 ng/mL MTD (Methadone): 200 ng/mL OPI (Opiates): 100 ng/mL OXY (Oxycodone): 100 ng/mL PCP (Phencyclidine): 25 ng/mL THC (Cannabinoids): 50 ng/mL TCA (Trycyclic Antidepressants): 300 ng/mL Specimen (Source)Anatomical Location / LateralityCollection Method / Volume Collection TimeReceived Time03/30/2025 5:50 AM EST03/30/2025 6:39 AM EST Narrative [facility] - 03/30/2025 6:58 AM EST Authorizing ProviderResult TypeResult StatusValedylon Pettit [facility] HOSPITALLINISYNCFinal ResultPerforming OrganizationAddressCity/State/ZIP CodePhone Number CLINISYNC TBH documented in this encounter Visit Diagnoses Not on filedocumented in this encounter Care Teams Team MemberRelationshipSpecialtyStart DateEnd Zully Alejandro MD [address] [place] [address] PCP - GeneralFamily Medicine08/11/22documented as of this encounter
--- OUTSIDE RECORDS SUMMARY | 2025-04-03 08:22 | XMS_ITS | Encounter Summary ---
Author Organization [facility] Address [address] [place] [address] Care Team Providers Care Data Entry Email Processor Name Role Phone Zully Alejandro MD Primary Care Provider [phone] Encounter Details DateTypeDepartmentCare Team (Latest Contact Info)Donesflrjbu41/22/2025Orders Only KACY SOSA [address] [place] [address] Caro Pettit, CN [address] [place], [place] [address] Hypothyroidism, unspecified type Social History Tobacco UseTypesPacks/DayYears UsedDateSmoking Tobacco: NeverSmokeless Tobacco: NeverAlcohol UseStandard Drinks/WeekCommentsNot Currently0 (1 standard drink = 0.6 oz pure alcohol)caffeine: 1-2 cups per dayEdinburgh Depression ScaleAnswerDate RecordedEdinburgh Depression Scale Hjnzd70307/14/2023The thought of harming myself has occurred to me.Never4CommentsYes Sex and Gender InformationValueDate RecordedSex Assigned at BirthFemale 09/22/2022 12:13 PM EDTLegal GkjHjfvkq62/14/2023 12:13 PM EDTGender Identity Zugffz8509/22/2022 12:13 PM EDTSexual SivhypiuzxvJuqblmid53/20/2023 12:13 PM EDT documented as of this encounter Plan of Treatment DateTypeDepartmentCare Team (Latest Contact Info)Wobhvbrfdtz69/31/2025 10:00 AM ESTPostpartum Visit NOM[facility]oderick ESPINOZAGYN [address] [place] [address] Caro Pettit, KWAME [address] [place], [place] [address] NameTypePriorityAssociated DiagnosesOrder ScheduleUS OB SCAN FOR GROWTH ImagingRoutine Hypothyroidism, unspecified type Expected: 03/26/2025, Expires: 03/26/2026documented as of this encounter Visit Diagnoses Diagnosis Hypothyroidism, unspecified type documented in this encounter Care Teams Team MemberRelationshipSpecialtyStart DateEnd Date Zully Alejandro MD [address] [place] [address] PCP - GeneralFamily Medicine08/11/22documented as of this encounter
--- OUTSIDE RECORDS SUMMARY | 2025-04-03 08:22 | XMS_ITS | Encounter Summary ---
Author Organization [facility] Address [address] [place] [address] Care Team Providers Care Can Top Setter Name Role Phone Zully Alejandro MD Primary Care Provider [phone] Encounter Details DateTypeDepartmentCare Team (Latest Contact Info)Nakvaobciwk43/23/2025Clinisync Result Encounter [facility] External Department Unsolicited Jah Pettit CNM [address] [place] [address] Social History Tobacco UseTypesPacks/DayYears UsedDateSmoking Tobacco: NeverSmokeless Tobacco: NeverAlcohol UseStandard Drinks/WeekCommentsNot Currently0 (1 standard drink = 0.6 oz pure alcohol)caffeine: 1-2 cups per dayEdinburgh Depression ScaleAnswerDate RecordedEdinburgh Depression Scale Owmel83007/14/2023The thought of harming myself has occurred to me.Never4CommentsYes Sex and Gender InformationValueDate RecordedSex Assigned at BirthFemale 09/22/2022 12:13 PM EDTLegal ZsvKwjoxg05/14/2023 12:13 PM EDTGender Identity Jxmbgs6209/22/2022 12:13 PM EDTSexual FvmuborjbvoBanrmale70/20/2023 12:13 PM EDT documented as of this encounter Plan of Treatment DateTypeDepartmentCare Team (Latest Contact Info)Eqhprfbtada39/31/2025 10:00 AM ESTPostpartum Visit [facility] [address] [place] [address] Jah Pettit CNM [address] [place] [address] documented as of this encounter Procedures Procedure NamePriorityDate/TimeAssociated DiagnosisCommentsUS OB GROWTH 03/27/2025 10:11 AM EST documented in this encounter Results * US OB GROWTH (03/27/2025 10:11 AM EST)Anatomical RegionLateralityModalityOther Specimen (Source)Anatomical Location / LateralityCollection Method / Volume Collection TimeReceived Time03/27/2025 10:11 AM EST Narrative 03/27/2025 10:14 AM EST [facility] ?[address] ? [place] [address] ? Ultrasound Report ? Signed ? Patient: RULA TONY ?MR#: [id number] ?? : 2000 ?Acct:[id number] ?? Age/Sex: 24 / F ?ADM Date: 03/26/25 ?? Loc: US ? Attending Dr: JAH PETTIT APRN CNCristela ? Ordering Physician: JAH PETTIT APRN, CNM ?? Date of Service: 03/26/25 ?? Procedure(s): US OB growth ?? Accession Number(s): [id number] ? cc: JAH PETTIT APRN, CNM; Physician,Non-Staff M.D. ? [facility] ? [address] ? [place] [address] ? Patient Name: ?? RULA TONY ? MRN: [facility]:[id number] ? date: 2000 ?Sex: F ?? Assigned Patient Location: US ?? Current Patient Location: [facility] ?? Accession/Order Number: [id number] ?? Exam Date: 03/26/2025 ??15:29 ?Report Date: 03/27/2025 ??10:11 ? At the request of: ?? JAH ??AMI ??RELIGIOUS EDUCATION TEACHER CNM ? Procedure: ??US OB growth ? [...] Dictation Location: RADIO-PC-30 ? Electronically authenticated by: [id number] ??Y ?? Date: 03/27/2025 ??10:11 ? Dictated By: ?Vaishali Harris M.D. ? Signed By: ?03/27/25 1014 ? DD/ 1011 ? TD/TT: ? Fish Rod Maker: Procedure Note Radiology, Radiologist, MD - 03/27/[address] [address] Ultrasound Report Signed Patient: RULA TONY R#: [id number] : 2000Acct:[id number] Age/Sex: 24 / FADM Date: 03/26/25 Loc: US Attending Dr: JAH PETTIT APRN, CNM Ordering Physician: JAH PETTIT APRN, CNM Date of Service: 03/26/25 Procedure(s): US OB growth Accession Number(s): [id number] cc: JAH PETTIT APRN, CNM; Physician,Non-Staff MAmyDAmy [place] [id number] Patient Name: RULA TONY MRN: [facility]:[id number] date: 2000 Sex: F Assigned Patient Location: Current Patient Location: [facility] Accession/Order Number: [id number] Exam Date: 03/26/2025 15:29 Report Date: 03/27/2025 [...] Harris M.D. 03/27/2025 10:11 AM Dictation Location: [place] [address] Electronically authenticated by: [id number] Y Date: 0:11 Dictated By: Vaishali Harris M.D. Signed By:03/27/25 1014 DD/ 1011 TD/TT: Fish Rod Maker: Authorizing ProviderResult TypeResult StatusValerie Bassem Pettit [facility] Final Result documented in this encounter Visit Diagnoses Not on filedocumented in this encounter Care Teams Team MemberRelationshipSpecialtyStart DateEnd Date Zully Alejandro MD [address] [place] [address] PCP - GeneralFamily Medicine08/11/22documented as of this encounter
--- OUTSIDE RECORDS SUMMARY | 2025-04-03 08:22 | XMS_ITS | Encounter Summary ---
Author Organization [facility] Address [address] [place] [address] Care Team Providers Care Bindery Production Manager Name Role Phone Zully Alejandro MD Primary Care Provider [phone] Encounter Details DateTypeDepartmentCare Team (Latest Contact Info)Dsdrxtgiyef09/23/2025Clinisync Result Encounter [facility] External Department Unsolicited Jah Pettit CNM [address] [place] [address] Social History Tobacco UseTypesPacks/DayYears UsedDateSmoking Tobacco: NeverSmokeless Tobacco: NeverAlcohol UseStandard Drinks/WeekCommentsNot Currently0 (1 standard drink = 0.6 oz pure alcohol)caffeine: 1-2 cups per dayEdinburgh Depression ScaleAnswerDate RecordedEdinburgh Depression Scale Jvprn70107/14/2023The thought of harming myself has occurred to me.Never4CommentsYes Sex and Gender InformationValueDate RecordedSex Assigned at BirthFemale 09/22/2022 12:13 PM EDTLegal BeqTgcuzt53/14/2023 12:13 PM EDTGender Identity Fstuik1909/22/2022 12:13 PM EDTSexual JzmsfjuxywyDyscaydx90/20/2023 12:13 PM EDT documented as of this encounter Plan of Treatment DateTypeDepartmentCare Team (Latest Contact Info)Pwhyathbbby50/31/2025 10:00 AM ESTPostpartum Visit [facility] [address] [place] [address] Jah Pettit CNM [address] [place] [address] documented as of this encounter Procedures Procedure NamePriorityDate/TimeAssociated DiagnosisCommentsUS OB BPP W NON-RLYUMH9703/27/2025 10:11 AM EST documented in this encounter Results * US OB BPP W NON-STRESS (03/27/2025 10:11 AM EST)Anatomical Region LateralityModalityOtherSpecimen (Source)Anatomical Location / Laterality Collection Method / VolumeCollection TimeReceived Time03/27/2025 10:11 AM EST Narrative 03/27/2025 10:14 AM EST The [facility] ?[address] ? [place] [address] ? Ultrasound Report ? Signed ? Patient: RULA TONY ?MR#: [id number] ?? : 2000 ?Acct:[id number] ?? Age/Sex: 24 / F ?ADM Date: 03/26/25 ?? Loc: US ? Attending Dr: JAH PETTIT APRN, CNM ? Ordering Physician: JAH PETTIT APRN, CNM ?? Date of Service: 03/26/25 ?? Procedure(s): US OB BPP w non-stress ?? Accession Number(s): [id number] ? cc: JAH PETTIT APRN, CNM; Physician,Non-Staff M.D. ? [facility] ? [address] ? [place] [address] ? Patient Name: ?? RULA TONY ? MRN: [facility]:[id number] ? date: 2000 ?Sex: F ?? Assigned Patient Location: [facility] ?? Current Patient Location: [facility] ?? Accession/Order Number: [id number] ?? Exam Date: 03/26/2025 ??15:29 ?Report Date: 03/27/2025 ??10:11 ? At the request of: ?? JAH ??AMI ??LABORATORY MACHINIST CNM ? Procedure: ??US OB growth ? [...] Dictation Location: RADIO-PC-30 ? Electronically authenticated by: [id number] ??Y ?? Date: 03/27/2025 ??10:11 ? Dictated By: ?Vaishali Harris M.D. ? Signed By: ?03/27/25 1014 ? DD/ 1011 ? TD/TT: ? Paper Slitter: Procedure Note Radiology, Radiologist, MD - 03/27/2025 [place] [address] Ultrasound Report Signed Patient: OLINDA TONYLA R#: [id number] : 2000Acct:[id number] Age/Sex: 24 / FADM Date: 03/26/25 Loc: US Attending Dr: JAH PETTIT APRN, CNM Ordering Physician: JAH PETTIT APRN, CNM Date of Service: 03/26/25 Procedure(s): US OB BPP w non-stress Accession Number(s): [id number] cc: JAH PETTIT APRN, CNM; Physician,Non-Staff M.DAmy [place] [address] Patient Name: RULA TONY MRN: [facility]:[id number] date: 2000 Sex: F Assigned Patient Location: [facility] Current Patient Location: [facility] Accession/Order Number: [id number] Exam Date: 03/26/2025 15:29 Report Date: 03/27/2025 [...] [Y] 2/2 NIALL: 18.6 cm Total score: 11/10 IMPRESSION: NORMAL BIOPHYSICAL PROFILE Impression dictated by: Vaishali Harris M.D. 03/27/2025 10:11 AM Dictation [facility] Electronically authenticated by: [id number] Y Date: 0:11 Dictated By: Vaishali Harris M.D. Signed By:03/27/25 1014 DD/ 1011 TD/TT: Paper Slitter: Authorizing ProviderResult TypeResult StatusValedylon Pettit [facility] Final Result documented in this encounter Visit Diagnoses Not on filedocumented in this encounter Care Teams Team MemberRelationshipSpecialtyStart DateEnd Date Zully Alejandro MD [address] [place] [address] PCP - GeneralFamily Medicine08/11/22documented as of this encounter
--- OUTSIDE RECORDS SUMMARY | 2025-04-03 08:23 | XMS_ITS | Encounter Summary ---
Author Organization [facility] Address [address] [place] [address] Care Team Providers Care Xerox Machine Operator Name Role Phone Zully Alejandro MD Primary Care Provider [phone] Encounter Details DateTypeDepartmentCare Team (Latest Contact Info)Dwdbhiecjug12/27/2025linisync Result Encounter [facility] External Department Unsolicited Caro Pettit, CNM [address] [place] [address] Social History Tobacco UseTypesPacks/DayYears UsedDateSmoking Tobacco: NeverSmokeless Tobacco: NeverAlcohol UseStandard Drinks/WeekCommentsNot Currently0 (1 standard drink = 0.6 oz pure alcohol)caffeine: 1-2 cups per dayPHQ-2AnswerDate RecordedPatient Health Questionnaire-2 Yeawl329Edinburgh Depression Scale AnswerDate RecordedEdinburgh Depression Scale Ubniq24707/14/2023The thought of harming myself has occurred to me.Never4CommentsYes Sex and Gender InformationValueDate RecordedSex Assigned at BirthFemale 09/22/2022 12:13 PM EDTLegal QhmIqlqdx18/14/2023 12:13 PM EDTGender Identity Erywow5009/22/2022 12:13 PM EDTSexual DzhhirdjcftZzrbmjwe45/20/2023 12:13 PM EDT documented as of this encounter Plan of Treatment DateTypeDepartmentCare Team (Latest Contact Info)Lggazaqzsrd28/31/2025 10:00 AM ESTPostpartum Visit [facility] [address] [place] [address] Caro Pettit, CNM [address] [place] [address] documented as of this encounter Procedures Procedure NamePriorityDate/TimeAssociated DiagnosisCommentsALL CBC WITH AUTO TBZEQnjhctb51/27/2025 6:31 AM EST documented in this encounter Results * (ABNORMAL) ALL CBC WITH AUTO DIFF (03/31/2025 6:31 AM EST)ComponentValueRef RangeTest MethodAnalysis TimePerformed AtPathologist SignatureTBH WBC6.24.0 - 11.0 10 3/uLTBHTBH RBC3.48(L)4.20 - 5.40 10 6/uLTBHTBH HGB9.5(L)12.0 - 16.0 g/dLTBHTBH HCT29.9(L)36.0 - 48.0 %TBHTBH MCV85.981.0 - 99.0 fLTBHTBH MCH27.3 26.7 - 34.0 pgTBHTBH MCHC31.829.9 - 35.2 g/dLTBHTBH RDW15.8(H)11.0 - 15.0 %TBH TBH XZI546500 - 450 10 3/uLTBHTBH MPV10.79.5 - 13.5 fLTBHNEUTROPHILS PERCENT AUTO63.543.0 - 75.0 %TBHLYMPHOCYTES PERCENT AUTO26.520.5 - 60.0 %TBHMONOCYTES PERCENT AUTO6.31.7 - 12.0 %TBHTBH EO %2.90.9 - 7.0 %TBHBASOPHILS PERCENT AUTO 0.50.2 - 2.0 %TBHIMMATURE GRANULOCYTES PCT AUTO0.30.0 - 0.5 %TBHNEUTROPHILS ABSOLUTE AUTO3.91.4 - 6.5 10 3/uLTBHLYMPHOCYTES ABSOLUTE AUTO1.61.2 - 3.8 10 3/uLTBHMONOCYTES ABSOLUTE AUTO0.40.3 - 0.8 10 3/uLTBHTBH EO #0.20.0 - 0.7 10 3/uLTBHBASOPHILS ABSOLUTE AUTO0.00.0 - 0.1 10 3/uLTBHIMMATURE GRANULOCYTES ABS AUTO0.020.00 - 0.03 10 3/uLTBHSpecimen (Source)Anatomical Location / LateralityCollection Method / VolumeCollection TimeReceived Time03/31/2025 6:31 AM EST03/31/2025 6:34 AM EST Narrative [facility] - 03/31/2025 6:49 AM EST Authorizing ProviderResult TypeResult StatusValerie Bassem [facility]binta [facility]ITALLINISYNCFinal ResultPerforming OrganizationAddressCity/State/ZIP CodePhone Number [facility] documented in this encounter Visit Diagnoses Not on filedocumented in this encounter Care Teams Team MemberRelationshipSpecialtyStart DateEnd Date Zully Alejandro MD [address] [place] [address] PCP - GeneralFamily Medicine08/11/22documented as of this encounter
--- OUTSIDE RECORDS SUMMARY | 2025-04-03 08:23 | XMS_ITS ---
Author Organization [facility] Address [address] [place] [address] Care Team Providers Care Sales Correspondence Clerk Name Role Phone Zully Alejandro MD Primary Care Provider [phone] Inpatient Discharge Transitional Care Management (TCM) Status:Closed (Closed) Start date:03/31/2025 Enrollment date:04/02/2025 Enrollment reason:Identified using discharge data End date:04/02/2025 Close reason:Not eligible Overview Patient discharged from [facility] on 03/31. Please contact for hospital MARITZA and schedule follow-up appointment within 7-14 days. Continued Care and Services Coordination
--- OUTSIDE RECORDS SUMMARY | 2025-04-03 08:23 | XMS_ITS | Clinical Summary ---
Author Organization [facility] Address [address], [address] [place] [address] Care Team Providers Care Lens Cutter Name Role Phone Zully Blair MD Primary [...] DateDiagnosed DateResolved DateArrest of descent, delivered, current ckedibuplrnsivh84Encounter for induction of labor /12/2021Failure to progress in labor, delivered, current fdovzhsfinpwlzk76/09/2022 Encounters DateTypeDepartmentCare DnmjYmoeubyotkb88/22/2025Telephone [facility] Obstetrics & Gynecology [address], [address] [place] [address] Chery Pritchard RN Scheduled C-sectionfrom Last 3 Months Social History Tobacco UseTypesPacks/DayYears UsedDateSmoking Tobacco: NeverSmokeless Tobacco: NeverAlcohol UseStandard Drinks/WeekCommentsNever0 (1 standard drink = 0.6 oz pure alcohol)CommentsNoSex and Gender InformationValueDate RecordedSex Assigned at BirthNot on fileLegal SwpHrvtir54/10/2022 11:43 AM EDTGender IdentityNot on fileSexual OrientationNot on file Last Filed Vital Signs Vital SignReadingTime TakenCommentsBlood Pbtoctxl530/7407 7:17 AM EDT Kblho021810/11/2021 7:17 AM QRLUsbytmxmtep98.7 ??C (98.1 ??F)10/11/2021 7:17 AM EDTRespiratory Epyo6415 7:17 AM EDTOxygen Rdawozcxat42%10/09/2021 2:22 AM EDTInhaled Oxygen Concentration--Umwxtd796.8 kg (231 lb)10/08/2021 10:56 PM VFSAkaxzd079.1 cm (5' 5 )10/08/2021 10:56 PM EDTBody Mass Index38.4407 10:56 PM EDT Plan of Treatment Not on file Insurance * Guarantor: Alba Tony TypeRelation to PatientDate of PhoneBilling AddressPersonal/PpbqbeUyav91/23/2000 [address] [place] [phone] Advance Directives * Full Code (Latest Code Status on File) Date ActivatedDate InactivatedComments10/07/2021 8:41 PM10/09/2021 12:41 AM Care Teams Team MemberRelationshipSpecialtyStart DateEnd Date Zully Blair MD [address] [place] [address] PCP - GeneralFaialy Medicine09/12/21
--- OUTSIDE RECORDS SUMMARY | 2025-04-03 08:23 | XMS_ITS | Encounter Summary ---
Author Organization [facility] Address [address] [place] [address] Care Team Providers Care Certified Lactation Counselor Name Role Phone Zully Alejandro MD Primary Care Provider [phone] Encounter Details DateTypeDepartmentCare Team (Latest Contact Info)Mpxcpirvwoa94/29/2025Patient Outreach [facility] [address] [place] [address] Mirian Naik, SPECIAL WARFARE OPERATOR [address] [place], [place] [address] Social History Tobacco UseTypesPacks/DayYears UsedDateSmoking Tobacco: NeverSmokeless Tobacco: NeverAlcohol UseStandard Drinks/WeekCommentsNot Currently0 (1 standard drink = 0.6 oz pure alcohol)caffeine: 1-2 cups per dayPHQ-2AnswerDate RecordedPatient Health Questionnaire-2 Nnfxd182Edinburgh Depression Scale AnswerDate RecordedEdinburgh Depression Scale Anmby87907/14/2023The thought of harming myself has occurred to me.Never4CommentsNo Sex and Gender InformationValueDate RecordedSex Assigned at BirthFemale 09/22/2022 12:13 PM EDTLegal HbzWmeohv79/14/2023 12:13 PM EDTGender Identity Kkhhvq2109/22/2022 12:13 PM EDTSexual JhabazgtdccNdwdbnhr80/20/2023 12:13 PM EDT documented as of this encounter Functional Status * Over the past 2 weeks, how often have you been bothered by any of the following problems?QuestionAnswerDate of AssessmentAuthorLittle interest or pleasure in doing thingsNot at all04/02/2025 1:17 PM Mirian Mccarthy LPN Feeling down, depressed, or hopelessNot at all04/02/2025 1:17 PM Mirian Mccarthy LPNPatient Health Questionnaire-2 Kvdfj706 1:17 PM Mirian Mccarthy LPN documented as of this encounter Progress Notes * Mirian Naik LPN - 04/02/2025 1:11 PM EST Images from the original note were not included. Flowsheet Row Patient Outreach from 04/02/2025 in [facility] with Mirian Naik LPN Hospital Information ED, Hospital or Senior Living Facility Discharge? Hospital Patient has been contacted within two business days of discharge Yes Diagnosis Discharge Date 03/31/25 Discharged To: Home Setting Discharge Hospital [facility] Engagement Call Start Time 1310 Admission Date 03/30/25 Medications Discharge medications reviewed and reconciled from hospital? Yes Is the patient having any side effects they believe may be caused by any medication additions or changes? No Does the patient have all medications ordered at discharge? Yes Nursing Interventions No intervention needed Is the patient taking all medications as directed (includes completed medication regime)? Yes Nursing Interventions Nurse provided patient education Appointments Does the patient have a primary care provider? Yes Does the patient have any upcoming specialty appointments? Yes [PPV 04/04/25.] Nursing Interventions Advised patient to keep appointment Self Management Patient Teaching Does the patient have access to their discharge instructions? Yes Nursing Interventions Reviewed instructions with patient What is the patient's perception of their health status since discharge? Improving Is the patient/caregiver able to teach back the hierarchy of who to call/visit for symptoms/problems? PCP, Specialist, Home Health nurse, Urgent Care, ED, 911 Yes Wrap Up Call End Time 1320 MARITZA Complete. Call to pt. Pt reports she and baby are doing well. Pain is controlled alternating ibuprofen and tylenol. Reinforced s/s of infection, pt denies and verbalized understanding. Pt desccribes bleeding as light and denies large clots. Bowels are regular with Colace. Pt denies any depression or difficulty coping at this time. Pt currently and voices it is going well. Baby sees PEDs 04/03/25 Pt denies being in need of any baby items. PPV 04/04/25. documented in this encounter Plan of Treatment DateTypeDepartmentCare Team (Latest Contact Info)Cqybrfkfhjc29/31/2025 10:00 AM ESTPostpartum Visit NOMRoderick SOSA [address] [place] [address] Caro Pettit CNM [address] [place], [place] [address] documented as of this encounter Visit Diagnoses Diagnosis delivery delivered ([facility] Primary delivery, without mention of indication, delivered, with or without mention of antepartum condition documented in this encounter Care Teams Team MemberRelationshipSpecialtyStart DateEnd Date Zully Alejandro MD [address] [place], [place] [address] PCP - GeneralFamily Medicine08/11/22documented as of this encounter
--- OUTSIDE RECORDS SUMMARY | 2025-04-03 08:23 | XMS_ITS | Encounter Summary ---
Author Organization [facility] Address [address] [place] [address] Care Team Providers Care Rn Teacher Name Role Phone Zully Alejandro MD Primary Care Provider [phone] Encounter Details DateTypeDepartmentCare Team (Latest Contact Info)Hcdeqwzvemj15/26/2025External Result Encounter [facility] Unsolicited Caro Pettit CNM [address] [place] [address] Social History Tobacco UseTypesPacks/DayYears UsedDateSmoking Tobacco: NeverSmokeless Tobacco: NeverAlcohol UseStandard Drinks/WeekCommentsNot Currently0 (1 standard drink = 0.6 oz pure alcohol)caffeine: 1-2 cups per dayEdinburgh Depression ScaleAnswerDate RecordedEdinburgh Depression Scale Dfatv03907/14/2023The thought of harming myself has occurred to me.Never4CommentsYes Sex and Gender InformationValueDate RecordedSex Assigned at BirthFemale 09/22/2022 12:13 PM EDTLegal EfiTqywrn43/14/2023 12:13 PM EDTGender Identity Mgcgjv6609/22/2022 12:13 PM EDTSexual IymohxdtkqpThqmlwpj94/20/2023 12:13 PM EDT documented as of this encounter Plan of Treatment DateTypeDepartmentCare Team (Latest Contact Info)Rybzolvcohb75/31/2025 10:00 AM ESTPostpartum Visit [facility] [address] [place] [id number] Caro Pettit CNM [address] [place] [address] documented as of this encounter Procedures Procedure NamePriorityDate/TimeAssociated DiagnosisCommentsAEROBIC ELDA CHARGE (NMIC56)Kjzbjtf4703/30/2025 5:50 AM EST CULTURE, URINE, MUQDQQRGsfyjqa17/26/2025 5:50 AM EST documented in this encounter Results * (ABNORMAL) AEROBIC ELDA CHARGE (NMIC56) (03/30/2025 5:50 AM EST)ComponentValue Ref RangeTest MethodAnalysis TimePerformed AtPathologist SignatureAMIKACIN<16 (S)04/01/2025 9:57 [facility] CLAVULANATE>16/8(R)04/01/2025 9:57 AM [facility] AMPICILLIN>16(R)04/01/2025 9:57 AM [facility] AMPICILLIN/NKEFSIGWE00/8(I)04/01/2025 9:57 AM [facility] CtrAZTREONAM<4(S)04/01/2025 9:57 AM [facility] CtrCEFAZOLIN 16(I)04/01/2025 9:57 AM [facility] CtrCEFEPIME<2(S) 04/01/2025 9:57 AM [facility] CtrCEFTAZIDIME<1(S)04/01/2025 9:57 AM [facility] CtrCEFTAZIDIME/AVIBACTAM<4(S)04/01/2025 9:57 AM [facility] CtrCEFTOLOZANE/TAZOBACTAM<2(S)04/01/2025 9:57 AM [facility] CtrCEFTRIAXONE<1(S)04/01/2025 9:57 AM [facility] CtrCEFUROXIME8(S)04/01/2025 9:57 AM [facility] CtrCIPROFLOXACIN<0.25(S)04/01/2025 9:57 AM [facility] CtrERTAPENEM<0.5(S)04/01/2025 9:57 AM [facility] CtrGENTAMICIN<2(S)04/01/2025 9:57 AM [facility] LEVOFLOXACIN<0.5(S)04/01/2025 9:57 AM [facility] MEROPENEM<1(S)04/01/2025 9:57 AM [facility] MEROPENEM/VABORBACTAM<2(S)04/01/2025 9:57 AM [facility] NITROFURANTOIN<32(S)04/01/2025 9:57 AM [facility] PIPERACILLIN/TAZOBACTAM<8(S)04/01/2025 9:57 AM [facility] CtrTETRACYCLINE>8(R)04/01/2025 9:57 AM [facility] TIGECYCLINE<2(S)04/01/2025 9:57 AM [facility] CtrTOBRAMYCIN <2(S)04/01/2025 9:57 AM [facility] TRIMETHOPRIM/SULFAMETHOXAZOLE<0.5/9.5(S)04/01/2025 9:57 AM [facility] CtrSpecimen (Source)Anatomical Location / Laterality Collection Method / VolumeCollection TimeReceived TimeUrineUrine specimen obtained by clean catch procedure / Dokmmwk9903/30/2025 5:50 AM EST03/30/2025 11:41 AM ESTComment:Clean-Voided Midstream Narrative Authorizing ProviderResult TypeResult StatusValerie Bassem Pettit [facility]ITALFIRELANDSFinal ResultPerforming OrganizationAddressCity/State/ZIP CodePhone Number [facility] [address] [place] [address], [facility] [address] [place] [address] * Urine culture (03/30/2025 5:50 AM EST)ComponentValueRef RangeTest Method Analysis TimePerformed AtPathologist SignatureFRMC ORGANISMEscherichia coli 04/01/2025 9:57 AM [facility] CtrCOLONY COUNT30,000 04/01/2025 9:57 AM [facility]trFRMC ORGANISMLactobacillus tanfhnqr03/28/2025 9:57 AM [facility] CtrCOLONY COUNT >100,1043706/02/2024 9:57 AM [facility] CtrORGANISM COMMENTS Organism not Routinely Tested for Lekzfmjfkptxpgdv24/28/2025 9:57 AM EST [facility] CtrSpecimen (Source)Anatomical Location / LateralityCollection Method / VolumeCollection TimeReceived TimeUrineUrine specimen obtained by clean catch procedure / Xtvmmaa6703/30/2025 5:50 AM EST 03/30/2025 11:41 AM ESTComment:Clean-Voided Midstream [facility] 04/01/2025 9:57 AM EST Diagnosis: Comment: Authorizing ProviderResult TypeResult StatusValerie Bassem Pettit CNMLAB MICROBIOLOGY - GENERAL ORDERABLESFinal ResultPerforming OrganizationAddressCity/State/ZIP CodePhone Number [facility] [address] [place] [address], [facility] [address] [place] [address] documented in this encounter Visit Diagnoses Not on filedocumented in this encounter Care Teams Team MemberRelationshipSpecialtyStart DateEnd Date Zully Alejandro MD [address] [place] [address] PCP - GeneralFamily Medicine08/11/22documented as of this encounter
--- OUTSIDE RECORDS SUMMARY | 2025-04-03 08:23 | XMS_ITS | Clinical Summary ---
Author Organization [facility] Healthcare Address [address] [place] [address] Care Team Providers Care Quality Rn Name Role Phone Zully Alejandro MD Primary Care Provider [phone] Allergies No known active allergies Medications MedicationSigDispense QuantityRefillsLast FilledStart DateEnd DateStatus MV-Min-Fe Fum-FA-DHA ( 1 PO) Take by mouth.Active ferrous sulfate (Fe Tabs) 325 (65 Fe) MG EC tablet Indications:Anemia during in third trimester (HHS-HCC)Take 1 tablet (325 mg) by mouth in the morning and 1 tablet (325 mg) before bedtime. Do not crush, chew, or split. 60 tablet 111/181379ctive docusate sodium (Colace) 100 MG capsule Indications:Anemia during in third trimester (HHS-HCC)Take 1 capsule (100 mg) by mouth in the morning and 1 capsule (100 mg) before bedtime. 60 capsule 310/20/582991/176Active levothyroxine (Synthroid) 88 MCG tablet Indications:Hypothyroidism, unspecified typeTake 1 tablet (88 mcg) by mouth in the morning. Take before meals. 30 tablet 111/10/333282/6Active ibuprofen 800 MG tablet Take 800 mg by mouth every 8 (eight) hours if neededActive Active Problems ProblemNoted DateDiagnosed DateGeneralized anxiety pxynolar99/30/2023Minor depressive srflgopt49/30/1644Pypsyhkoywdvbf49/26/2023 Encounters DateTypeDepartmentCare RkdkYdwfnrodiid91/29/2025Patient Outreach [facility] POPULATION [facility] [address] [place] [address] Mirian NaikRY 04/02/2025Results Follow-Up [facility] [address] [place] [phone] Jah Pettit CNM AEROBIC ELDA CHARGE (NMIC56)5Clinisync Result Encounter [facility] External Department Unsolicited Jah Pettit, [place] 03/30/2025External Result Encounter [facility]OMS External Department Unsolicited Jah Pettit, SHERIDAN 03/30/2025linisync Result Encounter NOMS External Department Unsolicited Jah Pettit CNM 03/27/2025linisync Result Encounter [facility]OMS External Department Unsolicited Jah Pettit CNM 03/27/2025linisync Result Encounter [facility]OMS External Department Unsolicited Jah Pettit CNM 03/26/2025Orders Only [facility] [address] [place] [phone] Jah Pettit CNM Hypothyroidism, unspecified type03/22/2025 4:00 PM ESTAncillary Procedure [facility] [address] [facility] [address] [place] [phone] Hypothyroidism, unspecified type03/22/20250140Qsvtln92/11/2025 4:00 PM ESTAncillary Procedure [facility] [address] [facility] [address] [place] [phone] Hypothyroidism, unspecified type03/15/2025Orders Only [facility] [address] [place] [phone] aJh Pettit CNM Hypothyroidism, unspecified type03/15/20252700Cyunst68/08/2025 4:00 PM ESTRoutine [facility] [address] [place] [phone] Jah Pettit CNM screening for streptococcus B ([facility])5Bamboo flowsheet [facility] [address] [facility] [place] [phone] Jah Pettit CNM 03/08/2025 4:00 PM ESTAncillary Procedure [facility] [address] [facility] [address] [place] [address] Hypothyroidism, unspecified type03/08/20257289Baemgn51/02/2025Results Follow-Up [facility] [address] [facility] [place] [phone] Jah Pettit CNM TSH W/REFLEX TO FT4105/06/2024 4:00 PM ESTRoutine [facility] [address] [facility] [place] [phone] Jah Pettit CNM Encounter for supervision of other normal , third trimester ([facility]) (Primary Dx); Hypothyroidism, unspecified type; NST (non-stress test) reactive ([facility]); History of xvmvkxp3903/05/2025[facility] flowsheet [facility] [address] [facility] [place] [phone] Jah Pettit CNM 02/28/2025 4:00 PM ESTAncillary Procedure [facility] [address] [facility] [address] [place] [address] Hypothyroidism, unspecified type02/28/20252048Prpmjh72/20/2025 4:00 PM ESTAncillary Procedure [facility] [address] [facility] [address] [place] [address] Hypothyroidism, unspecified type02/22/2025Orders Only [facility] [address] [facility] [place] [phone] Jah Pettit CNM Acquired autoimmune hypothyroidism (Primary Dx)02/22/2025Or[facility] Only [facility] [address] [facility], [place] [phone] Munira Noyola MA Hypothyroidism, unspecified type02/22/20256738Itsuya26/17/2025 5:00 PM ESTRoutine [facility] [address] [facility] [place] [address] Jah Pettit CNM Encounter for supervision of other normal , third trimester ([facility]) (Primary Dx); Hypothyroidism, unspecified type; NST (non-stress test) reactive ([facility])02/19/2025[facility] flowsheet [facility] [address] [facility] [place] [address] Jah Pettit CNM 02/15/2025 4:00 PM ESTAncillary Procedure [facility] [facility] [address] [place] [address] Hypothyroidism, unspecified type02/15/20256094Etwnxn79/10/2025 4:00 PM ESTRoutine [facility] [address] [facility] [place] [address] Jah Pettit CNM Encounter for supervision of other normal , third trimester ([facility]) (Primary Dx); Hypothyroidism, unspecified type; NST (non-stress test) reactive ([facility])02/12/2025[facility] flowsheet [facility] [address] [facility] [place] [address] Jah Pettit CNM 02/09/2025Telephone [facility] [address] [place] [address], [place] [address] Zully Alejandro MD 02/06/2025Refill [facility] [address] [place] [address], [place] [address] Zully Alejandro MD Hypothyroidism, unspecified type01/31/2025 4:15 PM EDTAncillary Procedure [facility] [address] [facility] [address] [place] [address] related condition in second trimester ([facility])01/31/2025Travel 01/26/2025Results [facility] [address] [place] [phone] Zully Draper MA GLUCOSE TOLERANCE TEST, GESTATIONAL,4SPEC(100G)01/25/2025Results [facility] [address] [place] [phone] Zully Draper MA GLUCOSE, GESTATIONAL SCREEN (50G)-135 CUTOFF, CBC, TSH W/REFLEX TO FT4, US biophysical profile wo non stress biuluni1701/22/2025Refill [facility] [address] [address] Zully Draper MA Anemia during in third trimester ([facility])01/22/2025Results [facility] [address] [place] [phone] Jah Pettit CNM US OB limited 1+ drvnsqv2801/22/2025Orders Only [facility] [address] [place] [phone] Jah Pettit CNM Elevated glucose tolerance test01/17/2025 3:00 PM EDTAncillary Procedure [facility] [address] [place] [address] [address] [place] [address] Choroid plexus cyst01/17/2025 2:30 PM EDTRoutine [facility] [address] [place] [phone] Jah Pettit CNM Choroid plexus cyst (Primary Dx); Encounter for supervision of other normal , third trimester ([facility]); Hypothyroidism, unspecified type; Screening for diabetes mellitus; Screening for iron deficiency anemia; History of gyxmyzm2201/17/20254286Tckexd50/15/2025amboo flowsheet [facility] [address] Jah Pettit [place] Luevano 01/05/2025Refill [facility] [address] [place] [address] Zully Draper MA Hypothyroidism, unspecified typefrom Last 3 Months Family History Medical HistoryRelationNameCommentsDrug abuseFatherpain pillsThyroid disease FatherMyasthenia gravisPaternal GrandfatherRelationNameStatusCommentsBrotherx1 FatherAliveMaternal GrandfatherAliveMaternal GrandmotherAliveMotherAlivePaternal GrandfatherAlivePaternal GrandmotherAliveSonAlive Social History Tobacco UseTypesPacks/DayYears UsedDateSmoking Tobacco: NeverSmokeless Tobacco: Never Tobacco Cessation:Counseling Given: Not Answered Alcohol UseStandard Drinks/WeekCommentsNot Currently0 (1 standard drink = 0.6 oz pure alcohol)caffeine: 1-2 cups per dayPHQ-2AnswerDate RecordedPatient Health Questionnaire-2 Dayde482Edinburgh Depression ScaleAnswerDate RecordedEdinburgh Depression Scale Lktzt53407/14/2023The thought of harming myself has occurred to me.Never07/14/2023CommentsNoSex and Gender InformationValueDate RecordedSex Assigned at RqemzNsxnrj44/20/2023 12:13 PM EDTLegal PciHeawta70/14/2023 12:13 PM EDTGender EfuhecbqQvieuc32/20/2023 12:13 PM EDTSexual OjcyaldljezQenmtcic37/20/2023 12:13 PM EDT Last Filed Vital Signs Vital SignReadingTime TakenCommentsBlood Jjipzzxh663/80105/06/2024 4:00 PM EST Pulse--Temperature--Respiratory Rate--Oxygen Saturation--Inhaled Oxygen Concentration--Xsugpn838 kg (232 lb)03/05/2025 4:00 PM QBBZaxwhj262.1 cm (5' 5 ) 11/09/2022 3:38 PM EDTBody Mass Index38.61011/09/2022 3:38 PM EDT Plan of Treatment DateTypeDepartmentCare Team (Latest Contact Info)Qljrzlurday11/31/2025 10:00 AM ESTPostpartum Visit [facility] [address] [place] [address] Jah Pettit, SHERIDAN [address] [place], [place] [phone] Health MaintenanceDue DateLast DoneCommentsPneumococcal Vaccine: Pediatrics (0 to 5 Years) and At-Risk Patients (6 to 64 Years) (1 of 2 - PCV)10/25/2018 Influenza Vaccine (#1), 02/05/2011 Procedures Procedure NamePriorityDate/TimeAssociated DiagnosisCommentsALL CBC WITH AUTO TTDZEbirwjm79/27/2025 6:31 AM EST ALL CBC WITH AUTO XGDDPepifrm44/26/2025 6:30 AM EST URINE CULTURE - XNVUZculjqc47/26/2025 5:50 AM EST AEROBIC ELDA CHARGE (NMIC56)Rspnfrn5403/30/2025 5:50 AM EST [facility] URINALYSIS, WITH WLIBJFWFSBSRnqmnib90/26/2025 5:50 AM EST [facility] DRUG SCREEN RAPID (URINE)Xoyfmbu6303/30/2025 5:50 AM EST CULTURE, URINE, PBPONKGTvpqyac16/26/2025 5:50 AM EST US OB LDAQJU3603/27/2025 10:11 AM EST US OB BPP W NON-EJDMIA1603/27/2025 10:11 AM EST US BIOPHYSICAL PROFILE WO NON STRESS FUJDQBQIhoixea65/18/2025 4:31 PM EST Hypothyroidism, unspecified type US BIOPHYSICAL PROFILE WO NON STRESS CTRIOPWFpmmvgn59/11/2025 4:26 PM EST Hypothyroidism, unspecified type STREPTOCCOUS, GROUP B ZEVVWWCHmztmss78/08/2025 4:31 PM EST screening for streptococcus B (HHS-HCC) US BIOPHYSICAL PROFILE WO NON STRESS RJYPLLIBuquksn35/04/2025 4:23 PM EST Hypothyroidism, unspecified type US OB FOLLOW UP TRANSABDOMINAL DMMYRQUAEnrmodu11/26/2025 4:46 PM EST Hypothyroidism, unspecified type US BIOPHYSICAL PROFILE WO NON STRESS OKBJEAKHvqmnws59/20/2025 4:13 PM EST Hypothyroidism, unspecified type TSH W/REFLEX TO QG0Vsvxttd46/20/2025 3:56 PM EST Hypothyroidism, unspecified type US BIOPHYSICAL PROFILE WO NON STRESS APVWPJFCjzyyzg71/13/2025 4:36 PM EST Hypothyroidism, unspecified type US OB FOLLOW UP TRANSABDOMINAL LIIBIGUFDvqtfaz44/29/2025 4:56 PM EDT related condition in second trimester (HHS-HCC) GLUCOSE TOLERANCE TEST, GESTATIONAL,4SPEC(100G)Nwdudrf6001/23/2025 8:31 AM EDT Elevated glucose tolerance test US OB LIMITED 1+ YEMRMXXUplfbdq93/15/2025 3:22 PM EDT Choroid plexus cyst TSH W/REFLEX TO CG7Dmfikie90/15/2025 2:50 PM EDT Hypothyroidism, unspecified type NWXVvibhla73/15/2025 2:50 PM EDT Screening for iron deficiency anemia GLUCOSE, GESTATIONAL SCREEN (50G)-135 YGHEFHCfyfhgv96/15/2025 2:50 PM EDT Screening for diabetes mellitus from Last 3 Months Results * (ABNORMAL) ALL CBC WITH AUTO DIFF (03/31/2025 6:31 AM EST) Only the most recent of2 resultswithin the time period is included. ComponentValueRef RangeTest MethodAnalysis TimePerformed AtPathologist Signature TBH WBC6.24.0 - 11.0 10 3/uLTBHTBH RBC3.48(L)4.20 - 5.40 10 6/uLTBHTBH HGB9.5(L) 12.0 - 16.0 g/dLTBHTBH HCT29.9(L)36.0 - 48.0 %TBHTBH MCV85.981.0 - 99.0 fLTBHTBH MCH27.326.7 - 34.0 pgTBHTBH MCHC31.829.9 - 35.2 g/dLTBHTBH RDW15.8(H)11.0 - 15.0 %TBHTBH QLT337545 - 450 10 3/uLTBHTBH MPV10.79.5 - 13.5 fLTBHNEUTROPHILS PERCENT AUTO63.543.0 - 75.0 %TBHLYMPHOCYTES PERCENT AUTO26.520.5 - 60.0 %TBHMONOCYTES PERCENT AUTO6.31.7 - 12.0 %TBHTBH EO %2.90.9 - 7.0 %TBHBASOPHILS PERCENT AUTO0.5 0.2 - 2.0 %TBHIMMATURE GRANULOCYTES PCT AUTO0.30.0 - 0.5 %TBHNEUTROPHILS ABSOLUTE AUTO3.91.4 - 6.5 10 3/uLTBHLYMPHOCYTES ABSOLUTE AUTO1.61.2 - 3.8 10 3/uLTBHMONOCYTES ABSOLUTE AUTO0.40.3 - 0.8 10 3/uLTBHTBH EO #0.20.0 - 0.7 10 3/uLTBHBASOPHILS ABSOLUTE AUTO0.00.0 - 0.1 10 3/uLTBHIMMATURE GRANULOCYTES ABS AUTO0.020.00 - 0.03 10 3/uLTBHSpecimen (Source)Anatomical Location / Laterality Collection Method / VolumeCollection TimeReceived Time03/31/2025 6:31 AM EST 03/31/2025 6:34 AM EST Narrative CLINISYNC - 03/31/2025 6:49 AM EST Authorizing ProviderResult TypeResult StatusValerie L Floro [facility]ITALLINISYNCFinal ResultPerforming OrganizationAddressCity/State/ZIP CodePhone Number FLOR TB * (ABNORMAL) URINE CULTURE - [facility] (03/30/2025 5:50 AM EST)ComponentValueRef RangeTest MethodAnalysis TimePerformed AtPathologist SignatureURINE CULTURE - [facility] ??Urine Culture - FR SEEFR [facility] RESULT^[facility] RESULT (A)TBH[facility] SEE SCANNED REPORT, ABNORMAL^SEE SCANNED REPORT, ABNORMAL(A)TBHSpecimen (Source)Anatomical Location / LateralityCollection Method / VolumeCollection TimeReceived Time03/30/2025 5:50 AM EST03/30/2025 6:39 AM EST Narrative CLINISYNC - 04/01/2025 1:02 PM EST Authorizing ProviderResult TypeResult StatusJah Pettit CNMLAB BLOOD ORDERABLESFinal ResultPerforming OrganizationAddressCity/State/ZIP CodePhone Number [facility] * (ABNORMAL) AEROBIC ELDA CHARGE (NMIC56) (03/30/2025 5:50 AM EST)ComponentValue Ref RangeTest MethodAnalysis TimePerformed AtPathologist SignatureAMIKACIN<16 (S)04/01/2025 9:57 AM [facility] CtrAMOXACILLIN/K CLAVULANATE>16/8(R)04/01/2025 9:57 AM [facility] Ctr AMPICILLIN>16(R)04/01/2025 9:57 AM [facility] Ctr AMPICILLIN/ZZSUUQUAK29/8(I)04/01/2025 9:57 AM [facility] CtrAZTREONAM<4(S)04/01/2025 9:57 AM [facility] CtrCEFAZOLIN 16(I)04/01/2025 9:57 AM [facility] CtrCEFEPIME<2(S) 04/01/2025 9:57 AM [facility] CtrCEFTAZIDIME<1(S)04/01/2025 9:57 AM [facility] CtrCEFTAZIDIME/AVIBACTAM<4(S)04/01/2025 9:57 AM [facility] CtrCEFTOLOZANE/TAZOBACTAM<2(S)04/01/2025 9:57 AM [facility] CtrCEFTRIAXONE<1(S)04/01/2025 9:57 AM [facility] CtrCEFUROXIME8(S)04/01/2025 9:57 AM [facility] CtrCIPROFLOXACIN<0.25(S)04/01/2025 9:57 AM [facility] CtrERTAPENEM<0.5(S)04/01/2025 9:57 AM [facility] CtrGENTAMICIN<2(S)04/01/2025 9:57 AM [facility] Ctr LEVOFLOXACIN<0.5(S)04/01/2025 9:57 AM [facility] Ctr MEROPENEM<1(S)04/01/2025 9:57 AM [facility] Ctr MEROPENEM/VABORBACTAM<2(S)04/01/2025 9:57 AM [facility] Ctr NITROFURANTOIN<32(S)04/01/2025 9:57 AM [facility] Ctr PIPERACILLIN/TAZOBACTAM<8(S)04/01/2025 9:57 AM [facility] CtrTETRACYCLINE>8(R)04/01/2025 9:57 AM [facility] Ctr TIGECYCLINE<2(S)04/01/2025 9:57 AM [facility] CtrTOBRAMYCIN <2(S)04/01/2025 9:57 AM [facility] Ctr TRIMETHOPRIM/SULFAMETHOXAZOLE<0.5/9.5(S)04/01/2025 9:57 AM [facility] CtrSpecimen (Source)Anatomical Location / Laterality Collection Method / VolumeCollection TimeReceived TimeUrineUrine specimen obtained by clean catch procedure / Gmjrwra9603/30/2025 5:50 AM EST03/30/2025 11:41 AM ESTComment:Clean-Voided Midstream Narrative Authorizing ProviderResult TypeResult StatusValerie Bassem Floro CNMFIRELANDSFinal ResultPerforming OrganizationAddressCity/State/ZIP CodePhone Number [facility] [address] [place] [address], [facility] [address] [place] [address] * [facility] DRUG SCREEN RAPID (URINE) (03/30/2025 5:50 AM [...] 6:58 AM EST Authorizing ProviderResult TypeResult StatusValedylon Luevano Anabinta PUENTELINISYNCFinal ResultPerforming OrganizationAddressCity/State/ZIP CodePhone Number CLINISYNC [facility] * (ABNORMAL) [facility] URINALYSIS, WITH MICROSCOPIC [...] #/HPFTBHCAST SEEN?NONE SEENNONE SEEN #/LPFTBHURINE CULTURE INDICATED YES-[facility]LL[facility]pecimen (Source)Anatomical Location / LateralityCollection Method / VolumeCollection TimeReceived Time03/30/2025 5:50 AM EST03/30/2025 6:39 AM EST Narrative CLINISYNC - 03/30/2025 7:09 AM EST Authorizing ProviderResult TypeResult StatusValerie Bassem [facility]inta [facility]OSPITALLINISYNCFinal ResultPerforming OrganizationAddressCity/State/ZIP CodePhone Number [facility] * Urine culture (03/30/2025 5:50 AM EST)ComponentValueRef RangeTest Method Analysis TimePerformed AtPathologist SignatureFR ORGANISMEscherichia coli 04/01/2025 9:57 AM [facility] CtrCOLONY COUNT30,000 04/01/2025 9:57 AM [facility] CtrFR ORGANISMLactobacillus xqepfemk66/28/2025 9:57 AM [facility] CtrCOLONY COUNT >100,4229806/02/2024 9:57 AM [facility] CtrORGANISM COMMENTS Organism not Routinely Tested for Rwcbodklgqnoivig63/28/2025 9:57 AM [facility] CtrSpecimen (Source)Anatomical Location / LateralityCollection Method / VolumeCollection TimeReceived TimeUrineUrine specimen obtained by clean catch procedure / Vjhdzha0003/30/2025 5:50 AM EST 03/30/2025 11:41 AM ESTComment:Clean-Voided Midstream Narrative [facility] - 04/01/2025 9:57 AM EST Diagnosis: Comment: Authorizing ProviderResult TypeResult StatusValericharlotte Perezbinta CNMLAB MICROBIOLOGY - GENERAL ORDERABLESFinal ResultPerforming OrganizationAddressCity/State/ZIP CodePhone Number [facility] [address] [place] [address], [facility] [address] [place] [address] * OB GROWTH (03/27/2025 10:11 AM EST)Anatomical RegionLateralityModalityOther Specimen (Source)Anatomical Location / LateralityCollection Method / Volume Collection TimeReceived Time03/27/2025 10:11 AM EST Narrative 03/27/2025 10:14 AM EST [facility] ?[address] ? [place] [address] ? Ultrasound Report ? Signed ? Patient: RULA TONY ?MR#: [id number] ?? : 2000 ?Acct:[id number] ?? Age/Sex: 24 / F ?ADM Date: 03/26/25 ?? Loc: US ? Attending Dr: JAH PETTIT APRN, CNM ? Ordering Physician: JAH PETTIT APRN, CNM ?? Date of Service: 03/26/25 ?? Procedure(s): US OB growth ?? Accession Number(s): [id number] ? cc: JAH PETTIT APRN, CNM; Physician,Non-Staff M.D. ? [facility] ? [address] ? [place] [address] ? Patient Name: ?? RULA TONY ? MRN: TBH:[id number] ? date: 2000 ?Sex: F ?? Assigned Patient Location: US ?? Current Patient Location: [facility] ?? Accession/Order Number: [id number] ?? Exam Date: 03/26/2025 ??15:29 ?Report Date: 03/27/2025 ??10:11 ? At the request of: ?? JAH ??AMI ??EXPRESS CLERK CNM ? Procedure: ??US OB growth ? [...] Dictation Location: RADIO-PC-30 ? Electronically authenticated by: [id number] ??Y ?? Date: 03/27/2025 ??10:11 ? Dictated By: ?Vaishali Harris M.D. ? Signed By: ?03/27/25 1014 ? DD/ 1011 ? TD/TT: ? Direct Marketing Intern: Procedure Note Radiology, Radiologist, MD - 03/27/2025 [place] [address] Ultrasound Report Signed Patient: RULA TONY JMR#: [id number] : 2000Acct:[id number] Age/Sex: 24 / FADM Date: 03/26/25 Loc: US Attending Dr: JAH PETTIT APRN, CNM Ordering Physician: JAH PETTIT APRN, CNM Date of Service: 03/26/25 Procedure(s): US OB growth Accession Number(s): [id number] cc: JAH PETTIT APRN, CNM; Physician,Non-Staff M.D. The [place] [id number] Patient Name: RULA TONY MRN: [id number] date: 2000 Sex: F Assigned Patient Location: Current Patient Location: [facility] Accession/Order Number: [id number] Exam Date: 03/26/2025 15:29 Report Date: 03/27/2025 [...] Harris M.D. 03/27/2025 10:11 AM Dictation Location: [employer] Electronically authenticated by: [id number] Y Date: 0:11 Dictated By: Vaishali Harris M.D. Signed By:03/27/25 1014 DD/ 1011 TD/TT: Direct Marketing Intern: Authorizing ProviderResult TypeResult StatusValericharlotte Pettit [facility] Final Result * US OB BPP W NON-STRESS (03/27/2025 10:11 AM EST)Anatomical Region LateralityModalityOtherSpecimen (Source)Anatomical Location / Laterality Collection Method / VolumeCollection TimeReceived Time03/27/2025 10:11 AM EST Narrative 03/27/2025 10:14 AM EST [facility] ?[address] ? [place] [address] ? Ultrasound Report ? Signed ? Patient: KLEBERBRYNNRULA Orta ?MR#: [id number] ?? : 2000 ?Acct:[id number] ?? Age/Sex: 24 / F ?ADM Date: 03/26/25 ?? Loc: US ? Attending Dr: JAH PETTIT APRN, CNM ? Ordering Physician: JAH PETTIT APRN, CNM ?? Date of Service: 03/26/25 ?? Procedure(s): US OB BPP w non-stress ?? Accession Number(s): [id number] ? cc: JAH PETTIT APRN, CNM; Physician,Non-Staff M.D. ? [facility] ? [address] ? [place] [address] ? Patient Name: ?? RULALUIS FELIPE TONY ? MRN: [facility]:[id number] ? date: 2000 ?Sex: F ?? Assigned Patient Location: [facility] ?? Current Patient Location: [facility] ?? Accession/Order Number: [id number] ?? Exam Date: 03/26/2025 ??15:29 ?Report Date: 03/27/2025 ??10:11 ? At the request of: ?? JAH ??FLORO ??EXPRESS CLERK CNM ? Procedure: ??US OB growth ? [...] Dictation Location: RADIO-PC-30 ? Electronically authenticated by: [id number] ??Y ?? Date: 03/27/2025 ??10:11 ? Dictated By: ?Vaishali Harris M.D. ? Signed By: ?12/23/25 1014 ? DD/ 1011 ? TD/TT: ? Direct Marketing Intern: Procedure Note Radiology, Radiologist, - 03/27/2025 [place] [address] Ultrasound Report Signed Patient: RULA TONY JMR#: [id number] : 2000Acct:[id number] Age/Sex: 24 / FADM Date: 03/26/25 Loc: US Attending Dr: JAH PETTIT APRN, CNM Ordering Physician: JAH PETTIT APRN, CNM Date of Service: 03/26/25 Procedure(s): US OB BPP w non-stress Accession Number(s): [id number] cc: JAH PETTIT APRN, CNM; Physician,Non-Staff M.D. [facility] [place] [id number] Patient Name: RULA TONY MRN: [id number] date: 2000 Sex: F Assigned Patient Location: [facility] Current Patient Location: [facility] Accession/Order Number: [id number] Exam Date: 03/26/2025 15:29 Report Date: 03/27/2025 [...] Harris M.D. 03/27/2025 10:11 AM Dictation Location: [employer] Electronically authenticated by: [id number] Y Date: 0:11 Dictated By: Vaishali Harris M.D. Signed By:03/27/25 1014 DD/ 1011 TD/TT: Direct Marketing Intern: Authorizing ProviderResult TypeResult StatusSaint Barnabas Medical Centercharlotte Pettit [facility] Final Result * US biophysical profile [...] Nuno Collins MD Authorizing ProviderResult TypeResult Juan PUENTENMMG OB US PROCEDURESFinal Result * STREPTOCCOUS, GROUP B CULTURE (03/12/2025 4:31 PM EST)ComponentValueRef Range Test MethodAnalysis TimePerformed AtPathologist SignatureMICRO [id number] QUESTSPECIMEN QUALITYAdequateQUESTSOURCEVAGINAL/ANORECTALQUESTSTATUSFINALQUEST RESULTSEE NOTEQUESTComment: No group B Streptococcus isolated COMMENTSEE NOTEQUESTComment: Note per CDC guidelines optimal recovery is achieved by swabbing both the lower vagina and rectum (through the anal sphincter). Specimen (Source)Anatomical Location / LateralityCollection Method / Volume Collection TimeReceived Time03/12/2025 4:31 PM EST03/12/2025 4:32 PM EST Narrative Resulting Agency Comment Performing Organization Information ?Site ID: QPT ?Name: [facility] ?Address: [address] [place] [phone] ?Director: Luiz Dale MD Authorizing ProviderResult TypeResult [...] BY: Nuno Collins MD Authorizing ProviderResult TypeResult StatusValericharlotte Luevano [facility] PROCEDURESFinal Result * TSH W/REFLEX TO FT4 [...] Performing Organization Information ?Site ID: QPT ?Name: [facility] ?Address: [address] [place] [address], [address] [place] [address] ?Director: Luiz Dale MD Authorizing ProviderResult TypeResult StatusValerie L Floro CNMLAB BLOOD ORDERABLESFinal ResultPerforming OrganizationAddressCity/State/ZIP CodePhone Number [facility] * GLUCOSE TOLERANCE TEST, GESTATIONAL,4SPEC(100G) (01/23/2025 8:31 AM EDT) ComponentValueRef RangeTest MethodAnalysis TimePerformed AtPathologist SignatureGLUCOSE, CINUNAD0116 - 94 mg/dLQUESTGLUCOSE, 1 KTGE832<180 mg/dLQUEST GLUCOSE, 2 HOUR93<155 mg/dLQUESTGLUCOSE, 3 HOUR74<140 mg/dLQUESTCOMMENTQUEST Comment: ?? Wylie/Coustan Criteria: Two or more values greater than the above reference intervals are suggestive of gestational diabetes. Specimen (Source)Anatomical Location / LateralityCollection Method / Volume Collection TimeReceived Time01/23/2025 8:31 AM EDT1 8:31 AM EDT Narrative Resulting Agency Comment Performing Organization Information ?Site ID: QPT ?Name: [facility] ?Address: [address] [place] [address], [address] [place] [address] ?Director: Luiz Dale MD Authorizing ProviderResult TypeResult StatusValerie L Floro CNMLAB BLOOD ORDERABLESFinal ResultPerforming OrganizationAddressty/State/ZIP CodePhone Number [facility] * US OB limited [...] Collins MD Authorizing ProviderResult TypeResult StatusJah Pettit CNMIMG OB US PROCEDURESFinal Result * (ABNORMAL) GLUCOSE, GESTATIONAL SCREEN (50G)-135 CUTOFF (01/17/2025 2:50 PM EDT)ComponentValueRef RangeTest MethodAnalysis TimePerformed AtPathologist SignatureGLUCOSE, GESTATIONAL SCREEN (50G)-135 ZCWGVA770(H)<135 mg/dLQUEST Comment: One hour value of > or = 135 mg/dL indicates the need for a diagnostic 75 g dose 2-hour or 100 g dose 3-hour oral glucose tolerance test; patient fasting is required. Specimen (Source)Anatomical Location / LateralityCollection Method / Volume Collection TimeReceived Time01/17/2025 2:50 PM EDT1 2:51 PM EDT Narrative Resulting Agency Comment Performing Organization Information ?Site ID: QPT ?Name: [facility] ?Address: [address] [place] [address], [address] [place] [phone] ?Director: Luiz Dale MD Authorizing ProviderResult TypeResult StatusJah Pettit CNMLAB BLOOD ORDERABLESFinal ResultPerforming OrganizationAddressCity/State/ZIP CodePhone Number [facility] * (ABNORMAL) CBC (01/17/2025 2:50 PM EDT)ComponentValueRef RangeTest Method Analysis TimePerformed AtPathologist SignatureWHITE BLOOD CELL COUNT8.33.8 - 10.8 Thousand/uLQUESTRED BLOOD CELL COUNT3.833.80 - 5.10 Million/uLQUEST KJXETEWICL08.7(L)11.7 - 15.5 g/oQFDHNHLWXXFVMESV22.0(L)35.0 - 45.0 %QUESTMCV 88.880.0 - 100.0 kYYBJDHTML34.927.0 - 33.0 agOASCVBRQQ69.5(L)32.0 - 36.0 g/dL QUESTComment: For adults, a slight decrease in the calculated MCHC value (in the range of 30 to 32 g/dL) is most likely not clinically significant; however, it should be interpreted with caution in correlation with other red cell parameters and the patient's clinical condition. RDW14.011.0 - 15.0 %QUESTPLATELET WOHPE657195 - 400 Thousand/eQXXMBSBLU96.07.5 - 12.5 fLQUESTSpecimen (Source)Anatomical Location / LateralityCollection Method / VolumeCollection TimeReceived TimeBloodVenous blood specimen / Unknown 01/17/2025 2:50 PM EDT1 2:51 PM EDT Narrative Resulting Agency Comment Performing Organization Information ?Site ID: QPT ?Name: [facility] ?Address: [address] [place] [address], [address] [place] [phone] ?Director: Luiz Dale MD Authorizing ProviderResult TypeResult StatusValedylon Pettit CNAB BLOOD ORDERABLESFinal ResultPerforming OrganizationAddressCity/State/ZIP CodePhone Number [facility] from Last 3 Months Insurance Care Teams Team MemberRelationshipSpecialtyStart DateEnd Date Zully Alejandro MD [address] [place] [address] PCP - GeneralFamily Medicine08/11/22
--- OUTSIDE RECORDS SUMMARY | 2025-04-03 08:23 | XMS_ITS | Encounter Summary ---
Author Organization [facility] Address [address] [place] [address] Care Team Providers Care [employer] Name Role Phone Zully Alejandro MD Primary Care Provider Encounter Details DateTypeDepartmentCare Team (Latest Contact Info)Mvakliuprye57/18/2025Travel Social History Tobacco UseTypesPacks/DayYears UsedDateSmoking Tobacco: NeverSmokeless Tobacco: NeverAlcohol UseStandard Drinks/WeekCommentsNot Currently0 (1 standard drink = 0.6 oz pure alcohol)caffeine: 1-2 cups per dayEdinburgh Depression ScaleAnswerDate RecordedEdinburgh Depression Scale Lnslx34107/14/2023The thought of harming myself has occurred to me.Never4CommentsYes Sex and Gender InformationValueDate RecordedSex Assigned at BirthFemale 09/22/2022 12:13 PM EDTLegal QhhQsxqeo03/14/2023 12:13 PM EDTGender Identity Safawt7609/22/2022 12:13 PM EDTSexual NhxzcaslxkmPbhzqfdv88/20/2023 12:13 PM EDT documented as of this encounter Plan of Treatment DateTypeDepartmentCare Team (Latest Contact Info)Bpvasfmyffz19/31/2025 10:00 AM ESTPostpartum Visit KAC[facility] SOSA [address] [place] [address] Caro Pettit CNM [address] [place] [address] documented as of this encounter Visit Diagnoses Not on filedocumented in this encounter Care Teams Team MemberRelationshipSpecialtyStart DateEnd Date Zully Alejandro MD [address] [place] [address] PCP - GeneralFamily Medicine08/11/22documented as of this encounter
--- OUTSIDE RECORDS SUMMARY | 2025-04-03 08:23 | XMS_ITS | CCD ---
Author Organization [facility] Care Team Providers Care Tank Shop Supervisor Name Role Phone Zully Kerr MD Primary [...] (Original)acetaminophen 500 mg oral tablet (1 source)Start: 09-07-3026npmauikqbtlxv (TYLENOL) tablet 1,000 mgacetaminophen 325 mg / oxyCODONE hydrochloride 5 mg oral tablet (1 source)Opioid AgonistStart: 10-11-2021 End: 66-00-6607eygDWZPZY-acetaminophen (PERCOCET) 5-325 MG per tablet Indications: Delivery of by section Take 1 tablet by mouth every 6 hours as needed for Pain for up to 7 days. Intended supply: 3 days. Take lowest dose possible to manage pain 28 tablet 0 10/11/2021 10/18/2021 Active1 ml carboprost 0.25 mg/ml injection (1 source)Prostaglandin AnalogStart: 13-46-1873gzfvzcgwyn (HEMABATE) injection 250 mcgcephalexin 500 mg oral capsule (1 source)Cephalosporin AntibacterialStart: 83-69-6584zkcz 500 mg by mouth four times dailyCephalexin Active 500 MG PO Four times daily 28 September 04, 2023 12:00amcholecalciferol 0.05 mg oral capsule (6 sources)Vitamin Dtake 1 capsule by mouth once dailycholecalciferol (Vitamin D-3) 50 MCG (1999 UT) capsule take 1 capsule by mouth once daily for 30 Active1 ml diphenhydrAMINE hydrochloride 50 mg/ml cartridge (1 source)Histamine-1 Receptor AntagonistStart: 16-65-2451axtciqdelrTFITI (BENADRYL) injection 25 mgdocusate sodium 100 mg oral capsule (6 sources)Start: 01-22-2025 End: 84-10-0962sijm 1 capsule by mouth in the morningdocusate sodium (Colace) 100 MG capsule Indications: Anemia during in third trimester (HHS-HCC) Take 1 capsule (100 mg) by mouth in the morning and 1 capsule (100 mg) before bedtime. 60 capsule 3 01/22/2025 05/22/2025 ActiveStart: 01-38-5261nlxv 1 capsule by mouth twice dailydocusate sodium (COLACE) 100 MG capsule Take 1 capsule by mouth 2 times daily 60 capsule 0 10/11/2021 Activedocusate sodium 50 mg / sennosides, custodial 8.6 mg oral tablet (1 source)Start: 80-56-4739axzzdmorie-docusate sodium (SENOKOT-S) 8.6-50 MG tablet 1 tablet0.6 ml enoxaparin sodium 100 mg/ml prefilled syringe (1 source)Low Molecular Weight HeparinStart: 30-78-8439dmmwinzkrh (LOVENOX) injection 60 mgferrous sulfate 325 mg delayed release oral tablet (4 sources)Start: 01-22-2025 End: 12-23-4807yzsg 1 tablet by mouth in the morningferrous [...] tablet (2 sources)Nonsteroidal Anti-inflammatory DrugStart: 10-10-2021 End: 41-05-3190uabg 1 tablet by mouth every eight hours as needed for pain ibuprofen (ADVIL;MOTRIN) 800 MG tablet Take 1 tablet by mouth every 8 hours as needed for Pain 30 tablet 1 10/11/2021 Activelanolin 1000 mg/ml topical cream (1 source)Start: 21-30-8327mkyhupjh lanolin ointmentlevothyroxine sodium 0.088 mg oral tablet (20 sources)l-ThyroxineStart: 09-06-2024 End: 60-68-1791blns 1 tablet by mouth before mealtimelevothyroxine (Synthroid) 88 MCG tablet Indications: Hypothyroidism, unspecified type Take 1 tablet(88 mcg) by mouth in the morning. Take before meals. 30 tablet 1 02/12/2025 02/12/2026 ActiveStart: 01-31-2024 End: 68-66-8685esmd 1 tablet by mouth before mealtimelevothyroxine (Synthroid, Levoxyl) 75 MCG tablet Indications: Acquired hypothyroidism (CMS/HCC) , Other specified hypothyroidism Take 1 tablet (75 mcg) by mouth in the morning. Take before meals. 90 tablet 3 09/05/2024 10/05/2024 ActiveStart: 40-37-3004gkvp 75 ug by mouth once dailyLevothyroxine Active 75 MCG PO Daily September 04, 2023 12:00amStart: 87-91-3928jume 1 tablet by mouth before mealtimelevothyroxine (Synthroid) 75 MCG tablet Indications: Acquired hypothyroidism (CMS/HCC) , Other specified hypothyroidism (CMS/HCC) Take 1 tablet (75 mcg) by mouth in the morning. Take before meals. 90tablet 3 02/09/2023 ActiveStart: 09-59-4994ajzc 1 tablet by mouth once daily in the morninglevothyroxine (Synthroid, Levoxyl) 50 MCG tablet Indications: Acquired hypothyroidism (CMS/HCC) take 1 tablet by mouth every morning ON AN EMPTY STOMACH 100 tablet 1 09/14/2022 ActiveStart: 10-08-2021 End: 10-80-4605fvrnfqxrswwhc (SYNTHROID) tablet 50 mcglevothyroxine (SYNTHROID) 75 MCG tablet Take 50 mcg by mouth Daily 0 Activetake 1 tablet by mouth once dailylevothyroxine (SYNTHROID) 75 MCG tablet Take 75 mcg by mouth Daily 0 Suspended1 ml methylergonovine maleate 0.2 mg/ml injection (1 source)Ergot DerivativeStart: 52-00-6198tplvsofdnkwstzea (METHERGINE) injection 200 mcgmetroNIDAZOLE 7.5 mg/ml topical lotion (3 sources)Nitroimidazole AntimicrobialStart: 05-10-2023 End: 41-02-2058xrnguAORLIUGM (Metrolotion) 0.75 % lotion lotion Indications: Dermatitis Apply 1 application topically in the morning and 1 application before bedtime. Do all this for 10 days. 59 mL 1 05/10/2023 05/20/2023 Active miSOPROStol 0.1 mg oral tablet (1 source)Prostaglandin E1 AnalogStart: 95-71-0270aeOLPYAUrvs (CYTOTEC) tablet 800 mcgMultivitamin preparation (1 source)Start: 11-00-9367crjh 1 tablet by mouth once dailyMultivitamin Active 1 TAB PO Daily September 04, 2023 12:00am1 ml nalbuphine hydrochloride 10 mg/ml injection (1 source)Opioid Agonist/AntagonistStart: 40-20-6677bhuuiqdgzp (NUBAIN) injection 10 mg1 ml naloxone hydrochloride 0.4 mg/ml injection (1 source)Opioid AntagonistStart: 66-13-3988ypwoizub (NARCAN) injection 0.4 mg2 ml ondansetron 2 mg/ml injection (1 source)Serotonin-3 Receptor AntagonistStart: 70-50-4791ymzhvonpbkl (ZOFRAN) injection 4 mgoxyCODONE hydrochloride 5 mg oral tablet (2 sources)Opioid AgonistStart: 80-57-1508pyaVGSSBP (ROXICODONE) immediate release tablet 10 mgStart: 24-69-4448qgrUMUYSZ (ROXICODONE) immediate release tablet 5 mgoxytocin (PITOCIN) 10 unit bolus from the bag (1 source)Start: 65-60-3883osqsghcj (PITOCIN) 10 unit bolus from the bagPrenatal [...] 27-1 MG tablet 1 tablet (1 source)Start: 13-53-6699vwqabfcj vitamin 27-1 MG tablet 1 tabletsimethicone 80 mg chewable tablet (1 source)Start: 10-86-2650ldkrzrcmonj (MYLICON) chewable tablet 80 mg Completed/Discontinued Medications MedicationDrug Class(es)DatesSig (Normalized)Sig (Original)calcium chloride 0.0014 meq/ml / potassium chloride 0.004 meq/ml / sodium chloride 0.103 meq/ml / sodium lactate 0.028 meq/ml injectable solution (3 sources)Start: 10-07-2021 End: 68-99-8214nmlhrvdz ringers infusioncefOXitin (MEFOXIN) 2000 mg in dextrose 5% 50 mL (mini-bag) (1 source)Start: 10-08-2021 End: 49-60-6973pshWYoljn (MEFOXIN) 2000 mg in dextrose 5% 50 mL (mini-bag)citric acid 66.8 mg/ml / sodium citrate 100 mg/ml oral solution (1 source)Calculi Dissolution Agent, Anti-coagulantStart: 10-08-2021 End: 68-69-4888uplpoc acid-sodium citrate (BICITRA) solution 30 mLStart: 10-08-2021 End: 37-27-0228vwgznr acid-sodium citrate (BICITRA) solution 30 mLfamotidine (PEPCID) 20 mg in sodium chloride (PF) 10 mL injection (1 source)Start: 10-08-2021 End: 28-78-5048cvqbnzfkyu (PEPCID) 20 mg in sodium chloride (PF) 10 mL injection 1 ml ketorolac tromethamine 30 mg/ml cartridge (1 source)Nonsteroidal Anti-inflammatory Drug, Cyclooxygenase InhibitorStart: 10-09-2021 End: 79-87-6550kzvw 30 mg intravenously every eight hoursketorolac (TORADOL) injection 30 mg2 ml metoclopramide 5 mg/ml prefilled syringe (1 source)Dopamine-2 Receptor AntagonistStart: 10-08-2021 End: 64-43-6466xnbdyopyajiigy (REGLAN) injection 10 mgStart: 10-08-2021 End: 28-69-0868pherxpgjldjgxk (REGLAN) injection 10 mgmiSOPROStol (CYTOTEC) pre- split tablet TABS 25 mcg (1 source)Start: 10-07-2021 End: 11-45-7577hbRTHVDTipr (CYTOTEC) pre-split tablet TABS 25 mcgoxytocin (PITOCIN) 30 units in 500 mL infusion (1 source)Start: 10-07-2021 End: 64-31-6328ajmnxjgg (PITOCIN) 30 units in 500 mL infusionpenicillin g potassium 7944668 unt/ml injectable solution (1 source)Penicillin-class AntibacterialStart: 10-08-2021 End: 14-33-3267onazegwfty G potassium 3108550 units nxezzmndy835 ml ropivacaine hydrochloride 2 mg/ml injection (1 source)Amide Local AnestheticStart: 10-08-2021 End: 26-79-421331 mL/hr, Epidural, CONTINUOUS, Starting on Wed10/08/21 at 1445, Until Wed10/09/21 [place] [address] ml sodium chloride 9 mg/ml injection (10 sources)Start: 48-24-5135ybpj 1 dose intravenously twice daily5-40 mL, IntraVENous, [...] PACU onlyStart: .9 % sodium chloride infusionStart: 10-16-0534wsno 5-40 mL intravenously once as needed5-40 mL, [...] = 20 mL/lumen PACU onlyStart: 10-07-2021 End: 28-13-8289vivbgj chloride flush 0.9 % injection 10 mLzolpidem tartrate 5 mg oral tablet (1 source)gamma-Aminobutyric Acid-ergic AgonistStart: 10-07-2021 End: 57-19-9552hyhiatki (AMBIEN) tablet 5 mg Problems Problem ClassificationProblemDateDocumented DateEpisodic/ChronicAnxiety disorders (20 sources)Generalized anxiety disorder; Translations: [Generalized anxiety disorder]Onset: 369606-43-5674KeyzbniVjoxm distress and abnormal forces of labor (4 sources)Failure to progress in labor; Translations: [Other uterine inertia] Onset: 10-09-2021 Resolved: 46-33-1021ZrqiaxnsBibofmgwx disorders (1 source)Amenorrhea; Translations: [Amenorrhea, unspecified]93-83-4088Ppxxtjn Mood disorders (20 sources)Minor depressive disorder; Translations: [Other specified depressive episodes]Onset: 612529-70-4644EaxhtqpBmblzdriltwz breast conditions (2 sources)Acute mastitis; Translations: [Mastitis without abscess]09-04-2023 EpisodicOther complications of ; puerperium affecting management of mother (2 sources)Deliveries by ; Translations: [Encounter for delivery without indication]EpisodicOther nervous system disorders (4 sources)Choroid plexus cyst; Translations: [Cerebral cysts]38-70-4612Nhhksop Other and delivery including normal (20 sources)Patient encounter status; Translations: [Encounter for supervision of normal , unspecified, unspecified trimester]Onset: 10-07-2021 Resolved: 53-85-0332GyvaozpdOnkhk screening for suspected conditions (not mental disorders or infectious disease) (6 sources)Finding related to ; Translations: [Encounter for other specified screening]73-23-3057LqduqftoXljerip disorders (20 sources)Hypothyroidism; Translations: [Hypothyroidism, unspecified]Onset: hronic Results Test NameValueInterpretationReference RangeFacilityUS OB FOLLOW UP TRANSABDOMINAL APPROACHon 11-62-9915KB OB FOLLOW UP TRANSABDOMINAL APPROACH FINDINGS: A [...] BY: Ann-Marie VangUS OB LIMITED 1+ FETUSESon 07-50-2308WB OB LIMITED 1+ FETUSESFINDINGS: Single viable intrauterine with cephalic presentation and a posterior Grade 1 placenta not associated with the closed internal cervical os. Intracranial evaluation at this time demonstrates no hydrocephalus or significant choroid plexus cyst formation. IMPRESSION: Normal intracranial appearance, viable intrauterine . TRANSCRIBED BY: ELECTRONICALLY SIGNED BY: Ann-Marie Vang AvailableUS OB LIMITED 1+ FETUSESon 64-82-6630LJ OB LIMITED 1+ FETUSESFINDINGS: Comparison November 17, [...] Vang AvailableUS OB 14+ WEEKS ANATOMY SCANon 06-92-1579OH OB 14+ WEEKS ANATOMY SCANFINDINGS: A single, [...] Ann-Marie Vang AvailableHCG ( test) Ql (U)on 33-78-7972Csvvfocrlgyfdl and review of laboratory resultsAbnormal [facility]OMS HealthcarePreg Test, UrPositiveNegativeNOMS The Jewish HospitalNOSac-Osage HospitalUS OB < 14 WEEKS EARLYon 55-28-6019TC OB < 14 WEEKS EARLYEXAM: US OB [...] II, MD, PHD at 22-Aug-2024 11:00:23 PM [facility] TeleradiologyNormalNot AvailableHemoglobinon 45-97-7883Tpexeovgfa (Bld) [Mass/Vol]8.7 g/dLLow11.9-15.1MPremier Health Atrium Medical CenterComment on above: Performed By: #### HGB #### [address] [place] [address] Ivf Embryologist: iMchael Hector MDHemoglobin (Bld) [Mass/Vol]8.7 g/dLLow11.9 - 15.1 g/dLBON GUERNSEY MEMORIAL HOSPITALInterpretation and review of laboratory results AbnormalBON GUERNSEY MEMORIAL HOSPITALBON [facility]ERNSE[facility] MEMORIAL HOSPITALOPERATIVE REPORTon 06-28-5375OBUCUTROC REPORTMER[address] [address] OPERATIVE REPORT PATIENT NAME: RULA TONY : 2000 MED REC NO: [id number] ROOM: 0203 ACCOUNT NO: [id number] ADMIT DATE: 10/07/2021 PROVIDER: Monalisa Norman MD DATE OF PROCEDURE: 10/08/2021 Date upon completion of the procedure is 10/09/2021. PREOPERATIVE DIAGNOSIS: Failure to progress in labor. POSTOPERATIVE DIAGNOSES: Failure to progress in labor plus occiput posterior confirmed and LOT presentation. PROCEDURE PERFORMED: Primary section, low-transverse uterine segment. SURGEON: Monalisa Norman M.D. ANESTHESIA: Epidural. CLINICAL THERAPIST: Jah ePttit. ESTIMATED BLOOD LOSS: 600 mL. COMPLICATIONS OF [...] and extended in a semilunar fashion with charge operator's fingers and then the OP presentation was noted. Sciences Dean's fingers inserted in the uterus. head elevated [...] the left side of the incision and justto-jj-toodr sutures were placed across this to prevent any further expansion. The uterus closed in two layers with 0 chromic. A bitsca-om-apvcg suture was placed in the right superior [...] block obtained. MONALISA NORMAN MD [id number] Doc#: [id number] CC:[facility] auto differentialon 24-14-6488Symuwysw Eos # 0.07[facility] HEALTHAbsolute Immature Granulocyte0.03[facility] HEALTHAbsolute Lymph #2.08[facility] HEALTHAbsolute Sandoval #0.33[facility] HEALTHBasophils (Bld) [#/Vol]10*3/uLBON SECOURS MERCY HEALTHBasophils/100 WBC (Bld)0 %0 - 2 %[facility] HEALTHEosinophils/100 WBC (Bld)1 %1 - 4 % [facility] HEALTHHematocrit (Bld) [Volume fraction]35.5 %Low36.3 - 47.1 % [facility] MEDICAL CENTERHemoglobin (Bld) [Mass/Vol]11.4 g/dLLow11.9 - 15.1 g/dL [facility]ICAL CENTERImmature granulocytes/100 WBC (Bld)0 %0[facility]ICAL CENTERInterpretation and review of laboratory resultsAbnormalBON GUERNSEY MEMORIAL HOSPITALLymphocytes/100 WBC (Bld)23 %Low25 - 45 %[facility] SYSTEMH (RBC) [Entitic mass]28.1 pg25.2 - 33.5 pgBON AVITA HEALTH SYSTEMHC (RBC) [Mass/Vol]32.1 g/dL28.4 - 34.8 g/dLBON SECPARKVIEW HEALTHV (RBC) [Entitic vol]87.4 fL82.6 - 102.9 fLSOUTHSIDE REGIONAL MEDICAL CENTERMonocytes/100 WBC (Bld)4 %2 - 8 %[facility] MEDICAL CENTERNRBC Automated0.00.0 per 100 WBCSOUTHSIDE REGIONAL MEDICAL CENTERPlatelet distribution width (Bld) [Ratio]15.0 %High11.8 - 14.4 %[facility] MEDICAL CENTERPlatelet mean volume (Bld) [Entitic vol]11.5 fL8.1 - 13.5 fL [facility] HEALTHPlatelets (Bld) [#/Vol]278 10*3/uLSOUTHSIDE REGIONAL MEDICAL CENTERRBC (Bld) [#/Vol]4.06 10*6/uL3.95 - 5.11 m/uLSOUTHSIDE REGIONAL MEDICAL CENTER Segmented neutrophils/100 WBC (Bld)72 %High34 - 64 %S[facility] MEDICAL CENTERSegs Absolute6.54B[facility] GUERN[facility] MEMORIAL HOSPITALWBC (Bld) [#/Vol]9.1 10*3/uLSPOTSYLVANIA REGIONAL MEDICAL CENTERCBC with Diffon 47-14-9587Qgv. Basophil<0.03 Normal0.00-0.20Parkview HealthComment on above:Performed By: #### CDP #### [facility] [address] [place] [address] Ivf Embryologist: Jennifer Pickard.Imm.Granulocyte0.03 k/uLNormal0.00-0.30[facility] HospitalComment on above:Performed By: #### CDP #### [address] [place] [address] Ivf Embryologist: Jennifer Pickard.Neutrophil (Seg)6.54 k/uLNormal1.50-8.10[facility] HospitalComment on above:Performed By: #### CDP #### [address] [place], [place] [address] Ivf Embryologist: Michael Hector MDBasophils/100 WBC (Bld)0 %Normal0-2MGreen Cross Hospital HospitalComment on above:Performed By: #### CDP #### [address] [place] [address] Ivf Embryologist: Michael Hector MDEosinophils (Bld) [#/Vol]0.07 10*3/uLNormal 0.00-0.44[facility] HospitalComment on above:Performed By: #### CDP #### [address] [place], [place] [address] Ivf Embryologist: Michael Hector MDEosinophils/100 WBC (Bld)1 %Normal1-4[facility] HospitalComment on above:Performed By: #### CDP #### [address] [place], [place] [address] Ivf Embryologist: Michael Hector MDErythrocyte distribution width (RBC) [Ratio]15.0 % High11.8-14.4[facility] HospitalComment on above:Performed By: #### CDP #### [address] [place] [id number] Ivf Embryologist: Michael Hector MDHematocrit (Bld) [Volume fraction]35.5 %Low 36.3-47.1MGreen Cross Hospital HospitalComment on above:Performed By: #### CDP #### [address] [place], [facility]83 Ivf Embryologist: Michael Hector MDHemoglobin (Bld) [Mass/Vol]11.4 g/dLLow11.9-15.1 [facility] HospitalComment on above:Performed By: #### CDP #### [address] [place], [facility]83 Ivf Embryologist: Michael Hector MDImmature granulocytes/100 WBC (Bld)0 %Vdxjka1Ijsmv [facility]in HospitalComment on above:Performed By: #### CDP #### [address] [place], [facility]83 Ivf Embryologist: Michael Hector MDLymphocytes (Bld) [#/Vol]2.08 10*3/uLNormal 1.10-3.70[facility] HospitalComment on above:Performed By: #### CDP #### [address] [place], [facility]83 Ivf Embryologist: Dahlia Pickardmphocytes/100 WBC (Bld)23 %Pif32-57Pzkin [facility]iffin HospitalComment on above:Performed By: #### CDP #### [address] [place], [place] [address] Ivf Embryologist: HAYDER PickardCH (RBC) [Entitic mass]28.1 myXlkpjs23.2-33.5 [facility] HospitalComment on above:Performed By: #### CDP #### [address] [place] [address] Ivf Embryologist: HAYDER PickardCHC (RBC) [Mass/Vol]32.1 g/eIEwdyzw09.4-34.8[facility] HospitalComment on above:Performed By: #### CDP #### [address] [place] [address] Ivf Embryologist: HAYDER PickardCV (RBC) [Entitic vol]87.4 fXAowcan27.6-102.9 [facility] HealthComment on above:Performed By: #### CDP #### [address] [place], [place] [id number] Ivf Embryologist: HAYDER Pickardonocytes (Bld) [#/Vol]0.33 10*3/uLNormal0.10-1.40 [facility] HealthComment on above:Performed By: #### CDP #### [address] [place], [place] [id number] Ivf Embryologist: HAYDER Pickardonocytes/100 WBC (Bld)4 %Normal2-8[facility] HealthComment on above:Performed By: #### CDP #### [address] [place] [address] Ivf Embryologist: Marv Pickardutrophil (Seg)72 %Gjeb34-57VzrgbParkview Health Comment on above:Performed By: #### CDP #### [address] [place] [address] Ivf Embryologist: Michael Hector MDNRBC Automated0.0 per 100 WBCNormal0.0Parkview HealthComment on above:Performed By: #### CDP #### [address] [place] [address] Ivf Embryologist: Tasha Pickardtelet mean volume (Bld) [Entitic vol]11.5 fL Normal8.1-13.5Parkview HealthComment on above:Performed By: #### CDP #### [address] [place], [place] [address] Ivf Embryologist: Tasha Pickardtelets (Bld) [#/Vol]278 10*3/qIWeesnw701-820 [facility] HealthComment on above:Performed By: #### CDP #### [facility] [address] [place], [place] [id number] Ivf Embryologist: ALTA Pickard ([facility]) [#/Vol]4.06 10*6/uLNormal3.95-5.11[facility] HealthComment on above:Performed By: #### CDP #### [facility] [address] [place] [address] Ivf Embryologist: LORI Pickard ([facility]) [#/Vol]9.1 10*3/uLNormal4.5-13.5Parkview HealthComment on above:Performed By: #### CDP #### [facility] [address] [place] [address] Dr. [place], [place] [id number] Ivf Embryologist: Michael Hector MDDRUG SCREEN MULTI URINEon 68-09-8130Gqkhfhbhhow Screen, UrNegativeNEGATIVEBON SECOURS MERCY HEALTHBarbiturate Screen, UrNegative [...] [facility] HEALTHDrug Scr, Abuse, Uron 90-60-8873Qbzwldtxkwn(s),Ur NegativeNormalNEGMercy Mcgrath HospitalComment on above:Performed By: #### LAYA #### [facility] [address] [place] [address] [place] [address] Ivf Embryologist: Michael Hector MDBarbiturate(s),UrNegativeNormalNEGMercy Mcgrath HospitalComment on above:Performed By: #### LAYA #### [facility] [address] [place] [address] [place] [address] Ivf Embryologist: Michael Hector MDBenzodiazepine(s)NegativeNormalNEGMercy Mcgrath HospitalComment on above:Performed By: #### LAYA #### [address] [place], [place] [id number] Ivf Embryologist: Michael Hector MDBuprenorphrine, UrNegativeNormalNEGMercy Mcgrath HospitalComment on above:Performed By: #### LAYA #### [address] [place] [address] Ivf Embryologist: DAVID Pickardannabinoid(s),UrNegativeNormalNEGMercy Mcgrath HospitalComment on above:Performed By: #### LAYA #### [facility] [address] [place] [address] Dr. [place], [facility]83 Ivf Embryologist: DAVID Pickardocaine MetaboliteNegativeNormalNEGMercy Mcgrath HospitalComment on above:Performed By: #### LAYA #### [facility] [address] [place] [address] Dr. [place], [facility]83 Ivf Embryologist: HAYDER Pickardethadone Ql (U)NegativeNormalNEGMercy Mcgrath HospitalComment on above:Performed By: #### LAYA #### [facility] [address] [place] [address] Dr. [place], [place] [id number] Ivf Embryologist: HAYDER Pickardethamphetamine, UrNegativeNormalNEGMercy Mcgrath HospitalComment on above:Performed By: #### LAYA #### [address] [place], [place] [id number] Ivf Embryologist: Michael Hector MDOpiate(s), UrNegativeNormalNEGMercy Mcgrath HospitalComment on above:Performed By: #### LAYA #### [address] [place] [address] Ivf Embryologist: Michael Hector MDOxycodone, UrineNegativeNormalNEGMercy Mcgrath HospitalComment on above:Performed By: #### LAYA #### [address] [place], [place] [id number] Ivf Embryologist: MARGO Pickardhencyclidine, UrNegativeNormalNEGMercy Mcgrath HospitalComment on above:Performed By: #### LAYA #### [address] [place] [address] Ivf Embryologist: MARGO Pickardropoxyphene,UrineNegativeNormalNEGMercy [facility] Children'S HospitalComment on above:Performed By: #### LAYA #### [address] [place], [place] [id number] Ivf Embryologist: Michael Hector MDTricyclic antidepressants Screen Ql (U)Negative NormalNEGMercy Mcgrath HospitalComment on above:Result Comment: Drug screen results are to be used for medical purposes only. All positive results are unconfirmed. Testing for employment or legal uses should be sent to a reference laboratory for confirmation.Performed By: #### LAYA #### [address] [place], [place] [id number] Ivf Embryologist: MARTHA Pickard Biophysical Profileon 50-21-7156NV Biophysical ProfileHISTORY: Decreased movement FINDINGS: Breathing Movements2 Gross Body Movements 2 Tone2 Qualitative amniotic fluid volume2 A single, viable intrauterine is present. The placenta is anterior, not associated with the cervical os. IMPRESSION: 1. Normal biophysical profile 11/10 2. NIALL 23 cc (please see OB ultrasound report) Report reported and signed by Nuno Collins on 09/30/2021 0709NormalNortFostoria City HospitalTS w/ Reflex to Free T4on 66-54-9405YJO1.707 uIU/mL Normal0.400-4.500NortFostoria City HospitalComment on above:Performed By: #### 88707D, 6304R, 430A, 2782A, 08558, 50490U, 20525, 265F, 59125Q, 1149T, 42A, 77115 #### [facility] Default [address] [place], [place] [address]FQ OB Growthon 93-98-9884SM OB GrowthFINDINGS: Comparison made with prior ultrasound [...] Placenta Anterior Grade II Weight (g) by Oxpxsvcvdh78.4 % * These measurements result in an [...] and signed by Nuno Collins on 08/05/2021 0734NormalNortFostoria City HospitalComplete Blood Counton 43-91-1902Sfrccbbeoik distribution width (RBC) [Ratio]13.8 %Ejknst29.0-15.0NortMercy Health Clermont Hospital SpecialistComment on above:Performed By: #### 70252Y, 6304R, 430A, 2782A, 90602, 77102R, 06141, 265F, 25555T, 1149T, 42A, 84814 #### [facility] Default [address] [place], [place] [address]Xyrxlreyir (Bld) [Volume fraction]32.8 %Low35.0-47.0NortMercy Health Clermont Hospital SpecialistComment on above:Performed By: #### 67138V, 6304R, 430A, 2782A, 64768, 21681T, 70382, 265F, 70281R, 1149T, 42A, 48832 #### [facility] Default [address] [place], [place] [address]Pgoglrvtyj (Bld) [Mass/Vol]10.7 g/dLLow11.6-15.5NortMer[facility] SpecialistComment on above:Performed By: #### 63450O, 6304R, 430A, 2782A, 87478, 18947X, 39329, 265F, 59452B, 1149T, 42A, 49536 #### [facility] Default [address] [place], [place] [address]GYG (RBC) [Entitic mass]28.3 fsBvfygw69.0-33.0NortMer[facility] SpecialistComment on above:Performed By: #### 74864F, 6304R, 430A, 2782A, 86064, 16538Z, 17464, 265F, 30740I, 1149T, 42A, 08178 #### [facility] Default [address] [place], [place] [address]GTWM (RBC) [Mass/Vol]32.6 g/gYAfdivf08.0-36.0NortMer[facility] SpecialistComment on above:Performed By: #### 31032K, 6304R, 430A, 2782A, 81112, 30065X, 94515, 265F, 99862K, 1149T, 42A, 40011 #### [facility] Default [address] [place], [place] [address]VMI (RBC) [Entitic vol]87 lYJtgxjn45-509Nctflgze [place] [facility] SpecialistComment on above:Performed By: #### 37144L, 6304R, 430A, 2782A, 54004, 97469Y, 13014, 265F, 53478H, 1149T, 42A, 57503 #### [facility] Default [address] [place], [place] [address]Hgrqmsyt mean volume (Bld) [Entitic vol]10.50 fLNormal7.50-12.50 [facility] SpecialistComment on above:Performed By: #### 56144N, 6304R, 430A, 2782A, 11046, 28667J, 77581, 265F, 78621V, 1149T, 42A, 52073 #### [facility] Default [address] [place], [place] [address]Abgzeamfj (Bld) [#/Vol]304 10*3/mUUtpott859-054Pfpdbhcy [place] [facility] SpecialistComment on above:Performed By: #### 61397J, 6304R, 430A, 2782A, 55044, 64537B, 71051, 265F, 72274Y, 1149T, 42A, 58386 #### [facility] Default [address] [place], [place] [address]PLB (Bld) [#/Vol]3.78 10*6/uLLow3.90-5.20No[facility] SpecialistComment on above:Performed By: #### 65737R, 6304R, 430A, 2782A, 93866, 44649I, 09924, 265F, 25348P, 1149T, 42A, 55731 #### [facility] Default [address] [place], [place] [address]HHC-VB34.8 dLRsnbji78.0-50.0No[facility] Specialist Comment on above:Performed By: #### 78723F, 6304R, 430A, 2782A, 26040, 19710Z, 91733, 265F, 42759U, 1149T, 42A, 91329 #### [facility] [address] [place] [address]PPW (Bld) [#/Vol]8.2 10*3/uLNormal3.8-11.0NoSelect [facility] SpecialistComment on above:Performed By: #### 13259P, 6304R, 430A, 2782A, 94659, 77771G, 39997, 265F, 00921C, 1149T, 42A, 18242 #### [facility] Default [address] [place] [address]Rltsacf - Gestational Screenon 77-93-1049Oylksth [Mass/Vol]106 mg/dLNormal<135NoWright-Patterson Medical CenterComment on above:Result Comment: A value of 135 mg/dL or greater indicates the need for a full glucose tolerance test performed in the fasting state to determine if the patient has gestational diabetes.Performed By: #### 77929G, 6304R, 430A, 2782A, 46996, 01111S, 97894, 265F, 27759V, 1149T, 42A, 72035 #### [facility] Default [address] [place] [address]SMX w/ Reflex to Free T4on 21-89-5194RGR9.140 uIU/mLNormal 0.400-4.500NoSelect [facility] SpecialistComment on above:Performed By: #### 40511X, 6304R, 430A, 2782A, 85000, 02041K, 29095, 265F, 63152M, 1149T, 42A, 03354 #### [facility] Default [address] [place] [address]QKY w/ Reflex to Free T4on 01-09-7434FXS0.270 uIU/mLNormal 0.400-4.500NoSelect [facility] SpecialistComment on above:Performed By: #### 27729X, 6304R, 430A, 2782A, 91126, 78397W, 70733, 265F, 93216W, 1149T, 42A, 06877 #### [facility] Default [address] [place], [place] [address]RC Abdomen Limitedon 24-67-5155NS Abdomen LimitedHISTORY: Umbilical pain x 6 hours, [...] signed by Nuno Collins on 05/28/2021 0718NormalNorthern [facility] SpecialistTSH w/ Reflex to Free T4on 93-53-3538FBU1.320 uIU/mL Normal0.400-4.500Norten[facility]n [facility] SpecialistComment on above:Performed By: #### 03183N, 6304R, 430A, 2782A, 52230, 56199E, 57816, 265F, 82846U, 1149T, 42A, 01041 #### [facility] Default [address] [place], [place] [address]YBE, External Resulton 34-09-5305FYE, External ResultPositiveBON [employer] Phone: c. Trachomatis, External Resulton 03-21-2021. Trachomatis, External ResultNot detectedBON [employer] Phone: HIV, External Resulton 86-28-1977FKA, External Result Non-ReactiveBON [employer] Phone: Hepatitis B, External Resulton 75-13-3493Rsn B, External ResultNon-ReactiveBON [employer] Phone: N. Gonorrhoeae, External Resulton 03-21-2021N. Gonorrhoeae, External ResultNot detectedBON [employer] Phone: No Panel Informationon 52-15-1395Ry Factor, External ResultPositiveBON [employer] Phone: bON [employer] Phone: BON [employer] Work Phone: RPR, External Labon 81-74-9491YYZ, External Result Non-ReactiveBON [employer] Work Phone: Uubella Titer, External Resulton 24-43-5716Ggpsden Titer, External Result4.18 immuneBON [employer] Work Phone: Q - ABO GROUP AND RH TYPEon 37-53-7750XDQ group Nom (Bld)ANormalNortencompass health valley of the sun rehabilitation hospitaln [place] [facility]'S Medical CenterComment on above:Order Comment: [facility] performed at: [facility], [address] [place] [address], [address] [place] [address], [address], Software Support Representative: Luiz Dale MD [facility] Collection Date/Time: [facility] Results Received Date/Time: [facility] Reported Date/Time: [id number] By: #### 49753U, 6304R, 430A, 2782A, 05683, 38196C, 21488, 265F, 96273H, 1149T, 42A, 98075 #### [facility] Default [address] [place] [address] TYPEPositiveNormalNoWright-Patterson Medical CenterComment on above:Order Comment: [facility] performed at: [employer], [facility], [address] [facility], [address] [place] [address], [address], Software Support Representative: Luiz Dale MD [facility] Date/Time: [id number] [facility] Results Received Date/Time: [facility] Reported Date/Time: [id number] Comment: For additional information, please refer to http://education.Combined Effort/faq/MOZ452 (This link is being provided for informational/ educational purposes only.)Performed By: #### 54656G, 6304R, 430A, 2782A, 30382, 07243Q, 62284, 265F, 49437Y, 1149T, 42A, 79564 #### [facility] Default [address] [place] [address]E - ANTIBODY SCREEN,RBC W/REFL ID,TITER AND AGon 03-18-2021 ANTIBODY SCREEN, RBC W/REFL ID, TITER AND AGDetectedNormalNorthern [facility] Children'S Medical CenterComment on above:Order Comment: [facility] performed at: [employer], [employer], [address] , [address] [place] [address], [address], Software Support Representative: Luiz Dale MD [facility] Date/Time: [facility] Results Received Date/Time: [facility] Reported Date/Time: [id number] Comment: Reference range No antibodies detected This assay is a screening test for the detection of red blood cell antibodies. The test is not to be used for pretransfusion screening or for the medical management of an alloimmunized .Performed By: #### 82509I, 6304R, 430A, 2782A, 07328, 57810G, 67772, 265F, 71552O, 1149T, 42A, 00971 #### [facility] Default [address] [place] [address]U - CBC W/DIFF AND PLTon 92-77-4114IKYKOKI81 cells/uLNormal0-200 [facility] HospitalComfresenius [facility] on above:Order Comment: [facility] performed at: [employer], [facility], [address] , [address] [place] [address], [address], Software Support Representative: Luiz Dale MD [facility] Date/Time: [id number] [facility] Results Received Date/Time: [facility] Reported Date/Time: [id number] By: #### 85497H, 6304R, 430A, 2782A, 67174, 75956F, 63440, 265F, 59564Z, 1149T, 42A, 25157 #### [facility] Default [address] [place], [place] [address]Xnbwfzeoq/100 WBC (Bld)0.3 %NormalNorthern [place] Medical SpecialistComment on above:Order Comment: [facility] performed at: [facility], [facility], [address] [facility], [address] [place] [address], [address] [place] [address], Software Support Representative: Luiz Dale MD [facility] Date/Time: [facility] Results Received Date/Time: [facility] Reported Date/Time: [id number] By: #### 02616T, 6304R, 430A, 2782A, 38400, 25593G, 88511, 265F, 05270I, 1149T, 42A, 89485 #### [facility] Default [address] [place], [place] [address]MDXMWT465 cells/fCSiaaex01-855Ucdrceck [place] [employer] Comment on above:Order Comment: [facility] performed at: [facility], [facility], [address] [facility], [address] [place] [address], [address], Software Support Representative: Luiz Dale MD [facility] Date/Time: [facility] Results Received Date/Time: [facility] Reported Date/Time: [id number] By: #### 01484C, 6304R, 430A, 2782A, 19735, 46432V, 90500, 265F, 35234C, 1149T, 42A, 18854 #### [facility] Default [address] [place], [place] [address]Cypozkzhvyp/100 WBC (Bld)1.5 %[facility] SpecialistComment on above:Order Comment: [facility] performed at: [facility], [employer], [address] , [address] [place] [address], [address], Software Support Representative: Luiz Dale MD [facility] Date/Time: [facility] Results Received Date/Time: [facility] Reported Date/Time: [id number] By: #### 57930E, 6304R, 430A, 2782A, 72529, 71379B, 44065, 265F, 86384P, 1149T, 42A, 79280 #### [facility] Default [address] [place], [place] [address]Himftzybcww distribution width (RBC) [Ratio]14.4 %Mjyoun42.0-15.0 [facility] SpecialistComment on above:Order Comment: [facility] performed at: [facility], [facility], [address] [place] [address], [address] [place] [address], [address] [place] [address], Software Support Representative: Luiz Dale MD [facility] Collection Date/Time: [facility] Results Received Date/Time: [facility] Reported Date/Time: [id number] By: #### 09194M, 6304R, 430A, 2782A, 17735, 37544O, 71361, 265F, 14602L, 1149T, 42A, 48364 #### [facility] Default [address] [place], [place] [address]Uzbbvdoyho (Bld) [Volume fraction]37.8 %Xilpzw21.0-45.0[facility] SpecialistComment on above:Order Comment: [facility] performed at: [facility], [facility], [address] [place] [address], [address] [place] [address], [address] [place] [address], Software Support Representative: Luiz Dale MD [facility] Date/Time: [facility] Results Received Date/Time: [facility] Reported Date/Time: [id number] By: #### 67863R, 6304R, 430A, 2782A, 68928, 18397D, 17659, 265F, 50238V, 1149T, 42A, 68930 #### [facility] Default [address] [place], [place] [address]Ufctxwagfz (Bld) [Mass/Vol]12.6 g/zLRaabpd58.7-15.5[facility] SpecialistComment on above:Order Comment: [facility] performed at: [facility], [employer], [address] [place] [address], [address] [place] [address], [address] [place] [address], Software Support Representative: Luiz Dale MD [facility] Collection Date/Time: [facility] Results Received Date/Time: [facility] Reported Date/Time: [id number] By: #### 67482O, 6304R, 430A, 2782A, 82320, 47212A, 75790, 265F, 87439G, 1149T, 42A, 32294 #### [facility] Default [address] [place], [place] [address]Kibmbinfxry (Bld) [#/Vol]1.956 10*3/zBZdobvm007-8580Aykmooks [place] [facility] SpecialistComment on above:Order Comment: [facility] performed at: [employer], [employer], [address], [address] [place] [address], [address] [place] [address], Software Support Representative: Luiz Dale MD [facility] Collection Date/Time: [facility] Results Received Date/Time: [facility] Reported Date/Time: [id number] By: #### 10839F, 6304R, 430A, 2782A, 69064, 18483G, 39520, 265F, 99933F, 1149T, 42A, 26607 #### [facility] Default [address] [place], [place] [address]Uhcvmumdcvo/100 WBC (Bld)29.2 %NormalNoSelect [facility] SpecialistComment on above:Order Comment: [facility] performed at: [employer], [employer], [address], [address] [place] [address], [address], Software Support Representative: Luiz Dale MD [facility] Collection Date/Time: [facility] Results Received Date/Time: [facility] Reported Date/Time: [id number] By: #### 07632Q, 6304R, 430A, 2782A, 15831, 99559A, 14790, 265F, 64487U, 1149T, 42A, 35909 #### [facility] Default [address] [place], [place] [address]FKM (RBC) [Entitic mass]28.7 wtDcjygv72.0-33.0[facility] [place] [facility] SpecialistComment on above:Order Comment: [facility] performed at: [facility], [employer] [facility], [address], [address] [place] [address], [address] [place] [address], Software Support Representative: Luiz Dale MD [facility] Collection Date/Time: [facility] Results Received Date/Time: [facility] Reported Date/Time: [id number] By: #### 63385K, 6304R, 430A, 2782A, 35348, 78405L, 27560, 265F, 46288S, 1149T, 42A, 59710 #### [facility] Default [address] [place], [place] [address]COHI (RBC) [Mass/Vol]33.3 g/pDZlweym58.0-36.0[facility] [place] [facility] SpecialistComment on above:Order Comment: [facility] performed at: [facility], [employer], [address] , [address] [place] [address], [place], [address] [place] [address], Software Support Representative: Luiz Dale MD [facility] Collection Date/Time: [facility] Results Received Date/Time: [facility] Reported Date/Time: [id number] By: #### 62268B, 6304R, 430A, 2782A, 67513, 05183K, 18019, 265F, 28627Z, 1149T, 42A, 93626 #### [facility] Default [address] [place], [place] [address]FSM (RBC) [Entitic vol]86.1 wPDukyfi27.0-100.0[facility] [place] [facility] SpecialistComment on above:Order Comment: [facility] performed at: [facility], [employer], [address] , [address] [place] [address], [address] [place] [address], Software Support Representative: Luiz Dale MD [facility] Collection Date/Time: [facility] Results Received Date/Time: [facility] Reported Date/Time: [id number] By: #### 00258U, 6304R, 430A, 2782A, 60770, 53170O, 31740, 265F, 70860Q, 1149T, 42A, 89344 #### [facility] Default [address] [place], [place] [address]ZDQBCEL905 cells/uEEkuxns512-491Dguootow [place] [employer] Operator Comment on above:Order Comment: [facility] performed at: [facility], [facility], [address] , [address] [place] [address], [address], Software Support Representative: Luiz Dale MD [facility] Collection Date/Time: [facility] Results Received Date/Time: [facility] Reported Date/Time: [id number] By: #### 10226P, 6304R, 430A, 2782A, 93462, 85721E, 44202, 265F, 39051Q, 1149T, 42A, 43002 #### [facility] Default [address] [place], [place] [address]Mneqvgnje/100 WBC (Bld)6.0 %NormalNoLoma Linda [facility] Medical SpecialistComment on above:Order Comment: [facility] performed at: [facility], [employer] [facility], [address], [address] [place] [address], [address], Software Support Representative: Luiz Dale MD [facility] Collection Date/Time: [facility] Results Received Date/Time: [facility] Reported Date/Time: [id number] By: #### 31911V, 6304R, 430A, 2782A, 63345, 98159Y, 57107, 265F, 08326Z, 1149T, 42A, 18004 #### [facility] Default [address] [place], [place] [address]Poaxdppflwe (Bld) [#/Vol]4.221 10*3/nYKvvdzh3904-2439Ydvyksyj [place] [facility] SpecialistComment on above:Order Comment: [facility] performed at: [employer], [employer], [address] [facility], [address] [place] [address], [address] [place] [address], Software Support Representative: Luiz Dale MD [facility] Collection Date/Time: [facility] Results Received Date/Time: [facility] Reported Date/Time: [id number] By: #### 33267Z, 6304R, 430A, 2782A, 08921, 48708G, 65755, 265F, 90161S, 1149T, 42A, 04048 #### [facility] Default [address] [place], [place] [address]Dynsvjddhfi/100 WBC (Bld)63 %NormalNoWright-Patterson Medical CenterComment on above:Order Comment: [facility] performed at: [employer], [employer], [address] [facility], [address] [place] [address], [address], Software Support Representative: Luiz Dale MD [facility] Collection Date/Time: [facility] Results Received Date/Time: [facility] Reported Date/Time: [id number] By: #### 82393T, 6304R, 430A, 2782A, 86766, 27992O, 09784, 265F, 08406C, 1149T, 42A, 76092 #### [facility] Default [address] [place], [place] [address]Amrkonyr mean volume (Bld) [Entitic vol]11.1 fLNormal7.5-12.5 [facility] SpecialistComment on above:Order Comment: [facility] performed at: [employer], [employer], [address] [facility], [address] [place] [address], [address], Software Support Representative: Luiz Dale MD [facility] Collection Date/Time: [id number] [facility] Results Received Date/Time: [facility] Reported Date/Time: [id number] By: #### 29071I, 6304R, 430A, 2782A, 31464, 47756H, 05581, 265F, 89310S, 1149T, 42A, 17235 #### [facility] Default [address] [place], [place] [address]Utexdqlkb (Bld) [#/Vol]322 10*3/kQUlykhi495-285Pxtlkgme [place] [facility] SpecialistComment on above:Order Comment: [facility] performed at: [facility], [employer], [address] , [address] [place] [address], [address] [place] [address], Software Support Representative: Luiz Dale MD [facility] Collection Date/Time: [facility] Results Received Date/Time: [facility] Reported Date/Time: [id number] By: #### 99094A, 6304R, 430A, 2782A, 13362, 83347H, 11160, 265F, 52583V, 1149T, 42A, 37882 #### [facility] Default [address] [place], [place] [address]JOY (d) [#/Vol]4.39 10*6/uLNormal3.80-5.10NoSelect [facility] SpecialistComment on above:Order Comment: [facility] performed at: [employer], [address] , [address] [place] [address], [address] [place] [address], Software Support Representative: Luiz Dale MD [facility] Collection Date/Time: [id number] [facility] Results Received Date/Time: [facility] Reported Date/Time: [id number] By: #### 36228E, 6304R, 430A, 2782A, 19782, 11138F, 56389, 265F, 44312F, 1149T, 42A, 87182 #### [facility] Default [address] [place], [place] [address]SZZ (Bld) [#/Vol]6.7 10*3/uLNormal3.8-10.8NoSelect [facility] SpecialistComment on above:Order Comment: [facility] performed at: [facility], [address], [address] [place] [address], [address] [place] [address], Software Support Representative: Luiz Dale MD [facility] Collection Date/Time: [facility] Results Received Date/Time: [facility] Reported Date/Time: [id number] By: #### 24793B, 6304R, 430A, 2782A, 42843, 58871K, 03149, 265F, 67584M, 1149T, 42A, 78024 #### [facility] Default [address] [place], [place] [address]U - CHLAMYDIA TRACHOMATIS/NEISSERIA GONORRHOEAE RNA TMAon 97-65-5741AZEDJWGCW TRACHOMATIS RNA, TMA, UROGENITALNot detectedNormalNOT DETECTEDNorthern [facility] SpecialistComment on above:Order Comment: [facility] performed at: [employer], [employer], [address], [address] [place] [address], [address] [place] [address], Software Support Representative: Luiz Dale MD [facility] Collection Date/Time: [facility] Results Received Date/Time: [facility] Reported Date/Time: [id number] By: #### 63508I, 6304R, 430A, 2782A, 05500, 17235I, 54162, 265F, 61205P, 1149T, 42A, 82078 #### [facility] Default [address] [place], [place] [address]LIBABJAYDZ NOTENormalNorthern [facility] SpecialistComment on above:Order Comment: [facility] performed at: [employer], [employer], [address], [address] [place] [address], [address] [place] [address], Software Support Representative: Luiz Dale MD [facility] Collection Date/Time: [facility] Results Received Date/Time: [facility] Reported Date/Time: [id number] Comment: The analytical performance characteristics of this assay, when used to test SurePath(TM) specimens have been determined by [employer]. The modifications have not been cleared or approved by the FDA. This assay has been validated pursuant to the CLIA regulations and is used for clinical purposes. For additional information, please refer to https://education.Immedia/faq/FUC622 (This link is being provided for information/ educational purposes only.)Performed By: #### 01029B, 6304R, 430A, 2782A, 33234, 89253L, 24227, 265F, 91188K, 1149T, 42A, 89036 #### [facility] Default [address] [place], [place] [address]Qbwqts Comment: See Note 1 Note 1 This drug testing is for medical treatment only. Analysis was performed as non-forensic testing and these results should be used only by healthcare providers to render diagnosis or treatment, or to monitor progress of medical conditions. For assistance with interpreting these drug results, please contact a [employer] Toxicology Specialist: [phone] ( [phone] M-F, 8am-6pm EST.NEISSERIA GONORRHOEAE RNA, TMA, UROGENITALNot detectedNormalNOT DETECTEDNorthern [facility] SpecialistComment on above:Order Comment: [facility] performed at: [facility], [address] [place] [address], [address], Software Support Representative: Luiz Dale MD [facility] Collection Date/Time: [id number] [facility] Results Received Date/Time: [id number] [facility] Reported Date/Time: [id number] By: #### 10349R, 6304R, 430A, 2782A, 40996, 34941B, 90312, 265F, 44720H, 1149T, 42A, 53157 #### [facility] Default [address] [place], [place] [address]N - CULTURE,URINE,ROUTINEon 83-22-5348OIINXUX, URINE, ROUTINESEE NOTEAbnormalNorthern [facility] Center SpecialistComment on above:Order Comment: [facility] performed at: [employer], [employer], [address] [place] [address], [address] [place] [address], [address], Software Support Representative: Luiz Dale MD [facility] Collection Date/Time: [id number] [facility] Results Received Date/Time: [id number] [facility] Reported Date/Time: [id number] Comment: CULTURE, URINE, ROUTINE Micro Number: [id number] Test Status: Final Specimen Source: Not given [...] cefprozil, cefuroxime, cephalexin and loracarbef.Performed By: #### 66286Y, 6304R, 430A, 2782A, 70588, 52527L, 52806, 265F, 13566K, 1149T, 42A, 12312 #### [facility] Default [address] [place], [place] [address]Q - DRUG TOX MONITORING 6 WITH CONFIRMATION,URINEon 03-18-2021 AmphetaminesNegativeNormal<500[facility] [place] [facility] SpecialistComment on above: Order Comment: [facility] performed at: [facility], [facility], [address] [place] [address], [address] [place] [address], [address] [place] [address], Software Support Representative: Luiz Dale MD Quest Collection Date/Time: Quest Results Received Date/Time: Quest Reported Date/Time: [id number] By: #### 21927B, 6304R, 430A, 2782A, 18023, 95571R, 59009, 265F, 56316B, 1149T, 42A, 54856 #### [facility] [address] [place], [place] [address]KgcqescsqqmlOhycqjeaTltegp<300[place] [employer] Operator Comment on above:Order Comment: Quest Testing performed at: [facility], [facility], [address] [place] [address], [address] [place] [address], [address] [place] [address], Software Support Representative: Luiz Dale MD Quest Collection Date/Time: Quest Results Received Date/Time: Quest Reported Date/Time: [id number] By: #### 47717V, 6304R, 430A, 2782A, 33180, 29376X, 81119, 265F, 92581J, 1149T, 42A, 88654 #### [facility] Default [address] [place], [place] [address]RvaycyawcxtqdpbLdbyhbohGkthnh<100[place] [employer] Operator Comment on above:Order Comment: Quest Testing performed at: [facility], [facility], [address] [place] [address], [address] [place] [address], [address] [place] [address], Software Support Representative: Luiz Dale MD Quest Collection Date/Time: Quest Results Received Date/Time: Quest Reported Date/Time: [id number] By: #### 54069N, 6304R, 430A, 2782A, 11495, 05895J, 62123, 265F, 39660Z, 1149T, 42A, 27638 #### [facility] Default [address] [place], [place] [address]Ljczrge MetaboliteNegativeNormal<150[facility] SpecialistComment on above:Order Comment: Quest Testing performed at: [facility], [facility], [address] , [address] [place] [address], [address] [place] [address], Software Support Representative: Luiz Dale MD Quest Collection Date/Time: Quest Results Received Date/Time: [id number] Quest Reported Date/Time: [id number] By: #### 92535B, 6304R, 430A, 2782A, 91641, 77106F, 60635, 265F, 39305Y, 1149T, 42A, 44952 #### [facility] Default [address] [place], [place] [address]Wmymtolwo Metabolite 20NegativeNormal<20[facility] SpecialistComment on above:Order Comment: Quest Testing performed at: [facility], [facility], [address] , [address] [place] [address], [address] [place] [address], Software Support Representative: Luiz Dale MD Quest Collection Date/Time: Quest Results Received Date/Time: [id number] Quest Reported Date/Time: [id number] By: #### 17802K, 6304R, 430A, 2782A, 30296, 09709S, 06009, 265F, 94685S, 1149T, 42A, 13078 #### [facility] Default [address] [place], [place] [address]Runeafriw MetaboliteNegativeNormal<100[facility] SpecialistComment on above:Order Comment: Quest Testing performed at: [facility], [facility], [address], [address] [place] [address], [address], Software Support Representative: Luiz Dale MD Quest Collection Date/Time: [id number] Quest Results Received Date/Time: Quest Reported Date/Time: [id number] By: #### 54731C, 6304R, 430A, 2782A, 61953, 99910I, 81336, 265F, 14532P, 1149T, 42A, 77431 #### [facility] Default [address] [place], [place] [address]QcckcirRyxqtwgvSwuafu<100[place] [facility] SpecialistComment on above:Order Comment: Quest Testing performed at: [employer], [facility], [address] [facility], [address] [place] [address], [address], Software Support Representative: Luiz Dale MD Quest Collection Date/Time: Quest Results Received Date/Time: Quest Reported Date/Time: [id number] By: #### 43584H, 6304R, 430A, 2782A, 44831, 97736H, 85051, 265F, 49084H, 1149T, 42A, 10928 #### [facility] Default [address] [place], [place] [address]KmmknblxtQhwzaoezMjkcsj<100[place] [employer] Operator Comment on above:Order Comment: Quest Testing performed at: [employer], [facility], [address] [place] [address], [address] [place] [address], [address], Software Support Representative: Luiz Dale MD Quest Collection Date/Time: Quest Results Received Date/Time: Quest Reported Date/Time: [id number] By: #### 37870L, 6304R, 430A, 2782A, 47267, 80968F, 02895, 265F, 77303G, 1149T, 42A, 95190 #### [facility] Default [address] [place], [place] [address]IlpwgvubisfciPinoyqfyTtjprd<25[place] [employer] Operator Comment on above:Order Comment: Quest Testing performed at: [employer], [facility], [address] , [address] [place] [address], [address] [place] [address], Software Support Representative: Luiz Dale MD Quest Collection Date/Time: Quest Results Received Date/Time: Quest Reported Date/Time: [id number] By: #### 33774D, 6304R, 430A, 2782A, 30433, 14557V, 02514, 265F, 48665O, 1149T, 42A, 81047 #### [facility] Default [address] [place], [place] [address]X - HEMOGLOBIN A1C WITH EAGon 76-89-0980nMP (mmol/L)5.5 mmol/L NormalNorthern [facility] SpecialistComment on above:Order Comment: Quest Testing performed at: [facility], [address] [place] [address], [address] [place] [address], [address] [place] [address], Software Support Representative: Luiz Dale MD Quest Collection Date/Time: Quest Results Received Date/Time: Quest Reported Date/Time: [id number] By: #### 69175C, 6304R, 430A, 2782A, 96541, 88393J, 98415, 265F, 88144L, 1149T, 42A, 57831 #### [facility] Default [address] [place], [place] [address]XPYKVMWUCL A1c5.1 % of total HgbNormal<5.7[facility] SpecialistComment on above:Order Comment: Quest Testing performed at: [facility], [address] [place] [address], [address] [place] [address], [address] [place] [address], Software Support Representative: Luiz Dale MD Quest Collection Date/Time: Quest Results Received Date/Time: Quest Reported Date/Time: [id number] Comment: For the purpose of screening for the presence of diabetes: <5.7% Consistent with the absence of diabetes 5.7-6.4% Consistent with increased risk for diabetes (prediabetes) > or =6.5% Consistent with diabetes This assay result is consistent with a decreased risk of diabetes. Currently, no consensus exists regarding use of hemoglobin A1c for diagnosis of diabetes in children. According to [place] Diabetes Association (ADA) guidelines, hemoglobin A1c <7.0% represents optimal control in non- diabetic patients. Different metrics may apply to specific patient populations. Standards of Medical Care in Diabetes(ADA).Performed By: #### 05922K, 6304R, 430A, 2782A, 64143, 25526U, 08748, 265F, 71057L, 1149T, 42A, 02036 #### [facility] Default [address] [place], [place] [address]Jakmzobga [Mass/Vol]100 mg/dLNormalNorthern [place] Medical SpecialistComment on above:Order Comment: Quest Testing performed at: [employer], [facility], [address] [facility], [address] [place] [address], [address], Software Support Representative: Luiz Dale MD Quest Collection Date/Time: [id number] Quest Results Received Date/Time: Quest Reported Date/Time: [id number] By: #### 22548V, 6304R, 430A, 2782A, 89798, 56242Z, 79167, 265F, 42898H, 1149T, 42A, 41699 #### [facility] Default [address] [place], [place] [address]J - HEPATITIS B SURFACE ANTIGEN W/ REFLEXon 68-68-0431ZZZFKJVBU B SURFACE RLBMJTSXej-VptzylwiEsnlluCHS-KZQYYGHDQoegvrvs [place] [employer] Operator Comment on above:Order Comment: Quest Testing performed at: [employer], [facility], [address] , [address] [place] [address], [address], Software Support Representative: Luiz Dale MD Quest Collection Date/Time: [id number] Quest Results Received Date/Time: Quest Reported Date/Time: [id number] By: #### 02102S, 6304R, 430A, 2782A, 60644, 84990W, 23688, 265F, 42509S, 1149T, 42A, 51772 #### [facility] Default [address] [place], [place] [address]V - HIV 1/2 ANTIGEN/ANTIBODY,FOURTH GENERATION W/RFLon 03-18-2021 HIV AG/AB, 4TH MDZUak-GphlvmnrJmlhgxNLK-XTSUDTWFQzzxnbek [place] [employer] Operator Comment on above:Order Comment: Quest Testing performed at: Q, [facility], [address], [address] [place] [address], [address], Software Support Representative: Luiz Dale MD Quest Collection Date/Time: [id number] Quest Results Received Date/Time: [id number] Quest Reported Date/Time: [id number] Comment: HIV-1 antigen and HIV-1/HIV-2 antibodies were [...] purpose. For additional information please refer to http://education.Inspiris.KeTech/faq/FPG822 (This link is being provided for informational/ educational purposes only.) The performance of this assay has not been clinically validated in patients less than 2 years old.Performed By: #### 13558I, 6304R, 430A, 2782A, 58641, 74239G, 84172, 265F, 25591Y, 1149T, 42A, 24262 #### [facility] Default [address] [place], [place] [address]Y - RPR (MONITOR) W/RFX TITERon 34-27-2811ZPQ (MONITOR) W/REFL GMRDNYyo-PicqarttHqieaaFPV-XZYYPEBKSkkndpaa [place] Medical SpecialistComment on above:Order Comment: Quest Testing performed at: [facility], [facility], [address], [address] [place], [address], Software Support Representative: Luiz Dale MD Quest Collection Date/Time: Quest Results Received Date/Time: Quest Reported Date/Time: [id number] By: #### 36765Z, 6304R, 430A, 2782A, 20406, 73479R, 45805, 265F, 55939H, 1149T, 42A, 71957 #### [facility] Default [address] [place], [place] [address]O - URINALYSIS WITH REFLEX TO MICROSCOPICon 36-02-2493Hghqjakvfb (U)CLEARNormalCLEARNorthern [facility] SpecialistComment on above:Order Comment: Quest Testing performed at: [facility], [facility], [address] [place] [address], [address] [place] [address], [address], Software Support Representative: Luiz Dale MD Quest Collection Date/Time: Quest Results Received Date/Time: Quest Reported Date/Time: [id number] By: #### 54951B, 6304R, 430A, 2782A, 39334, 28974V, 60576, 265F, 13585C, 1149T, 42A, 17081 #### [facility] Default [address] [place], [place] [address]Idzzdoeby Ql (U)NegativeNormalNEGATIVENorthern [facility] Medical [facility] SpecialistComment on above:Order Comment: Quest Testing performed at: [facility], [facility], [address] [place] [address], [address] [place] [address], [address], Software Support Representative: Luiz Dale MD Quest Collection Date/Time: Quest Results Received Date/Time: Quest Reported Date/Time: [id number] By: #### 61750N, 6304R, 430A, 2782A, 21670, 13758W, 25369, 265F, 60009K, 1149T, 42A, 01625 #### [facility] Default [address] [place], [place] [address]Lbsxa (U)YELLOWNormalYELLOWNorthern [place] [employer] Machine Operator Comment on above:Order Comment: Quest Testing performed at: [facility], [facility], [address] [facility], [address] [place] [address], [address] [place] [address], Software Support Representative: Luiz Dale MD Quest Collection Date/Time: Quest Results Received Date/Time: Quest Reported Date/Time: [id number] By: #### 22561Z, 6304R, 430A, 2782A, 91629, 09335H, 85530, 265F, 88997W, 1149T, 42A, 58329 #### [facility] Default [address] [place], [place] [address]Ayzjkbk Ql (U)NegativeNormalNEGATIVENoSelect [facility] SpecialistComment on above:Order Comment: Quest Testing performed at: [facility], [facility], [address] , [address] [place] [address], [address] [place] [address], Software Support Representative: Luiz Dale MD Quest Collection Date/Time: Quest Results Received Date/Time: Quest Reported Date/Time: [id number] By: #### 12237X, 6304R, 430A, 2782A, 38216, 24932C, 64508, 265F, 02141Y, 1149T, 42A, 86659 #### [facility] Default [address] [place], [place] [address]Ygqvfyc Ql (U)NegativeNormalNEGATIVEAdena Pike Medical Center SpecialistComment on above:Order Comment: Quest Testing performed at: [facility], [facility], [address] , [address] [place] [address], [address] [place] [address], Software Support Representative: Luiz Dale MD Quest Collection Date/Time: Quest Results Received Date/Time: Quest Reported Date/Time: [id number] By: #### 09011J, 6304R, 430A, 2782A, 19033, 33878Q, 90197, 265F, 23748O, 1149T, 42A, 57523 #### [facility] Default [address] [place], [place] [address]Cingywftl esterase Test strip Ql (U)NegativeNormalNEGATIVE [facility] Samaritan HospitalComment on above:Order Comment: Quest Testing performed at: [facility], [facility], [address] , [address] [place] [address], [address] [place] [address], Software Support Representative: Luiz Dale MD Quest Collection Date/Time: Quest Results Received Date/Time: [id number] Quest Reported Date/Time: [id number] By: #### 76478D, 6304R, 430A, 2782A, 64622, 41541J, 86220, 265F, 51547K, 1149T, 42A, 03594 #### [facility] Default [address] [place], [place] [address]Osgpjga Ql (U)NegativeNormalNEGATIVEAdena Pike Medical Center SpecialistComment on above:Order Comment: Quest Testing performed at: [facility], [facility], [address] , [address] [place] [address], [address] [place] [address], Software Support Representative: Luiz Dale MD Quest Collection Date/Time: Quest Results Received Date/Time: [id number] Quest Reported Date/Time: [id number] By: #### 01029S, 6304R, 430A, 2782A, 88042, 01258T, 88327, 265F, 43178F, 1149T, 42A, 31809 #### [facility] Default [address] [place], [place] [address]MMPLDM BLOODNegativeNormalNEGATIVEGood Samaritan HospitalComment on above:Order Comment: Quest Testing performed at: [facility], [facility], [address], [address] [place] [address], [address], Software Support Representative: Luiz Dale MD Quest Collection Date/Time: Quest Results Received Date/Time: Quest Reported Date/Time: [id number] By: #### 65270N, 6304R, 430A, 2782A, 61380, 73469Q, 48294, 265F, 57152D, 1149T, 42A, 83813 #### [facility] Default [address] [place], [place] [address]bF (U)6.5 [pH]Normal5.0-8.0[facility] [place] [employer] Operator Comment on above:Order Comment: Quest Testing performed at: [employer], [facility], [address] [facility], [address] [place] [address], [address], Software Support Representative: Luiz Dale MD Quest Collection Date/Time: Quest Results Received Date/Time: Quest Reported Date/Time: [id number] By: #### 72889C, 6304R, 430A, 2782A, 88523, 30637Z, 18170, 265F, 54869J, 1149T, 42A, 87625 #### [facility] Default [address] [place], [place] [address]Dupptfs Ql (U)NegativeNormalNEGATIVENorthern [facility] SpecialistComment on above:Order Comment: Quest Testing performed at: [employer], [facility], [address] , [address] [place] [address], [address], Software Support Representative: Luiz Dale MD Quest Collection Date/Time: Quest Results Received Date/Time: Quest Reported Date/Time: [id number] By: #### 34356R, 6304R, 430A, 2782A, 69287, 99259L, 04123, 265F, 55537P, 1149T, 42A, 40597 #### [facility] Default [address] [place], [place] [address]Arbpstck gravity (U) [Rel density]1.904Pvcoth3.001-1.035[facility] [place] [facility] SpecialistComment on above:Order Comment: Quest Testing performed at: Q[facility], [facility], [address], [address] [facility], [place], [address], Software Support Representative: Luiz Dale MD Quest Collection Date/Time: [id number] Quest Results Received Date/Time: [id number] Quest Reported Date/Time: [id number] By: #### 57840S, 6304R, 430A, 2782A, 27218, 25041D, 33309, 265F, 49238P, 1149T, 42A, 29971 #### [facility] Default [address] [place] [address] Vital Signs Date TimeVital SignValuePerforming QtrjczqypEsgoolkj85-67-4021 14:33-0400Body mass index (BMI) [Ratio]37.61 kg/j4Mgorflj Floro CNM Work Phone: [facility] MedicineVlxglvmizi15-01-2450 14:33-0400Body numcdj103.51 kgValerie Floro CNM Work Phone: [phone] MedicineVccqxanzee49-77-2687 11:35-0400Body mass index (BMI) [Ratio]36.44 kg/s1Xzqteuo Floro CNM Work Phone: [phone] MedicineDltnwaojid37-77-4062 11:35-0400Body tfezcw95.34 kgValerie Floro CNM Work Phone: [facility] MedicineLrqguozolf07-82-1174 11:35-0400Diastolic blood mm[Hg]Jah Floro CNM Work Phone: [facility] MedicineSvuduschht59-71-7219 11:35-0400Systolic blood qpnhvopl754 mm[Hg]Jah Floro CNM Work Phone: [facility] MedicineGxhajpaaat30-74-4575 16:34-0400Body mass index (BMI) [Ratio]35.11 kg/y3Mttogng Floro CNM Work Phone: [facility] MedicineNqogpuwwvn17-75-7536 16:34-0400Body .71 kgValerie Floro CNM Work Phone: [phone] [place], [place] [address]Mzvrsvrofg51-44-3810 16:34-0400Diastolic blood ivgwgifq68 mm[Hg]Jah Floro CNM Work Phone: [phone] [place], [place] [address]Uivqfiexio83-15-0002 16:34-0400Systolic blood jyryemjf676 mm[Hg]Jah Floro CNM Work Phone: 1(959)[address] [place], [place] 4927107-10-2025 13:35-0400Body mass index (BMI) [Ratio]34.61 kg/q6Zqzcljp Floro CNM Work Phone: 1(987)[address] [place], [place] 4927107-10-2025 13:35-0400Body ydbfru28.35 kgValerie Floro CNM Work Phone: 1(105)[address] [place], [place] 4927107-10-2025 13:35-0400Diastolic blood xawonohn43 mm[Hg]Jah Floro CNM Work Phone: 1(145)[address] [place], [place] 4927107-10-2025 13:35-0400Systolic blood aykrzioz661 mm[Hg]Jah Floro CNM Work Phone: 1(008)[address] [place], [place] 4927106-04-2025 16:34-0400Body mass index (BMI) [Ratio]34.78 kg/r2Ioylreh Floro CNM Work Phone: 1(754)[address] [place], [place] 4927106-04-2025 16:34-0400Body wnfdoz51.8 kg Jah Floro CNM Work Phone: 1(762)[address] [place], [place] 4927106-04-2025 16:34-0400Diastolic blood pbjhlwby33 mm[Hg]Jah Floro CNM Work Phone: 1(206)[address] [place], [place] 4927106-04-2025 16:34-0400Systolic blood gvpvythr085 mm[Hg]Jah Floro CNM Work Phone: [phone])[address] [place], [place] 4927105-19-2025 17:28-0400Body mass index (BMI) [Ratio]33.95 kg/z1Cppwysw Floro CNM Work Phone: 1(499)[address] [place], [place] 4927105-19-2025 17:28-0400Body xluxji01.53 kgJah Pettit CNM Work Phone: [facility] MedicineTcnedmvnmq04-99-5683 11:16-0400Body lowgin616.1 [facility] 11:16-0400Body mass index (BMI) [Ratio]33.9 kg/c9BdpecrgbpSheltering Arms Hospital06-01-2024 11:16-0400Body briexxmzhql57.5 [degF][facility]06-01-2024 11:16-0400Body pwkugi07.53 kgS[facility]06-[facility]-2024 11:16-0400Diastolic blood djuuznfn34 mm[Hg][facility]06-01-2024 11:16-0400 Heart rate92 /[facility]06-01-2024 11:16-1842HbM9% (BldA) [Mass fraction]99 %[facility]06-01-2024 11:16-0400 Systolic blood mvoapnwj207 mm[Hg][facility]02-12-2024 16:01-0500Body mass index (BMI) [Ratio]38.94 kg/x1JxvneoqJah Perezo CNM Work Phone: [facility] MedicineBterpojsws38-96-1923 16:01-0500Body nfokyx404.14 kgJah Pettit CNM Work Phone: [facility] MedicineBcdjvbjvvi63-46-5338 16:01-0500Diastolic blood pyncfzew83 mm[Hg]Jah Perezo CNM Work Phone: [facility] MedicineWfwkslywim13-84-8308 16:01-0500Systolic blood qattvdgu366 mm[Hg]Jah Perezo CNM Work Phone: [facility] MedicineQztyqziipz47-81-2613 07:17-0400Body temperature 98.1 [degF]Jah Anao CULLET TRUCKER - CNM Work Phone: [facility]07-09-2022 07:17-0400Diastolic blood htwmcyrg11 mm[Hg]Jah Anao CULLET TRUCKER - CNM Work Phone: [employer] SPULDQ75-40-3566 07:17-0400Heart rate75 /minJah Pettit APRN - CN Work Phone: [employer] PKCPMG36-02-9257 07:17-0400 Respiratory rate16 /minJah Pettit APRN - CNM Work Phone: [employer]07-09-2022 07:17-0400Systolic blood xovjhykh934 mm[Hg]Jah Pettit APRN - CN Work Phone: [employer]07-07-2022 02:22-2750RqO8% (BldA) [Mass fraction]99 %Jah Pettit APRN - CN Work Phone: [employer] ATFURD53-54-2607 22:56-0400Body epnmod419.1 cmVketan Pettit APRN - CN Work Phone: [employer] QWLDZO15-78-9358 22:56-0400Body mass index (BMI) [Ratio]38.44 kg/d8SmhyhomJah Pettit APRN - CN Work Phone: [employer] INJDVO95-53-6822 22:56-0400Body ogsuhr677.78 kgJah Pettit APRN - CN Work Phone: [employer]06-10-2022 15:40-0400Diastolic blood dpiglcjn77 mm[Hg]Micha Gisela CULLET TRUCKER - CN Work Phone: [employer]06-10-2022 15:40-0400Heart weai840 /minMegan Gisela CULLET TRUCKER - CNM Work Phone: [employer]06-10-2022 15:40-0400 Respiratory rate18 /minMegan Gisela CULLET TRUCKER - CNM Work Phone: [employer]06-10-2022 15:40-0400Systolic blood oqbufzpd849 mm[Hg]Micha Gisela CULLET TRUCKER - CNM Work Phone: [facility]06-10-2022 11:47-0400Body ebssjcjbplz82.01 [degF]Micha Ruffin CULLET TRUCKER - CNM Work Phone: [facility] Encounters Encounter DateEncounter TypeCare ProviderFacilityStart: 31-35-3612wkwqgjswct JAH L FLORONot AvailableStart: 02-12-2025 End: 30-19-3185Ogsdsf flowsheetValerie L Floro CNM Work Phone: [facility] [place] [facility]Start: 02-12-2025 End: 78-79-1321Rabixw flowsheetValerie L Floro CNM Work Phone: [facility] [place] [facility]YNStart: 02-09-2025 End: 14-73-9766Eyognzads encounterZully Alejandro MD Work Phone: [facility] [place] [facility] MedicineStart: 01-31-2025 End: 99-72-8794jlnqvyybvmSDADFNV L FLORONot AvailableStart: 01-17-2025 End: 32-36-9240dqmpkkpjchMMQPPBT L FLORONot AvailableStart: 01-17-2025 End: 45-78-9018Lsfwhdsjyx care visitValerie Bassem Perezo CN Work Phone: [facility] [place] OBGYNComment on above:Choroid plexus cyst (Primary Dx); Encounter for supervision of other normal , third trimester ([facility]); Hypothyroidism, unspecified type; Screening for diabetes mellitus; Screening for iron deficiency anemia; History of sectionStart: 01-17-2025 End: 68-44-4364Lrrmcv flowsheetValerie L Floro CNM Work Phone: [facility] [place] [facility]Start: 01-17-2025 End: 53-77-9191Uspxfo flowsheetValerie L Floro CNM Work Phone: [facility] [place] [facility]YNStart: 01-01-2025 End: 96-08-2110Lxbjot flowsheetValerie L Floro CNM Work Phone: [facility] [place] [facility]Start: 01-01-2025 End: 10-13-7322Dfbdbg flowsheetValerie L Floro CNM Work Phone: [facility] [place] [facility]Start: 01-01-2025 End: 44-57-3586pmucflzogvHMUOQHR L FLORONot AvailableStart: 01-01-2025 End: 40-66-5234Qlkkmxzjve care visitValerie L Floro CNM Work Phone: [facility] [place] [facility]BGYNComment on above:Encounter for supervision of other normal , second trimester ([facility]) (Primary Dx); Choroid plexus cyst; related condition in second trimester ([facility]); History of sectionStart: 12-20-2024 End: 65-84-0524Sdurbjjvr encounterZully Alejandro MD Work Phone: [facility] [place] [facility] MedicineStart: 12-18-2024 End: 29-43-1712ctykvdlnosCSDLFMJ L FLORONot AvailableStart: 12-06-2024 End: 67-96-0812xacmbjvzdvBFZAUZF L FLORONot AvailableStart: 12-06-2024 End: 70-50-2309Idbxvz flowsheetValerie L Floro CNM Work Phone: [facility] [place] [facility]Start: 12-06-2024 End: 54-47-6541Eiqphu flowsheetValerie L Floro CNM Work Phone: [facility] [place] [facility]YNStart: 11-20-2024 End: 69-72-7205nkurwaqphsQKDAOHG L FLORONot AvailableStart: 11-07-2024 End: 43-80-7178vtvlvluggxOMUBRHI L FLORONot AvailableStart: 11-07-2024 End: 46-80-5878Mxbzsqckmo care visitValerie L Floro CNM Work Phone: [facility] [place] [facility]BGYNComment on above:Hypothyroidism, unspecified type (Primary Dx); Encounter for supervision of other normal , second trimester ([facility]); History of sectionStart: 11-07-2024 End: 65-65-7050Isvkhp flowsheetValerie L Floro CNM Work Phone: [facility] [place] [facility]YNStart: 11-07-2024 End: 89-83-3548Hlulmb flowsheetValerie L Floro CNM Work Phone: [facility] [place] [facility]YNStart: 10-12-2024 End: 73-98-6524Mlmwep flowsheetValerie L Floro CNM Work Phone: [facility] OBStart: 10-12-2024 End: 94-20-3221Xbceaq flowsheetValerie L Floro CNM Work Phone: [facility] OBStart: 10-12-2024 End: 62-71-9182wdtalinsueQMVNPNR L FLORONot AvailableStart: 10-12-2024 End: 45-67-8694Nzbwfspxuz care visitValerie L Floro CNM Work Phone: [facility]NR OBComment on above:Encounter for supervision of other normal , second trimester ([facility]) (Primary Dx); Hypothyroidism, unspecified type ; related condition in second trimester ([facility])Start: 09-06-2024 End: 37-75-5193iuudvpchewYOTXFDH L FLORONot AvailableStart: 09-06-2024 End: 53-28-5793Vxzntrmwhw care visitValerie L Floro CNM Work Phone: [facility] FNR OBComment on above:Encounter for supervision of other normal , first trimester (Primary Dx); History of sectionStart: 09-05-2024 End: 82-22-1390Qqtuyc OnlyValerie L Floro CNM Work Phone: [facility] FNR OBComment on above:Acquired hypothyroidism (CMS/HCC); Other specified hypothyroidismStart: 08-21-2024 End: 56-17-8207chuftlkxxpIgrultl L Anao CNM Work Phone: n[facility] FNR OBComment on above:GA: 2v1bUzzgh: 04-10-2024 End: 05-92-4205hkhqwjvscbLPQXHOP L FLORONot AvailableStart: 04-10-2024 End: 05-80-2103Mlyore flowsheetValerie L Floro CNM Work Phone: [facility]NR OBStart: 04-10-2024 End: 30-09-0124Dntgzx flowsheetValerie L Floro CNM Work Phone: [facility] OBStart: 09-04-2023 End: 53-49-7153ytwdooffqgWmhqdfebaRiverview Health Institute Work Phone: Start: 09-04-2023 End: 94-88-3439Sjyfzko encounter procedureFirsthealth [facility] Work Phone: Start: 05-17-2023 End: 31-60-3586Gcvadylyhb care visitValerie Bassem Perezo CNM Work Phone: [facility] FNR OBComment on above:Encounter for supervision of other normal , third trimester (Primary Dx); screening for streptococcus B; Hypothyroidism, unspecified type (CMS/HCC); Non-stress test reactiveStart: 57-78-4980Gchdqr flowsheetValerie L Floro CNM Work Phone: [facility]NR OBStart: 51-14-0493Svgubg flowsheetValerie L Floro CNM Work Phone: [facility] OBStart: 10-07-2021 End: 67-74-6520Gypdpbctbi and management of inpatientVALERIE ANAOMervadim McgrathLatrobe Hospitaltart: 10-07-2021 End: 05-87-7969Oatcdotbnx and management of inpatientValerie Floro [employer]ULLET TRUCKER - CNM Work Phone: mthz Labor and DeliveryComment on above:Delivery of by section (Primary Dx)Start: 09-12-2021 End: 77-54-4294vbmduhnizjFOYPR LIBRARabia Mcgrath HospitalStart: 09-12-2021 End: 60-37-8482Bsdjsujyok hospital visit by physicianMicha Ruffin APRN - [facility] Work Phone: [facility] Labor and Delivery Procedures DateProcedureProcedure DetailPerforming ClinicianStart: 79-32-1491Kvbzx test visual color cmprsn methsValerie L [facility] CN Work Phone: Start: 39-13-6796Ckezp count hemoglobinValerie [facility] CULLET TRUCKER - CN Work Phone: Start: 36-83-0560Srvtc count complete auto&auto difrntl wbcValerie [facility] CULLET TRUCKER - CN Work Phone: Start: 34-07-9900Blpt tst prsmv instrmnt chem analyzers pr dateValerie [facility] CULLET TRUCKER - CN Work Phone: Start: 98-13-4326Dwbhd nonstress testMicha Ruffin APRN - [facility] Work Phone: Start: 38-93-5461PDW, EXTERNAL RESULTHistorical Provider MDStart: 03-21-2021. TRACHOMATIS, EXTERNAL RESULTHistorical Provider MDStart: 64-89-9469TYECBGQFR B, EXTERNAL RESULTHistorical Provider MDStart: 87-80-9578XDE, EXTERNAL RESULTHistorical Provider MDStart: 03-21-2021N. GONORRHOEAE, EXTERNAL RESULTHistorical Provider MDStart: 07-77-3556XJ FACTOR, EXTERNAL RESULTHistorical Provider MDStart: 98-43-9788CGQ, EXTERNAL RESULT Historical Provider MDStart: 28-90-3705YRHIQYO TITER, EXTERNAL RESULTHistorical Provider MDStart: 42-81-8875Jwygvuok rubellaComment on above:Order Comment: [facility] Testing performed at: [employer], [facility], [address] [facility], [address], [place], [address], Software Support Representative: Luiz Dale MD [facility] Collection Date/Time: [id number] [facility] Results Received Date/Time: [id number] [facility] Reported Date/Time: [id number] Comment: Index Interpretation ----- <0.90 Not consistent with immunity 0.90-0.99 Equivocal > or = 1.00 Consistent with immunity The presence of rubella IgG antibody suggests immunization or past or current infection with rubella virus.Performed By: #### 37452I, 6304R, 430A, 2782A, 77004, 67040Q, 99019, 265F, 04467Y, 1149T, 42A, 88479 #### [facility] [address] [place], [place] [address]T/O: sectionHistory of sectionJah Pettit [facility] Work Phone: H/O: sectionHistory of section Jah Pettit [facility] Work Phone: H/O: sectionHistory of section Jah Pettit [facility] Work Phone: H/O: sectionHistory of section Jah Pettit [facility] Work Phone: Plan of Treatment DateCare ActivityDetailAuthorStart: 85-87-7035JPrE/Tdap/Td vaccine (8 - Td or Tdap)DTaP/Tdap/Td vaccine (8 - Td or Tdap)[facility]Start: 04-02-2025 End: 41-55-9934Pqzmsib encounter motdhhkfd16/29/2025 4:30 PM EST Routine KACY Ruvalcaba [facility] [place] [phone] Jah Pettit CNM [address] [place] [address] KACY [facility] OBGYNStart: 03-22-2025 End: 87-01-4852Txueiahgjrsl / ancillary services sciccdxvio42/18/2025 4:00 PM EST Ancillary Procedure [facility] [place] [facility] [address] [facility] [address] [place] [address] NKWG [place] ImagingStart: 03-15-2025 End: 13-00-6352Laejulpnelcz / ancillary services imadvazblt96/11/2025 4:00 PM EST Ancillary Procedure [facility] [place] [facility] [address] [facility] [place] [address] KFRC [place] ImagingStart: 03-12-2025 End: 74-78-0447Xldyivg encounter pobelyrpk13/08/2025 4:00 PM EST Routine [facility] [place] [facility] [address] [facility] [place] [phone] Jah Pettit CNM [address] [place] [address] [facility] [place] [facility]YNStart: 03-08-2025 End: 17-36-7649Wrpmzgnyptkt / ancillary services buzepysmkv93/04/2025 4:00 PM EST Ancillary Procedure [facility] [place] [facility] [address] [facility] [address] [facility] [place] [place] [address] JEFQ [place] ImagingStart: 03-05-2025 End: 32-11-1819Vfriier encounter uhcxjcsif07/01/2025 4:00 PM EST Routine [facility] [place] [facility] [address] [facility] [place] [phone] Jah Pettit CNM [address] [place] [address] [facility] [place] [facility]BGYNStart: 02-28-2025 End: 60-24-2784Wwhtglqbsyqx / ancillary services evrxvilzgt84/26/2025 4:00 PM EST Ancillary Procedure [facility] [place] [facility] [address] [place] [address] JWSO [place] ImagingStart: 02-22-2025 End: 21-67-9118Lovzsfdcvstx / ancillary services mlkuvqhtru87/20/2025 4:00 PM EST Ancillary Procedure [facility] [place] [facility] [address] [facility] [address] [place] [address] LZDM [place] ImagingStart: 02-20-2025 End: 98-03-4709Egpvwiz encounter jrdppyhqk21/18/2025 4:00 PM EST Routine [facility] [place] [facility] [address] [facility] [place] [phone] Jah Pettit, KWAMEM [address] [facility] [place] [address] [facility] [place] OBGYNStart: 02-19-2025 End: 42-73-9456Olhocso encounter fexvaedlb25/17/2025 5:00 PM EST Routine [facility] [place] [facility] [address] [facility] [place] [phone] Jah Pettit, KWAMEM [address] [facility] [place] [address] [facility] [place] [facility]BGYNStart: 02-15-2025 End: 94-73-1135Svrwspylfewl / ancillary services gpetnhkkys78/13/2025 4:00 PM EST Ancillary Procedure [facility] [place] [facility] [address] [facility] [address] [facility] [address] IBEL [place] ImagingStart: 02-12-2025 End: 95-40-3661Hdzswun encounter kobgektkh01/10/2025 4:00 PM EST Routine [facility] [place] [facility] [address] [facility] [place] [phone] Jah Pettit, CNM [address] [facility] [place] [address] [facility] [place] [facility]BGYNStart: 01-31-2025 End: 73-12-8220Faalteixjspo / ancillary services mtztyvzrwq85/29/2025 4:15 PM EDT Ancillary Procedure [facility] [address] [facility] [address] [place] [address] GSXV [place] ImagingStart: 01-17-2025 End: 48-67-3880Pwkstpi encounter dhtgoomae06/15/2025 2:30 PM EDT [facility] [address] [facility] [place] [phone] Jah Pettit, CNM [address] [facility] [place] [address] KACY [place] OBGYNStart: 01-17-2025 End: 77-02-7696KUP panel - Blood by Automated countCBC Lab Routine Screening for iron deficiency anemia Expected: 01/17/2025 (Approximate), Expires: 01/17/2026 [facility] HealthcareComment on above:Expected: 01/17/2025 (Approximate), Expires: 01/17/2026Start: 01-17-2025 End: 52-44-3392MADYEAE, GESTATIONAL SCREEN (50G)-135 CUTOFFGLUCOSE, GESTATIONAL SCREEN (50G)-135 CUTOFF Lab Routine Screening for diabetes mellitus Expected: 1 (Approximate), Expires: 01/17/2026[facility] Work Phone: Comment on above:Expected: 01/17/2025 (Approximate), Expires: 01/17/2026Start: 01-17-2025 End: 28-65-0839VNS W/REFLEX TO FT4TSH W/REFLEX TO FT4 Lab Routine Hypothyroidism, unspecified type Expected: 01/17/2025 (Approximate), Expires: 01/17/2026[facility] HealthcareComment on above:Expected: 01/17/2025 (Approximate), Expires: 01/17/2026Start: 01-17-2025 End: 68-35-5069IW biophysical profile wo non stress testingUS biophysical profile wo non stress testing Imaging Routine Hypothyroidism, unspecified typeExpected: 01/17/2025, Expires: 01/17/2026[facility] HealthcareComment on above:Expected: 01/17/2025, Expires: 01/17/2026Start: 01-17-2025 End: 39-58-7815VN for pregnancyUS OB follow up transabdominal approach Imaging Routine Hypothyroidism, unspecified type Expected: 01/17/2025, Expires: 01/17/2026[facility] HealthcareComment on above:Expected: 01/17/2025, Expires: 01/17/2026Start: 01-03-2025 End: 59-02-5891Ngjwuvo encounter dgxupuzle44/01/2025 4:30 PM EDT Routine [facility] [place] [facility] [address] [place] [phone] Jah Pettit, KWAMEM [address] [place] [address] [facility] [place] [facility]BGYNStart: 01-01-2025 End: 82-77-9955IT for pregnancyNOMS Healthcare Work Phone: Comment on above:Expected: 01/01/2025, Expires: 01/01/2026Start: 12-06-2024 End: 95-54-1460Lyfkpln encounter procedureNOPhelps Memorial Health Center OBGYNComment on above: Hypothyroidism, unspecified typeStart: 42-00-1047IQULO-19 Vaccine ( season)COVID-19 Vaccine ( season)[facility] HealthcareStart: 12-04-2024 Influenza vaccinationNOAZ HealthcareStart: 11-20-2024 End: 33-90-3218Rtjueojzravr / ancillary services managementNOMS [facility] Start: 11-07-2024 End: 09-88-2045Angppen encounter /05/2025 4:30 PM EDT Routine [facility] [address] [place] [address] Jah Pettit, CNM [address] [facility] [place] [address] NOMS FNR OBStart: 10-12-2024 End: 00-75-7884UBJ W/REFLEX TO FT4TSH W/REFLEX TO FT4 Lab Routine Hypothyroidism, unspecified type Expected: 10/12/2024 (Approximate), Expires: 10/12/2025[facility] Work Phone: Comment on above:Expected: 10/12/2024 (Approximate), Expires: 10/12/2025Start: 10-12-2024 End: 17-60-6820IA for pregnancyUS OB 14+ weeks anatomy scan Imaging Routine related condition in second trimester ([facility]) Expected: 10/12/2024, Expires: 10/12/2025[facility] HealthcareComment on above:Expected: 10/12/2024, Expires: 10/12/2025Start: 10-03-2024 End: 95-24-6671Bszesto encounter piddycgtr98/01/2025 4:30 PM EDT Routine [facility] [address] [facility] [place] [address] Jah Pettit, CNM [address] [place] [address] [facility] FNR OBStart: 09-06-2024 End: 39-26-3161Lumhppn encounter vxdocgyuz49/04/2025 4:30 PM EDT Routine [facility] [address] [facility] [place] [address] Jah Pettit, CNM [address] [facility] [place] [address] NOMS FNR OBStart: 08-30-2024 End: 45-89-4706Jzcpqzl encounter jayytboxj14/28/2025 4:15 PM EDT Routine [facility] [address] [facility] [place] [address] Jah Pettit, CNM [address] [facility] [place] [address] N[facility] FNR OBStart: 78-89-3308Oefwnezzq vaccinationInfluenza Vaccine (#1)[facility] HealthcareStart: 06-03-2023 End: 13-03-2637Ckelbdmrmnqe / ancillary services awczjtjtmr33/29/2024 4:15 PM EST Ancillary Procedure [facility] [address] [place] [address] [phone] [facility] ULTRASOUNDStart: 05-31-2023 End: 33-94-6064Ehkavyb encounter /26/2024 4:00 PM EST Routine [facility] [address] [facility] [place] [address] Jah Pettit, CN [address] [facility] [place] [address] [facility] FNR OBStart: 05-27-2023 End: 08-49-5073Jxvfpzeohmst / ancillary services /22/2024 4:15 PM EST Ancillary Procedure [facility] [address] [place] [address] KNIU FNR ULTRASOUNDStart: 05-24-2023 End: 65-09-3368Jrfutai encounter phixobqwl47/19/2024 4:00 PM EST Routine [facility] [address] [facility] [place] [address] Jah Pettit CNM [address] [facility] [place] [address] NOM[facility] FNR OBStart: 05-20-2023 End: 81-73-0696Unayumeiyewm / ancillary services dvlrqnaezo35/15/2024 4:15 PM EST Ancillary Procedure [facility] [address] [place] [address] [phone] FNR ULTRASOUNDStart: 05-17-2023 End: 67-88-8802HGFLRFONVWEO, GROUP B CULTURESTREPTOCCOUS, GROUP B CULTURE Lab Routine screening for streptococcus B Expected: 05/17/2023 (Approximate), Expires: 05/17/2024[facility] Work Phone: Comment on above:Expected: 05/17/2023 (Approximate), Expires: 05/17/2024Start: 05-17-2023 End: 19-29-1188KWQ W/REFLEX TO FT4TSH W/REFLEX TO FT4 Lab Routine Hypothyroidism, unspecified type (CMS/HCC) Expected: 05/17/2023 (Approximate), Expires: 05/17/2024[facility] HealthcareComment on above:Expected: 05/17/2023 (Approximate), Expires: 05/17/2024Start: 05-17-2023 End: 10-66-7442EG biophysical profile wo non stress testingUS biophysical profile wo non stress testing Imaging Routine Hypothyroidism, unspecified type(CMS/HCC) Expected: 05/17/2023, Expires: 05/17/2024[facility] HealthcareComment on above:Expected: 05/17/2023, Expires: 05/17/2024Start: 90-82-5911Pyeyrvdoo vaccinationInfluenza Vaccine (#1)[facility] MedicineStart: 56-92-8876Ekayrbvvo vaccinationHenrico Doctors' Hospital—Parham Campusart: 10-25-2020 Screening for malignant neoplasm of cervixPap smearSOUTHSIDE REGIONAL [facility]ICAL [facility] Start: 64-97-9497NOzG/Tdap/Td vaccine (1 - Tdap)DTaP/Tdap/Td vaccine (1 - Tdap) [facility]ENTERStart: 97-82-2025Izsnytmkmlho Vaccine: Pediatrics (0 to 5 Years) and At-Risk Patients (6 to 64 Years) (1 of 2 - PCV)Pneumococcal Vaccine: Pediatrics (0 to 5 Years) and At-Risk Patients (6 to 64 Years) (1 of 2 - PCV)[facility] MedicineStart: 42-92-8109Xvurvpuoz C screeningHepatitis C screenBON GUERNSEY MEMORIAL HOSPITALStart: 02-44-9999Nitfmcbpy for Chlamydia trachomatis Chlamydia screenSOUTHSIDE REGIONAL MEDICAL CENTERStart: 14-02-6670CMS screeningHIV screen [facility]ENTERStart: 95-49-1120Xfpsfydulp ScreenDepression ScreenCentra [facility] Hospital: 01-73-6023NDDLP-19 Vaccine (1)COVID-19 Vaccine (1)[facility] [employer] End: 50-28-2313Yuzwc nonstress testFetal nonstress test OB Routine One Time for 1 Occurrences starting 09/12/2021 until 09/12/2021 [facility] [employer] Phone: Comment on above:One Time for 1 Occurrences starting 09/12/2021 until 09/12/2021 End: 05-81-7521WQJGDTOC PACU OXYGEN THERAPY PROTOCOLInitiate PACU Oxygen Therapy Protocol Respiratory Care Routine Continuous until discontinued starting 10/09/2021[facility] [employer]Comment on above:Continuous until discontinued starting 10/09/2021Nonrebreather mask oxygenNonrebreather mask oxygen Respiratory Care Routine As directed - RT (PRN) until discontinued starting 10/09/2021[facility] [employer] Phone: comment on above:As directed - RT (PRN) until discontinued starting 10/09/2021xygen therapy [Minimum Data Set]Initiate Oxygen Therapy Protocol Respiratory Care Routine As Needed until discontinued starting 10/09/2021[facility] [employer] Phone: comment on above:As Needed until discontinued starting 10/09/2021pirometry panelIncentive spirometry Respiratory Care Routine Every 2hr while awake until discontinued starting 10/09/2021[facility] [employer] Phone: comment on above:Every 2hr while awake until discontinued starting 10/09/2021 Immunizations Immunization DateImmunizationNotesCare FbopnknnQedxcnra06-59-4339pddeahnfvd, tetanus toxoids and acellular pertussis vaccine, unspecified formulationValericharlotte Pettit APRN - [facility] Work Phone: [facility] [employer] Phone: [phone]xroe, mumps and rubella virus vaccine Jah Wilver JUDD - [facility] Work Phone: [facility] Work Phone: [phone]mnigaqcq virus vaccine, unspecified formulationValerie Wilver [facility] Work Phone: [facility] Payers DatePayer CategoryPayerPolicy [id number] Member Subscriber Plan / Payer (Effective 2021-Present) Name: Rula Tony Relation to Subscriber: Spouse Name: FARZANA TONY Date of : 1998 (Home) Address: [address] [place] [address] Payer ID: Not on file Type: Not on file Address: [address] [place] [id number] 96-29-8848XwftbbcNYZF BC [id number] 2021- [phone] [address] [place] [id number]. [id number] 1..840.324685.1.13.239.2.7.3.546174.58219-88-3195Zbvjice [id number] .0.1.750950.3.57[id number] 2.0.1.819564.3.57[id number] 2.0.1.505576.3.579.[id number] 2.840.1.853033.3.57[id number] 2.0.1.431597.3.57[id number] 2.840.1.471133.3.57[id number] 2.0.1.372301.3.57[id number] 2.0.1.360585.3.579.2.1[id number] 2.0.1.867831.3.579.[id number] 2.0.1.077389.3.57[id number] 2.0.1.336663.3.57[id number] 2.0.1.566973.3.57[id number] 2.0.1.047656.3.579.[id number] 2.0.1.874862.3.579.[id number] 2.0.1.893850.3.579.2.[id number] 2.0.1.671594.3.579.2.1259Self-paySelf Pay [id number] /[id number]bppb [facility] [id number]-[id number] Social History DateTypeDetailFacilityStart: 09-12-2021 End: 40-97-8189Dvyqcyc smoking status NHISNever smoked tobaccoZighra Phone: start: 09-12-2021 End: 65-18-1358Rnbhdyh use and exposureSmokeless tobacco non-userBON [facility] Phone: start: 09-12-2021 End: 72-57-2075Wdwwwud intakeLifetime non-drinker (finding)[facility] Phone: start: 01-63-3995Yiieqlj SDOH Alcohol Rucpzuddr8ZDO [employer] Phone: start: 48-07-2302UlyxbyfnWDC [employer] Phone: start: 85-03-3214Odt Assigned At BirthNot on fileZighra Phone: start: 09-02-2021 End: 00-55-3832Fbnhpcws to SARS-CoV-2 (event)Not sureZighra Phone: start: 04-12-2023 End: 29-85-2145Sjagfsx intakeNot AskedNOAZ HealthcareStart: 04-12-2023 End: 52-90-3367Zrmincg of Social functionNOAZ HealthcareStart: 04-12-2023 End: 85-72-2496Uzasays use panelNOAZ HealthcareStart: 63-34-6453Tozfvft Comment caffeine: 1-2 cups per dayNOAZ HealthcareStart: 01-78-1886Icq Assigned At FemaleNOAZ HealthcareStart: 32-09-2922Tspgpy identityIdentifies as female gender (finding)[facility] HealthcareStart: 97-04-4555Skkcgi orientationHeterosexual (finding)[facility] HealthcareThe thought of harming myself has occurred to meNever [facility] HealthcareStart: 08-21-2024 End: 86-48-5389Cdtbcrojp beverage intakeEx-drinker (finding)[facility] Start: 47-52-0912BvfFkkllsYLOD Healthcare Clinical Notes 05-28-2021 to 02-09-2025 Note Date & [id number] Telephone encounter Note* Telephone Encounter - Mario Lemons - 02/09/2025 3:00 PM EST Needs refill [facility] Levothyroxine [facility] [id number] Miscellaneous Notes* Telephone Encounter - Mario Lemons - 02/09/2025 3:00 PM EST Needs refill on Levothyroxine documented in this encounterFreeman Orthopaedics & Sports [id number] History of Present illness Narrative* Jah Pettit [...] Complications: Arrest of descent, delivered, current hospitalization ([facility]) Her is complicated by: Hypothyroid, [...] of other normal , third trimester ([facility]) Hypothyroidism, unspecified type - TSH W/REFLEX [...] for a routine visit. documented in this encounterFreeman Orthopaedics & Sports MedicineHqlqspuwha91-83-2954 History of Present illness Narrative* Jah Pettit [...] Complications: Arrest of descent, delivered, current hospitalization ([facility]) Her is complicated by: Hypothyroid The [...] for a routine visit. documented in this [facility]09-17-2025 Telephone encounter Note* Telephone Encounter - [...] ahead to schedule that. Thank you :) [facility] [id number] Miscellaneous Notes* Telephone Encounter - Ankita Mims [...] that. Thank you :) documented in this [facility]08-05-2025 History of Present illness Narrative* Jah [...] Complications: Arrest of descent, delivered, current hospitalization ([facility]) Her is complicated by: Hypothyroid, abdominal [...] supervision of other normal , second trimester ([facility]) History of section Continue vitamin. Labs reviewed. Rhogam GTT . Follow up in 2 weeks for a routine visit. documented in this encounterFreeman Orthopaedics & Sports [id number] History of Present illness Narrative* Jah Pettit [...] Complications: Arrest of descent, delivered, current hospitalization ([facility]) Her is complicated by: Hypothyroid [...] for a routine visit. documented in this encounterFreeman Orthopaedics & Sports [id number] History of Present illness Narrative* Jah Pettit [...] and repeat thyroid lab documented in this encounterFreeman Orthopaedics & Sports [id number] History of Present illness Narrative* Jah Pettit CNM - 09/05/2024 1:16 PM EDT Elevated thyroid lab on prenatals. Consulted with Dr Alejandro, patients PCP and she advised to increase thyroid to 88 mcg and repeat lab in 4 weeks. RX sent to pharmacy documented in this encounterFreeman Orthopaedics & Sports [id number] History of Present illness Narrative* Jah Pettit [...] GROUP B CULTURE; Future Hypothyroidism, unspecified type ([facility]) - TSH W/REFLEX TO FT4; Future - US biophysical profile wo non stress testing; Future Reactive NST today in office Continue vitamin. Labs reviewed. GBS taken today Expected mode of delivery repeat section Follow up in 1 week for a routine visit. documented in this [facility]07-09-2022 Hospital Discharge instructions* Instructions* Anahi Tamez RN - 10/11/2021 Follow-up with your OB doctor as specified. [facility] OB Department phone: Dr. Emerson Tovar CNM Dr. Job Barrios [facility] [address] [facility] [address] [place] or [place] Becca Pettit, MSN, CULLET TRUCKER, CNM [place] [address] [facility] [address] DIET Eat a well balanced diet focusing on foods high in fiber and protein. Drink plenty of fluids especially water. To avoid constipation you may take a mild stool softener as recommended by your doctor or vice president of academic affairs. ACTIVITY Gradually increase your activity. Resume exercise regimen only after advice by your doctor or vice president of academic affairs. Avoid lifting anything heavier than a gallon of milk for SIX weeks. Avoid driving until your doctor or vice president of academic affairs has given their approval. Rise slowly from [...] medications as recommended by your doctor or vice president of academic affairs for pain If you develop a warm, [...] vitamins as directed by your doctor or vice president of academic affairs. Refer to the booklet in the folder/binder for more information. If you feel you need more assistance or have questions, please call Rena Jenkins IBCLC, computing consultant, at or the OB department to [...] in your calf. documented in this encounterBON [facility] [employer] Work Phone: 1(868) 374-669707-09-2022 History of Present illness Narrative* Diana Barrios, CULLET TRUCKER - CNM - 10/11/2021 11:13 AM EDT [...] Gaona CNM - 10/09/2021 12:24 AM EDT Biometrics Technician Note: I first assisted Dr Norman with primary section for arrest of descent and failure to progress. I independently closed the skin incision with 4-0 vicryl on a Spencer needle. No active bleeding at closure, pt tolerated well. * Anya Jerome RN - 10/08/2021 10:17 PM EDT Corrections Corporal called Senior Technical Support Analyst RN to call in surgical team for . Corrections Corporal also called Gregg Obregon CRNA to come [...] rate: Baseline Heart Rate: 135 Accelerations: present Nat Instructor Variability: moderate Decelerations: absent Contraction frequency: irregular, [...] 9:05 AM EDT Patient off monitor from [id number] to shower and eat. * Anya Jerome [...] continue to monitor. documented in this encounterBON QUEEN OF THE VALLEY MEDICAL CENTERLabMinds Phone: 1(208) 121-838806-27-2022 NoteFINDINGS: Comparison made with prior ultrasound evaluation [...] and signed by Nuno Collins on 09/30/2021 [id number]06-20-2022 NoteFINDINGS: Comparison made with prior [...] Placenta Anterior Grade II Weight (g) by Tncypdbvgt51.5 % * These measurements result in an [...] and signed by Nuno Collins on 09/23/2021 [id number]06-13-2022 NoteFINDINGS: Comparison made with prior ultrasound [...] Placenta Anterior Grade II Weight (g) by Sytqakrnbh83.4 % * These measurements result in an [...] and signed by Nuno Collins on 09/16/2021 [id number]06-10-2022 Hospital Discharge instructions* Instructions* Vaishali Mayer RN - 09/12/[address] Emerson Tovar [facility] Dr. Job Barrios [id number] [place] [address] Job Richardson CN [address] [facility] [address] [phone] Becca Pettit, MSN, CULLET TRUCKER, CNM [facility] [address] [facility] [address] [address] Bhagat [address] [facility] [address] Diana Johnnieedin CNM [address] [place] [address] [place] [address] Micha Delgador CNM [address] [place] [address] [place] [address] [phone] ACTIVITY LIMITATIONS: ( )Up and about as [...] AND DELIVERY . documented in this encounterBON QUEEN OF THE VALLEY MEDICAL CENTERGatfol Technology Work Phone: [phone]) 871-168606-06-2022 NoteFINDINGS: Comparison made with prior ultrasound evaluation [...] Placenta Anterior Grade III Weight (g) by Lqnefgopmr29.2 % * These measurements result in an [...] and signed by Nuno Collins on 09/09/2021 0727[facility] hospitalkathleen [facility]02-23-2022 NoteFINDINGS: Comparison made with ultrasound evaluation of [...] Placenta Anterior Grade I Weight (g) by Ywxbdchzsc63.2 % * These measurements result in an [...] and signed by Nuno Collins on 05/29/2021 [id number] SpecialistEvaluation note* Diagnosis Encounter for induction of labor- Primary Delivery of by section Failure to progress in labor, delivered, current hospitalization Other and unspecified uterine inertia, with delivery Arrest of descent, delivered, current hospitalization Secondary uterine inertia, unspecified as to episode of care documented in this encounter ERNA MONTALVO [facility] Work Phone: evaluation note* Diagnosis Encounter for supervision of other normal , third trimester- Primary screening for streptococcus B screening for Streptococcus B Hypothyroidism, unspecified type (CMS/HCC) Non-stress test reactive state, incidental documented in this encounter [facility]Evaluation [facility]* Diagnosis Onset Date Resolution Status Mastitis, left, acute acute [facility] Work Phone: Evaluation note* Diagnosis Amenorrhea [...] hospitalization Jah Pettit APRN - SHERIDAN [address] [place] [address] [facility] [address] [place] [address] Referral IDStatusReasonStart DateExpiration DateVisits RequestedVisits [id number] Care Teams (unrecognized sec tion and content) Team MemberRelationshipSpecialtyStart DateEnd Date Zully Kerr MD [address] [place] [address] PCP - GeneralFami Medicine09/12/21Team MemberRelationshipSpecialtyStart DateEnd Date Zully Kerr MD [address] [place] [address] PCP - GeneralFami Medicine09/12/21Team MemberRelationshipSpecialtyStart DateEnd Date Zully Alejandro MD [address] [place] [address] [facility] - [facility]08/11/22Team MemberRelationshipSpecialtyStart DateEnd Date Zully Alejandro MD [address] [place] [address] PCP - [facility]Nor[facility] Medicine08/11/22 Team Status: Active Member Role Status Dates NON STAFF Primary Care Provider Active Team Status: Inactive Member Role Status Dates Cheri Bishop APRN Attending Provider Active Start: September 04, 2023 End: September 04, 2023NON STAFFPrimary Care ProviderActiveStart: September 04, 2023 End: September 04, 2023Team MemberRelationshipSpecialtyStart DateEnd Date Zully Alejandro MD [address] [place] [address] PCP - GeneralFamily Medicine08/11/22am MemberRelationshipSpecialtyStart DateEnd Date Zully Alejandro MD [address] [place] [address] PCP - GeneralFamily Medicine08/11/22am MemberRelationshipSpecialtyStart DateEnd Date Zully Alejandro MD [address] [place] [address] PCP - GeneralFamily Medicine08/11/22am MemberRelationshipSpecialtyStart DateEnd Date Zully Alejandro MD [address] [place] [address] PCP - GeneralFamily Medicine08/11/22 MemberRelationshipSpecialtyStart DateEnd Date Zully Alejandro MD [address] [place] [address] PCP - GeneralFamily Medicine08/11/22 MemberRelationshipSpecialtyStart DateEnd Date Zully Alejandro MD [address] [place] [address] PCP - GeneralFamily Medicine08/11/22Te MemberRelationshipSpecialtyStart DateEnd Date Zully Alejandro MD [address] [place] [address] PCP - GeneralFamily Medicine08/11/22Team MemberRelationshipSpecialtyStart DateEnd Date Zully Alejandro MD [address] [facility] [place] [address] PCP - GeneralManning Regional Healthcare Centerly Medicine08/11/22Te MemberRelationshipSpecialtyStart DateEnd Date Zully Alejandro MD [address] [facility] [place] [address] PCP - GeneralFamily Medicine08/11/22Te MemberRelationshipSpecialtyStart DateEnd Date Zully Alejandro MD [address] [facility] [place] [address] PCP - GeneralFalovering colony [facility] hospital Medicine08/11/22 INFORMATION SOURCE (unrecogn ized section and content) DATE CREATED AUTHOR 09/30/2021 [facility] 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.] frequent line interruptions/ long duration, Starting on [facility] 10/09/21 at 0209, For piggyback infusion, [...] IntraVENous, PRN, 1 dose, Starting on Wed10/09/21 [id number], Until Discontinued, Bleeding, Post- use ONLY after [...] BE BASED ON THE PRIMARY CLINICAL RECORDS. [employer] provides no warranty or guarantee of the accuracy or completeness of information in this document.
--- OUTSIDE RECORDS SUMMARY | 2025-04-03 08:23 | XMS_ITS | Encounter Summary ---
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 Name Role Phone Zully Alejandro MD Primary Care Provider [phone] Encounter Details DateTypeDepartmentCare Team (Latest Contact Info)Fvsmblveeik12/29/2025Results Follow-Up [facility] [address] [place] [address] Caro Pettit, SHERIDAN [address] [place], [place] [id number] AEROBIC ELDA CHARGE ([id number]) Social History Tobacco UseTypesPacks/DayYears UsedDateSmoking Tobacco: NeverSmokeless Tobacco: NeverAlcohol UseStandard Drinks/WeekCommentsNot Currently0 (1 standard drink = 0.6 oz pure alcohol)caffeine: 1-2 cups per dayPHQ-2AnswerDate RecordedPatient Health Questionnaire-2 [id number] Depression Scale AnswerDate RecordedEdinburgh Depression Scale Debyh94907/14/2023The thought of harming myself has occurred to me.Never4CommentsNo Sex and Gender InformationValueDate RecordedSex Assigned at BirthFemale 09/22/2022 12:13 PM EDTLegal DiaBrrgug21/14/2023 12:13 PM EDTGender Identity Ciezvo4209/22/2022 12:13 PM EDTSexual KlevorkkqsaKcahbezs77/20/2023 12:13 PM EDT documented as of this encounter Plan of Treatment DateTypeDepartmentCare Team (Latest Contact Info)Yjwkyiphbya13/31/2025 10:00 AM ESTPostpartum Visit NOMRoderick Jacksontoan [facility] [address] [facility] [place] [address] Caro Pettit CNM [address] [facility] [place] [address] documented as of this encounter Visit Diagnoses Not on filedocumented in this encounter Care Teams Team MemberRelationshipSpecialtyStart DateEnd Date Zully Alejandro MD [address] [facility] [address] PCP - GeneralFamily Medicine08/11/22documented as of this encounter
[2025-04-03 15:01] VITALS: BP 115/80; PULSE 90; TEMP 36.8; O2SAT 96
--- NOTE | 2025-04-03 15:01 | PC.NURSE ---
The Cecily family arrives for follow up. Alba states everyone is doing well, older children adjusting well to new sibling. Reports baby is fairly content, only fusses when hungry or needing a diaper change. Mom is experienced BF mom, states baby is latching well, only nursing 1 breast for 20 minutes then sleeps for 2-2.5 hours. Mom states milk is coming in fully today. Alba states no concerns for self or for healing after C/S. Taking Motrin or EX Tylenol for discomfort at home. is helpful and allowing rest and healing. VSS and assessment WNL. Incision clean, without drainage or redness. Steri-strips intact to incision. States will see care provider tomorrow for incision check. Baby with VSS and assessment WNL. Bili 11.2 today. Parents report feeding well every 2-3 hours (slightly longer during the niht) and has 8+ wets and 4+ yellow seedy stools. Diaper changed for both today. No concerns voiced. Family home at this time.
== END 2025-04-03 15:05 | disposition home or self-care (01) ==
LOC: FBCO 08:20
PROVIDERS: PCP Family Medicine; Visit Provider Obstetrics & Gynecology
DX: Z39.1 Encounter for care and examination of lactating mother (principal)